=== PATIENT | male | born 1940 | race Caucasian/White ===

== ENCOUNTER → 2018-01-08 | Outpatient (CLI) | payer OTHER | END | disposition home or self-care (01) | LOC: C.LABSPEC 16:42 | PROVIDERS: ATTEND Optometrist | DX: H10.45 Other chronic allergic conjunctivitis (principal) ==

== ENCOUNTER 2019-06-12 12:23 | Inpatient (IN) ==
[2019-06-12] MEDS ORDERED: SODIUM CHLORIDE 0.9% 1000ML 1,000 ML IV SCH (13:30)
[2019-06-12 13:48] LABS: Basophils # (auto) 0.01 K/uL (0-0.2); Basophils % (auto) 0.1 %; Eosinophils # (auto) 0.05 K/uL (0-0.5); Eosinophils % (auto) 0.6 %; Hematocrit (blood only) 38.5 % (42-52); Immature Granulocytes # (auto) 0.05 K/uL (0.00-0.02); Immature Granulocytes % (auto) 0.6 %; Lymphocytes # (auto) 0.87 K/uL (1.2-3.4); Lymphocytes % (auto) 9.7 %; Mean Corpuscular Hemoglobin 37.7 pg (25-34); Mean Corpuscular Hgb Conc 33.8 g/dL (32-36); Mean Corpuscular Volume 111.6 fL (80-100); Mean Platelet Volume 9.3 fL (7.4-10.4); Monocytes % (auto) 5.6 %; Neutrophils # (auto) 7.46 K/uL (1.4-6.5); Neutrophils % (auto) 83.4 %; Platelet Count 223 K/uL (130-400); RDW Coefficient of Variation 13.3 % (11.5-14.5); RDW Standard Deviation 54.2 fL (36.4-46.3); Red Blood Count 3.45 M/uL (4.7-6.1); White Blood Count 8.94 K/uL (4.8-10.8)
[2019-06-12] MEDS ORDERED: LORazepam 2 MG/4 ML VIAL ONE (13:49)
[2019-06-12] MEDS ORDERED: levETIRAcetam 1,250 MG in DEXTROSE 5% 100 ML IV STA (13:56)
[2019-06-12] MEDS ORDERED: LORazepam 0.5 MG/1 ML VIAL IV STA (13:58)
[2019-06-12] MEDS ORDERED: LORazepam 0.5 MG/1 ML VIAL IV PRN ×2 (13:59→17:29)
--- NOTE | 2019-06-12 14:00 | XRay Report ---
XR chest 1V portable CLINICAL HISTORY: weakness COMPARISON STUDY: No previous studies for comparison. FINDINGS: The heart is the upper limits of normal in size. There is no focal pulmonary consolidation. There are no pleural effusions. There is mild age-indeterminate interstitial thickening.[ IMPRESSION: 1. Mild age-indeterminate interstitial thickening. No evidence of lobar consolidation. ACT 112: Negative or not required by law. Electronically signed by: Kashif Sequeira M.D. 06/12/2019 1:59 PM
[2019-06-12 14:05] LABS: Albumin Level 2.9 gm/dl (3.4-5.0); Calcium 8.7 mg/dl (8.5-10.1); Creatinine Clr Calc Pharmacy 75.2 ml/min; Est GFR (African American) 104.4; Est GFR (Non-African American) 90.1; Potassium 3.8 mmol/L (3.5-5.1)
[2019-06-12 14:11] LABS: Macrocytosis Present
[2019-06-12 14:17] LABS: Albumin Globulin Ratio 0.7 (0.9-2); Bilirubin,Total 0.5 mg/dl (0.2-1); Globulin 3.9 gm/dl (2.5-4.0); Thyroid Stimulating Hormone 1.14 uIu/ml (0.300-4.500); Total Protein 6.8 gm/dl (6.4-8.2); Troponin I 0.182 ng/ml (0-0.045)
--- NOTE | 2019-06-12 14:25 | CT Scan Report ---
CT OF THE HEAD WITHOUT CONTRAST CLINICAL HISTORY: seizure COMPARISON STUDY: No previous studies for comparison. CT DOSE: 537.48 mGy.cm TECHNIQUE: Helical axial images of the head were obtained without IV contrast. Automated exposure con trol was utilized for the study. A dose lowering technique was utilized adhering to the principles o f ALARA. FINDINGS: No acute intracranial hemorrhage, midline shift or mass effect is present. Ventricular syst em is unremarkable. The basilar cisterns are patent. There are no extra-axial collections. Note is ma de of a 1.2 cm hypodense focus with possible loss of vargas-white differentiation within the right fron matty lobe on image 91 of 112. There are no significant calvarial abnormalities. There is mild sinus mu cosal thickening. IMPRESSION: 1. No acute intracranial hemorrhage. 2. 1.2 cm hypodense focus with possible loss of vargas-white differentiation within the right frontal l obe. This favors a small age indeterminate infarct. ACT 112: Negative or not required by law. Electronically signed by: Terry Keita M.D. 06/12/2019 2:24 PM
--- NOTE | 2019-06-12 15:03 | History & Physical Report ---
Date of Service June 12, 2019 Assessment & Plan (1) Seizure: Seizure No history of prior seizures CT Head: No acute intracranial hemorrhage. 1.2 cm hypodense focus with possible loss of vargas-white differentiation within the right frontal lobe. This favors a small age indeterminate infarct. Start on IV Keppra 500 mg BID IV ativan PRN for seizures Seizure, fall, aspiration precautions Obtain MRI brain, EEG Consult neurology Age indeterminant CVA Incidental finding on CT head No known history of CVA in the past Start on aspirin 81 mg daily Continue simvastatin Check lipid panel Unwitnessed fall No known history of loss of consciousness or head trauma Reports chronic generalized weakness since many months PT/OT UA--currently pending Mild troponin elevation Likely secondary to seizure, fall Patient denies any chest pain, shortness of breath Trend cardiac enzymes, check resting ECHO Repeat EKG in AM Hypertensive urgency Likely situational secondary to seizure BP improved currently Monitor COPD Ongoing tobacco use disorder No signs of COPD exacerbation Continue home inhalers Counseled to quit smoking Nicotine patch Dyslipidemia ON Statin GERD Continue PPI Temporal arteritis On chronic Prednisone Follows with rheumatology as outpatient Need to reconfirm home prednisone dose once patient more alert DVT Px: SCDs for now Code Status Full Code Disposition PT/OT prior to discharge History of Present Illness Chief Complaint: Seizure Primary Care Provider: Hernando Martel DO Patient is an 79-year-old male with history of COPD, tobacco use disorder, dyslipidemia, GERD, temporal arteritis, vitamin B12 deficiency and other problems presents with history of seizure-like activity. Patient is currently postictal and is unable to provide much history. Most of the history is obtained from old records, ER physician and patient's family. As per the family, patient had an unwitnessed fall this morning but denies any history of head trauma, loss of consciousness. Patient's family noticed him to have seizure-like activity while sitting in the chair which lasted for about 5 minutes. Patient was able to ambulate to bathroom later with the help of his family. Family states that he has been having generalized weakness for many months. Patient was noted to have a tongue bite after the seizure episode. Currently he states having dizziness and is drowsy. No known history of recent infections, fever or chills. Patient had a another episode of seizure while in ED which lasted for about 1 minute as per the family. Patient is currently able to move all his extremities. No known history of seizures in the past as per the family. CT head showed 1.2 cm hypodense focus with possible loss of vargas- white differentiation within the right frontal lobe suggestive of possible small age indeterminate infarct. No known history of CVA in the past as per the family. Patient received IV Keppra and Ativan in ED for seizure control. Denies any history of chest pain, SOB, pedal edema, fever, chills, headache, vertigo, slurred speech, facial deformity, nausea, vomiting, abdominal pain, diarrhea, dysuria, recent change in medications. Allergies Allergy/AdvReac Type Severity Reaction Status Date / Time Penicillins Allergy Mild Rash Verified 06/12/19 13:51 Home Medications Home Medications Medication Instructions Recorded Confirmed Type Boost 1 can PO DAILY 09/06/18 06/12/19 History omeprazole 20 mg PO HS 09/06/18 06/12/19 History simvastatin 40 mg PO HS 09/06/18 06/12/19 History albuterol sulfate [Ventolin HFA] 2 puff INHALATION QID PRN 06/12/19 06/12/19 History cyanocobalamin (vitamin B-12) 500 mcg PO DAILY 06/12/19 06/12/19 History [Vitamin B-12] loteprednol etabonate [Lotemax] 1 drp OPB DAILY 06/12/19 06/12/19 History prednisone 1 mg PO DAILY 06/12/19 06/12/19 History prednisone 5 mg PO DAILY 06/12/19 06/12/19 History tiotropium bromide [Spiriva with 1 cap INHALATION DAILY 06/12/19 06/12/19 History HandiHaler] Past Med/Surg History Medical History Anemia HX GERD (gastroesophageal reflux disease) Hearing deficit Hyperlipidemia Temporal arteritis REASON FOR PREDNISONE Surgical History History of colonoscopy History of esophagogastroduodenoscopy (EGD) History of tonsillectomy History of tooth extraction Family History Brother Cancer Social History Preferred Language: Slovenian Communication Ability: Effective Food Tray Assembler Required: No Beliefs That Will Affect Care: None Current Living Situation: Spouse Feels Safe at Home: Yes Smoking Status: Current every day smoker Tobacco Type: pipe ; Cigarettes Per Day: DAILY ; Second Hand Exposure: No ; Hx Alcohol Use: Yes Alcohol type: wine Hx Substance Use: No Review of Systems Review of Systems: All systems reviewed & are unremarkable except as noted in HPI & below Physical Exam Physical Exam: Physical Exam: Vitals signs as noted above General Appearance:Moderately built and nourished, no apparent distress Head: normocephalic, Atraumatic, +Tongue bite Eyes: normal inspection, EOMI Neck: supple, Trachea midline Respiratory/Chest: Decreased breath sounds, CTA, No accessory muscle use Cardiovascular: S1, S2, No murmur Abdomen/GI:Soft, Non tender, Bowel sounds present Extremities/Musculoskelatal:normal inspection, no edema Neurologic/Psych:Drowsy but easily awakes, grossly no focal neurological deficits Skin: normal color, warm Results & Data Vital Signs (Past 12 Hours) Vital Signs Temp Pulse Resp BP Pulse Ox 06/12/19 13:23 97 06/12/19 12:32 37.3 C 99 H 22 155/86 H 94 Laboratory Results Short CBC 06/12/19 Range/Units 13:35 WBC 8.94 (4.8-10.8) K/uL Hgb 13.0 L (14.0-18.0) g/dL Hct 38.5 L (42-52) % Plt Count 223 (130-400) K/uL BMP 06/12/19 13:35 Sodium 137 Potassium 3.8 Chloride 105 Carbon Dioxide 28 BUN 12 Creatinine 0.67 Glucose 111 H Calcium 8.7 Cardiac Enzymes 06/12/19 Range/Units 13:35 Troponin I 0.182 H* (0-0.045) ng/ml Liver Function 06/12/19 Range/Units 13:35 Total Bilirubin 0.5 (0.2-1) mg/dl AST 16 (15-37) U/L ALT 27 (12-78) U/L Alkaline Phosphatase 48 (45-117) U/L Albumin 2.9 L (3.4-5.0) gm/dl Medications Administered Home Medications Medication Instructions Recorded Confirmed Boost 1 can PO DAILY 09/06/18 06/12/19 omeprazole 20 mg PO HS 09/06/18 06/12/19 simvastatin 40 mg PO HS 09/06/18 06/12/19 albuterol sulfate [Ventolin HFA] 2 puff INHALATION QID PRN 06/12/19 06/12/19 cyanocobalamin (vitamin B-12) 500 mcg PO DAILY 06/12/19 06/12/19 [Vitamin B-12] loteprednol etabonate [Lotemax] 1 drp OPB DAILY 06/12/19 06/12/19 prednisone 1 mg PO DAILY 06/12/19 06/12/19 prednisone 5 mg PO DAILY 06/12/19 06/12/19 tiotropium bromide [Spiriva with 1 cap INHALATION DAILY 06/12/19 06/12/19 HandiHaler] ECG Additional Comments: EKG; sinus rhythm, PVCs, QTC 472, nonspecific ST-T wave changes
[2019-06-12 17:10] LABS: Appearance Urine Turbid (Clear); Bacteria Urine Automated Negative (Negative); Bilirubin Urine Negative (Negative); Blood Urine Negative (Negative); Cast Urine Automated 0 /lpf (0-5); Color Urine Yellow; Glucose Urine UA Negative (Negative); Ketones Urine Negative (Negative); Leukocyte Esterase Urine Negative (Negative); Nitrite Urine Negative (Negative); Protein Urine Negative (Negative); RBC Urine Automated 0-4 /hpf (0-4); Specific Gravity Urine 1.013 (1.000-1.030); Urobilinogen Urine Negative (Negative); pH Urine 8.5 (4.5-7.5)
[2019-06-12] MEDS ORDERED: ACETAMINOPHEN 325 MG TAB PO PRN (17:29)
[2019-06-12] MEDS ORDERED: ONDANSETRON INJ 2 MG/ML 2 ML VIAL IV PRN (17:29)
[2019-06-12] MEDS ORDERED: ASPIRIN 81 MG ECTAB PO STA (17:29)
[2019-06-12] MEDS ORDERED: POLYETHYLENE (MIRALAX) 17 GM PACK PO PRN (17:29)
[2019-06-12] MEDS ORDERED: ALBUT/IPRATROP 3MG/0.5MG NEB 3 ML VIAL NEB PRN (17:29)
[2019-06-12] MEDS: NICOTINE 14 MG/24 HR PATCH TD SCH (18:02)
--- NOTE | 2019-06-12 20:38 | Emergency Department Note ---
Entered by Tania Esparza acting as a scribe for Roge Luciano MD ED Provider Note CHIEF COMPLAINT: seizure HISTORY OF PRESENT ILLNESS: The patient is a 79 year old M who presents to the Emergency Room with complaints of an episode of a seizure that occurred prior to arrival. The HPI was provided by the patient and his . The patient states that he fell this morning. He denies that he tripped or experienced light-headedness prior to his fall. He notes that he did not hit his head or lose consciousness. He adds that he has had an issue with his balance for the past several months The patients states that she did not see the patient fall today. She notes that the patient was sitting in a chair but adds that she was in another room. She states that she heard a loud bang sound. She notes that she found the pat ient on the ground. She adds that the patient was stiff, shaking, and was not talking. She notes that the patient was shaking for 5 minutes. She adds that the patient came to his senses, right away, after he stopped shaking. The patient denies biting his tongue or experiencing urinary incontinence during his seizure. He adds that he has not had problems with his bowels or urine in the past couple of days. He states that he is currently experiencing right rib pain when he coughs. He denies being on any blood thinners. He notes that he has a history of COPD, anemia, and arteritis. He denies a past history of seizures. Pt denies LOC, headache, fevers, chills, diaphoresis, visual changes, neck pain, chest pain, breathing difficulties, nausea, vomiting, abdominal pain, back pain, leg pain, arm pain, melena, hematochezia, urinary symptoms, numbness, weakness, lymphadenopathy, rash, or other complaints. REVIEW OF SYSTEMS: See HPI for pertinent positives and negatives. A total of ten systems were reviewed and were otherwise negative. PMHx/PSHx: GERD, hearing deficit, hyperlipidemia, COPD, anemia, arteritis SOCIAL HISTORY: Patient lives at home. Patient drinks alcohol and smokes cigarettes. PHYSICAL EXAM: GENERAL: Awake, alert, uncomfortable-appearing, in no distress HENT: Normocephalic, atraumatic. Oropharynx unremarkable. EYES: PERRL. Normal conjunctiva. Sclera non-icteric. NECK: Inspection normal. Non-tender. Supple. No nuchal rigidity. FROM. No masses. RESPIRATORY: Clear to auscultation. No wheezes. No rales. Pursed lip breathing. CARDIAC: Normal rate. Normal rhythm. No murmurs. No rubs. Extremities warm and well perfused. Pulses equal. No JVD. GI: Soft, non-distended. No tenderness to palpation. No rebound or guarding. No masses. RECTAL: Deferred. MUSCULOSKELETAL: Atraumatic. Chest examination reveals no tenderness. The back is symmetrical on inspection without obvious abnormality. There is no CVA tenderness to palpation. No joint edema. LOWER EXTREMITIES: Calves are equal size bilaterally and non-tender. No edema. No discoloration. NEURO: Normal sensorium. No sensory or motor deficits noted. SKIN: No rash or jaundice noted. EMERGENCY DEPARTMENT COURSE: 1317: The patient was evaluated in room B4B, and a complete history and physical examination were performed. 1347: The patient is currently experiencing another seizure. 1353: The patient experienced a tonic clonic seizure. The patient was placed on a non-rebreather. The patient was postictal afterwards. The patient not experience a loss of bowel or bladder control. The patient was placed on a vehicle monitor technician which showed arrhythmia prior to, during, and after the event. The patient is now receiving Kepra and Ativan. The patients family was updated. 1434: I reviewed the patient's case with TALAT Conrda, for Dr. Pulliam, [facility]. She will evaluate the patient for further management. 1453: The patient is stable and resting comfortably. The plan was discussed with the patient and his family. MEDICAL DECISION MAKING: Patient placed in seizure precautions immediately upon arrival. Nursing notes reviewed and agree them. Additional history obtained from family The patient's history was concerning for a possible seizure. Differential diagnosis: Etiologies such as infection, hypoglycemia, electrolyte abnormalities, cardiac sources, intracerebral event, trauma, toxicologic, neurologic, as well as others were entertained. Physical examination: As above. No signs of trauma. ER treatment provided: Seizure precautions Monitoring IV Ativan IV Keppra On reassessment the patient was stable. No additional seizures. Diagnostics interpretation by me: ECG: No dysrhythmia or ischemia The labs revealed an unremarkable CBC and chemistry panel. Slight elevation of the patient's troponin. Imaging studies: CT scan of the brain was concerning for a possible subacute CVA. Consultation: [facility] The case was discussed and diagnostics were reviewed. The patient was evaluated in the ER and admitted.. IMPRESSION: Seizure, elevated troponin, subacute CVA PLAN: Admitted as inpatient CRITICAL CARE: I have personally spent greater than 30 minutes of critical care time in the direct management of this patient. This includes bedside care, interpretation of diagnostic studies, and testing, discussion with consultants, patient, and family members, and other required patient management activities. This 30 minutes is in excess of all separately billable procedures. The scribe's documentation has been prepared under my direction and personally reviewed by me in its entirety. I confirm that the note above accurately reflects all work, treatment, procedures, and medical decision making performed by me. Impression & Plan Seizure, Elevated troponin, CVA (cerebral vascular accident) Past Med/Surg History Medical History Anemia HX GERD (gastroesophageal reflux disease) Hearing deficit Hyperlipidemia Temporal arteritis REASON FOR PREDNISONE Surgical History History of colonoscopy History of esophagogastroduodenoscopy (EGD) History of tonsillectomy History of tooth extraction Family History Brother Cancer Social History Preferred Language: Japanese Communication Ability: Effective Piercing Artist Required: No Beliefs That Will Affect Care: None Current Living Situation: Spouse Other Information That Helps Us Care for You: No Feels Safe at Home: Yes Safety Concerns: Feels Safe At This Time Smoking Status: Current every day smoker Tobacco Type: pipe ; Cigarettes Per Day: DAILY ; Second Hand Exposure: Yes ; Tobacco Cessation Education Requested by Patient: No Hx Alcohol Use: Yes Alcohol type: wine Hx Substance Use: No Results & Data Vital Signs Vital Signs - 24 hr 06/12/19 12:32 06/12/19 12:36 06/12/19 13:00 Temperature 37.3 C Temperature Source Oral Pulse Rate 99 H 96 H 94 H Pulse Rate from SpO2 Sensor 90 93 H Pulse Rhythm Regular Pulse Strength Normal Respiratory Rate 22 21 19 Respiratory Effort / Characteristics Non-Labored Spontaneous Respiratory Depth Normal Respiratory Pattern Regular Blood Pressure 155/86 H 155/86 H 150/90 H Blood Pressure Mean 109 98 104 Blood Pressure Position Lying Pulse Oximetry 94 94 94 Oxygen Delivery Method Room Air Sepsis Recent Fever Within 48 Hours No Sepsis New/Unexplained Change in Mental Status No Sepsis Action Taken by Nursing No Action Required 06/12/19 13:23 06/12/19 13:30 06/12/19 13:48 Temperature Temperature Source Pulse Rate 98 H 120 H Pulse Rate from SpO2 Sensor 98 H 119 H Pulse Rhythm Pulse Strength Respiratory Rate 16 25 H Respiratory Effort / Characteristics Respiratory Depth Respiratory Pattern Blood Pressure 161/90 H 202/130 H Blood Pressure Mean 109 156 Blood Pressure Position Pulse Oximetry 97 97 100 Oxygen Delivery Method Room Air Sepsis Recent Fever Within 48 Hours Sepsis New/Unexplained Change in Mental Status Sepsis Action Taken by Nursing 06/12/19 14:11 06/12/19 14:30 06/12/19 15:00 Temperature Temperature Source Pulse Rate 102 H 94 H 94 H Pulse Rate from SpO2 Sensor 102 H 95 H 93 H Pulse Rhythm Pulse Strength Respiratory Rate 16 16 19 Respiratory Effort / Characteristics Respiratory Depth Respiratory Pattern Blood Pressure 160/98 H 142/85 H 136/81 Blood Pressure Mean 114 100 96 Blood Pressure Position Pulse Oximetry 94 93 95 Oxygen Delivery Method Sepsis Recent Fever Within 48 Hours Sepsis New/Unexplained Change in Mental Status Sepsis Action Taken by Nursing 06/12/19 15:02 06/12/19 15:30 Temperature Temperature Source Pulse Rate 91 H 90 Pulse Rate from SpO2 Sensor 91 H Pulse Rhythm Pulse Strength Respiratory Rate 19 20 Respiratory Effort / Characteristics Respiratory Depth Respiratory Pattern Blood Pressure 136/81 135/79 Blood Pressure Mean 96 92 Blood Pressure Position Pulse Oximetry 95 Oxygen Delivery Method Sepsis Recent Fever Within 48 Hours Sepsis New/Unexplained Change in Mental Status Sepsis Action Taken by Prison Medications Current Medication List: was personally reviewed by me Laboratory Data Attestation: I reviewed the patient's lab results. Result diagrams: 06/12/19 13:35 06/12/19 13:35 Lab Results 06/12/19 06/12/19 Range/Units 13:35 13:35 WBC 8.94 (4.8-10.8) K/uL RBC 3.45 L (4.7-6.1) M/uL Hgb 13.0 L (14.0-18.0) g/dL Hct 38.5 L (42-52) % MCV 111.6 H (80-100) fL MCH 37.7 H (25-34) pg MCHC 33.8 (32-36) g/dL RDW Std Deviation 54.2 H (36.4-46.3) fL RDW Coeff of Gene 13.3 (11.5-14.5) % Plt Count 223 (130-400) K/uL MPV 9.3 (7.4-10.4) fL Immature Gran % (Auto) 0.6 % Neut % (Auto) 83.4 % Lymph % (Auto) 9.7 % [place] % (Auto) 5.6 % Eos % (Auto) 0.6 % Baso % (Auto) 0.1 % Immature Gran # (Auto) 0.05 H (0.00-0.02) K/uL Neut # (Auto) 7.46 H (1.4-6.5) K/uL Lymph # (Auto) 0.87 L (1.2-3.4) K/uL [place] # (Auto) 0.50 (0.11-0.59) K/uL Eos # (Auto) 0.05 (0-0.5) K/uL Baso # (Auto) 0.01 (0-0.2) K/uL Macrocytosis Present Sodium 137 (136-145) mmol/L Potassium 3.8 (3.5-5.1) mmol/L Chloride 105 (98-107) mmol/L Carbon Dioxide 28 (21-32) mmol/L Anion Gap 4.0 (3-11) BUN 12 (7-18) mg/dl Creatinine 0.67 (0.6-1.4) mg/dl Est Cr Clr Drug Dosing 75.2 ml/min Est GFR ( Amer) 104.4 Est GFR (Non-Af Amer) 90.1 BUN/Creatinine Ratio 18.0 (10-20) Glucose 111 H (70-99) mg/dl Calcium 8.7 (8.5-10.1) mg/dl Magnesium 2.0 (1.8-2.4) mg/dl Total Bilirubin 0.5 (0.2-1) mg/dl AST 16 (15-37) U/L ALT 27 (12-78) U/L Alkaline Phosphatase 48 (45-117) U/L Troponin I 0.182 H* (0-0.045) ng/ml Total Protein 6.8 (6.4-8.2) gm/dl Albumin 2.9 L (3.4-5.0) gm/dl Globulin 3.9 (2.5-4.0) gm/dl Albumin/Globulin Ratio 0.7 L (0.9-2) TSH 1.140 (0.300-4.500) uIu/ml Administered Medications Sodium Chloride (Nss 1000ml) 1,000 mls @ 125 mls/hr IV .Q8H EMERY Stop: 06/12/19 21:29 Last Admin: 06/12/19 15:38 Dose: 125 mls/hr Documented by: [id number] Nicotine (Nicoderm Cq) 14 mg TD QAM EMERY Stop: 07/12/19 17:44 Last Admin: 06/12/19 18:02 Dose: Not Given Documented by: [id number] Discontinued Medications Aspirin (Ecotrin Ectab) 81 mg PO NOW STA Stop: 06/12/19 17:30 Last Admin: 06/12/19 18:02 Dose: 81 mg Documented by: [id number] Levetiracetam 1,250 mg/ (Dextrose) 112.5 mls @ 440 mls/hr IV NOW STA Stop: 06/12/19 14:11 Last Infusion: 06/12/19 15:38 Dose: 0 mls/hr Documented by: [id number] Admin: 06/12/19 14:46 Dose: 440 mls/hr Documented by: [id number] Lorazepam (Ativan) 0.5 mg in 1 mls @ 0.5 mls/min IV NOW STA Stop: 06/12/19 13:59 Last Admin: 06/12/19 13:47 Dose: 0.5 mls/min Documented by: [id number] Lorazepam (Ativan) 0.5 mg in 1 mls @ 0.5 mls/min IV ONE PRN PRN Reason: SEIZURE Stop: 06/12/19 15:45 Last Admin: 06/12/19 14:00 Dose: 0.5 mls/min Documented by: [id number] Lorazepam (Ativan) Confirm Administered Dose 2 mg .ROUTE .STK-MED ONE Stop: 06/12/19 13:50 Last Admin: 06/12/19 14:47 Dose: Not Given Documented by: [id number] Imaging Data Radiologist's Impression: Radiology results as stated below per my review and the radiologist's interpretation: XR chest 1V portable CLINICAL HISTORY: weakness COMPARISON STUDY: No previous studies for comparison. FINDINGS: The heart is the upper limits of normal in size. There is no focal pulmonary consolidation. There are no pleural effusions. There is mild age- indeterminate interstitial thickening.[ IMPRESSION: 1. Mild age-indeterminate interstitial thickening. No evidence of lobar consolidation. ACT 112: Negative or not required by law. Electronically signed by: Kashif Sequeira M.D. 06/12/2019 1:[address] OF THE HEAD WITHOUT CONTRAST CLINICAL HISTORY: seizure COMPARISON STUDY: No previous studies for comparison. CT DOSE: 537.48 mGy.cm TECHNIQUE: Helical axial images of the head were obtained without IV contrast. Automated exposure control was utilized for the study. A dose lowering technique was utilized adhering to the principles of ALARA. FINDINGS: No acute intracranial hemorrhage, midline shift or mass effect is present. Ventricular system is unremarkable. The basilar cisterns are patent. There are no extra-axial collections. Note is made of a 1.2 cm hypodense focus with possible loss of vargas-white differentiation within the right frontal lobe on image 91 of 112. There are no significant calvarial abnormalities. There is mild sinus mucosal thickening. IMPRESSION: 1. No acute intracranial hemorrhage. 2. 1.2 cm hypodense focus with possible loss of vargas-white differentiation within the right frontal lobe. This favors a small age indeterminate infarct. ACT 112: Negative or not required by law. Electronically signed by: Terry Keita M.D. 06/12/2019 2:24 PM ECG Data Attestation: I personally reviewed and interpreted this ECG as follows: Indication: + other (seizure) Rate (beats per minute): 98 Rhythm: sinus rhythm ECG Intervals/blocks: + Normal QRS ECG [place]: + Normal ECG ST segments: no ST depression and no ST elevation ECG Findings: + PVCs; no PACs Blood Pressure Blood Pressure Findings: Elevated blood pressure Blood Pressure Disposition: further management by hospitalist Discharge Plan Visit Data *Final* Discharge Date/Time: 06/12/19 17:10 Chief Complaint: Seizure Stated Complaint: seizure ED Provider: Roge Luciano Discharge Problem: Seizure, Elevated troponin, CVA (cerebral vascular accident) Patient Disposition: Admitted As Inpatient Discharge Instructions Interventions: ED Discharge Assessment Last Done: 06/12/19 17:10 Discharge Problem: CVA (cerebral vascular accident) Qualifiers: CVA mechanism: unspecified Qualified Code(s): I63.9 - Cerebral infarction, unspecified The scribe's documentation has been prepared under my direction and personally reviewed by me in its entirety. I confirm that the note above accurately reflects all work, treatment, procedures, and medical decision making performed by me.
[2019-06-12] MEDS: predniSONE 1 MG TAB PO SCH (20:52)
[2019-06-12] MEDS: PANTOprazole 40 MG TAB PO SCH (20:52)
[2019-06-12] MEDS ORDERED: SIMVASTATIN 40 MG TAB PO SCH (21:00)
[2019-06-12] MEDS ORDERED: GADOBUTROL 65ML VIAL IV PRN (22:28)
--- NOTE | 2019-06-12 23:12 | Magnetic Resonance Report ---
MRI OF THE BRAIN COMBO CLINICAL HISTORY: Seizure. COMPARISON STUDY: CT of the brain dated 06/12/2019. TECHNIQUE: MRI of the brain was performed utilizing various T1 and T2-weighted sequences in the axial , sagittal, and coronal planes. Contrast-enhanced sequences were acquired following the administratio n of 6 cc of Gadavist. The examination is performed using the seizure protocol. FINDINGS: Brain parenchyma: There is age-related involutional change noting mild subcortical and periventricula r microangiopathic disease. There is no hemorrhage or mass effect. There is a small focus of restrict ed diffusion identified in the high right frontal cortex consistent with acute to subacute ischemia. No additional foci of restricted diffusion are identified. No enhancing mass lesion is identified on the postcontrast images. Lazo-white matter differentiation is preserved. No extra-axial fluid collect ion is seen. The cerebellar tonsils are normal in configuration. Ventricles, sulci, and cisterns: Prominent secondary to involutional change. Pituitary and sella: Unremarkable. Intracranial vasculature: Normal flow voids are maintained at the skull base. Orbits: The bony orbits are grossly intact. Orbital contents are normal in appearance noting bilatera l ocular lens implants. Sinuses and mastoids: There is a large right mastoid effusion. The left mastoid air cells are clear. Mucosal thickening and trace fluid is noted in the sphenoid sinuses. The remaining paranasal sinuses are clear. Calvarium: Unremarkable. Soft tissues: A 3.0 cm cystic structure is identified in the posterior soft tissues of the upper neck . Cervical cord: The partially visualized cervical spinal cord is normal in appearance. IMPRESSION: 1. A small focus of restricted diffusion in the right frontal cortex is consistent with acute to suba cute ischemia. 2. No additional foci of acute ischemia are identified. 3. There is no hemorrhage or mass effect. ACT 112: Negative or not required by law. Electronically signed by: Drew Rees M.D. 06/12/2019 11:10 PM
[2019-06-13 06:01] LABS: Basophils # (auto) 0.01 K/uL (0-0.2); Basophils % (auto) 0.2 %; Eosinophils # (auto) 0.06 K/uL (0-0.5); Hematocrit (blood only) 37.8 % (42-52); Hemoglobin 12.7 g/dL (14.0-18.0); Immature Granulocytes # (auto) 0.05 K/uL (0.00-0.02); Immature Granulocytes % (auto) 0.8 %; Lymphocytes # (auto) 1.14 K/uL (1.2-3.4); Lymphocytes % (auto) 19.3 %; Mean Corpuscular Hemoglobin 36.8 pg (25-34); Mean Corpuscular Hgb Conc 33.6 g/dL (32-36); Mean Corpuscular Volume 109.6 fL (80-100); Mean Platelet Volume 9.7 fL (7.4-10.4); Monocytes # (auto) 0.49 K/uL (0.11-0.59); Monocytes % (auto) 8.3 %; Neutrophils # (auto) 4.15 K/uL (1.4-6.5); Neutrophils % (auto) 70.4 %; Platelet Count 227 K/uL (130-400); RDW Coefficient of Variation 13.3 % (11.5-14.5); RDW Standard Deviation 53.3 fL (36.4-46.3); Red Blood Count 3.45 M/uL (4.7-6.1)
[2019-06-13 06:36] LABS: BUN Creatinine Ratio 14.7 (10-20); Calcium 8.4 mg/dl (8.5-10.1); Creatinine Clr Calc Pharmacy 85.4 ml/min; Est GFR (Non-African American) 94.9; Potassium 3.6 mmol/L (3.5-5.1)
[2019-06-13] MEDS: NICOTINE 14 MG/24 HR PATCH TD SCH (08:03)
[2019-06-13] MEDS: TIOTROPIUM BROMIDE 5 PUFF/90 MCG INH INH SCH (08:04)
[2019-06-13] MEDS: ASPIRIN 81 MG ECTAB PO SCH (08:04)
[2019-06-13] MEDS: predniSONE 5 MG TAB PO SCH (08:04)
--- NOTE | 2019-06-13 08:56 | Ultrasound Report ---
ULTRASOUND OF THE CAROTID ARTERIES CLINICAL HISTORY: Stroke COMPARISON STUDY: None. TECHNIQUE: Real-time, grayscale, and color Doppler sonography of the carotid arteries was performed. Imaging reviewed in the transverse and longitudinal planes. NASCET criteria was utilized for stenosis calcification. FINDINGS: The right common carotid artery was evaluated. There was mild atheromatous plaque. The peak systolic velocity was 80 cm/s. At this point in the examination, the patient refused additional imaging stating that the examination was too painful. The examination is therefore nondiagnostic. IMPRESSION: 1. Nondiagnostic examination, as the patient refused completion of the study. ACT 112: Negative or not required by law. Electronically signed by: Kashif Sequeira M.D. 06/13/2019 8:55 AM
[2019-06-13] MEDS ORDERED: FOOD SUPPLEMT LACTOSE REDUCED PO SCH (09:00)
--- NOTE | 2019-06-13 09:30 | Electroencephalogram ---
EEG Procedure Note Date of Service June 13, 2019 Start / End Times Start Time: 0634 End Time: [address] Pulliam History Sequential seizures x2 Home Medication List Home Medications Medication Instructions Recorded Confirmed Type Boost 1 can PO DAILY 09/06/18 06/12/19 History omeprazole 20 mg PO HS 09/06/18 06/12/19 History simvastatin 40 mg PO HS 09/06/18 06/12/19 History albuterol sulfate [Ventolin HFA] 2 puff INHALATION QID PRN 06/12/19 06/12/19 History cyanocobalamin (vitamin B-12) 500 mcg PO DAILY 06/12/19 06/12/19 History [Vitamin B-12] loteprednol etabonate [Lotemax] 1 drp OPB DAILY 06/12/19 06/12/19 History prednisone 1 mg PO DAILY 06/12/19 06/12/19 History prednisone 5 mg PO DAILY 06/12/19 06/12/19 History tiotropium bromide [Spiriva with 1 cap INHALATION DAILY 06/12/19 06/12/19 History HandiHaler] Inpatient Medication List Aspirin (Ecotrin Ectab) 81 mg PO DAILY [facility] Stop: 07/13/19 08:59 Last Admin: 06/13/19 08:04 Dose: 81 mg Documented by: [id number] Gadobutrol (Gadavist 65ml) 6 ml IV ONCE PRN PRN Reason: Interaction Checking Stop: 06/16/19 22:27 Last Admin: 06/12/19 22:29 Dose: 6 ml Documented by: [id number] Levetiracetam 500 mg/ Dextrose 105 mls @ 440 mls/hr IV BID [facility] Stop: 07/12/19 20:59 Last Infusion: 06/13/19 08:33 Dose: 0 mls/hr Documented by: [id number] Admin: 06/13/19 08:03 Dose: 440 mls/hr Documented by: [id number] Infusion: 06/12/19 21:14 Dose: 0 mls/hr Documented by: [id number] Admin: 06/12/19 20:52 Dose: 440 mls/hr Documented by: [id number] Miscellaneous (Remove Nicoderm Patch) 1 ea N/A DAILY@[id number] [facility] Stop: 07/13/19 08:58 Last Admin: 06/13/19 08:04 Dose: 1 ea Documented by: [id number] Nicotine (Nicoderm Cq) 14 mg TD QAM [facility] Stop: 07/12/19 17:44 Last Admin: 06/13/19 08:03 Dose: 14 mg Documented by: [id number] Admin: 06/12/19 18:02 Dose: Not Given Documented by: [id number] Pantoprazole Sodium (Protonix) 40 mg PO HS [facility] Stop: 07/12/19 20:59 Last Admin: 06/12/19 20:52 Dose: 40 mg Documented by: [id number] Prednisone (Prednisone) 5 mg PO DAILY [facility] Stop: 07/13/19 08:59 Last Admin: 06/13/19 08:04 Dose: 5 mg Documented by: [id number] Prednisone (Prednisone) 1 mg PO HS [facility] Stop: 07/12/19 20:59 Last Admin: 06/12/19 20:52 Dose: 1 mg Documented by: [id number] Tiotropium Naoma (Spiriva) 1 puffs INH DAILY [facility] Stop: 07/13/19 08:59 Last Admin: 06/13/19 08:04 Dose: 1 puffs Documented by: [id number] Discontinued Medications Aspirin (Ecotrin Ectab) 81 mg PO NOW STA Stop: 06/12/19 17:30 Last Admin: 06/12/19 18:02 Dose: 81 mg Documented by: [id number] Sodium Chloride (Nss 1000ml) 1,000 mls @ 125 mls/hr IV .Q8H [facility] Stop: 06/12/19 21:29 Last Infusion: 06/12/19 23:53 Dose: 0 mls/hr Documented by: [id number] Admin: 06/12/19 15:38 Dose: 125 mls/hr Documented by: [id number] Levetiracetam 1,250 mg/ (Dextrose) 112.5 mls @ 440 mls/hr IV NOW STA Stop: 06/12/19 14:11 Last Infusion: 06/12/19 15:38 Dose: 0 mls/hr Documented by: [id number] Admin: 06/12/19 14:46 Dose: 440 mls/hr Documented by: [id number] Lorazepam (Ativan) 0.5 mg in 1 mls @ 0.5 mls/min IV NOW STA Stop: 06/12/19 13:59 Last Admin: 06/12/19 13:47 Dose: 0.5 mls/min Documented by: [id number] Lorazepam (Ativan) 0.5 mg in 1 mls @ 0.5 mls/min IV ONE PRN PRN Reason: SEIZURE Stop: 06/12/19 15:45 Last Admin: 06/12/19 14:00 Dose: 0.5 mls/min Documented by: [id number] Lorazepam (Ativan) Confirm Administered Dose 2 mg .ROUTE .STK-MED ONE Stop: 06/12/19 13:50 Last Admin: 06/12/19 14:47 Dose: Not Given Documented by: [id number] Simvastatin (Zocor) 40 mg PO HS [facility] Stop: 07/12/19 20:59 Last Admin: 06/12/19 20:52 Dose: 40 mg Documented by: [id number] Description This is a 21 electrode EEG with a single channel dedicated to limited EKG. The electrodes were placed in accordance with the International 10-20 system. This EEG obtained as a bedside recording without video analysis of patient movement and behavior was done during wakefulness and is characterized by the presence of well-developed bilaterally symmetrical posterior head region maximal background rhythm in the alpha range of up to 10 Hz and maximum frequency and 30 V of maximal amplitude. Polymorphic mid frequency modest voltage theta activity is seen in a symmetrical fashion over the central regions. Beta activity is seen bifrontally. No time during the waking tracing is or clear evidence for potentially epileptogenic activity for polyspike or spike-wave burst, focal sharp waves or focal spikes and there specifically is no evidence for focal spike activity originating from the anterior portion of the right hemisphere where recent CVA has been documented by MRI scan Interpretation This is a normal EEG during wakefulness without evidence for focal or generalized encephalopathy and without evidence for potentially epileptogenic activity Clinical Correlation This is a normal EEG.a normal EEG result exclude the diagnosis of a seizure disorder and clinical correlation is required Roge Dawn MD
[2019-06-13] MEDS: ACETAMINOPHEN 325 MG TAB PO PRN (11:02)
--- NOTE | 2019-06-13 13:41 | Neurology Consultation ---
Date of Consultation June 13, 2019 Assessment & Plan (1) CVA (cerebral vascular accident): 1. MRI brain- 1.2 cm hypodense right frontal lobe 2. TTE if not already done 3. start aspirin 81 mg and plavix 75 mg daily x 3 weeks then stop plavix aspirin for a lifetime 4. optimize HTN ,HLD, DM LDL <70 5. troponin elevated - cardiology for input- it is unclear what this event was 6. PT/OT speech- no apparent needs 7. CTA head/neck for further evaluation of vascular system 8. no driving state law after altered conscience, avoid heights, no swimming bathing alone follow up with neurology 4-6 weeks after discharge [facility] PAC schedule (2) Seizure: 1. Keppra 500 mg BID will continue for now 2. unclear what the seizure episodes were like- continue for now Supervising Physician Co-Signing Physician Notes I have seen and discussed above patient with Dr Roge Dawn, neurology I have reviewed this case and have attempted to obtain a history from several family members as the patient himself really denies that anything happened at all and will only admit to having had a fall and that his is "making things up" According to what I can glean from the chart and the family he had some form of change in mental status about a week ago and was apparently making little or no sense during his conversations and may have had some word finding issues Yesterday he apparently had an unwitnessed fall was found by his , was then placed back in a chair having for unclear reasons being unable to stand up and sit in a chair himself and then had some chronic posturing of his extremities requiring her to try to restrain him and then became unresponsive. After having been brought to our emergency room he had another event that was described as a tonic-clonic seizure but detailed description really is lacking and he refuses to acknowledge that anything happened although admits that he does not recall these events He has not had any further seizure-like activity after having been loaded with Keppra, imaging studies have shown what appears to be a relatively recent right frontal infarction involving the cortex and subcortex an EEG is normal but this does not eliminate potential seizure activity. An echocardiogram is been done but I cannot locate the report is yet and he could not tolerate the neck extension required to do a duplex of the carotids If indeed this was a seizure then I suspect the acute or at least recent stroke was probably the precipitating cause and we are going to continue the Keppra empirically for at least 6 months and perhaps longer A more importance however is the potential cause of the stroke and in light of the temporal arteritis diagnosis which may or may not be valid (biopsy was negative) we are going to go ahead with a CT angiogram of the head and neck to be sure there is no vasculitis operating here and continue to monitor him for atrial fibrillation and hopefully review the results of the echo I would continue the aspirin, add Plavix for 21 days and now continue to make rounds on him through the weekend and try to come up with a discharge policy neurologic point of view within the next day or 2 depending on results of the outstanding imaging studies Roge Dawn MD History of Present Illness Reason for Consultation: seizure Requesting Physician: Dipak Huang MD Attending Physician: Dipak Huang MD History of Present Illness Ace is a 79 year old male with PMH- COPD, tobacco- pipe, HLD, GERD, temporal arteritis- 09/09/2018 biopsy negative, vitamin B12 deficiency presents with history of seizure-like activity. He had an unwitnessed fall this morning but denies any history of head trauma, loss of consciousness. He was reported while sitting in the chair he had an unwitnessed fall from the chair when his found him he responded right away afterward. He was able to ambulate to bathroom later with the help of his family but report he was having generalized weakness for many months. He denies biting his tongue and was dizzy and drowsy afterward. No known history of recent infections, fever or chills. There was another episode of seizure while in ED which lasted for about 1 minute. No known history of seizures in the past as per the family. CT head showed 1.2 cm hypodense focus with possible loss of vargas-white differentiation within the right frontal lobe suggestive of possible small age indeterminate infarct. He received IV Keppra and Ativan in ED for seizure control. He was not on aspirin daily prior to this event. He states he thinks his over reacted to the fall. He does admit to falling but states he did not have a loss of conscience. denies CP, SOB, abdominal pain, one sided weakness, numbness tingling, N, V, loss of bowel or bladder. + right sided rib pain. Allergies Allergy/AdvReac Type Severity Reaction Status Date / Time Penicillins Allergy Mild Rash Verified 06/12/19 13:51 Home Medications Home Medications Medication Instructions Recorded Confirmed Type Boost 1 can PO DAILY 09/06/18 06/12/19 History omeprazole 20 mg PO HS 09/06/18 06/12/19 History simvastatin 40 mg PO HS 09/06/18 06/12/19 History albuterol sulfate [Ventolin HFA] 2 puff INHALATION QID PRN 06/12/19 06/12/19 History cyanocobalamin (vitamin B-12) 500 mcg PO DAILY 06/12/19 06/12/19 History [Vitamin B-12] loteprednol etabonate [Lotemax] 1 drp OPB DAILY 06/12/19 06/12/19 History prednisone 1 mg PO DAILY 06/12/19 06/12/19 History prednisone 5 mg PO DAILY 06/12/19 06/12/19 History tiotropium bromide [Spiriva with 1 cap INHALATION DAILY 06/12/19 06/12/19 History HandiHaler] Patient History Medical History Anemia HX GERD (gastroesophageal reflux disease) Hearing deficit Hyperlipidemia Temporal arteritis REASON FOR PREDNISONE Surgical History History of colonoscopy History of esophagogastroduodenoscopy (EGD) History of tonsillectomy History of tooth extraction Family History Brother Cancer Social History Preferred Language: Danish Communication Ability: Effective Patient Resource Specialist Required: No Beliefs That Will Affect Care: None Current Living Situation: Spouse Other Information That Helps Us Care for You: No Feels Safe at Home: Yes Safety Concerns: Feels Safe At This Time Smoking Status: Current every day smoker Tobacco Type: pipe ; Cigarettes Per Day: DAILY ; Second Hand Exposure: Yes ; Tobacco Cessation Education Requested by Patient: No Hx Alcohol Use: Yes Alcohol type: wine Hx Substance Use: No Physical Exam Physical Exam: Physical Exam: Constitutional: appearance nourished, healthy and normal Ears, Nose, Mouth and Throat: mucous membranes moist, no injection and skin normal, eyes normal Cardiovascular: normal S-1 and S-2 and regular rate and rhythm Respiratory: course breath sounds Musculoskeletal: no peripheral edema and good distal pulses Skin: no stigmata of neurocutaneous disease noted and normal and intact Eyes: extraocular muscles intact (EOMI) and pupils equal, round and reactive to light (PERRL) NEUROLOGIC EXAMINATION: Mental status: Alert and interactive Oriented to hospital, 2019, Norma, "just don't ask me who is president" Oriented to person Speech fluent with no evidence of aphasia Cranial Nerves smile eye brow raise symmetric Reflexes: Deep tendon reflexes were symmetrical and graded 2/5. Sensory: no sensory deficits, to light touch, vibration GT proprioception intact bilaterally Coordination: finger to nose no bipass Gait/Stance: Posture sitting up in bed Motor: Negative for pronator drift of out stretched arms with eyes closed. Strength: hand cad specialist biceps triceps 5/5 bilaterally, hip flex patellar, plantar flex ext bilaterally 5/5 Results & Data Vital Signs (Past 12 Hours) Vital Signs Temp Pulse Pulse Pulse Resp BP Pulse Ox 06/13/19 13:00 36.5 C 100 H 22 121/79 96 06/13/19 08:00 84 06/13/19 03:35 36.7 C 92 H 17 129/81 95 Laboratory Results Abnormal lab results 06/12/19 06/12/19 06/12/19 Range/Units 13:35 13:35 16:15 RBC 3.45 L (4.7-6.1) M/uL Hgb 13.0 L (14.0-18.0) g/dL Hct 38.5 L (42-52) % MCV 111.6 H (80-100) fL MCH 37.7 H (25-34) pg RDW Std Deviation 54.2 H (36.4-46.3) fL Immature Gran # (Auto) 0.05 H (0.00-0.02) K/uL Neut # (Auto) 7.46 H (1.4-6.5) K/uL Lymph # (Auto) 0.87 L (1.2-3.4) K/uL Creatinine (0.6-1.4) mg/dl Glucose 111 H (70-99) mg/dl Calcium (8.5-10.1) mg/dl Troponin I 0.182 H* (0-0.045) ng/ml Albumin 2.9 L (3.4-5.0) gm/dl Albumin/Globulin Ratio 0.7 L (0.9-2) Urine Appearance Turbid A (Clear) Urine pH 8.5 H (4.5-7.5) U Epithel Cells (Auto) 10-20 H (0-5) /lpf 06/12/19 06/13/19 06/13/19 Range/Units 21:24 05:25 05:25 RBC 3.45 L (4.7-6.1) M/uL Hgb 12.7 L (14.0-18.0) g/dL Hct 37.8 L (42-52) % MCV 109.6 H (80-100) fL MCH 36.8 H (25-34) pg RDW Std Deviation 53.3 H (36.4-46.3) fL Immature Gran # (Auto) 0.05 H (0.00-0.02) K/uL Neut # (Auto) (1.4-6.5) K/uL Lymph # (Auto) 1.14 L (1.2-3.4) K/uL Creatinine 0.59 L (0.6-1.4) mg/dl Glucose (70-99) mg/dl Calcium 8.4 L (8.5-10.1) mg/dl Troponin I 0.431 H* (0-0.045) ng/ml Albumin (3.4-5.0) gm/dl Albumin/Globulin Ratio (0.9-2) Urine Appearance (Clear) Urine pH (4.5-7.5) U Epithel Cells (Auto) (0-5) /lpf 06/13/19 Range/Units 05:25 RBC (4.7-6.1) M/uL Hgb (14.0-18.0) g/dL Hct (42-52) % MCV (80-100) fL MCH (25-34) pg RDW Std Deviation (36.4-46.3) fL Immature Gran # (Auto) (0.00-0.02) K/uL Neut # (Auto) (1.4-6.5) K/uL Lymph # (Auto) (1.2-3.4) K/uL Creatinine (0.6-1.4) mg/dl Glucose (70-99) mg/dl Calcium (8.5-10.1) mg/dl Troponin I 0.342 H* (0-0.045) ng/ml Albumin (3.4-5.0) gm/dl Albumin/Globulin Ratio (0.9-2) Urine Appearance (Clear) Urine pH (4.5-7.5) U Epithel Cells (Auto) (0-5) /lpf Diagnostic Findings CXR-Mild age-indeterminate interstitial thickening. No evidence of lobar consolidation. CT head- No acute intracranial hemorrhage. 1.2 cm hypodense focus with possible loss of vargas-white differentiation within the right frontal lobe. This favors a small age indeterminate infarct. MRI brain-A small focus of restricted diffusion in the right frontal cortex is consistent with acute to subacute ischemia. No additional foci of acute ischemia are identified. There is no hemorrhage or mass effect. Normal EEG.a normal EEG result does not exclude the diagnosis of a seizure disorder and clinical correlation is required (1) CVA (cerebral vascular accident) CVA mechanism: unspecified Qualified Code(s): I63.9 - Cerebral infarction, unspecified
[2019-06-13] MEDS ORDERED: OPTIRAY 320 125ml IV PRN (15:48)
--- NOTE | 2019-06-13 16:16 | CT Scan Report ---
CT angio neck with con, CT angio head w con CLINICAL HISTORY: 79 years-old Male with acute subacute stroke. Acute strokelike symptoms COMPARISON STUDY: Brain MRI 06/12/2019 TECHNIQUE: Following the IV administration of 117 mL of Optiray 320, CT angiogram of the head and nec k was performed from the aortic arch to the skull base. Images are reviewed in the axial, sagittal, a nd coronal planes. 3-D MIPS images are created and assessed. IV contrast was administered without com plication. All measurements were calculated based on NASCET criteria. A dose lowering technique was utilized adhering to the principles of ALARA. CT DOSE: 636.98 mGy.cm FINDINGS: The imaged opacified pulmonary arterial tree is unremarkable. Three-vessel morphology of aortic arch which demonstrates moderate mixed plaque. Patent proximal bilateral subclavian arteries. The bilatera l common carotid arteries are patent. Moderate mixed plaque of the bilateral carotid bulbs and proxim al internal carotid arteries results in less than 50% stenosis bilaterally. Bilateral internal caroti d arteries are patent. The bilateral middle and anterior cerebral arteries are patent. Diminutive mor phology of the left A1 segment, likely developmental. Codominant vertebral arteries. The bilateral vertebral arteries are patent and within normal limits. The basilar and posterior cerebral arteries appear patent. origin of the right posterior cerebr al artery. Patent cerebral venous sinuses. No aneurysm, dissection, high-grade stenosis or proximal b ranch occlusion. No abnormal intracranial enhancement. Age-related involutional changes with ex vacuo ventriculomegaly. Multinodular thyroid including a 1.2 x 2.0 cm hypodense nodule. No pneumothorax. B iapical pleural-parenchymal scarring. Moderate emphysema with bilateral bronchial wall thickening. No adenopathy. Stick lesion measuring up to 3.8 cm transversely within the subcutaneous soft tissues of the lower neck on the left suggests a probable sebaceous cyst. Moderate right mastoid effusion. Mult ilevel degenerative changes of the spine. IMPRESSION: 1. No aneurysm, dissection, high-grade stenosis or proximal branch occlusion. 2. Additional incidental findings as above. ACT 112: Negative or not required by law. The above report was generated using voice recognition software. It may contain grammatical, syntax o r spelling errors. Electronically signed by: Dave Kemp M.D. 06/13/2019 4:15 PM
--- NOTE | 2019-06-13 16:55 | Hospitalist Progress Note ---
Date of Service June 13, 2019 Assessment & Plan (1) Seizure: Stroke -Patient was admitted to hospital after unwitnessed fall and was found by his and that patient's concerned that patient may have had a seizure -admission CT head scan: No acute intracranial hemorrhage. 1.2 cm hypodense focus with possible loss of vargas-white differentiation within the right frontal lobe. This favors a small age indeterminate infarct. -patient was empirically started on IV Keppra 500 mg BID for seizures -MRI brain then resulted as: A small focus of restricted diffusion in the right frontal cortex is consistent with acute to subacute ischemia. -as per neurology Dr. Dawn evaluation 06/13/19: "If indeed this was a seizure then I suspect the acute or at least recent stroke was probably the precipitating cause and we are going to continue the Keppra empirically for at least 6 months and perhaps longer" -aspirin 81 mg have been given to patient, continue as daily and started clopidogrel daily on 06/13/19; patient also to be started on 06/13/19 of atorvastatin 40 mg qhs -Neurology subsequently ordered Head CTA/Neck CTA. These were performed on 06/13/19 and No aneurysm, no dissection, no high-grade stenosis and no proximal branch occlusion. -continue to monitor patient in the hospital and await further recommendations -continue PT/OT evaluations Temporal arteritis diagnosed in the past chronic use of systemic steroids -On chronic Prednisone ; Follows with rheumatology as outpatient -Head CTA/Neck CTA on 06/13/19 does not suggest any defects of vasculitis Elevated troponins -troponins on this admission as 0.182, peaked at 0.431 and then downtrend as 0.342 -Patient denies any chest pain, shortness of breath -echocardiogram 06/13/19 with severe concentric left ventricular hypertrophy but otherwise normal systolic function with EF 60 to 65%, no wall motion abnormalities, no valvular pathologies -admitting hospitalist had surmised that patient's elevated troponins may have been due to initial seizure event -no current arrhythmia noted on telemetry -no cardiology consult needed at this time Hypertensive urgency on admission -admitting hospitalist had surmised that patient's elevated blood pressure may have been due to initial acute event (such as seizure event) -blood pressures have improved -currently blood pressure is normotensive without blood pressure medications COPD (chronic obstructive pulmonary disease) Tobacco use -No signs of COPD exacerbation -Continue home inhalers -Counseled to quit smoking -Nicotine patch GERD -Continue PPI DVT Prophylaxis: SCDs Code Status Full Code Family [phone] Disposition PT/OT prior to discharge Subjective No acute telemetry events. patient denies chest pain. no palpitations. no fevers. no nausea. no vomiting. no headache. no dizziness. no lightheadedness Review of Systems Review of Systems: All systems reviewed & are unremarkable except as noted in HPI & below Physical Exam Constitutional: comfortable Eyes: PERRL, conjunctivae normal, anicteric sclerae EOM intact bilaterally ENMT: external ear and nose normal, oropharynx normal Neck: normal visual inspection Respiratory: normal respiratory effort, lungs clear to auscultation Cardiovascular: Rate/Rhythm: regular rhythm Gastrointestinal (Abdomen): normal bowel sounds, soft, nontender, no hepatosplenomegaly Musculoskeletal: Head/Neck/Chest: normocephalic and head atraumatic Neurologic: PERRL, EOMI, accommodation nl, no face palsy, no dysarthria CN's II-XI intact bilaterally Psychiatric: Orientation: alert and cooperative Results & Data Vital Signs (Past 12 Hours) Vital Signs Temp Pulse Pulse Resp BP Pulse Ox 06/13/19 13:00 36.5 C 100 H 22 121/79 96 06/13/19 08:00 84
[2019-06-13] MEDS ORDERED: CLOPIDOGREL BISULFATE 75 MG TAB PO ONE (17:02)
[2019-06-13] MEDS: PANTOprazole 40 MG TAB PO SCH (20:54)
[2019-06-13] MEDS: predniSONE 1 MG TAB PO SCH (20:54)
[2019-06-13] MEDS: ATORVASTATIN 40 MG TAB PO SCH (20:54)
[2019-06-14 01:17] LABS: Potassium 3.8 mmol/L (3.5-5.1)
[2019-06-14 01:19] LABS: Magnesium 1.9 mg/dl (1.8-2.4)
[2019-06-14 06:39] LABS: BUN Creatinine Ratio 17.4 (10-20); Calcium 8.6 mg/dl (8.5-10.1); Est GFR (African American) 86.7; Est GFR (Non-African American) 74.8; Potassium 3.5 mmol/L (3.5-5.1)
[2019-06-14] MEDS ORDERED: POTASSIUM CHLORIDE 20 MEQ TABCR PO STA ×2 (07:25→12:24)
[2019-06-14] MEDS: ASPIRIN 81 MG ECTAB PO SCH (07:55)
[2019-06-14] MEDS: CLOPIDOGREL BISULFATE 75 MG TAB PO SCH (07:55)
[2019-06-14] MEDS: TIOTROPIUM BROMIDE 5 PUFF/90 MCG INH INH SCH (07:55)
[2019-06-14] MEDS: NICOTINE 14 MG/24 HR PATCH TD SCH (07:55)
[2019-06-14] MEDS: predniSONE 5 MG TAB PO SCH (07:55)
--- NOTE | 2019-06-14 09:00 | Hospitalist Progress Note ---
Date of Service June 14, 2019 Assessment & Plan (1) Seizure: Stroke -Patient was admitted to hospital after unwitnessed fall and was found by his and that patient's concerned that patient may have had a seizure -admission CT head scan: No acute intracranial hemorrhage. 1.2 cm hypodense focus with possible loss of vargas-white differentiation within the right frontal lobe. This favors a small age indeterminate infarct. -patient was empirically started on IV Keppra 500 mg BID for seizures -MRI brain then resulted as: A small focus of restricted diffusion in the right frontal cortex is consistent with acute to subacute ischemia. -as per neurology Dr. Dawn evaluation 06/13/19: "If indeed this was a seizure then I suspect the acute or at least recent stroke was probably the precipitating cause and we are going to continue the Keppra empirically for at least 6 months and perhaps longer" -aspirin 81 mg have been given to patient, continue as daily and started clopidogrel daily on 06/13/19; patient also to be started on 06/13/19 of atorvastatin 40 mg qhs -Neurology subsequently ordered Head CTA/Neck CTA. These were performed on 06/13/19 and No aneurysm, no dissection, no high-grade stenosis and no proximal branch occlusion. -continue to monitor patient in the hospital and await further recommendations -continue PT/OT evaluations Temporal arteritis diagnosed in the past chronic use of systemic steroids -On chronic Prednisone ; Follows with rheumatology as outpatient -Head CTA/Neck CTA on 06/13/19 does not suggest any defects of vasculitis Elevated troponins Ventricular Tachycardia -troponins on this admission as 0.182, peaked at 0.431 and then downtrend as 0.342 -Patient denies any chest pain, shortness of breath -echocardiogram 06/13/19 with severe concentric left ventricular hypertrophy but otherwise normal systolic function with EF 60 to 65%, no wall motion abnormalities, no valvular pathologies -admitting hospitalist had surmised that patient's elevated troponins may have been due to initial seizure event -no current arrhythmia noted on telemetry -no cardiology consult needed at this time -Patient had episode of 6 beat run of Vtach versus wide complex tachycardia recorded on telemetry at 12:33 AM of 06/14/19. Patient reported poor sleep but no symptoms. no chest pain. no palpitations. no abdominal pain. no dizziness. no lightheadedness. patient's heart rates in the AM noted to be low 100s and with some ambulation the telemetry records heart rate of 120 bpm and patient is asymptomatic; will request cardiology service evaluation Hypertensive urgency on admission -admitting hospitalist had surmised that patient's elevated blood pressure may have been due to initial acute event (such as seizure event) -blood pressures have improved -currently blood pressure is normotensive without blood pressure medications COPD (chronic obstructive pulmonary disease) Tobacco use -No signs of COPD exacerbation -Continue home inhalers -Counseled to quit smoking -Nicotine patch -new onset coughing noted on 06/14/19: will get Chest X ray GERD -Continue PPI DVT Prophylaxis: SCDs Code Status Full Code Family [phone] Subjective Patient had episode of 6 beat run of Vtach versus wide complex tachycardia recorded on telemetry at 12:33 AM of 06/14/19. Patient reported poor sleep but no symptoms. no chest pain. no palpitations. no abdominal pain. no dizziness. no lightheadedness. patient's heart rates in the AM noted to be low 100s and with some ambulation the telemetry records heart rate of 120 bpm and patient is asymptomatic will get cardiology service evaluation also new onset coughing noted on 06/14/19: will get Chest X ray Review of Systems Review of Systems: All systems reviewed & are unremarkable except as noted in HPI & below Physical Exam Constitutional: comfortable Eyes: PERRL, conjunctivae normal, anicteric sclerae EOM intact bilaterally ENMT: external ear and nose normal, oropharynx normal Neck: normal visual inspection Respiratory: normal respiratory effort, lungs clear to auscultation Cardiovascular: Rate/Rhythm: regular rhythm Gastrointestinal (Abdomen): normal bowel sounds, soft, nontender, no hepatosplenomegaly Musculoskeletal: Head/Neck/Chest: normocephalic and head atraumatic Neurologic: PERRL, EOMI, accommodation nl, no face palsy, no dysarthria CN's II-XI intact bilaterally Psychiatric: Orientation: alert and cooperative Results & Data Vital Signs (Past 12 Hours) Vital Signs Temp Pulse Resp BP BP Pulse Ox 06/14/19 04:46 36.3 C L 99 H 20 136/85 93 06/14/19 00:00 36.8 C 94 H 18 139/74 93
--- NOTE | 2019-06-14 11:50 | Communication Note ---
Date of Service: June 14, 2019 I saw Mr. Fraga today in accompaniment of his 2 daughters and his and discussed his case with Dr. Huang. He is fairly energizes he has been since hospitalization but does not demonstrate any clear-cut focal signs and the infarction in his right frontal parietal area is fairly small. The family feels that his personality has changed for the past week and he has had more confusion and I suspect this was the only manifestation of the small stroke who is causation remains unclear with negative CT angiograms of the head and neck and a negative 2D echo. He does have some periods of ventricular tachycardia and may also have paroxysmal atrial fibrillation on an outpatient basis so cardiology is going to get involved and recommend whenever further testing they deem necessary here I informed him that he cannot operate a motor vehicle in the [facility] for 6 months based on the seizure or series of seizures that were described and fortunately has had no further events of this type Family is appropriately concerned about he and his as she has significant hearing loss, macular degeneration, and he was doing all the driving which he cannot do now Both parties are willing to consider assisted living and I think the family is currently checking into some facilities Case management is going to have to get involved, social service will have to get involved and cardiology is going to have to clear things before we can send him home or to a facility where his care will be provided From a neurologic point of view I am simply recommending adding Plavix to the current aspirin which she has been taking and to continue Keppra 500 mg twice a day. We will see him back in the clinic in about 4 to 6 weeks I will be interested as to whether Dr. Ashton suggest an outpatient ZIO Patch and I certainly would support this is 1 of the causes of his CVA could have been paroxysmal atrial fibrillation but we have certainly not seen any of this type of arrhythmia during the course of his hospital stay so far I will check back with him tomorrow Roge Dawn MD
--- NOTE | 2019-06-14 12:29 | Cardiology Consultation ---
Date of Consultation June 14, 2019 Assessment & Plan (1) Seizure: (2) CVA (cerebral vascular accident): (3) Elevated troponin: (4) Ventricular arrhythmia: This patient has no significant cardiac history. I believe his cardiac troponins were elevated due to his seizure and did not represent acute coronary syndrome. Last evening he had a brief few second episode of wide-complex arrhythmias inter-dispersed with sinus beats. His echocardiogram shows normal LV function and no findings that would suggest ischemic cardiomyopathy. At this point I would recommend that we correct his low potassium and start him on metoprolol. I would continue to monitor him on telemetry. The metoprolol is a low dose and he should be able to handle it from a blood pressure standpoint. History of Present Illness Attending Physician: Dipak Huang MD History of Present Illness This is an 79-year-old male patient with no prior history of heart disease. He was admitted following a seizure and imaging suggest a small frontal lobe acute infarct. Sometime early this morning he had ventricular ectopy or wide-complex arrhythmia intermittently lasting for several seconds in between sinus beats. He was completely asymptomatic as he was sleeping. He has no cardiac complaints this morning. After admission he did have a slight increase in his cardiac troponins most likely due to stress from his seizure. Do not believe he had acute coronary syndrome as his EKG showed no acute changes and his resting echocardiogram shows no evidence of ischemic heart disease with normal LV function. We have been asked to see him in regard to the wide-complex arrhythmia. Allergies Allergy/AdvReac Type Severity Reaction Status Date / Time Penicillins Allergy Mild Rash Verified 06/12/19 13:51 Home Medications Home Medications Medication Instructions Recorded Confirmed Type Boost 1 can PO DAILY 09/06/18 06/12/19 History omeprazole 20 mg PO HS 09/06/18 06/12/19 History simvastatin 40 mg PO HS 09/06/18 06/12/19 History albuterol sulfate [Ventolin HFA] 2 puff INHALATION QID PRN 06/12/19 06/12/19 History cyanocobalamin (vitamin B-12) 500 mcg PO DAILY 06/12/19 06/12/19 History [Vitamin B-12] loteprednol etabonate [Lotemax] 1 drp OPB DAILY 06/12/19 06/12/19 History prednisone 1 mg PO DAILY 06/12/19 06/12/19 History prednisone 5 mg PO DAILY 06/12/19 06/12/19 History tiotropium bromide [Spiriva with 1 cap INHALATION DAILY 06/12/19 06/12/19 History HandiHaler] Patient History Medical History Anemia HX GERD (gastroesophageal reflux disease) Hearing deficit Hyperlipidemia Temporal arteritis REASON FOR PREDNISONE Surgical History History of colonoscopy History of esophagogastroduodenoscopy (EGD) History of tonsillectomy History of tooth extraction Family History Brother Cancer Social History Preferred Language: Ivorian Communication Ability: Effective Surgical Garment Assembly Supervisor Required: No Beliefs That Will Affect Care: None Current Living Situation: Spouse Other Information That Helps Us Care for You: No Feels Safe at Home: Yes Safety Concerns: Feels Safe At This Time Smoking Status: Current every day smoker Tobacco Type: pipe ; Cigarettes Per Day: DAILY ; Second Hand Exposure: Yes ; Tobacco Cessation Education Requested by Patient: No Hx Alcohol Use: Yes Alcohol type: wine Hx Substance Use: No Review of Systems Review of Systems: All systems reviewed & are unremarkable except as noted in HPI & below Nothing additional to add. Physical Exam Physical Exam: General: no acute distress and stated age Head: normocephalic, no masses, lesions, tenderness or abnormalities Eyes: conjunctiva are pink and non-injected, sclera clear Neck: supple, no adenopathy, no bruits, normal jugular venous pulse, no hepatojugular reflux Chest: normal shape and normal respiratory effort Lungs: clear to auscultation and percussion Cardiac Exam: - regular rate & rhythm, no murmurs gallops or rubs - normal S1, normal S2 Pulses: 2(+) throughout Abdomen: abdomen soft, non-tender, no abnormal masses and no hepatosplenomegaly Musculoskeletal: no gait disturbance, no joint inflammation, no deforming arthritis Extremities: no edema and no cyanosis Neuro: grossly normal exam Results & Data Vital Signs (Past 12 Hours) Vital Signs Temp Pulse Pulse Resp BP BP Pulse Ox 06/14/19 11:09 36.6 C 103 H 20 152/90 H 94 06/14/19 08:00 36.8 C 98 H 18 146/88 H 92 06/14/19 07:00 99 H 06/14/19 04:46 36.3 C L 99 H 20 136/85 93 Laboratory Results Laboratory Results - last 24 hr 06/14/19 06/14/19 00:49 05:42 Sodium 138 Potassium 3.8 3.5 Chloride 103 Carbon Dioxide 30 Anion Gap 5.0 BUN 16 D Creatinine 0.95 D Est Cr Clr Drug Dosing 53.0 Est GFR ( Amer) 86.7 Est GFR (Non-Af Amer) 74.8 BUN/Creatinine Ratio 17.4 Glucose 137 H Calcium 8.6 Magnesium 1.9 Medications Administered Current Inpatient Medications Acetaminophen (Tylenol) 325 mg PO Q6H PRN PRN Reason: Pain or Fever Stop: 07/12/19 17:28 Last Admin: 06/13/19 11:02 Dose: 325 mg Documented by: Albuterol (Duoneb) 3 ml NEB QIDR PRN PRN Reason: Shortness Of Breath Or Wheezing Stop: 07/12/19 17:28 Aspirin (Ecotrin Ectab) 81 mg PO DAILY [facility] Stop: 07/13/19 08:59 Last Admin: 06/14/19 07:55 Dose: 81 mg Documented by: Atorvastatin Calcium (Lipitor) 40 mg PO HS [facility] Stop: 07/13/19 20:59 Last Admin: 06/13/19 20:54 Dose: 40 mg Documented by: Clopidogrel Bisulfate (Plavix) 75 mg PO QAM [facility] Stop: 07/14/19 08:59 Last Admin: 06/14/19 07:55 Dose: 75 mg Documented by: Diphenhydramine HCl (Benadryl Capsule) 25 mg PO HS PRN PRN Reason: Sleep Stop: 07/14/19 12:24 Gadobutrol (Gadavist 65ml) 6 ml IV ONCE PRN PRN Reason: Interaction Checking Stop: 06/16/19 22:27 Last Admin: 06/12/19 22:29 Dose: 6 ml Documented by: Levetiracetam 500 mg/ Dextrose 105 mls @ 440 mls/hr IV BID [facility] Stop: 07/12/19 20:59 Last Infusion: 06/14/19 08:18 Dose: Infused Documented by: Lorazepam (Ativan) 0.5 mg in 1 mls @ 1 mls/min IV Q2H PRN PRN Reason: seizure Stop: 07/12/19 17:28 Ioversol (Optiray 320 125ml) 117 ml IV ONCE PRN PRN Reason: Interaction Checking Stop: 06/17/19 15:47 Last Admin: 06/13/19 15:48 Dose: 117 ml Documented by: Metoprolol Tartrate (Lopressor) 12.5 mg PO BID [facility] Stop: 07/14/19 12:29 Miscellaneous (Order Awaiting Action) 1 ea N/A QS [facility] Stop: 07/13/19 07:59 Last Admin: 06/14/19 07:56 Dose: Not Given Documented by: Miscellaneous (Remove Nicoderm Patch) 1 ea N/A DAILY@0859 [facility] Stop: 07/13/19 08:58 Last Admin: 06/14/19 07:55 Dose: 1 ea Documented by: Nicotine (Nicoderm Cq) 14 mg TD QAM [facility] Stop: 07/12/19 17:44 Last Admin: 06/14/19 07:55 Dose: 14 mg Documented by: Ondansetron HCl (Zofran) 4 mg IV Q6H PRN PRN Reason: Nausea Stop: 07/12/19 17:28 Pantoprazole Sodium (Protonix) 40 mg PO HS [facility] Stop: 07/12/19 20:59 Last Admin: 06/13/19 20:54 Dose: 40 mg Documented by: Polyethylene Glycol (Miralax Powder Packet) 17 gm PO DAILY PRN PRN Reason: Constipation Stop: 07/12/19 17:28 Prednisone (Prednisone) 5 mg PO DAILY [facility] Stop: 07/13/19 08:59 Last Admin: 06/14/19 07:55 Dose: 5 mg Documented by: Prednisone (Prednisone) 1 mg PO HS [facility] Stop: 07/12/19 20:59 Last Admin: 06/13/19 20:54 Dose: 1 mg Documented by: Tiotropium [place] (Spiriva) 1 puffs INH DAILY [facility] Stop: 07/13/19 08:59 Last Admin: 06/14/19 07:55 Dose: 1 puffs Documented by: (1) CVA (cerebral vascular accident) CVA mechanism: unspecified Qualified Code(s): I63.9 - Cerebral infarction, unspecified
--- NOTE | 2019-06-14 12:29 | XRay Report ---
XR chest 2V PA/lateral CLINICAL HISTORY: rule out lung infiltrates COMPARISON STUDY: Chest radiograph June 12, 2019. FINDINGS: There is no pneumothorax. Trace left pleural effusion is noted. Left basilar opacity is dev eloped. There is mild cardiomegaly without evidence for pulmonary edema. There is suspected biapical scarring. IMPRESSION: Trace left pleural effusion with left basilar opacity which may reflect pneumonia or ate lectasis. Radiographic follow-up is recommended. ACT 112: Negative or not required by law. Electronically signed by: Terry Keita M.D. 06/14/2019 12:28 PM
[2019-06-14] MEDS: METOPROLOL TARTRATE 25 MG TAB PO SCH ×2 (13:04→20:01)
[2019-06-14] MEDS: ATORVASTATIN 40 MG TAB PO SCH (20:02)
[2019-06-14] MEDS: PANTOprazole 40 MG TAB PO SCH (20:02)
[2019-06-14] MEDS: predniSONE 1 MG TAB PO SCH (20:02)
[2019-06-15] MEDS: predniSONE 5 MG TAB PO SCH (07:43)
[2019-06-15] MEDS: METOPROLOL TARTRATE 25 MG TAB PO SCH ×2 (07:43→21:01)
[2019-06-15] MEDS: ASPIRIN 81 MG ECTAB PO SCH (07:43)
[2019-06-15] MEDS: NICOTINE 14 MG/24 HR PATCH TD SCH (07:44)
[2019-06-15] MEDS: TIOTROPIUM BROMIDE 5 PUFF/90 MCG INH INH SCH (07:44)
[2019-06-15] MEDS: CLOPIDOGREL BISULFATE 75 MG TAB PO SCH (07:44)
[2019-06-15] MEDS: ACETAMINOPHEN 325 MG TAB PO PRN (08:04)
--- NOTE | 2019-06-15 08:57 | Cardiology Progress Note ---
Date of Service June 15, 2019 Assessment & Plan (1) Seizure: (2) CVA (cerebral vascular accident): (3) Elevated troponin: (4) Ventricular arrhythmia: Reviewed the patient's telemetry for the past 24 hours. He has had no additional ventricular arrhythmias. He is receiving physical as well as occupational therapy for his stroke. Believe the patient may be discharged to outpatient follow-up per the hospitalist service. Subjective The patient had an uneventful night. He slept well. No new cardiac complaints. Review of Systems Review of Systems: All systems reviewed & are unremarkable except as noted in HPI & below Nothing additional to add. Physical Exam Physical Exam: General: no acute distress and stated age Head: normocephalic, no masses, lesions, tenderness or abnormalities Eyes: conjunctiva are pink and non-injected, sclera clear Neck: supple, no adenopathy, no bruits, normal jugular venous pulse, no hepatojugular reflux Chest: normal shape and normal respiratory effort Lungs: clear to auscultation and percussion Cardiac Exam: - regular rate & rhythm, no murmurs gallops or rubs - normal S1, normal S2 Pulses: 2(+) throughout Abdomen: abdomen soft, non-tender, no abnormal masses and no hepatosplenomegaly Musculoskeletal: no gait disturbance, no joint inflammation, no deforming arthritis Extremities: no edema and no cyanosis Neuro: grossly normal exam Results & Data Vital Signs (Past 12 Hours) Vital Signs Temp Pulse Resp BP Pulse Ox 06/15/19 04:48 37.0 C 98 H 18 138/82 91 06/14/19 23:07 36.6 C 91 H 16 148/82 H 94 06/14/19 22:54 37.5 C 101 H 18 129/82 94 Medications Administered Current Inpatient Medications Acetaminophen (Tylenol) 325 mg PO Q6H PRN PRN Reason: Pain or Fever Stop: 07/12/19 17:28 Last Admin: 06/15/19 08:04 Dose: 325 mg Documented by: Albuterol (Duoneb) 3 ml NEB QIDR PRN PRN Reason: Shortness Of Breath Or Wheezing Stop: 07/12/19 17:28 Aspirin (Ecotrin Ectab) 81 mg PO DAILY [facility] Stop: 07/13/19 08:59 Last Admin: 06/15/19 07:43 Dose: 81 mg Documented by: Atorvastatin Calcium (Lipitor) 40 mg PO HS [facility] Stop: 07/13/19 20:59 Last Admin: 06/14/19 20:02 Dose: 40 mg Documented by: Clopidogrel Bisulfate (Plavix) 75 mg PO QAM [facility] Stop: 07/14/19 08:59 Last Admin: 06/15/19 07:44 Dose: 75 mg Documented by: Diphenhydramine HCl (Benadryl Capsule) 25 mg PO HS PRN PRN Reason: Sleep Stop: 07/14/19 12:24 Last Admin: 06/14/19 20:01 Dose: 25 mg Documented by: Gadobutrol (Gadavist 65ml) 6 ml IV ONCE PRN PRN Reason: Interaction Checking Stop: 06/16/19 22:27 Last Admin: 06/12/19 22:29 Dose: 6 ml Documented by: Levetiracetam 500 mg/ Dextrose 105 mls @ 440 mls/hr IV BID [facility] Stop: 07/12/19 20:59 Last Infusion: 06/15/19 08:05 Dose: Infused Documented by: Lorazepam (Ativan) 0.5 mg in 1 mls @ 1 mls/min IV Q2H PRN PRN Reason: seizure Stop: 07/12/19 17:28 Ioversol (Optiray 320 125ml) 117 ml IV ONCE PRN PRN Reason: Interaction Checking Stop: 06/17/19 15:47 Last Admin: 06/13/19 15:48 Dose: 117 ml Documented by: Metoprolol Tartrate (Lopressor) 12.5 mg PO BID [facility] Stop: 07/14/19 12:29 Last Admin: 06/15/19 07:43 Dose: 12.5 mg Documented by: Miscellaneous (Order Awaiting Action) 1 ea N/A QS [facility] Stop: 07/13/19 07:59 Last Admin: 06/15/19 07:43 Dose: Not Given Documented by: Miscellaneous (Remove Nicoderm Patch) 1 ea N/A DAILY@0859 [facility] Stop: 07/13/19 08:58 Last Admin: 06/15/19 07:43 Dose: 1 ea Documented by: Nicotine (Nicoderm Cq) 14 mg TD QAM [facility] Stop: 07/12/19 17:44 Last Admin: 06/15/19 07:44 Dose: 14 mg Documented by: Ondansetron HCl (Zofran) 4 mg IV Q6H PRN PRN Reason: Nausea Stop: 07/12/19 17:28 Pantoprazole Sodium (Protonix) 40 mg PO HS [facility] Stop: 07/12/19 20:59 Last Admin: 06/14/19 20:02 Dose: 40 mg Documented by: Polyethylene Glycol (Miralax Powder Packet) 17 gm PO DAILY PRN PRN Reason: Constipation Stop: 07/12/19 17:28 Prednisone (Prednisone) 5 mg PO DAILY [facility] Stop: 07/13/19 08:59 Last Admin: 06/15/19 07:43 Dose: 5 mg Documented by: Prednisone (Prednisone) 1 mg PO HS [facility] Stop: 07/12/19 20:59 Last Admin: 06/14/19 20:02 Dose: 1 mg Documented by: Tiotropium [place] (Spiriva) 1 puffs INH DAILY [facility] Stop: 07/13/19 08:59 Last Admin: 06/15/19 07:44 Dose: 1 puffs Documented by: (1) CVA (cerebral vascular accident) CVA mechanism: unspecified Qualified Code(s): I63.9 - Cerebral infarction, unspecified
--- NOTE | 2019-06-15 11:30 | Communication Note ---
Date of Service: June 15, 2019 I saw Paolo today in the accompaniment of his and 2 daughters whom I had not met previously. He seems less energized and is able to focus although once I started to engage him he became more tangential in his conversation and kept insisting that there was nothing wrong with him and he wanted to go home Indeed on exam is very little in terms of focal motor deficits of any at all and the only change according to family is the fact that he became more inappropriate and energetic about a week ago possibly as a manifestation of a right frontal infarction relatively small size followed up then several days later by a series of seizures that have not recurred He was seen by cardiology because of some wide-complex tachycardia and has been placed on beta-blockers but no atrial fibrillation is been seen, the echocardiogram shows no obvious source of clot, and the angiographic study showed nothing of significance in the extracranial or intracranial circulation although 1 could argue very small vessel disease in the distal branches of the right middle cerebral artery would easily be missed and this could be the cause of his infarction At this point plans are to try to find a safer place for the patient his to reside while the family looks at personal care facilities. Apparently they reside in an upstairs apartment requiring 16 external stairs to enter and they have maintained this despite multiple requests by family members to try for first-floor living. He is now not going to be able to operate a motor vehicle for 6 months he is going to have to really lie on transportation provided by family members and friends and his is not in the best of health so a personal care facility for both he and his seems to be the ideal goal Keeping him here however until such a facility would be available is probably not likely to occur unless we can justify a brief stay at [facility] while the family tries to find a facility From a neurologic point of view my only suggestions are to continue him on dual antiplatelet therapy for at least 21 days, continue the Keppra at 500 mg twice a day, and have him seen in our office in follow-up in about [address] Ashton has not suggested a ZIO Patch going to my review of the consultation note but this might not be a bad idea the sibling capture some paroxysmal atrial fibrillation which remains in the differential diagnosis of his cerebrovascular accident I do not think this was a manifestation of his temporal arteritis which seems to be under good symptomatic control on his current relatively low doses of steroids We will check back tomorrow but after that I am not sure if he requires any more neurologic inpatient assessment and we will try to arrange for the outpatient follow-up after tomorrow's visit Roge Dawn MD
--- NOTE | 2019-06-15 15:57 | Hospitalist Progress Note ---
Date of Service June 15, 2019 Assessment & Plan (1) Seizure: Stroke -Patient was admitted to hospital after unwitnessed fall and was found by his and that patient's concerned that patient may have had a seizure -admission CT head scan: No acute intracranial hemorrhage. 1.2 cm hypodense focus with possible loss of vargas-white differentiation within the right frontal lobe. This favors a small age indeterminate infarct. -patient was empirically started on IV Keppra 500 mg BID for seizures -MRI brain then resulted as: A small focus of restricted diffusion in the right frontal cortex is consistent with acute to subacute ischemia. -as per neurology Dr. Dawn evaluation 06/13/19: "If indeed this was a seizure then I suspect the acute or at least recent stroke was probably the precipitating cause and we are going to continue the Keppra empirically for at least 6 months and perhaps longer" will need neurology clinic follow up in 4 to 6 weeks -aspirin 81 mg have been given to patient, continue as daily and started clopidogrel daily on 06/13/19 (dual antiplatelet therapy for at least 21 days); patient also to be started on 06/13/19 of atorvastatin 40 mg qhs -Neurology subsequently ordered Head CTA/Neck CTA. These were performed on 06/13/19 and No aneurysm, no dissection, no high-grade stenosis and no proximal branch occlusion. -patient' s family members requesting evaluation for asissted living facility, physical rehabilitation center or prison facility; continue PT/OT evaluations; will need geriatric case manager further involvement by 06/16/19 Temporal arteritis diagnosed in the past chronic use of systemic steroids -On chronic Prednisone ; Follows with rheumatology as outpatient -Head CTA/Neck CTA on 06/13/19 does not suggest any defects of vasculitis Elevated troponins Ventricular arrhythmia -troponins on this admission as 0.182, peaked at 0.431 and then downtrend as 0.342 -Patient denies any chest pain, shortness of breath -echocardiogram 06/13/19 with severe concentric left ventricular hypertrophy but otherwise normal systolic function with EF 60 to 65%, no wall motion abnormalities, no valvular pathologies -admitting hospitalist had surmised that patient's elevated troponins may have been due to initial seizure event -no current arrhythmia noted on telemetry -no cardiology consult needed at this time -Patient had episode of 6 beat run of Vtach versus wide complex tachycardia recorded on telemetry at 12:33 AM of 06/14/19. Patient reported poor sleep but no symptoms. no chest pain. no palpitations. no abdominal pain. no dizziness. no lightheadedness. patient's heart rates in the AM noted to be low 100s and with some ambulation the telemetry records heart rate of 120 bpm; cardiology evaluated the patient and patient's heart rates improved with metoprolol 12.5 mg BID Hypertensive urgency on admission -admitting hospitalist had surmised that patient's elevated blood pressure may have been due to initial acute event (such as seizure event) -blood pressures have improved -currently blood pressure is normotensive without blood pressure medications COPD (chronic obstructive pulmonary disease) Tobacco use -No signs of COPD exacerbation -Continue home inhalers -Counseled to quit smoking -Nicotine patch -new onset coughing noted on 06/14/19: trace left pleural effusion with left basilar opacity; may need repeat CXR in the future GERD -Continue PPI DVT Prophylaxis: SCDs Code Status Full Code Family [phone] Subjective Patient reports he is feeling bored in the hospital.he has multiple family members visiting him. no chest pain. no shortness of breath. no vomiting. no nausea. no dizziness. no lightheadedness. no headache. Review of Systems Review of Systems: All systems reviewed & are unremarkable except as noted in HPI & below Physical Exam Constitutional: comfortable Eyes: PERRL, conjunctivae normal, anicteric sclerae EOM intact bilaterally ENMT: external ear and nose normal, oropharynx normal Neck: normal visual inspection Respiratory: normal respiratory effort, lungs clear to auscultation Cardiovascular: Rate/Rhythm: regular rhythm Gastrointestinal (Abdomen): normal bowel sounds, soft, nontender, no hepatosplenomegaly Musculoskeletal: Head/Neck/Chest: normocephalic and head atraumatic Neurologic: PERRL, EOMI, accommodation nl, no face palsy, no dysarthria CN's II-XI intact bilaterally Psychiatric: Orientation: alert and cooperative Results & Data Vital Signs (Past 12 Hours) Vital Signs Temp Pulse Pulse Resp BP BP Pulse Ox 06/15/19 15:39 36.8 C 99 H 19 136/80 93 06/15/19 11:51 36.7 C 87 18 128/85 93 06/15/19 08:00 37.1 C 98 H 100 H 20 133/75 92 06/15/19 04:48 37.0 C 98 H 18 138/82 91
[2019-06-15] MEDS: ATORVASTATIN 40 MG TAB PO SCH (21:01)
[2019-06-15] MEDS: PANTOprazole 40 MG TAB PO SCH (21:02)
[2019-06-15] MEDS: predniSONE 1 MG TAB PO SCH (21:02)
[2019-06-16] MEDS: ASPIRIN 81 MG ECTAB PO SCH (08:10)
[2019-06-16] MEDS: CLOPIDOGREL BISULFATE 75 MG TAB PO SCH (08:10)
[2019-06-16] MEDS: METOPROLOL TARTRATE 25 MG TAB PO SCH (08:10)
[2019-06-16] MEDS: predniSONE 5 MG TAB PO SCH (08:10)
[2019-06-16] MEDS: TIOTROPIUM BROMIDE 5 PUFF/90 MCG INH INH SCH (08:11)
[2019-06-16] MEDS: NICOTINE 14 MG/24 HR PATCH TD SCH (08:14)
--- NOTE | 2019-06-16 10:05 | Cardiology Progress Note ---
Date of Service June 16, 2019 Assessment & Plan (1) Seizure: (2) CVA (cerebral vascular accident): (3) Elevated troponin: (4) Ventricular arrhythmia: The patient is doing well. He can be discharged from a cardiac standpoint and I will arrange follow-up through our clinic. Subjective The patient has had no additional arrhythmias overnight. He has no new cardiac complaints. Review of Systems Review of Systems: All systems reviewed & are unremarkable except as noted in HPI & below Nothing additional to add. Physical Exam Physical Exam: General: no acute distress and stated age Head: normocephalic, no masses, lesions, tenderness or abnormalities Eyes: conjunctiva are pink and non-injected, sclera clear Neck: supple, no adenopathy, no bruits, normal jugular venous pulse, no hepatojugular reflux Chest: normal shape and normal respiratory effort Lungs: clear to auscultation and percussion Cardiac Exam: - regular rate & rhythm, no murmurs gallops or rubs - normal S1, normal S2 Pulses: 2(+) throughout Abdomen: abdomen soft, non-tender, no abnormal masses and no hepatosplenomegaly Musculoskeletal: no gait disturbance, no joint inflammation, no deforming arthritis Extremities: no edema and no cyanosis Neuro: grossly normal exam Results & Data Vital Signs (Past 12 Hours) Vital Signs Temp Pulse Pulse Resp BP Pulse Ox 06/16/19 07:18 36.8 C 100 H 22 136/80 92 06/16/19 03:51 37.2 C 90 18 137/81 94 06/16/19 00:01 37.7 C H 98 H 18 135/74 98 Medications Administered Current Inpatient Medications Acetaminophen (Tylenol) 325 mg PO Q6H PRN PRN Reason: Pain or Fever Stop: 07/12/19 17:28 Last Admin: 06/15/19 08:04 Dose: 325 mg Documented by: Albuterol (Duoneb) 3 ml NEB QIDR PRN PRN Reason: Shortness Of Breath Or Wheezing Stop: 07/12/19 17:28 Aspirin (Ecotrin Ectab) 81 mg PO DAILY [facility] Stop: 07/13/19 08:59 Last Admin: 06/16/19 08:10 Dose: 81 mg Documented by: Atorvastatin Calcium (Lipitor) 40 mg PO HS [facility] Stop: 07/13/19 20:59 Last Admin: 06/15/19 21:01 Dose: 40 mg Documented by: Clopidogrel Bisulfate (Plavix) 75 mg PO QAM [facility] Stop: 07/14/19 08:59 Last Admin: 06/16/19 08:10 Dose: 75 mg Documented by: Diphenhydramine HCl (Benadryl Capsule) 25 mg PO HS PRN PRN Reason: Sleep Stop: 07/14/19 12:24 Last Admin: 06/15/19 21:00 Dose: 25 mg Documented by: Gadobutrol (Gadavist 65ml) 6 ml IV ONCE PRN PRN Reason: Interaction Checking Stop: 06/16/19 22:27 Last Admin: 06/12/19 22:29 Dose: 6 ml Documented by: Levetiracetam 500 mg/ Dextrose 105 mls @ 440 mls/hr IV BID [facility] Stop: 07/12/19 20:59 Last Infusion: 06/16/19 08:46 Dose: Infused Documented by: Lorazepam (Ativan) 0.5 mg in 1 mls @ 1 mls/min IV Q2H PRN PRN Reason: seizure Stop: 07/12/19 17:28 Ioversol (Optiray 320 125ml) 117 ml IV ONCE PRN PRN Reason: Interaction Checking Stop: 06/17/19 15:47 Last Admin: 06/13/19 15:48 Dose: 117 ml Documented by: Metoprolol Tartrate (Lopressor) 12.5 mg PO BID [facility] Stop: 07/14/19 12:29 Last Admin: 06/16/19 08:10 Dose: 12.5 mg Documented by: Miscellaneous (Order Awaiting Action) 1 ea N/A QS [facility] Stop: 07/13/19 07:59 Last Admin: 06/16/19 08:09 Dose: 1 ea Documented by: Miscellaneous (Remove Nicoderm Patch) 1 ea N/A DAILY@0859 [facility] Stop: 07/13/19 08:58 Last Admin: 06/16/19 08:09 Dose: 1 ea Documented by: Nicotine (Nicoderm Cq) 14 mg TD QAM [facility] Stop: 07/12/19 17:44 Last Admin: 06/16/19 08:14 Dose: 14 mg Documented by: Ondansetron HCl (Zofran) 4 mg IV Q6H PRN PRN Reason: Nausea Stop: 07/12/19 17:28 Pantoprazole Sodium (Protonix) 40 mg PO HS [facility] Stop: 07/12/19 20:59 Last Admin: 06/15/19 21:02 Dose: 40 mg Documented by: Polyethylene Glycol (Miralax Powder Packet) 17 gm PO DAILY PRN PRN Reason: Constipation Stop: 07/12/19 17:28 Prednisone (Prednisone) 5 mg PO DAILY [facility] Stop: 07/13/19 08:59 Last Admin: 06/16/19 08:10 Dose: 5 mg Documented by: Prednisone (Prednisone) 1 mg PO HS [facility] Stop: 07/12/19 20:59 Last Admin: 06/15/19 21:02 Dose: 1 mg Documented by: Tiotropium Ray (Spiriva) 1 puffs INH DAILY [facility] Stop: 07/13/19 08:59 Last Admin: 06/16/19 08:11 Dose: 1 puffs Documented by: (1) CVA (cerebral vascular accident) CVA mechanism: unspecified Qualified Code(s): I63.9 - Cerebral infarction, unspecified
--- NOTE | 2019-06-16 13:59 | Discharge Summary ---
Date of Service June 16, 2019 Admission HPI Per Admitting Provider Patient is an 79-year-old male with history of COPD, tobacco use disorder, dyslipidemia, GERD, temporal arteritis, vitamin B12 deficiency and other problems presents with history of seizure-like activity. Patient is currently postictal and is unable to provide much history. Most of the history is obtained from old records, ER physician and patient's family. As per the family, patient had an unwitnessed fall this morning but denies any history of head trauma, loss of consciousness. Patient's family noticed him to have seizure-like activity while sitting in the chair which lasted for about 5 minutes. Patient was able to ambulate to bathroom later with the help of his family. Family states that he has been having generalized weakness for many months. Patient was noted to have a tongue bite after the seizure episode. Currently he states having dizziness and is drowsy. No known history of recent infections, fever or chills. Patient had a another episode of seizure while in ED which lasted for about 1 minute as per the family. Patient is currently able to move all his extremities. No known history of seizures in the past as per the family. CT head showed 1.2 cm hypodense focus with possible loss of vargas- white differentiation within the right frontal lobe suggestive of possible small age indeterminate infarct. No known history of CVA in the past as per the family. Patient received IV Keppra and Ativan in ED for seizure control. Denies any history of chest pain, SOB, pedal edema, fever, chills, headache, vertigo, slurred speech, facial deformity, nausea, vomiting, abdominal pain, diarrhea, dysuria, recent change in medications. Admission Exam Per Admitting Provider Physical Exam: Vitals signs as noted above General Appearance:Moderately built and nourished, no apparent distress Head: normocephalic, Atraumatic, +Tongue bite Eyes: normal inspection, EOMI Neck: supple, Trachea midline Respiratory/Chest: Decreased breath sounds, CTA, No accessory muscle use Cardiovascular: S1, S2, No murmur Abdomen/GI:Soft, Non tender, Bowel sounds present Extremities/Musculoskelatal:normal inspection, no edema Neurologic/Psych:Drowsy but easily awakes, grossly no focal neurological deficits Skin: normal color, warm Principal Diagnosis R frontal stroke seizure smoking ventricular arrhythmia Discharge Data Allergies Allergy/AdvReac Type Severity Reaction Status Date / Time Penicillins Allergy Mild Rash Verified 06/12/19 13:51 Consultations 06/12/19 14:34 ED Decision to Admit Stat 06/12/19 15:42 Consult Neurology Routine 06/12/19 17:29 Consult Case Management - Discharge Planning Routine 06/14/19 07:57 Consult Cardiology Routine 06/14/19 12:01 Consult Case Management - Discharge Planning Routine Ordered Studies 06/12/19 13:23 CT head/brain wo con Stat 06/12/19 17:29 MR brain seizure wo/w con Routine 06/13/19 06:41 US carotid doppler BI Routine 06/13/19 14:46 CT angio head w con Routine CT angio neck with con Routine Hospital Course (1) Ventricular arrhythmia: (2) Seizure: (3) CVA (cerebral vascular accident): 79-year-old man with no history of seizure or stroke presented to the ER after an unwitnessed fall with seizure-like activity witnessed by spouse. Work- up revealed a CT of the head with no acute intracranial hemorrhage, a 1.2 cm hypodense focus with possible loss of vargas-white differentiation in the frontal lobe favoring a small age-indeterminate infarct. He was started on IV Keppra at 500 mg twice daily. He was started on aspirin and continued on simvastatin. An EEG was performed on 06/13 which was normal without evidence for focal or generalized encephalopathy and without evidence for potentially epileptogenic activity. An echocardiogram was ordered revealing normal LV systolic function with an EF of 60 to 65% and evidence of severe concentric LVH. No significant valvular pathology was seen. No ASD was detected and PFO was not assessed. An MRI of the brain revealed an area of acute to subacute ischemia in the right frontal cortex consistent with a stroke. A carotid Doppler was nondiagnostic as the patient refused to complete the study. A head and neck CTA was performed revealing no aneurysm, dissection, high-grade stenosis or proximal branch occlusion. Neurology was consulted and recommended dual antiplatelet therapy with aspirin and Plavix for 3 weeks then to stop Plavix and continue aspirin indefinitely. As the patient had a mild troponin elevation cardiology was consulted. Cardiology believes the troponin elevation was secondary to seizure and did not represent acute coronary syndrome. There were a few brief episodes of wide-complex arrhythmias that were interspersed dispersed with sinus beat seen on telemetry review. However his echocardiogram revealed normal LV function with no findings that would suggest ischemic cardiomyopathy. He was started on metoprolol and followed with no further episodes of arrhythmias on telemetry. No further cardiac work-up was recommended at this time. To complete the stroke work-up an outpatient ZIO patch was recommended which can be ordered by the primary care physician. Although a personal care facility was considered because the patient and his reside in upstairs apartment requires 16 or external stairs to enter, he did not qualify for facility placement and family arranged for a ground floor living situation temporarily. At time of discharge he was hemodynamically stable and afebrile and tolerating p.o. He was mentating and ambulating at baseline and was sent home in stable condition with close primary care and neurology follow-up in 4 to 6 weeks. He was instructed to continue the Keppra twice daily and to not drive a car. Total Time Total Time Spent Total Time Spent (In Minutes): 60 Total Time Includes: Examination of the Patient, Discharge Planning, Medication Reconciliation and Communication With Other Providers Discharge Plan Discharge Items Patient Disposition: Home - Home Health Services Reason For Visit: SEIZURE Discharge Diagnosis: R frontal stroke seizure smoking ventricular arrhythmia Condition on Discharge: Good Activity: Resume your previous activity Driving/Machine Use: NO DRIVING X 6 MONTHS Non-emergency contact: Primary Care Provider Call non-emergency contact if: you have any medication questions, your symptoms worsen, your pain is not controlled, your pain is worsening, your pain is unusual for you, your pain is concerning for you and you have a fever Follow-up/Referrals: Joe Ashton DO [Extras Casting Director] - Bonita Degroot MD [Physician] - Hernando Martel DO [Primary Care Provider] - Diet: Heart Healthy Addtl Attending Provider Instructions: Please take all medications as instructed on discharge list below. Please note multiple medication changes. Please followup with [facility] Neurology in 4-6 weeks. You are recommended to take BOTH ASPIRIN and PLAVIX for 3 weeks time, then STOP PLAVIX and continue on ASPIRIN as monotherapy indefinitely. Your omeprazole interacts with Plavix, so this was switched to pantoprozole. Please note, you are not allowed to drive a car per [facility] regulations until you are 6 months seizure-free. You will have Home Health for Physical and Occupational therapy for the first couple of weeks you are home to help you with the transition to home. Please follow-up with your primary care physician (PCP) within one week of discharge from the hospital. You will need a ZIO patch, which is an event monitor, for approximately 10 days. This can be ordered through your PCP at that time. This appointment will also be important to ensure you are doing well on all your new medications. It is strongly recommended that you quit smoking as it increases your risk of heart attack and stroke and is bad for your health. It was a pleasure taking care of you! Please call if you have any questions or problems. You can reach a [facility] hospitalist on duty at [facility] [address] 24 hours a day by calling [phone]. Take care of yourself. Lisbet Booth, [facility] Med Centerist Addtl Budget Examiner Provider Instructions: Risk Factors for Stroke: You can reduce your chances of stroke by working with your medical provider to adopt a healthy lifestyle. Some specific ways to lower your chance of stroke are: * If you are a smoker, now is the time to stop smoking cigarettes * If you are diabetic, improve the control of your blood sugars * Avoid excessive amounts of alcohol * Control high blood pressure * Lose weight if you are overweight * Be sure to lead an active lifestyle * Eat a healthy diet low in salt, cholesterol and fat You should know about other risk factors for stroke that you are unable to control. These include: * Age 55 years or older * Male gender * Certain racial groups: , or / * Family History of Stroke, Mini stroke or Heart Attack * Sickle Cell Disease Follow Up: It is important for you to keep your follow up appointments with your medical provider. Who to Call and When: Medical Emergencies: Call 911 immediately if you experience any of the following warning signs and symptoms of Stroke: * Sudden numbness or weakness of the face, arm or leg, especially on one side of the body * Sudden confusion, trouble speaking or understanding * Sudden trouble seeing in one or both eyes * Sudden trouble walking, dizziness, loss of balance or coordination * Sudden severe headache with no cause Do not delay calling 911 if you experience any warning signs or symptoms of a stroke. Delay in seeking medical attention may affect what treatments can be given to you. . Pending Studies at Discharge: No Stand-Alone Forms: [facility], Smoking Cessation Medications and DC Order Prescriptions: New levetiracetam [Keppra] 500 mg tablet 500 mg PO BID Qty: 60 RF: 1 clopidogrel 75 mg Tablet 75 mg PO QAM Qty: 30 RF: 0 pantoprazole [Protonix] 40 mg tablet,delayed release (DR/EC) 40 mg PO DAILY Qty: 30 RF: 1 atorvastatin 40 mg Tablet 40 mg PO HS Qty: 30 RF: 1 metoprolol tartrate 25 mg Tablet 12.5 mg PO BID Qty: 60 RF: 1 aspirin [Ecotrin Low Strength] 81 mg Tablet,Delayed Release (Dr/Ec) 81 mg PO DAILY Qty: 90 RF: 1 Continued prednisone 5 mg tablet 5 mg PO DAILY RF: 0 cyanocobalamin (vitamin B-12) [Vitamin B-12] 500 mcg tablet 500 mcg PO DAILY RF: 0 prednisone 1 mg Tablet 1 mg PO DAILY RF: 0 loteprednol etabonate [Lotemax] 0.5 % drops,suspension 1 drp OPB DAILY RF: 0 Spiriva with HandiHaler 18 mcg capsule, w/inhalation device 1 cap INHALATION DAILY RF: 0 albuterol sulfate [Ventolin HFA] 90 mcg/actuation Hfa Aerosol Inhaler 2 puff INHALATION QID PRN (Reason: Wheezing) RF: 0 Boost 0.04 gram- 1 kcal/mL Liquid 1 can PO DAILY RF: 0 Discontinued simvastatin 40 mg Tablet 40 mg PO HS RF: 0 omeprazole 20 mg Tablet,Delayed Release (Dr/Ec) 20 mg PO HS RF: 0 Discharge Orders: Discharge Order (Routine); Ordered 06/16/19 Ordered By: Lisbet Vizcarra/Other Patient Handouts: Seizures Partial Know What Do, Atorvastatin Calcium Oral tablet, Pantoprazole Sodium Gastro-resistant tablet, Clopidogrel Bisulfate Oral tablet, Levetiracetam Oral tablet, Metoprolol Tartrate Oral tabl et, Aspirin Oral tablet Admission Data Admit Date/Time: 06/12/19 15:42 Attending Provider: Lisbet Booth Admit Provider: Ivan Pulliam Primary Care Provider: Hernando Martel Other Providers: Bonita Degroot ; Ivan Pulliam ; Joe Ashton ; [facility],Home Healthcare Other Interventions: Discharge Summary Assessment (RN) Last Done: 06/16/19 14:59 DC Date/Time DO NOT enter until pt leaves facility: 06/16/19 16:40
== END 2019-06-16 16:40 | disposition home health service (06) | DRG 65 ==
LOC: ED 12:23 → SUATTDRO 15:42 → 2S 15:42

== ENCOUNTER 2019-07-15 17:28 | Inpatient (IN) ==
[2019-07-15] MEDS ORDERED: ONDANSETRON INJ 2 MG/ML 2 ML VIAL IV STA (17:41)
[2019-07-15] MEDS ORDERED: CEFEPIME 2,000 MG/20 ML VIAL IV STA (17:41)
[2019-07-15] MEDS ORDERED: SODIUM CHLORIDE 0.9% 500 ML IV SCH (17:45)
[2019-07-15 18:16] LABS: Hematocrit (blood only) 34.2 % (42-52); Hemoglobin 11.8 g/dL (14.0-18.0); Mean Corpuscular Hemoglobin 37.5 pg (25-34); Mean Corpuscular Hgb Conc 34.5 g/dL (32-36); Mean Corpuscular Volume 108.6 fL (80-100); Mean Platelet Volume 9.5 fL (7.4-10.4); Platelet Count 403 K/uL (130-400); RDW Coefficient of Variation 13.8 % (11.5-14.5); RDW Standard Deviation 54.5 fL (36.4-46.3); Red Blood Count 3.15 M/uL (4.7-6.1); White Blood Count 15.18 K/uL (4.8-10.8)
[2019-07-15 18:19] LABS: Alanine Aminotransferase 109 U/L (12-78); Albumin Level 1.7 gm/dl (3.4-5.0); Aspartate Aminotransferase 78 U/L (15-37); BUN Creatinine Ratio 29.4 (10-20); Blood Urea Nitrogen 25 mg/dl (7-18); Calcium 8.7 mg/dl (8.5-10.1); Carbon Dioxide 27 mmol/L (21-32); Chloride 99 mmol/L (98-107); Creatinine Clr Calc Pharmacy 60.3 ml/min; Est GFR (African American) 95.2; Est GFR (Non-African American) 82.1; Glucose 127 mg/dl (70-99); Potassium 4.3 mmol/L (3.5-5.1); Sodium 132 mmol/L (136-145)
[2019-07-15 18:23] LABS: INR 1.2 (0.9-1.1); Partial Thromboplastin Time 27.4 Seconds (21.0-31.0)
--- NOTE | 2019-07-15 18:27 | XRay Report ---
XR chest 1V portable CLINICAL HISTORY: weakness COMPARISON STUDY: 06/14/2019 FINDINGS: The cardiac and mediastinal contours remain stable. There is a moderate left pleural effusi on with associated left lung airspace opacities. Correlate clinically for evidence of pneumonia. The right lung is clear. There is mild nonspecific left hilar fullness.[ IMPRESSION: 1. Moderate left pleural effusion with associated left lung airspace opacities possibly representing pneumonia. Clinical and radiographic follow-up is recommended. ACT 112: Negative or not required by law. Electronically signed by: Kashif Sequeira M.D. 07/15/2019 6:25 PM
[2019-07-15 18:30] LABS: Albumin Globulin Ratio 0.3 (0.9-2); Alkaline Phosphatase 91 U/L (45-117); Bilirubin,Total 0.6 mg/dl (0.2-1); Globulin 5.3 gm/dl (2.5-4.0); Troponin I < 0.015 ng/ml (0-0.045)
[2019-07-15 18:34] LABS: Basophils # (auto) 0.02 K/uL (0-0.2); Basophils % (auto) 0.1 %; Eosinophils # (auto) 0.02 K/uL (0-0.5); Eosinophils % (auto) 0.1 %; Immature Granulocytes # (auto) 0.24 K/uL (0.00-0.02); Immature Granulocytes % (auto) 1.6 %; Lymphocytes # (auto) 1.69 K/uL (1.2-3.4); Lymphocytes % (auto) 11.1 %; Monocytes # (auto) 1.51 K/uL (0.11-0.59); Monocytes % (auto) 9.9 %; Neutrophils % (auto) 77.2 %
[2019-07-15] MEDS ORDERED: SODIUM CHLORIDE 0.9% 1000ML 1,000 ML IV ONE (18:45)
[2019-07-15] MEDS ORDERED: LEVALBUTEROL HCL 0.63 MG/3 ML NEB NEB PRN (21:16)
[2019-07-15] MEDS ORDERED: XOPENEX/ATROVENT 0.63mg/0.5MG NEB COMBO NEB PRN (21:16)
[2019-07-15] MEDS ORDERED: NITROGLYCERIN SL 0.4 MG/TAB TAB SL PRN (21:16)
[2019-07-15] MEDS ORDERED: ONDANSETRON INJ 2 MG/ML 2 ML VIAL IV PRN (21:16)
[2019-07-15] MEDS ORDERED: IPRATROPIUM BROMIDE NEB SOLN 0.02% 2.5 ML VIAL INH PRN (21:16)
[2019-07-15] MEDS ORDERED: HYDROCORTISONE SOD SUCCINATE 100 MG/2 ML VIAL IV SCH (21:16)
[2019-07-15] MEDS ORDERED: ACETAMINOPHEN 325 MG TAB PO PRN (21:16)
[2019-07-15] MEDS: SODIUM CHLORIDE 0.9% 1000ML 1,000 ML IV SCH (21:56)
[2019-07-15] MEDS ORDERED: CEFEPIME CONSULT ACTIVE PRN (21:56)
[2019-07-15 22:04] LABS: Appearance Urine Cloudy (Clear); Bilirubin Urine Negative (Negative); Blood Urine Negative (Negative); Color Urine Dark Yellow; Epithelial Cell Urine Auto >30 /lpf (0-5); Glucose Urine UA Negative (Negative); Ketones Urine Trace (Negative); Leukocyte Esterase Urine Negative (Negative); Nitrite Urine Negative (Negative); Protein Urine Negative (Negative); Specific Gravity Urine 1.029 (1.000-1.030); Urobilinogen Urine Negative (Negative); pH Urine 5.5 (4.5-7.5)
[2019-07-15 22:21] LABS: Bacteria Urine Automated 1+ (Negative)
[2019-07-15 22:22] LABS: RBC Urine Automated 0-4 /hpf (0-4)
[2019-07-15] MEDS: DOXYCYCLINE HYCLATE 100 MG in DEXTROSE 5% 100 ML IV SCH (22:47)
[2019-07-15] MEDS: METOPROLOL TARTRATE 25 MG TAB PO SCH (22:48)
[2019-07-15] MEDS: levETIRAcetam 500 MG TAB PO SCH (22:48)
[2019-07-15] MEDS: HYDROCORTISONE SOD 50 MG in SYRINGE 0 ML IV SCH (22:48)
[2019-07-15] MEDS: ATORVASTATIN 40 MG TAB PO SCH (22:48)
--- NOTE | 2019-07-15 22:50 | Ultrasound Report ---
US effusion-chest/mediastinum CLINICAL HISTORY: left pleural effusion COMPARISON STUDY: Chest x-ray dated 07/15/2019 FINDINGS: No right pleural effusion was visualized. There is a complex septated left pleural effusion with a estimated volume of 350 cc. IMPRESSION: Complex otitis septated left pleural effusion with an estimated volume of 350 cc ACT 112: Negative or not required by law. Electronically signed by: Kashif Sequeira M.D. 07/15/2019 10:48 PM
--- NOTE | 2019-07-15 23:29 | Emergency Department Note ---
Entered by Yamila Vee acting as a scribe for History of Present Illness General Chief complaint: Illness Stated complaint: WEAKNESS, FEVER Time Seen by Provider: 07/15/19 17:34 Source: patient and family () History of Present Illness Onset (ago): week(s) (several) Location: head (general) Pain Consistency: + other (worsening) Quality: + other (weakness) Associated symptoms: + cough, + fever/chills, + loss of appetite and + other (back soreness, increased heart rate) The patient is a 79 year old male who presents to the Emergency Room with complaints of worsening weakness beginning several weeks ago. The patient reports he has not been eating or drinking as much as normal. He reports weight loss, back soreness, and a cough with mucous. The patient reports chest pain while coughing and shortness of breath. He denies urinary difficulty and changes to his bowel movements. The patient's reports a fever of 101.6 two days ago. She reports the patient's occupational therapist reported the patient had a increased heart rate for the past two days. She notes the patient was scheduled to go see his PCP, but they were unable to get him down the stairs so they called EMS. The patient's reports a history of a stroke and a fall one month ago. She notes near falls since then, but no actual falls. She reports the patient has a history of a seizure disorder. The patient denies wearing oxygen at home. Home Medications Home Medications Medication Instructions Recorded Confirmed Type Spiriva with HandiHaler 1 cap INHALATION QAM 06/12/19 07/15/19 History cyanocobalamin (vitamin B-12) 500 mcg PO QAM 06/12/19 07/15/19 History [Vitamin B-12] loteprednol etabonate [Lotemax] 1 drp OPB BID 06/12/19 07/15/19 History prednisone 1 mg PO QAM 06/12/19 07/15/19 History prednisone 5 mg PO QAM 06/12/19 07/15/19 History atorvastatin 40 mg PO HS #30 tab 06/16/19 07/15/19 Rx clopidogrel 75 mg PO QAM #30 tab 06/16/19 07/15/19 Rx levetiracetam [Keppra] 500 mg PO BID #60 tab 06/16/19 07/15/19 Rx metoprolol tartrate 12.5 mg PO BID #60 tab 06/16/19 07/15/19 Rx aspirin [Ecotrin Low Strength] 81 mg PO QAM 07/15/19 07/15/19 History pantoprazole [Protonix] 40 mg PO QAM 07/15/19 07/15/19 History Allergies Allergy/AdvReac Type Severity Reaction Status Date / Time Penicillins Allergy Mild Rash Verified 07/15/19 19:12 Past Med/Surg History Medical History Anemia HX GERD (gastroesophageal reflux disease) Hearing deficit Hyperlipidemia Temporal arteritis REASON FOR PREDNISONE Surgical History History of colonoscopy History of esophagogastroduodenoscopy (EGD) History of tonsillectomy History of tooth extraction Family History Brother Cancer Social History Preferred Language: Gabonese Communication Ability: Effective Dam Operator Required: No Beliefs That Will Affect Care: None Current Living Situation: Spouse Feels Safe at Home: Yes Safety Concerns: Feels Safe At This Time Smoking Status: Former smoker Tobacco Type: pipe ; Cigarettes Per Day: DAILY ; Second Hand Exposure: Yes ; Hx Alcohol Use: Yes Alcohol type: wine Hx Substance Use: No Review of Systems See HPI for pertinent positives & negatives. and A total of 10 systems reviewed and were otherwise negative Physical Exam Vital Signs Vital Signs - 24 hr 07/15/19 17:41 07/15/19 18:10 07/15/19 19:20 Temperature 37.8 C H Temperature Source Oral Pulse Rate 131 H Pulse Rate [Bilateral Apical] 116 H Respiratory Rate 18 24 Blood Pressure 157/86 H Blood Pressure [Left Arm] 146/93 H Blood Pressure Mean 109 Blood Pressure Mean [Left Arm] 110 Pulse Oximetry 91 93 92 Oxygen Delivery Method Room Air Room Air Nasal Cannula Oxygen Flow Rate 2 Sepsis Recent Fever Within 48 Hours No Sepsis Action Taken by Nursing No Action Required GENERAL: Patient is in mild distress. HEENT: No acute trauma, normocephalic atraumatic, mucous membranes moist, no nasal congestion, no scleral icterus. NECK: No stridor, no adenopathy, no meningismus, trachea is midline. LUNGS: Diminished breath sounds especially on the left. No wheezing or rhonchi, no significant respiratory distress. HEART: Tachycardic rate, regular rhythm. No murmurs. ABDOMEN: Soft, nontender, bowel sounds positive, no hernias, no peritonitis. EXTREMITIES: No cyanosis or edema, full range of motion of all the joints without pain or difficulty, no signs for acute trauma. NEUROLOGIC: Oriented x 3, no acute motor or sensory deficits, no focal weakness. SKIN: No rash, no jaundice, no diaphoresis. Course Course 1730: Past medical records reviewed. The patient was evaluated in room B07. A complete history and physical exam was performed. 1850: Upon reevaluation, I discussed findings and results with the patient and his . They verbalized agreement of the treatment plan. [facility] The patient will be evaluated for further management and care. Administered Medications Atorvastatin Calcium (Lipitor) 40 mg PO HS [facility] Stop: 08/14/19 21:15 Last Admin: 07/15/19 22:48 Dose: 40 mg Documented by: [id number] Sodium Chloride (Nss 1000ml) 1,000 mls @ 125 mls/hr IV .Q8H [facility] Stop: 08/14/19 21:15 Last Admin: 07/15/19 21:56 Dose: 125 mls/hr Documented by: [id number] Doxycycline Hyclate 100 mg/ (Dextrose) 110 mls @ 50 mls/hr IV Q12H [facility]; Protocol Stop: 07/22/19 21:59 Last Admin: 07/15/19 22:47 Dose: 50 mls/hr Documented by: [id number] Hydrocortisone Sodium (Succinate 50 mg/ Syringe) 1 mls @ 4 mls/min IV Q8H [facility] Stop: 07/16/19 21:59 Last Admin: 07/15/19 22:48 Dose: 4 mls/min Documented by: [id number] Levetiracetam (Keppra) 500 mg PO BID [facility] Stop: 08/14/19 21:15 Last Admin: 07/15/19 22:48 Dose: 500 mg Documented by: [id number] Metoprolol Tartrate (Lopressor) 12.5 mg PO BID [facility] Stop: 08/14/19 21:15 Last Admin: 07/15/19 22:48 Dose: 12.5 mg Documented by: [id number] Discontinued Medications Sodium Chloride (Nss) 500 mls @ 999 mls/hr IV .Q31M [facility] Stop: 07/15/19 18:15 Last Infusion: 07/15/19 18:53 Dose: 0 mls/hr Documented by: [id number] Admin: 07/15/19 18:21 Dose: 999 mls/hr Documented by: [id number] Cefepime HCl (Maxipime) 2,000 mg in 20 mls @ 5 mls/min IV NOW STA; Protocol Stop: 07/15/19 17:44 Last Admin: 07/15/19 18:23 Dose: 5 mls/min Documented by: [id number] Sodium Chloride (Nss 1000ml) 1,000 mls @ 999 mls/hr IV .Q1H1M ONE Stop: 07/15/19 19:45 Last Infusion: 07/15/19 20:07 Dose: 0 mls/hr Documented by: [id number] Admin: 07/15/19 18:56 Dose: 999 mls/hr Documented by: [id number] Ondansetron HCl (Zofran) 4 mg IV NOW STA Stop: 07/15/19 17:42 Last Admin: 07/15/19 18:23 Dose: 4 mg Documented by: [id number] Medical Decision Making Differential Diagnosis Differential Diagnosis: sepsis, bacteremia, dehydration, electrolyte imbalance, anemia, a-fib, a-flutter, SVT, NH Medical Records Attestation: I reviewed the patient's medical records. Home Medications Current Medication List: was personally reviewed by ct Laboratory Data Attestation: I reviewed the patient's lab results. Result diagrams: 07/15/19 17:30 07/15/19 17:30 Lab Results 07/15/19 07/15/19 07/15/19 Range/Units 17:30 17:30 17:30 WBC 15.18 H (4.8-10.8) K/uL RBC 3.15 L (4.7-6.1) M/uL Hgb 11.8 L (14.0-18.0) g/dL Hct 34.2 L (42-52) % MCV 108.6 H (80-100) fL MCH 37.5 H (25-34) pg MCHC 34.5 (32-36) g/dL RDW Std Deviation 54.5 H (36.4-46.3) fL RDW Coeff of Gene 13.8 (11.5-14.5) % Plt Count 403 H (130-400) K/uL MPV 9.5 (7.4-10.4) fL Immature Gran % (Auto) 1.6 % Neut % (Auto) 77.2 % Lymph % (Auto) 11.1 % [place] % (Auto) 9.9 % Eos % (Auto) 0.1 % Baso % (Auto) 0.1 % Immature Gran # (Auto) 0.24 H (0.00-0.02) K/uL Neut # (Auto) 11.70 H (1.4-6.5) K/uL Lymph # (Auto) 1.69 (1.2-3.4) K/uL [place] # (Auto) 1.51 H (0.11-0.59) K/uL Eos # (Auto) 0.02 (0-0.5) K/uL Baso # (Auto) 0.02 (0-0.2) K/uL PT 12.0 (9.0-12.0) Seconds INR 1.2 H (0.9-1.1) APTT 27.4 (21.0-31.0) Seconds PTT Ratio 1.0 Sodium 132 L (136-145) mmol/L Potassium 4.3 (3.5-5.1) mmol/L Chloride 99 (98-107) mmol/L Carbon Dioxide 27 (21-32) mmol/L Anion Gap 6.0 (3-11) BUN 25 H (7-18) mg/dl Creatinine 0.84 (0.6-1.4) mg/dl Est Cr Clr Drug Dosing 60.3 ml/min Est GFR ( Amer) 95.2 Est GFR (Non-Af Amer) 82.1 BUN/Creatinine Ratio 29.4 H (10-20) Glucose 127 H (70-99) mg/dl Lactate (0.4-2.0) mmol/L Calcium 8.7 (8.5-10.1) mg/dl Magnesium 2.0 (1.8-2.4) mg/dl Total Bilirubin 0.6 (0.2-1) mg/dl AST 78 H (15-37) U/L ALT 109 H (12-78) U/L Alkaline Phosphatase 91 (45-117) U/L Troponin I < 0.015 (0-0.045) ng/ml Total Protein 7.0 (6.4-8.2) gm/dl Albumin 1.7 L (3.4-5.0) gm/dl Globulin 5.3 H (2.5-4.0) gm/dl Albumin/Globulin Ratio 0.3 L (0.9-2) TSH 1.140 (0.300-4.500) uIu/ml 07/15/19 Range/Units 18:09 WBC (4.8-10.8) K/uL RBC (4.7-6.1) M/uL Hgb (14.0-18.0) g/dL Hct (42-52) % MCV (80-100) fL MCH (25-34) pg MCHC (32-36) g/dL RDW Std Deviation (36.4-46.3) fL RDW Coeff of Gene (11.5-14.5) % Plt Count (130-400) K/uL MPV (7.4-10.4) fL Immature Gran % (Auto) % Neut % (Auto) % Lymph % (Auto) % [place] % (Auto) % Eos % (Auto) % Baso % (Auto) % Immature Gran # (Auto) (0.00-0.02) K/uL Neut # (Auto) (1.4-6.5) K/uL Lymph # (Auto) (1.2-3.4) K/uL [place] # (Auto) (0.11-0.59) K/uL Eos # (Auto) (0-0.5) K/uL Baso # (Auto) (0-0.2) K/uL PT (9.0-12.0) Seconds INR (0.9-1.1) APTT (21.0-31.0) Seconds PTT Ratio Sodium (136-145) mmol/L Potassium (3.5-5.1) mmol/L Chloride (98-107) mmol/L Carbon Dioxide (21-32) mmol/L Anion Gap (3-11) BUN (7-18) mg/dl Creatinine (0.6-1.4) mg/dl Est Cr Clr Drug Dosing ml/min Est GFR ( Amer) Est GFR (Non-Af Amer) BUN/Creatinine Ratio (10-20) Glucose (70-99) mg/dl Lactate 1.6 (0.4-2.0) mmol/L Calcium (8.5-10.1) mg/dl Magnesium (1.8-2.4) mg/dl Total Bilirubin (0.2-1) mg/dl AST (15-37) U/L ALT (12-78) U/L Alkaline Phosphatase (45-117) U/L Troponin I (0-0.045) ng/ml Total Protein (6.4-8.2) gm/dl Albumin (3.4-5.0) gm/dl Globulin (2.5-4.0) gm/dl Albumin/Globulin Ratio (0.9-2) TSH (0.300-4.500) uIu/ml Imaging Data Radiologist's Impression: Radiology results as stated below per my review and the radiologist's interpretation: XR chest 1V portable CLINICAL HISTORY: weakness COMPARISON STUDY: 06/14/2019 FINDINGS: The cardiac and mediastinal contours remain stable. There is a moderate left pleural effusion with associated left lung airspace opacities. Correlate clinically for evidence of pneumonia. The right lung is clear. There is mild nonspecific left hilar fullness.[ IMPRESSION: 1. Moderate left pleural effusion with associated left lung airspace opacities possibly representing pneumonia. Clinical and radiographic follow-up is recommended. ACT 112: Negative or not required by law. Electronically signed by: Kashif Seuqeira M.D. 07/15/2019 6:25 PM ECG Data Attestation: I personally reviewed and interpreted this ECG as follows: Indication: + tachycardia Rate (beats per minute): 130 Rhythm: + sinus tachycardia ECG Intervals/blocks: + Normal QT-c (412) ECG ST segments: + Nonspecific ST abnormalities; no ST elevation Blood Pressure Blood Pressure Findings: Elevated blood pressure Blood Pressure Disposition: further management by hospitalist JASVIR Narrative There is a moderate leukocytosis, this could be consistent with infection. No concerning anemia. No coagulopathy. No significant electrolyte abnormality or kidney failure. Lactic acid level is not elevated making severe sepsis less l ikely. There were a few subtle liver enzyme elevations. EKG showed a sinus tachycardia, no acute ischemia. Cardiac enzyme testing x1 was not consistent with acute cardiac injury. Urinalysis did not show any obvious infection, contamination was seen. Chest film does show evidence of for pneumonia with a left pleural effusion noted as well. The patient received IV saline for hydration. He was given IV cefepime as antibiotic coverage. He received IV Zofran for nausea. The patient does meet criteria for sepsis. He is tachycardic, he has a very subtle fever. He does have pneumonia on x-ray. He has been weak and a little bit short of breath, he has been coughing. I do think a hospital stay is warranted. I did speak to the patient and case management. Patient is currently resting comfortably. He is aware of all his findings. Continuous Cardiac Monitoring: An order was placed for continuous cardiac monitoring. The monitor shows a rate of 126 with sinus tachycardia. Impression & Plan Sepsis, Pneumonia, Tachycardia, Weakness, SOB (shortness of breath) Discharge Plan Visit Data *Final* Discharge Date/Time: 07/15/19 21:00 Chief Complaint: Illness Stated Complaint: WEAKNESS, FEVER ED Provider: Drew Wood Discharge Problem: Sepsis, Pneumonia, Tachycardia, Weakness, SOB (shortness of breath) Patient Disposition: Being Evaluated by Hospitalist Discharge Instructions Interventions: ED Discharge Assessment Last Done: 07/15/19 21:00 Discharge Problem: Sepsis Qualifiers: Sepsis type: sepsis due to unspecified organism Sepsis acute organ dysfunction status: unspecified Qualified Code(s): A41.9 - Sepsis, unspecified organism Pneumonia Qualifiers: Pneumonia type: due to unspecified organism Laterality: unspecified laterality Lung location: unspecified part of lung Qualified Code(s): J18.9 - Pneumonia, unspecified organism The sang's documentation has been prepared under my direction and personally reviewed by me in its entirety. I confirm that the note above accurately reflects all work, treatment, procedures, and medical decision making performed by me.
--- NOTE | 2019-07-15 23:38 | History and Physical Report ---
DATE OF ADMISSION: 07/15/2019 CHIEF COMPLAINT: Cough and not feeling well. HISTORY OF PRESENT ILLNESS: This is an 79-year-old male with past medical history significant for hyperlipidemia, COPD, temporal arteritis, B12 deficiency, GERD, history of recent right frontal infarct in the last week of May and at that time, he presented with seizures. No residual weakness. No dysarthria or dysphagia. He was put on seizure medications and aspirin, Plavix, Lipitor, was discharged home. He lives in second floor. He has planned to come to the ground floor. Apparently the patient is having cough for some time, but last 2 days, the cough got worse. He has some phlegm, but this he swallows phlegm and don't know the color.Today he had some temperature, also tachycardic and was brought to the hospital. The patient is alert and oriented is able to give most of the history. His blood pressure is okay. He says he is feeling generalized weakness, not able to ambulate much. Walks with the walker. Appetite is poor and also when he coughs, he is having chest pain most on the left side and when he takes some deep breaths, the chest pain improves. Chest pain comes on and off. He is swallowing ok.. No dysphagia, no odynophagia. No nausea, no vomiting, no abdominal pain. No diarrhea or constipation. No blood in the stools or black stools. No burning micturition, no hematuria. No swelling in the legs, no rash. Denies any headache. No blurred vision, no earache, no sore throat, no runny nose. He is having fluids and antibiotics in the ER and says now he is feeling better. ALLERGIES: TO PENICILLINS. PAST MEDICAL HISTORY: As mentioned above. PAST SURGICAL HISTORY: Colonoscopy, EGDs, cataract, tonsillectomy and adenoidectomy. MEDICATIONS: The patient currently is on aspirin 81 mg p.o. daily, Lipitor 40 mg p.o. at bedtime, Plavix 75 mg p.o. a.m., vitamin B12 500 mcg p.o. a.m., Keppra 500 mg p.o. b.i.d., Lotemax 1 drop ophthalmic b.i.d., Lopressor 12.5 mg p.o. b.i.d., Protonix 40 mg p.o. a.m., prednisone 60 mg p.o. a.m., Spiriva with HandiHaler 1 capsule inhalation daily. FAMILY HISTORY: Significant for mother has Alzheimer's disease. Father at age 50 of adverse drug reaction to cortisone shot. Maternal grandfather had stroke. SOCIAL HISTORY: . Smoked for 60 years pipe. Alcohol, drinks wine. No drug use. Lives with his . REVIEW OF SYMPTOMS: As per HPI. Rest of review of symptoms negative. PHYSICAL EXAMINATION: GENERAL: The patient is old and frail, currently not in acute distress. VITAL SIGNS: Temperature 37.8, pulse 116, respiratory rate 24, blood pressure 146/93, oxygen 92% on 2 liters. HEENT: No pallor, no icterus. Pupils equal, round, reactive to light. NECK: No JVD, no neck masses, no carotid bruits. CARDIOVASCULAR: S1, S2 heard. Tachycardia. No murmurs. RESPIRATORY SYSTEM: Normal AP diameter. No accessory muscle use. No wheezing. Decreased breath sounds in the left lower lobe. ABDOMEN: Soft, bowel sounds present, nontender. No distention. CENTRAL NERVOUS SYSTEM: Alert and oriented. Obeys commands. Insight good. Speech is clear. Moves extremities. EXTREMITIES: No edema, no erythema. LABORATORY DATA: WBC 15, hemoglobin 11.8, hematocrit 34.2, platelets 403. PT 12, INR 1.2, APTT 27.4. Sodium 132, potassium 4.3, chloride 99, CO2 27, BUN 25, creatinine 0.8, serum glucose 127. Lactate 1.6, calcium 8.7, magnesium 2. Total bilirubin 0.6, AST 78, ALT 109, alkaline phosphatase 91. Troponin I less than 0.015. TSH 1.14. Chest x-ray: Moderate left pleural effusion and opacities, possibly representing pneumonia. EKG: Sinus tachycardia at a rate of 130, nonspecific T-wave abnormalities. ASSESSMENT AND PLAN: This is an 79-year-old male who presents with ongoing illness with cough and fever, weakness and found to have pneumonia. 1. Possible sepsis secondary to pneumonia . Presents with tachycardia, fever spike, leukocytosis. Lactate is 1.6. Mild elevation of AST and ALT. Chest x-ray shows left lower lobe pneumonia with some pleural effusion. In the ER, he was given cefepime. We will continue IV cefepime and IV doxycycline. We will get a MRSA swab follow the cultures and monitor in tele floor.Will get chest US for pleural effusion. 2. History of chronic obstructive pulmonary disease. Continue home inhalers. We will place him on also stress dose steroids for short duration. We will place him on nebs p.r.n. and monitor. 3. History of temporal arteritis, on prednisone 6 mg daily. Getting stress dose steroids for short duration. Continue his home prednisone. 4. Recent seizure disorder secondary to CVA. Continue Keppra, seems stable. 5. History of CVA with right frontal stroke, doing fine. Continue aspirin, Plavix and statin. 6 Ventricular arrhythmia on last admission . Zio monitor done as outpatient reading is still pending. Follow with PCP. 7. Deep venous thrombosis prophylaxis, SCDs for now. DISPOSITION: Closely monitor in tele floor. Level 1 full code. PT and OT prior to discharge. Social Service to help with discharge planning. SIRISHA
[2019-07-16] MEDS: CEFEPIME 2,000 MG in SYRINGE 7.5 ML IV SCH ×3 (01:49→18:09)
[2019-07-16] MEDS: SODIUM CHLORIDE 0.9% 1000ML 1,000 ML IV SCH ×2 (05:19→07:40)
[2019-07-16] MEDS: HYDROCORTISONE SOD 50 MG in SYRINGE 0 ML IV SCH ×2 (05:21→13:58)
[2019-07-16 05:35] LABS: Hematocrit (blood only) 31.3 % (42-52); Hemoglobin 10.4 g/dL (14.0-18.0); Mean Corpuscular Hemoglobin 36.4 pg (25-34); Mean Corpuscular Hgb Conc 33.2 g/dL (32-36); Mean Corpuscular Volume 109.4 fL (80-100); Platelet Count 302 K/uL (130-400); RDW Coefficient of Variation 13.9 % (11.5-14.5); RDW Standard Deviation 55.7 fL (36.4-46.3); Red Blood Count 2.86 M/uL (4.7-6.1); White Blood Count 12.25 K/uL (4.8-10.8)
[2019-07-16 05:51] LABS: BUN Creatinine Ratio 24.5 (10-20); Calcium 7.9 mg/dl (8.5-10.1); Magnesium 1.9 mg/dl (1.8-2.4); Potassium 4.8 mmol/L (3.5-5.1)
[2019-07-16 06:04] LABS: Basophils # (auto) 0.02 K/uL (0-0.2); Basophils % (auto) 0.2 %; Dohle Bodies Occasional; Immature Granulocytes # (auto) 0.21 K/uL (0.00-0.02); Immature Granulocytes % (auto) 1.7 %; Lymphocytes # (auto) 0.74 K/uL (1.2-3.4); Monocytes # (auto) 1.01 K/uL (0.11-0.59); Monocytes % (auto) 8.2 %; Neutrophils # (auto) 10.27 K/uL (1.4-6.5); Neutrophils % (auto) 83.9 %; Rouleaux 1+; Toxic Vacuolation Occasional
[2019-07-16 06:24] LABS: Albumin Level 1.3 gm/dl (3.4-5.0); Bilirubin Direct 0.3 mg/dl (0-0.2); Bilirubin,Total 0.6 mg/dl (0.2-1); Total Protein 5.7 gm/dl (6.4-8.2)
[2019-07-16] MEDS: UMECLIDINIUM BROMIDE 62.5MCG/BLISTER 7 PUFFS/INHALER INH SCH (08:27)
[2019-07-16] MEDS: ASPIRIN 81 MG ECTAB PO SCH (08:28)
[2019-07-16] MEDS: predniSONE 1 MG TAB PO SCH (08:28)
[2019-07-16] MEDS: CYANOCOBALAMIN 500 MCG TABLET (VITAMIN B-12) PO SCH (08:28)
[2019-07-16] MEDS: predniSONE 5 MG TAB PO SCH (08:28)
[2019-07-16] MEDS: levETIRAcetam 500 MG TAB PO SCH ×2 (08:28→20:58)
[2019-07-16] MEDS: METOPROLOL TARTRATE 25 MG TAB PO SCH ×2 (08:28→20:56)
[2019-07-16] MEDS: CLOPIDOGREL BISULFATE 75 MG TAB PO SCH (08:28)
[2019-07-16] MEDS: PANTOprazole 40 MG TAB PO SCH (08:29)
[2019-07-16] MEDS: DOXYCYCLINE HYCLATE 100 MG in DEXTROSE 5% 100 ML IV SCH ×2 (09:20→20:56)
--- NOTE | 2019-07-16 17:47 | Electrocardiogram Report ---
Test Reason : Blood Pressure : / mmHG Vent. Rate : 130 BPM Atrial Rate : 130 BPM P-R Int : 148 ms QRS Dur : 092 ms QT Int : 280 ms P-R-T Axes : 063 -14 075 degrees QTc Int : 412 ms Sinus tachycardia Possible Left atrial enlargement Low voltage QRS Nonspecific T wave abnormality Abnormal ECG When compared with ECG of 14-JUN-2019 06:29, Premature ventricular complexes are no longer Present Criteria for Inferior infarct are no longer Present Non-specific change in ST segment in Inferior leads T wave inversion no longer evident in Lateral leads Confirmed by Walker Dawn ([id number]) on 07/16/2019 5:46:50 PM Referred By: REFERRED SELF Confirmed By:Miguel A Dawn
--- NOTE | 2019-07-16 18:03 | Hospitalist Progress Note ---
Date of Service July 16, 2019 Assessment & Plan (1) Loculated pleural effusion: Complex pleural effusion seen on imaging. Pulm consulted and performed thoracentesis at bedside, however, consulting thoracic surgery to consider more invasive treatment. Clinically patient is doing better today and his chest pain is reportedly resolved in this area (pre-thoracentesis). (2) Pneumonia: Left lower pneumonia, blood cultures pending. Clinically improved on Cefepime and doxycycline. Will look to de-escalate after decisions on operative procedure for parapneumonic effusion above. (3) Temporal arteritis: Cont chronic prednisone 6mg PO daily. Will need to de-escalate stress dose steroids which are currently hydrocortisone 50mg IV q8hrs. Will do this once understand the OR plans for tomorrow. (4) CVA (cerebral vascular accident): Cont medical management of CVD, on ASA, Plavix and Lipitor. (5) Seizure: Stable since recent admission with seizure activity. Cont Keppra (6) COPD (chronic obstructive pulmonary disease): Chronic, stable. No wheezing on exam. Cont home inhalers. (7) Ventricular arrhythmia: Has a h/o this on last admission. No events on telemetry overnight. (8) DVT prophylaxis: SCDs pending upcoming procedure, then will need to add as soon as OK with surgery Full Code Dispo-plan for home when medically stable. Will engage with PT/OT Lisbet oBoth DO [facility] Hospitalist Subjective P/w cough and chest pain on the left that is now resolved. Fever last night with weakness and feels much better today per his report. He is eating well. Denies SOB. Review of Systems Review of Systems: All systems reviewed & are unremarkable except as noted in HPI & below Physical Exam Physical Exam: CONSTITUTIONAL: WNWD, vitals as above, generally well- appearing EYES: normal conjunctivae, no scleral icterus ENT: MMM, oropharynx clear RESPIRATORY: clear to auscultation bilaterally, no crackles, rales or wheezes, normal respiratory effort CARDIOVASCULAR: regular rate and rhythm, S1 and 2 heard without murmurs, gallops or rubs, no JVD, no peripheral edema GASTROINTESTINAL: soft, nontender, nondistended MUSCULOSKELETAL: strength 5/5 throughout, head is normocephalic and atraumatic, SKIN: warm and dry NEUROLOGIC: Touch, pain and proprioception normal. CN 2-12 grossly intact, no sensory deficit, normal cognition, normal speech, no tremor PSYCHIATRIC: alert cooperative and oriented to person, place and time. Results & Data Vital Signs (Past 12 Hours) Vital Signs Temp Pulse Pulse Resp BP BP Pulse Ox 07/16/19 15:38 36.3 C L 89 21 142/82 H 95 07/16/19 15:11 86 07/16/19 12:00 36.5 C 83 21 128/83 93 07/16/19 10:41 90 07/16/19 07:44 36.6 C 90 19 137/85 94 (1) Pneumonia Laterality: unspecified laterality Lung location: unspecified part of lung Pneumonia type: due to unspecified organism Qualified Code(s): J18.9 - Pneumonia, unspecified organism (2) CVA (cerebral vascular accident) CVA mechanism: unspecified Qualified Code(s): I63.9 - Cerebral infarction, unspecified
--- NOTE | 2019-07-16 18:35 | Pulmonary Consultation ---
Date of Consultation July 16, 2019 Assessment & Plan (1) Loculated pleural effusion: --Loculated left-sided pleural effusion With multiple loculation appreciated bedside Status post thoracentesis done 07/16/2019 Exudative as per lights criteria. LDH 400, total protein 3.5, WBC 5381, pH of 7.37. This likely represents parapneumonic effusion Given that the patient has multiple loculations especially on the posterior side which was still persistent after thoracentesis Patient will benefit from VATS. CT surgery has been consulted. --Left lower lobe pneumonia Continue with antibiotics Follow-up pleural fluid culture and cytology --COPD Not in exacerbation On Lama inhaler at home --Pipe smoker Has cut down but still smokes. Needs pulmonary function test done as an outpatient --History of temporal arteritis Takes chronic prednisone for it. (2) SOB (shortness of breath): (3) Pneumonia: Laterality: unspecified laterality Lung location: unspecified part of lung Pneumonia type: due to unspecified organism Qualified Code(s): J18.9 - Pneumonia, unspecified organism History of Present Illness Attending Physician: Lisbet Booth, History of Present Illness 79-year-old male with past medical history of dyslipidemia, COPD, temporal arteritis on chronic prednisone 6 mg a day, GERD has not been feeling well since late May. But since the last 3 to 4 days complained of generalized weakness to an extent that he was not able to go to the doctor's office. Patient complained of left-sided chest pain which is pleuritic in nature. No nausea or vomiting denies any significant cough. Minimal phlegm but he says that he is not able to bring up most of his phlegm. No fever or chills. No upper respiratory infections. No runny nose, no tearing from the eyes. Patient got his flu shot this season. Denies any hemoptysis. No dysuria, no hematuria, no diarrhea, no hematochezia. At the time of examination patient denied any chest pain. Said that his shortness of breath is getting better. Social history: Pipe smoker he has cut down but he still smokes, social alcohol, denies any illicit drug use. 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 No personal family history of any cancer. No history of asthma. Allergies Allergy/AdvReac Type Severity Reaction Status Date / Time Penicillins Allergy Mild Rash Verified 07/15/19 19:12 Home Medications Home Medications Medication Instructions Recorded Confirmed Type Spiriva with HandiHaler 1 cap INHALATION QAM 06/12/19 07/15/19 History cyanocobalamin (vitamin B-12) 500 mcg PO QAM 06/12/19 07/15/19 History [Vitamin B-12] loteprednol etabonate [Lotemax] 1 drp OPB BID 06/12/19 07/15/19 History prednisone 1 mg PO QAM 06/12/19 07/15/19 History prednisone 5 mg PO QAM 06/12/19 07/15/19 History atorvastatin 40 mg PO HS #30 tab 06/16/19 07/15/19 Rx clopidogrel 75 mg PO QAM #30 tab 06/16/19 07/15/19 Rx levetiracetam [Keppra] 500 mg PO BID #60 tab 06/16/19 07/15/19 Rx metoprolol tartrate 12.5 mg PO BID #60 tab 06/16/19 07/15/19 Rx aspirin [Ecotrin Low Strength] 81 mg PO QAM 07/15/19 07/15/19 History pantoprazole [Protonix] 40 mg PO QAM 07/15/19 07/15/19 History Patient History Medical History Anemia HX GERD (gastroesophageal reflux disease) Hearing deficit Hyperlipidemia Temporal arteritis REASON FOR PREDNISONE Surgical History History of colonoscopy History of esophagogastroduodenoscopy (EGD) History of tonsillectomy History of tooth extraction Family History Brother Cancer Social History Preferred Language: Thai Communication Ability: Effective Snack Stewardess Required: No Beliefs That Will Affect Care: None Current Living Situation: Spouse Feels Safe at Home: Yes Safety Concerns: Feels Safe At This Time Smoking Status: Former smoker Tobacco Type: pipe ; Cigarettes Per Day: DAILY ; Second Hand Exposure: Yes ; Hx Alcohol Use: Yes Alcohol type: wine Hx Substance Use: No Review of Systems Review of Systems: All systems reviewed & are unremarkable except as noted in HPI & below Physical Exam Physical Exam: Constitutional: No acute distress HEENT: EOMI, PERRLA Respiratory system: Decreased air entry on the left side, positive left lower lobe crackles, no wheeze, no rhonchi CVS: S1-S2 positive, no murmurs or gallops Abdomen: Soft, nontender, nondistended, positive bowel sounds x4 Extremities: +2 pulses bilaterally radialis/ dorsalis pedis, no cyanosis, no edema Neuro: Awake alert oriented x3 Psych: Normal mood and affect G/U: No Led[place] Skin: no rashes, warm and dry Lymphatic: no cervical or axillary lymphadenopathy Results & Data ([facility]) Vital Signs (Past 12 Hours) Vital Signs Temp Pulse Pulse Resp BP BP Pulse Ox 07/16/19 15:38 36.3 C L 89 21 142/82 H 95 07/16/19 15:11 86 07/16/19 12:00 36.5 C 83 21 128/83 93 07/16/19 10:41 90 07/16/19 07:44 36.6 C 90 19 137/85 94 07/16/19 05:19 07/16/19 05:19 PG Care Time/CCT Total # of Minutes Spent Total Time Spent with Patient: Total time spent is greater than 50% in coordi nation of care (as documented) at patient's floor/unit and/or counseling patient: [place] [address] Initial Inpt Care Lvl 3 Patient Type New Diagnoses Loculated pleural effusion J90 SOB (shortness of breath) R06.02 Pneumonia J18.9 Laterality: unspecified laterality Lung location: unspecified part of lung Pneumonia type: due to unspecified organism
[2019-07-16 19:41] LABS: Glucose Pleural Fluid 163 mg/dl
--- NOTE | 2019-07-16 19:41 | Procedure Note ---
Procedure Note Date of Service July 16, 2019 Procedure: Diagnostic therapeutic ultrasound-guided catheter thoracentesis Flight Paramedic: Dr. Brittanie Esparza Indication: Pleural effusion Consent: Signed by patient and verified with timeout prior to procedure Anesthesia: 1% lidocaine without epinephrine local. Procedure: Consent was verified and timeout performed. Appropriate imaging studies were reviewed prior to the procedure. Patient was placed in a seated position and limited thoracic ultrasound was performed of the left chest. See separate imaging. Appropriate site above the diaphragm for thoracentesis was selected. The skin was prepped and draped in normal sterile fashion. Lidocaine was used for local analgesia. Fluid was aspirated via the finder needle. A small skin cintia was made with the scalpel and the catheter over the needle apparatus was advanced over the rib into the pleural space. Using the syringe one-way valve system, a total of 650 mL's of serosanguineous with red-tinged fluid was removed. Procedure was terminated due to normal fluid. The catheter was removed and observed to be intact. A sterile dressing was applied. Post procedure chest x-ray was ordered. Fluid was sent for labs, culture and cytology. The patient tolerated the procedure without obvious complication Coding CPT Codes Pulmonary/Thoracic - Pulmonary and Thoracic: 88978 Thoracentesis w imaging ([id number]) [facility] [place] [facility] [place] ([place]) Pulmonary/Thoracic Procedure 1: Pulmonary and Thoracic: 27852 Thoracentesis w imaging
[2019-07-16 19:52] LABS: Appearance Pleural Fluid CLOUDY; Color Pleural Fluid ORANGE; RBC Pleural Fluid (A) 22000 /uL; Source Pleural Fluid LEFT LUNG; WBC Pleural Fluid (A) 5381 /uL
[2019-07-16 19:57] LABS: Eosinophils, Fluid 1 %; Lymphocytes, Fluid 9 %; Mono,Macrophage,Mesothelial 8 %; Neutrophils, Fluid 82 %
--- NOTE | 2019-07-16 19:57 | XRay Report ---
XR chest 1V portable HISTORY: s/p thoracentesis COMPARISON: Chest 07/15/2019. FINDINGS: The heart remains mildly enlarged. Small left pleural effusion has decreased in size status post thoracentesis. Left lung interstitial thickening persists. No pneumothorax. Emphysema. The righ t lung is essentially clear. IMPRESSION: 1. Decrease in size in the small left pleural effusion status post thoracentesis. 2. No pneumothorax. ACT 112: Negative or not required by law. Electronically signed by: Hugh Saenz M.D. 07/16/2019 7:56 PM
[2019-07-16 19:58] LABS: Amylase Pleural Fluid 24 U/L; LDH Pleural Fluid 400 U/L; Total Protein Pleural Fluid 3.5 g/dl
[2019-07-16 19:59] LABS: Albumin Level 1.5 gm/dl (3.4-5.0); Total Protein 6.4 gm/dl (6.4-8.2)
[2019-07-16] MEDS: LOTEPREDNOL ETABONATE 0.5% OP SCH (20:57)
[2019-07-16] MEDS: ATORVASTATIN 40 MG TAB PO SCH (20:58)
[2019-07-16] MEDS: D5W AND 1/2NSS 1,000 ML IV SCH (23:22)
[2019-07-17] MEDS: CEFEPIME 2,000 MG in SYRINGE 7.5 ML IV SCH ×3 (01:38→19:41)
--- NOTE | 2019-07-17 07:44 | Surgery Consultation ---
Date of Consultation July 17, 2019 Assessment & Plan (1) Loculated pleural effusion: -following thoracentesis there appears to be little in the way of fluid, however pulmonary was concerned about loculated fluid collections -will obtain CT scan of chest for further evaluation, with additional recommendations to follow this imaging modality Addendum: I reviewed the CT Scan - there are indeed loculations and a significant amount of fluid present. I had a very long discussion with the patient's daughter and the patient. We could place a chest tube at bedside or proceed with a thoracoscopy. As the thoracoscopy will be more definitive and I believe more comfortable, we will proceed with a Left VATS today. We discussed risks and benefits. All are agreeable. History of Present Illness Attending Physician: Lisbet Booth DO History of Present Illness 79 year old male admitted with weakness, fatigue and pleuritic CP. No cough,fevers, shakes, chills. He was seen by pulmonary medicine and underwent a left thoracentesis on 07/16/18 for 650 cc fluid. Ph was not indicative of infection and gram stain did not show any organisms (cultures are pending). Pu lmonary was concerned about possible loculations, prompting consult with thoracic surgery. Allergies Allergy/AdvReac Type Severity Reaction Status Date / Time Penicillins Allergy Mild Rash Verified 07/15/19 19:12 Home Medications Home Medications Medication Instructions Recorded Confirmed Type Spiriva with HandiHaler 1 cap INHALATION QAM 06/12/19 07/15/19 History cyanocobalamin (vitamin B-12) 500 mcg PO QAM 06/12/19 07/15/19 History [Vitamin B-12] loteprednol etabonate [Lotemax] 1 drp OPB BID 06/12/19 07/15/19 History prednisone 1 mg PO QAM 06/12/19 07/15/19 History prednisone 5 mg PO QAM 06/12/19 07/15/19 History atorvastatin 40 mg PO HS #30 tab 06/16/19 07/15/19 Rx clopidogrel 75 mg PO QAM #30 tab 06/16/19 07/15/19 Rx levetiracetam [Keppra] 500 mg PO BID #60 tab 06/16/19 07/15/19 Rx metoprolol tartrate 12.5 mg PO BID #60 tab 06/16/19 07/15/19 Rx aspirin [Ecotrin Low Strength] 81 mg PO QAM 07/15/19 07/15/19 History pantoprazole [Protonix] 40 mg PO QAM 07/15/19 07/15/19 History Patient History Family History Brother Cancer Social History Preferred Language: Bulgarian Communication Ability: Effective Product Safety Compliance Leader Required: No Beliefs That Will Affect Care: None Current Living Situation: Spouse Feels Safe at Home: Yes Safety Concerns: Feels Safe At This Time Smoking Status: Former smoker Tobacco Type: pipe ; Cigarettes Per Day: DAILY ; Second Hand Exposure: Yes ; Hx Alcohol Use: Yes Alcohol type: wine Hx Substance Use: No Review of Systems Constitutional: + fatigue; no fever and no chills Eyes: no diplopia Ear, Nose, Mouth, Throat: no ear pain Respiratory: no cough and no dyspnea pleurisiy Cardiovascular: no chest pain Gastrointestinal: no nausea and no vomiting Genitourinary: no dysuria Integumentary: no rash Neurologic: no localized weakness Physical Exam Constitutional: well developed and well nourished; no acute distress Eyes: no conjunctival abnormality ENMT: Ears: no hearing impairment Neck: trachea midline Respiratory: normal respiratory effort; no respiratory distress and no labored breathing only slight decresae of BS noted at bases Cardiovascular: Rate/Rhythm: regular rate and regular rhythm Gastrointestinal (Abdomen): Percussion/Palpation: abdomen soft; abdomen nontender Musculoskeletal: no calf tenderness Skin: no rashes, warm and dry Neurologic: moves all extremities Psychiatric: A+Ox3, euthymic affect Results & Data Vital Signs (Past 12 Hours) Vital Signs Temp Pulse Pulse Pulse Resp BP BP 07/17/19 04:00 36.4 C L 87 18 128/80 07/17/19 03:53 84 07/17/19 00:00 36.4 C L 84 22 136/87 07/16/19 20:22 86 20 146/87 H 07/16/19 20:07 89 20 135/83 07/16/19 19:52 88 20 142/85 H Pulse Ox 07/17/19 04:00 99 07/17/19 03:53 07/17/19 00:00 97 07/16/19 20:22 97 07/16/19 20:07 97 07/16/19 19:52 95 PG Care Time/CCT Total # of Minutes Spent Total Time Spent with Patient: Total time spent is greater than 50% in coordination of care (as documented) at patient's floor/unit and/or counseling patient: Coding Level of Care Code 47930 Inpt Consult Level 4 Diagnoses Loculated pleural effusion J90
--- NOTE | 2019-07-17 08:14 | CT Scan Report ---
CT chest wo con CLINICAL HISTORY: pleural effusion COMPARISON STUDY: Chest x-ray dated 07/16/2019 CT DOSE: 247.60 mGycm TECHNIQUE: CT of the thorax was performed from the thoracic inlet to the lung bases. Images are revi ewed in the axial, sagittal, and coronal planes. IV contrast was not administered for this examinatio n. A dose lowering technique was utilized adhering to the principles of ALARA. FINDINGS: Thyroid: There is a 29 mm thyroid isthmus nodule. A nonemergent thyroid ultrasound is recommended in follow-up. Thoracic aorta: The thoracic aorta is normal in course and caliber, noting standard 3 vessel arch omar magaly. Heart: The heart is borderline enlarged. There is no pericardial effusion. There are minor coronary a rtery calcifications. Lungs and pleural spaces: There is a moderate left pleural effusion with associated left lower lobe a telectasis/consolidation. There is narrowing of the left lower lobe bronchus. Evaluation is somewhat limited given the lack of intravenous contrast. There is pulmonary emphysema. There is a trace right pleural effusion with right lower lobe atelectatic changes. Mediastinum: There are multiple borderline enlarged mediastinal lymph nodes measuring up to 9 mm in s hort axis Gladys: Evaluation of the hilar structures is limited given the lack of intravenous contrast. There are no discrete hilar masses Axilla: There is no evidence of pathologic axillary lymphadenopathy Upper abdomen: There is a renal hilar calcification, likely vascular Skeletal structures: There is a moderate T6 compression deformity. IMPRESSION: 1. Moderate left pleural effusion with associated left lower lobe atelectasis/consolidation. There is associated narrowing of left lower lobe bronchus 2. Multiple borderline enlarged mediastinal lymph nodes measuring up to 9 mm in short axis 3. Pulmonary emphysema 4. Small right pleural effusion with right basilar atelectasis 5. Moderate T6 compression deformity 6. 29 mm Isthmus thyroid nodule. Nonemergent thyroid ultrasonography is recommended in follow-up ACT 112: Negative or not required by law. Electronically signed by: Kashif Sequeira M.D. 07/17/2019 8:13 AM
[2019-07-17] MEDS ORDERED: fentaNYL citrate 100 MCG/2 ML VIAL ONE (09:30)
[2019-07-17] MEDS ORDERED: LIDOCAINE HCL 2% 2 ML VIAL/AMP(20MG/ML) INFIL ONE (09:30)
[2019-07-17] MEDS ORDERED: PROPOFOL IV EMULSION 10 MG/ML 20 ML VIAL IV ONE (09:30)
--- NOTE | 2019-07-17 09:38 | Anesthesiology Consultation ---
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 No seizures since then. Difficulties with concentration since the stroke. Assessment & Plan (1) Encounter for pre-operative examination: (2) COPD (chronic obstructive pulmonary disease): (3) COPD (chronic obstructive pulmonary disease): (4) Encounter for pre-operative examination: History Surgery Operation Date: 07/17/19 07:00 Proposed Procedures p Left Thoracoscopy with Decortication - Estevan Quiñones MD, FACS Height/Weight Height: 5 ft 6 in Weight: 59.1 kg Allergies Allergy/AdvReac Type Severity Reaction Status Date / Time Penicillins Allergy Mild Rash Verified 07/15/19 19:12 Medications Home Medications Medication Instructions Recorded Confirmed Last Taken Spiriva with HandiHaler 1 cap INHALATION QAM 06/12/19 07/15/19 07/15/19 cyanocobalamin (vitamin B-12) 500 mcg PO QAM 06/12/19 07/15/19 07/15/19 [Vitamin B-12] loteprednol etabonate [Lotemax] 1 drp OPB BID 06/12/19 07/15/19 07/15/19 AM DOSE prednisone 1 mg PO QAM 06/12/19 07/15/19 07/15/19 prednisone 5 mg PO QAM 06/12/19 07/15/19 07/15/19 atorvastatin 40 mg PO HS #30 tab 06/16/19 07/15/19 07/14/19 clopidogrel 75 mg PO QAM #30 tab 06/16/19 07/15/19 Unknown levetiracetam [Keppra] 500 mg PO BID #60 tab 06/16/19 07/15/19 07/15/19 AM DOSE metoprolol tartrate 12.5 mg PO BID #60 tab 06/16/19 07/15/19 07/15/19 AM DOSE aspirin [Ecotrin Low Strength] 81 mg PO QAM 07/15/19 07/15/19 07/15/19 pantoprazole [Protonix] 40 mg PO QAM 07/15/19 07/15/19 07/15/19 Active Medications Generic Name Dose Route Start Last Admin Trade Name Freq PRN Reason Stop Dose Admin Aspirin 81 mg 07/16/19 09:00 07/16/19 08:28 Ecotrin Ectab PO 08/15/19 08:59 81 mg QAM EMERY Administration Atorvastatin Calcium 40 mg 07/15/19 21:16 07/16/19 20:58 Lipitor PO 08/14/19 21:15 40 mg HS EMERY Administration Clopidogrel Bisulfate 75 mg 07/16/19 09:00 07/16/19 08:28 Plavix PO 08/15/19 08:59 75 mg QAM EMERY Administration Cyanocobalamin 500 mcg 07/16/19 09:00 07/16/19 08:28 Vitamin B-12 PO 08/15/19 08:59 500 mcg QAM EMERY Administration Cefepime HCl 2,000 mg/ Syringe 20 mls @ 5.5 mls/min 07/16/19 02:00 07/17/19 09:28 IV 07/23/19 01:59 5.5 mls/min Q8H EMERY Administration Protocol Doxycycline Hyclate 100 mg/ 110 mls @ 50 mls/hr 07/15/19 22:00 07/16/19 23:15 Dextrose IV 07/22/19 21:59 Infused Q12H EMERY Infusion Protocol Dextrose/Sodium Chloride 1,000 mls @ 80 mls/hr 07/17/19 00:00 07/16/19 23:22 D5w And 1/2nss IV 08/16/19 00:00 80 mls/hr .[id number] EMERY Administration Levetiracetam 500 mg 07/15/19 21:16 07/16/19 20:58 Keppra PO 08/14/19 21:15 500 mg BID EMERY Administration Metoprolol Tartrate 12.5 mg 07/15/19 21:16 07/16/19 20:56 Lopressor PO 08/14/19 21:15 12.5 mg BID EMERY Administration Loteprednol 1 ea 07/16/19 21:00 07/16/19 20:57 Etabonate 0.5%: Non- OP 08/15/19 20:59 1 drops Formulary Patient's BID EMERY Administration Own Med Pantoprazole Sodium 40 mg 07/16/19 09:00 07/16/19 08:29 Protonix PO 08/15/19 08:59 40 mg QAM EMERY Administration Prednisone 5 mg 07/16/19 09:00 07/16/19 08:28 Prednisone PO 08/15/19 08:59 5 mg QAM EMERY Administration Prednisone 1 mg 07/16/19 09:00 07/16/19 08:28 Prednisone PO 08/15/19 08:59 1 mg QAM EMERY Administration Umeclidinium [place] 1 puffs 07/16/19 09:00 07/16/19 08:27 Incruse Ellipta INH 08/15/19 08:59 1 puffs QAM EMERY Administration Protocol Past Medical History Medical History (Updated 07/17/19 @ 09:56 by Jessica Bell MD) Anemia HX GERD (gastroesophageal reflux disease) Hearing deficit Hyperlipidemia Temporal arteritis REASON FOR PREDNISONE Past Family History Family History Brother Cancer Past Surgical History Surgical History History of colonoscopy History of esophagogastroduodenoscopy (EGD) History of tonsillectomy History of tooth extraction Social History Smoking Status: Former smoker tobacco type: pipe Smoking cigarettes per day: DAILY Hx Alcohol Use: Yes Alcohol type: wine alcohol intake frequency: 0-2 drinks per day Hx Substance Use: No substance use type: does not use Physical Exam Vital Signs Last Vital Signs Temp 36.3 C L 07/17/19 08:07 Pulse 91 H 07/17/19 08:07 Resp 19 07/17/19 08:07 BP 152/84 H 07/17/19 08:07 Pulse Ox 95 07/17/19 08:07 Testing Laboratory Results 07/16/19 05:19 07/16/19 05:19 PT 12.0 Seconds (9.0-12.0) 07/15/19 17:30 INR 1.2 (0.9-1.1) H 07/15/19 17:30 APTT 27.4 Seconds (21.0-31.0) 07/15/19 17:30 Urine Color Dark Yellow 07/15/19 21:35 Urine Appearance Cloudy (Clear) A 07/15/19 21:35 Urine pH 5.5 (4.5-7.5) 07/15/19 21:35 Ur Specific [place] 1.029 (1.000-1.030) 07/15/19 21:35 Urine Protein Negative (Negative) 07/15/19 21:35 Urine Glucose (UA) Negative (Negative) 07/15/19 21:35 Urine Ketones Trace (Negative) H 07/15/19 21:35 Urine Nitrite Negative (Negative) 07/15/19 21:35 Ur Leukocyte Esterase Negative (Negative) 07/15/19 21:35 Urine WBC (Auto) 5-10 /hpf (0-5) H 07/15/19 21:35 Urine RBC (Auto) 0-4 /hpf (0-4) 07/15/19 21:35 U Hyaline Cast (Auto) 5-10 /lpf (0-5) H 07/15/19 21:35 U Epithel Cells (Auto) >30 /lpf (0-5) H 07/15/19 21:35 Urine Bacteria (Auto) 1+ (Negative) H 07/15/19 21:35 07/15/19 18:00 Aerobic Blood Culture - Preliminary Blood No growth in Aerobic bottle after 24 hours. Anaerobic Blood Culture - Final 07/16/19 19:07 Gram Stain - Final Pleural Fluid 07/15/19 18:13 Aerobic Blood Culture - Preliminary Blood No growth in Aerobic bottle after 24 hours. Anaerobic Blood Culture - Preliminary No growth in Anaerobic bottle after 24 hours. 07/15/19 21:35 Urine Culture - Preliminary Urine,Clean Catch No growth - Less than 1,000 colonies/mL, Final report to follow. Electrocardiogram Date: 07/14/19 Sinus tachycardia Possible Left atrial enlargement Low voltage QRS Nonspecific T wave abnormality Abnormal ECG When compared with ECG of 14-JUN-2019 06:29, Premature ventricular complexes are no longer Present Criteria for Inferior infarct are no longer Present Non-specific change in ST segment in Inferior leads T wave inversion no longer evident in Lateral leads Confirmed by Walker Dawn ([id number]) on 07/16/2019 5:46:50 PM Chest X-Ray Date: 07/15/19 IMPRESSION: 1. Moderate left pleural effusion with associated left lung airspace opacities possibly representing pneumonia. Clinical and radiographic follow-up is recomm ended. Echocardiogram Date: 06/13/19 EF: 60-65% LV Function: normal severe LVH
[2019-07-17] MEDS ORDERED: BUPIVACAINE 0.5 % 5 MG/1 ML MPF 30ML VIAL ONE (09:49)
[2019-07-17] MEDS ORDERED: SODIUM CHLORIDE 0.9% PF 50 ML VIAL ONE (09:50)
[2019-07-17] MEDS ORDERED: BUPIVACAINE LIPOSOME 1.3% 266 MG/20 ML VIAL ONE (09:50)
--- NOTE | 2019-07-17 09:55 | History & Physical Bridge Note ---
Date of Service July 17, 2019 History & Physical Bridge Note I have examined the patient, reviewed the History & Physical and in the interval since the performance of the History & Physical I have noted the following changes of clinical significance: no changes noted
[2019-07-17] MEDS ORDERED: SUGAMMADEX SODIUM 200 MG/2 ML VIAL IV ONE (11:37)
[2019-07-17] MEDS ORDERED: ALBUMIN HUMAN 5% 12.5 GM/250 ML VIAL IV ONE (11:37)
[2019-07-17] MEDS ORDERED: PHENYLEPHRINE 100MCG/ML 5ML SYR ONE (12:08)
[2019-07-17] MEDS ORDERED: CLINDAMYCIN PHOS 300 MG/2 ML VIAL ONE (12:08)
[2019-07-17] MEDS ORDERED: HYDROCORTISONE SOD SUCCINATE 100 MG/2 ML VIAL ONE (12:09)
[2019-07-17] MEDS ORDERED: ROCURONIUM BROMIDE 10 MG/ML 5 ML VIAL ONE (12:09)
[2019-07-17] MEDS ORDERED: ONDANSETRON INJ 2 MG/ML 2 ML VIAL ONE ×2 (12:09→12:38)
--- NOTE | 2019-07-17 12:56 | Operative Report ---
PG Post Operative Report Pre & Post Diagnosis Operation Date: 07/17/19 07:00 Pre-Op Diagnosis: Loculated pleural effusion Post-Op Diagnosis: Loculated pleural effusion Lung abscess superior segment left lower lobe I identified the patient and participated in the time-out.: Yes Procedure Operation Date: 07/17/19 07:00 Actual Procedures p Left Thoracoscopy with lung biopsy and Decortication(Left) - Estevan Quiñones MD, FACS Surgeon Estevan Quiñones MD, FACS [place] Valerie Lester Estimated Blood Loss 150 Findings Consistent with Post-Op Diagnosis Specimens Pleura, intrapleural contents, superior segment left lower lobe Drains 24 Egyptian chest tube Anesthesia Type General Complications none Disposition Accompanied Patient To Recovery: Yes Disposition: Recovery Room Description of Procedure This 79-year-old male was brought to the operating room on 07/17/2019. He had signs and symptoms consistent with a left empyema with a complicated pleural effusion. He underwent a left thoracoscopy had marked loculations with purulent fluid which we cultured multiple times. We decorticated his left lower lobe I was surprised to see that he had an abscess in the superior segment of the left lower lobe. We biopsied this and sent some for culture. He tolerated it well. Procedure: Patient was brought to the operating room and laid in the supine position. General anesthesia was induced and endotracheal intubation was performed with a single-lumen tube. Patient was turned in the right lateral decubitus position and his left lateral chest was prepped and draped in the usual sterile fashion. After appropriate timeout had been called and prophylactic antibiotics given a 5 mm port was placed anterior to the latissimus dorsi muscle just above the tip of the scapula. Could be seen that there were adhesions posteriorly. Also fluid posteriorly and inferiorly. Another 5 mm port was placed posterior to the scapula at about the same interspace and then a 12 mm port was placed near the midaxillary line above the diaphragm. These reports we were able to drain significant amount of fluid. We came upon davy pus which was drained and sent for culture. This showed many gram-positive cocci and gram-negative bacilli. We performed a significant decortication of the left lower lobe posteriorly and lifted off the diaphragm. We also removed thickened infected looking parietal pleura. An aqua Mantis was used to control bleeding from this area that we remove the pleura. Upon dissecting out everything I came upon the superior segment posteriorly the upper lobe and there was a dark area which we opened with the suction tip. Some pus drained which was sent off to the lab. This was necrotic appearing long which was sent off for histology. We had really no bleeding and there was no air leak. This was also malodorous. We then irrigated out the chest and we saw no air leak. We had control the bleeding nicely. 266 mg of Exparel had been mixed with 30 cc of 0.5% Marcaine and 250 cc of normal saline. This solution was used to inject each of the port sites and then we did an intercostal block from the second to the 12th rib by directly injecting the interspace under thoracoscopic guidance. 24 Egyptian chest tube was placed to the 12 mm port and sutured in place with heavy silk suture. 4 Monocryl was used in running septic or fashion approximate the wound edges. Microbial dressings were placed. He was extubated and transported to the postanesthesia care unit. He tolerated it well. I attest to the content of the Intraoperative Record and any orders documented therein. Any exceptions are noted below.
[2019-07-17] MEDS ORDERED: CLINDAMYCIN 600 MG/54 ML BAG IV SCH (13:00)
[2019-07-17] MEDS ORDERED: METOCLOPRAMIDE HCL INJ 5 MG/ML 2 ML VIAL IV ONE (13:05)
[2019-07-17] MEDS ORDERED: METOCLOPRAMIDE HCL INJ 5 MG/ML 2 ML VIAL ONE (13:25)
--- NOTE | 2019-07-17 13:26 | XRay Report ---
XR chest 1V portable CLINICAL HISTORY: effusion postoperative COMPARISON STUDY: 07/16/2019 FINDINGS: Placement of left-sided chest tube. Trace amount subcutaneous emphysema. Improved aeration left lung base. No significant pleural effusion. Right lung remains grossly clear. IMPRESSION: Left-sided chest tube placed with no evidence for pneumothorax. Improved aeration left b ase. ACT 112: Negative or not required by law. The above report was generated using voice recognition software. It may contain grammatical, syntax or spelling errors. Electronically signed by: Elvis Dempsey M.D. 07/17/2019 1:25 PM
[2019-07-17] MEDS ORDERED: fentaNYL citrate 100 MCG/2 ML VIAL IV PRN (13:38)
[2019-07-17] MEDS ORDERED: ATROPINE SULFATE 0.1 MG/ML 10ML SYR IV PRN (13:38)
[2019-07-17] MEDS ORDERED: ePHEDrine sulfate 50 MG/ML AMP IV PRN (13:38)
--- NOTE | 2019-07-17 13:39 | Anesthesiology Progress Note ---
Date of Service July 17, 2019 Anesthesia Post Procedure Vital Signs Vital Signs: Temp Pulse Pulse Pulse Pulse Resp BP 07/17/19 13:10 36 C L 106 H 14 07/17/19 09:41 36.5 C 89 20 07/17/19 08:07 36.3 C L 91 H 19 07/17/19 08:00 90 07/17/19 04:00 36.4 C L 87 18 07/17/19 03:53 84 07/17/19 00:00 36.4 C L 84 22 07/16/19 20:22 86 20 07/16/19 20:07 89 20 07/16/19 19:52 88 20 142/85 H 07/16/19 19:36 36.3 C L 92 H 16 154/88 H 07/16/19 15:38 36.3 C L 89 21 142/82 H 07/16/19 15:11 86 BP Pulse Ox 07/17/19 13:10 170/108 H 97 07/17/19 09:41 151/89 H 98 07/17/19 08:07 152/84 H 95 07/17/19 08:00 07/17/19 04:00 128/80 99 07/17/19 03:53 07/17/19 00:00 136/87 97 07/16/19 20:22 146/87 H 97 07/16/19 20:07 135/83 97 07/16/19 19:52 95 07/16/19 19:36 96 07/16/19 15:38 95 07/16/19 15:11 Transfer of Care Handoff Completed per policy Notes Mental Status: alert / awake / arousable and participated in evaluation Patient Amnestic to Procedure: Yes Nausea / Vomiting: adequately controlled Pain: adequately controlled Airway Patency, RR, SpO2: stable & adequate BP & HR: stable & adequate Hydration State: stable & adequate Anesthetic Complications: no major complications apparent and Pt Satisfied with anesthetic care
[2019-07-17] MEDS: ASPIRIN 81 MG ECTAB PO SCH (13:59)
[2019-07-17] MEDS: METOPROLOL TARTRATE 25 MG TAB PO SCH ×2 (14:00→20:50)
[2019-07-17] MEDS: LOTEPREDNOL ETABONATE 0.5% OP SCH ×2 (14:00→20:48)
[2019-07-17] MEDS: levETIRAcetam 500 MG TAB PO SCH ×2 (14:00→20:48)
[2019-07-17] MEDS: DOXYCYCLINE HYCLATE 100 MG in DEXTROSE 5% 100 ML IV SCH ×2 (14:01→21:59)
[2019-07-17 14:23] LABS: iSTAT Arterial Blood Gas HCO3 23 meg/L (19-24); iSTAT Arterial Blood Gas pCO2 44 mmHg (35-46); iSTAT Arterial Blood Gas pH 7.33 (7.35-7.45); iSTAT Arterial Blood Gas pO2 263 mmHg (80-95); iSTAT Carbon Dioxide 24 mmol/L (24-31); iSTAT Hematocrit 28 % (42-52); iSTAT Hemoglobin 9.5 g/dl (14.0-18.0); iSTAT Potassium 3.9 mmol/L (3.3-5.0); iSTAT Sodium 139 mmol/L (135-144)
[2019-07-17] MEDS: CYANOCOBALAMIN 500 MCG TABLET (VITAMIN B-12) PO SCH (14:27)
[2019-07-17] MEDS: predniSONE 1 MG TAB PO SCH (14:27)
[2019-07-17] MEDS: predniSONE 5 MG TAB PO SCH (14:27)
[2019-07-17] MEDS: UMECLIDINIUM BROMIDE 62.5MCG/BLISTER 7 PUFFS/INHALER INH SCH (14:27)
[2019-07-17] MEDS: PANTOprazole 40 MG TAB PO SCH (14:27)
[2019-07-17] MEDS: ACETAMINOPHEN 1,000 MG/100 ML VIAL IV SCH ×2 (14:47→22:02)
[2019-07-17] MEDS: D5W AND 1/2NSS 1,000 ML IV SCH (14:47)
--- NOTE | 2019-07-17 18:09 | Pulmonology Progress Note ---
Date of Service July 17, 2019 Assessment & Plan (1) Loculated pleural effusion: --Loculated left-sided pleural effusion With multiple loculation appreciated bedside Status post thoracentesis done 07/16/2019 Exudative as per lights criteria. LDH 400, total protein 3.5, WBC 5381, pH of 7.37. This likely represents parapneumonic effusion Given that the patient has multiple loculations especially on the posterior side which was still persistent after thoracentesis Status post VATS on 07/17/2019. Chest tube in place management as per CT surgery. Monitor daily x-rays. --Left lower lobe pneumonia Continue with antibiotics Follow-up pleural fluid culture and cytology --COPD Not in exacerbation On Lama inhaler at home --Pipe smoker Has cut down but still smokes. Needs pulmonary function test done as an outpatient --History of temporal arteritis Takes chronic prednisone for it. (2) SOB (shortness of breath): (3) Pneumonia: Laterality: unspecified laterality Lung location: unspecified part of lung Pneumonia type: due to unspecified organism Qualified Code(s): J18.9 - Pneumonia, unspecified organism Subjective Patient seen and examined at bedside. No acute distress, no adverse events overnight. Patient had VATS on the left side done today by Dr. Quiñones. There was abscess of LB 6 appreciated. Patient has a chest tube in place. Denies any chest pain, no shortness of breath, no headache, no nausea, no vomiting. No dizziness. Review of Systems Review of Systems: All systems reviewed & are unremarkable except as noted in HPI & below Physical Exam Physical Exam: Constitutional: No acute distress HEENT: EOMI, PERRLA Respiratory system: Decreased air entry on the left side, mild left lower lobe crackles, no wheeze, no rhonchi CVS: S1-S2 positive, no murmurs or gallops Abdomen: Soft, nontender, nondistended, positive bowel sounds x4 Extremities: +2 pulses bilaterally radialis/ dorsalis pedis, no cyanosis, no edema Neuro: Awake alert oriented x3 Psych: Normal mood and affect G/U: Positive Ledesma Left-sided chest tube in place Skin: no rashes, warm and dry Lymphatic: no cervical or axillary lymphadenopathy Results & Data ([facility]) Vital Signs (Past 12 Hours) Vital Signs Temp Pulse Pulse Pulse Resp BP Pulse Ox 07/17/19 17:13 36.4 C L 94 H 20 159/78 H 100 07/17/19 16:24 36.3 C L 93 H 16 145/83 H 100 07/17/19 15:20 36.6 C 99 H 18 143/85 H 99 07/17/19 14:45 36.5 C 97 H 18 157/94 H 94 07/17/19 14:15 36.5 C 102 H 20 159/90 H 94 07/17/19 13:50 36.2 C L 99 H 24 155/90 H 95 07/17/19 13:40 98 H 24 164/91 H 97 07/17/19 13:30 99 H 28 H 177/94 H 97 07/17/19 13:20 99 H 26 H 171/96 H 98 07/17/19 13:10 36 C L 106 H 14 170/108 H 97 07/17/19 09:41 36.5 C 89 20 151/89 H 98 07/17/19 08:07 36.3 C L 91 H 19 152/84 H 95 07/17/19 08:00 90 Pulse Ox 07/17/19 17:13 07/17/19 16:24 07/17/19 15:20 07/17/19 14:45 07/17/19 14:15 94 07/17/19 13:50 07/17/19 13:40 07/17/19 13:30 07/17/19 13:20 07/17/19 13:10 07/17/19 09:41 07/17/19 08:07 07/17/19 08:00 07/16/19 05:19 07/16/19 05:19 Microbiology 07/17/19 Unknown Lung,Left Gram Stain - Final 07/17/19 11:55 Lung,Left Fungal Smear - Final 07/17/19 11:38 Pleural Fluid Gram Stain - Final 07/17/19 11:55 Lung Gram Stain - Final 07/16/19 19:07 Pleural Fluid Gram Stain - Final 07/16/19 19:07 Pleural Fluid Aerobic and Anaerobic Culture - Preliminary No growth to date. 07/15/19 21:35 Urine,Clean Catch Urine Culture - Final More than three types of organisms present, all low counts mixed probable skin boo. No further identifications or sensitivities to follow. 01/28/20 18:00 Blood Aerobic Blood Culture - Preliminary No growth in Aerobic bottle after 24 hours. 07/15/19 18:00 Blood Anaerobic Blood Culture - Final 07/15/19 18:13 Blood Aerobic Blood Culture - Preliminary No growth in Aerobic bottle after 24 hours. 07/15/19 18:13 Blood Anaerobic Blood Culture - Preliminary No growth in Anaerobic bottle after 24 hours. PG Care Time/CCT Total # of Minutes Spent Total Time Spent with Patient: Total time spent is greater than 50% in coordination of care (as documented) at patient's floor/unit and/or counseling patient: Coding Level of Care Code 78221 Subseq Hosp Care Lvl 3 Diagnoses Loculated pleural effusion J90 SOB (shortness of breath) R06.02 Pneumonia J18.9 Laterality: unspecified laterality Lung location: unspecified part of lung Pneumonia type: due to unspecified organism
[2019-07-17] MEDS: CLOPIDOGREL BISULFATE 75 MG TAB PO SCH (18:28)
[2019-07-17] MEDS: METOCLOPRAMIDE HCL INJ 5 MG/ML 2 ML VIAL IV SCH (19:49)
[2019-07-17] MEDS ORDERED: CLINDAMYCIN 600 MG/54 ML BAG IV ONE (20:17)
[2019-07-17] MEDS: DOCUSATE SODIUM 100 MG CAP PO SCH (20:47)
[2019-07-17] MEDS: ATORVASTATIN 40 MG TAB PO SCH (20:48)
--- NOTE | 2019-07-18 00:10 | Hospitalist Progress Note ---
Date of Service July 17, 2019 Assessment & Plan (1) Loculated pleural effusion: Complex pleural effusion seen on imaging. Pulm consulted and performed thoracentesis at bedside on 07/16. Thoracic surgery performed thoracoscopy this am and decorticated the area which appeared infected. They also uncovered a lung abscess in the superior segment of the left lower lobe. Specimens were sent including path on the superior segment of the left lower lobe. A chest tube was placed and he was returned to the reich for postoperative care. He tolerated the procedure well and is currently doing well postop. Gram stain from the pleura reveals gram-positive cocci and gram-negative bacilli. Initial AFB is negative. Continue current antibiotics and will consult infectious disease to help us narrow spectrum based on culture results which are still pending. (2) Pneumonia: Continue cefepime and doxycycline. He did get clindamycin perioperatively. Consult infectious disease for help with narrowing spectrum based on results (3) Temporal arteritis: Cont chronic prednisone 6mg PO daily. Hydrocortisone was stopped. (4) CVA (cerebral vascular accident): Cont medical management of CVD, on ASA, Lipitor. Plavix was stopped pre- procedure. (5) Seizure: Stable since recent admission with seizure activity. Cont Keppra (6) COPD (chronic obstructive pulmonary disease): Chronic, stable. No wheezing on exam. Cont home inhalers. (7) Ventricular arrhythmia: Has a h/o this on last admission. No events on telemetry overnight. Transferred to med floor off monitor now. (8) DVT prophylaxis: SCDs Full Code Dispo-plan for home when medically stable. Lisbet Booth DO [facility] Hospitalist Subjective Patient doing very well clinically post thoracoscopy. Reports no pain or shortness of breath at this time. Chest tube in place. No fevers or chills. Review of Systems Review of Systems: All systems reviewed & are unremarkable except as noted in Subjective Physical Exam Physical Exam: CONSTITUTIONAL: WNWD, vitals as above, generally well- appearing EYES: normal conjunctivae, no scleral icterus ENT: MMM, oropharynx clear RESPIRATORY: clear to auscultation bilaterally, no crackles, rales or wheezes, normal respiratory effort CARDIOVASCULAR: regular rate and rhythm, S1 and 2 heard without murmurs, gallops or rubs, no JVD, no peripheral edema CHEST WALL: chest tube in place to suction, wound covered with gauze that is c/d/i GASTROINTESTINAL: soft, nontender, nondistended : Ledesma in place MUSCULOSKELETAL: strength 5/5 throughout, head is normocephalic and atraumatic SKIN: warm and dry NEUROLOGIC: CN 2-12 grossly intact, no sensory deficit, normal cognition PSYCHIATRIC: alert cooperative and oriented to person, place and time. Results & Data ([facility]) Vital Signs (Past 12 Hours) Vital Signs Temp Pulse Pulse Resp BP BP Pulse Ox 07/17/19 23:00 36.8 C 95 H 18 104/68 96 07/17/19 21:15 37.1 C 85 16 122/81 90 07/17/19 20:50 99 H 134/80 07/17/19 19:15 36.3 C L 109 H 22 150/84 H 97 07/17/19 18:24 36.2 C L 111 H 18 142/82 H 96 07/17/19 17:13 36.4 C L 94 H 20 159/78 H 100 07/17/19 16:24 36.3 C L 93 H 16 145/83 H 100 07/17/19 15:20 36.6 C 99 H 18 143/85 H 99 07/17/19 14:45 36.5 C 97 H 18 157/94 H 94 07/17/19 14:15 36.5 C 102 H 20 159/90 H 94 07/17/19 13:50 36.2 C L 99 H 24 155/90 H 95 07/17/19 13:40 98 H 24 164/91 H 97 07/17/19 13:30 99 H 28 H 177/94 H 97 07/17/19 13:20 99 H 26 H 171/96 H 98 07/17/19 13:10 36 C L 106 H 14 170/108 H 97 Pulse Ox 07/17/19 23:00 07/17/19 21:15 07/17/19 20:50 07/17/19 19:15 07/17/19 18:24 07/17/19 17:13 07/17/19 16:24 07/17/19 15:20 07/17/19 14:45 07/17/19 14:15 94 07/17/19 13:50 07/17/19 13:40 07/17/19 13:30 07/17/19 13:20 07/17/19 13:10 Medications Administered Current Inpatient Medications Aspirin (Ecotrin Ectab) 81 mg PO QAM [facility] Stop: 08/15/19 08:59 Last Admin: 07/17/19 13:59 Dose: Not Given Documented by: Atorvastatin Calcium (Lipitor) 40 mg PO HS [facility] Stop: 08/14/19 21:15 Last Admin: 07/17/19 20:48 Dose: 40 mg Documented by: Cyanocobalamin (Vitamin B-12) 500 mcg PO QAM [facility] Stop: 08/15/19 08:59 Last Admin: 07/17/19 14:27 Dose: Not Given Documented by: Docusate Sodium (Colace) 100 mg PO BID [facility] Stop: 08/16/19 20:59 Last Admin: 07/17/19 20:47 Dose: 100 mg Documented by: Cefepime HCl 2,000 mg/ Syringe 20 mls @ 5.5 mls/min IV Q8H [facility]; Protocol Stop: 07/23/19 01:59 Last Admin: 07/17/19 19:41 Dose: 5.5 mls/min Documented by: Doxycycline Hyclate 100 mg/ (Dextrose) 110 mls @ 50 mls/hr IV Q12H [facility]; Protocol Stop: 07/22/19 21:59 Last Admin: 07/17/19 21:59 Dose: 50 mls/hr Documented by: Dextrose/Sodium Chloride (D5w And 1/2nss) 1,000 mls @ 80 mls/hr IV .[id number] [facility] Stop: 08/16/19 00:00 Last Infusion: 07/17/19 19:46 Dose: 80 mls/hr Documented by: Clindamycin Phosphate (Cleocin) 600 mg in 54 mls @ 100 mls/hr IV ONCE [facility] Stop: 07/18/19 12:59 Last Infusion: 07/17/19 14:28 Dose: Infused Documented by: Acetaminophen (Ofirmev) 1,000 mg in 100 mls @ 400 mls/hr IV Q8H [facility] Stop: 07/20/19 14:59 Last Infusion: 07/17/19 22:24 Dose: Infused Documented by: Ipratropium [place] (Atrovent 0.02% 0.5mg/2.5ml) 0.5 mg INH Q4H PRN PRN Reason: Shortness Of Breath Or Wheezing Stop: 08/14/19 21:15 Levalbuterol HCl (Xopenex 0.63 Mg/3 Ml Neb) 0.63 mg NEB Q4H PRN PRN Reason: Shortness Of Breath Or Wheezing Stop: 08/14/19 21:15 Levetiracetam (Keppra) 500 mg PO BID [facility] Stop: 08/14/19 21:15 Last Admin: 07/17/19 20:48 Dose: 500 mg Documented by: Metoclopramide HCl (Reglan) 10 mg IV Q8H [facility] Stop: 07/18/19 12:01 Last Admin: 07/17/19 19:49 Dose: 10 mg Documented by: Metoprolol Tartrate (Lopressor) 12.5 mg PO BID [facility] Stop: 08/14/19 21:15 Last Admin: 07/17/19 20:50 Dose: 12.5 mg Documented by: Miscellaneous Information (Cefepime Consult Active) 1 ea N/A UD PRN PRN Reason: Consult Stop: 08/14/19 21:55 Morphine Sulfate (Morphine Sulfate) 1 - 2 mg IV Q1H PRN PRN Reason: Pain Stop: 07/31/19 14:23 Nitroglycerin (Nitrostat) 0.4 mg SL UD PRN PRN Reason: Chest Pain Stop: 08/14/19 21:15 Loteprednol Etabonate 0.5%: Non- Formulary Patient's Own Med 1 ea OP BID [facility] Stop: 08/15/19 20:59 Last Admin: 07/17/19 20:48 Dose: 1 drops Documented by: Ondansetron HCl (Zofran) 4 mg IV Q6H PRN PRN Reason: Nausea Stop: 08/14/19 21:15 Pantoprazole Sodium (Protonix) 40 mg PO QAM [facility] Stop: 08/15/19 08:59 Last Admin: 07/17/19 14:27 Dose: Not Given Documented by: Prednisone (Prednisone) 5 mg PO QAM [facility] Stop: 08/15/19 08:59 Last Admin: 07/17/19 14:27 Dose: Not Given Documented by: Prednisone (Prednisone) 1 mg PO QAM [facility] Stop: 08/15/19 08:59 Last Admin: 07/17/19 14:27 Dose: Not Given Documented by: Umeclidinium [place] (Incruse Ellipta) 1 puffs INH QAM [facility]; Protocol Stop: 08/15/19 08:59 Last Admin: 07/17/19 14:27 Dose: Not Given Documented by: (1) Pneumonia Laterality: unspecified laterality Lung location: unspecified part of lung Pneumonia type: due to unspecified organism Qualified Code(s): J18.9 - Pneumonia, unspecified organism (2) CVA (cerebral vascular accident) CVA mechanism: unspecified Qualified Code(s): I63.9 - Cerebral infarction, unspecified
[2019-07-18] MEDS: CEFEPIME 2,000 MG in SYRINGE 7.5 ML IV SCH ×2 (01:43→09:58)
[2019-07-18] MEDS: D5W AND 1/2NSS 1,000 ML IV SCH ×2 (01:46→14:14)
[2019-07-18] MEDS: METOCLOPRAMIDE HCL INJ 5 MG/ML 2 ML VIAL IV SCH ×2 (03:40→12:35)
[2019-07-18] MEDS: MoRPHine SULFATE 2 MG/ML CARP IV PRN ×2 (03:45→10:25)
[2019-07-18] MEDS: ACETAMINOPHEN 1,000 MG/100 ML VIAL IV SCH ×2 (06:08→15:44)
--- NOTE | 2019-07-18 07:30 | Anesthesiology Progress Note ---
Date of Service July 18, 2019 Anesthesia Post Procedure Vital Signs Vital Signs: Temp Pulse Pulse Pulse Resp BP BP 07/18/19 07:12 36.7 C 97 H 15 146/79 H 07/18/19 05:35 96 H 20 07/18/19 02:46 36.9 C 88 20 109/69 07/17/19 23:15 36.8 C 95 H 18 104/68 07/17/19 21:15 37.1 C 85 16 122/81 07/17/19 20:50 99 H 134/80 07/17/19 19:15 36.3 C L 109 H 22 150/84 H 07/17/19 18:24 36.2 C L 111 H 18 142/82 H 07/17/19 17:13 36.4 C L 94 H 20 159/78 H 07/17/19 16:24 36.3 C L 93 H 16 145/83 H 07/17/19 15:20 36.6 C 99 H 18 143/85 H 07/17/19 14:45 36.5 C 97 H 18 157/94 H 07/17/19 14:15 36.5 C 102 H 20 159/90 H 07/17/19 13:50 36.2 C L 99 H 24 155/90 H 07/17/19 13:40 98 H 24 164/91 H 07/17/19 13:30 99 H 28 H 177/94 H 07/17/19 13:20 99 H 26 H 171/96 H 07/17/19 13:10 36 C L 106 H 14 170/108 H 07/17/19 09:41 36.5 C 89 20 151/89 H 07/17/19 08:07 36.3 C L 91 H 19 152/84 H 07/17/19 08:00 90 Pulse Ox Pulse Ox 07/18/19 07:12 96 07/18/19 05:35 94 07/18/19 02:46 93 07/17/19 23:15 96 07/17/19 21:15 90 07/17/19 20:50 07/17/19 19:15 97 07/17/19 18:24 96 07/17/19 17:13 100 07/17/19 16:24 100 07/17/19 15:20 99 07/17/19 14:45 94 07/17/19 14:15 94 94 07/17/19 13:50 95 07/17/19 13:40 97 07/17/19 13:30 97 07/17/19 13:20 98 07/17/19 13:10 97 07/17/19 09:41 98 07/17/19 08:07 95 07/17/19 08:00 Pain Intensity Left Chest: Pain Intensity: 3 Notes Mental Status: alert / awake / arousable and participated in evaluation Patient Amnestic to Procedure: Yes Nausea / Vomiting: adequately controlled Pain: adequately controlled Airway Patency, RR, SpO2: stable & adequate BP & HR: stable & adequate Hydration State: stable & adequate Anesthetic Complications: Pt Satisfied with anesthetic care
--- NOTE | 2019-07-18 07:39 | XRay Report ---
XR chest 1V portable CLINICAL HISTORY: effusion COMPARISON STUDY: Chest CT and chest radiograph July 07, 2019. FINDINGS: Left apical chest tube is unchanged in position. There is trace gas within the left chest w all and neck which is expected. There is no pneumothorax. Small left pleural effusion is noted with l eft basilar opacity. These findings appear increased from prior exam although in part this could be d ue to a hypoventilatory study. Asymmetric left lung interstitial thickening is noted. IMPRESSION: Left chest tube in place. No pneumothorax. Small left pleural effusion and left basilar/ perihilar opacity which has increased since prior exam although apparent change could be due to a hyp oventilatory study. ACT 112: Negative or not required by law. Electronically signed by: Terry Keita M.D. 07/18/2019 7:38 AM
[2019-07-18] MEDS: METOPROLOL TARTRATE 25 MG TAB PO SCH ×2 (08:29→20:59)
[2019-07-18] MEDS: PANTOprazole 40 MG TAB PO SCH (08:30)
[2019-07-18] MEDS: CYANOCOBALAMIN 500 MCG TABLET (VITAMIN B-12) PO SCH (08:30)
[2019-07-18] MEDS: DOCUSATE SODIUM 100 MG CAP PO SCH ×2 (08:30→20:55)
[2019-07-18] MEDS: UMECLIDINIUM BROMIDE 62.5MCG/BLISTER 7 PUFFS/INHALER INH SCH (08:30)
[2019-07-18] MEDS: predniSONE 1 MG TAB PO SCH (08:30)
[2019-07-18] MEDS: ASPIRIN 81 MG ECTAB PO SCH (08:30)
[2019-07-18] MEDS: LOTEPREDNOL ETABONATE 0.5% OP SCH ×2 (08:31→20:56)
[2019-07-18] MEDS: predniSONE 5 MG TAB PO SCH (08:31)
[2019-07-18 09:57] LABS: Creatinine Clr Calc Pharmacy 68.2 ml/min
[2019-07-18] MEDS: levETIRAcetam 500 MG TAB PO SCH ×2 (09:58→20:56)
[2019-07-18] MEDS: DOXYCYCLINE HYCLATE 100 MG in DEXTROSE 5% 100 ML IV SCH (09:58)
--- NOTE | 2019-07-18 13:38 | Infectious Disease Consult ---
Date of Consultation July 18, 2019 Assessment & Plan (1) Loculated pleural effusion: cultures now prelim growing gpc, on several abx, will change to ceftaroline and follow final results. blood cultures negative to date. History of Present Illness Attending Physician: Lisbet Booth DO pt admitted with cough x [address] chest, found to have left sided effusion, had apiration by pulm and then VATS by surgery yesterday, now with chest tube, min pain at tube site. was found to have chest abscess. multiple cultures done in OR all pending. currently on Cefepime, doxy and clinda. tolerating well. no f/c. wbc 15, now 12. blood cultures negative, no abd pain, no n/v/d. Allergies Allergy/AdvReac Type Severity Reaction Status Date / Time Penicillins Allergy Mild Rash Verified 07/15/19 19:12 Home Medications Home Medications Medication Instructions Recorded Confirmed Type Spiriva with HandiHaler 1 cap INHALATION QAM 06/12/19 07/15/19 History cyanocobalamin (vitamin B-12) 500 mcg PO QAM 06/12/19 07/15/19 History [Vitamin B-12] loteprednol etabonate [Lotemax] 1 drp OPB BID 06/12/19 07/15/19 History prednisone 1 mg PO QAM 06/12/19 07/15/19 History prednisone 5 mg PO QAM 06/12/19 07/15/19 History atorvastatin 40 mg PO HS #30 tab 06/16/19 07/15/19 Rx clopidogrel 75 mg PO QAM #30 tab 06/16/19 07/15/19 Rx levetiracetam [Keppra] 500 mg PO BID #60 tab 06/16/19 07/15/19 Rx metoprolol tartrate 12.5 mg PO BID #60 tab 06/16/19 07/15/19 Rx aspirin [Ecotrin Low Strength] 81 mg PO QAM 07/15/19 07/15/19 History pantoprazole [Protonix] 40 mg PO QAM 07/15/19 07/15/19 History Patient History Medical History Anemia HX GERD (gastroesophageal reflux disease) Hearing deficit Hyperlipidemia Temporal arteritis REASON FOR PREDNISONE Surgical History History of colonoscopy History of esophagogastroduodenoscopy (EGD) History of lung biopsy (07/17/19) Left Thoracoscopy with lung biopsy and Decortication Dr. Quiñones 07/17/19 History of tonsillectomy History of tooth extraction Family History Brother Cancer Social History Preferred Language: Hungarian Communication Ability: Effective Private Secretary Required: No Beliefs That Will Affect Care: None Current Living Situation: Spouse Feels Safe at Home: Yes Safety Concerns: Feels Safe At This Time Smoking Status: Former smoker Tobacco Type: pipe ; Cigarettes Per Day: DAILY ; Second Hand Exposure: Yes ; Hx Alcohol Use: Yes Alcohol type: wine Hx Substance Use: No Review of Systems Review of Systems: All systems reviewed & are unremarkable except as noted in HPI & below Physical Exam Constitutional: WD/WN, vitals as above Eyes: PERRL, conjunctivae normal, anicteric sclerae ENMT: external ear and nose normal, oropharynx normal Neck: normal visual inspection Respiratory: normal respiratory effort, lungs clear to auscultation Auscultation: + diminished lung sounds Cardiovascular: RRR, no murmur, no edema Gastrointestinal (Abdomen): normal bowel sounds, soft, nontender, no hepatosplenomegaly Musculoskeletal: no cyanosis or clubbing, extremities motor strength 5/5 Skin: no rashes, warm and dry Psychiatric: A+Ox3, euthymic affect Results & Data Vital Signs (Past 12 Hours) Vital Signs Temp Pulse Resp BP Pulse Ox 07/18/19 12:04 36.4 C L 86 16 136/81 97 07/18/19 08:15 95 07/18/19 07:12 36.7 C 97 H 15 146/79 H 96 07/18/19 05:35 96 H 20 94 07/18/19 02:46 36.9 C 88 20 109/69 93 Laboratory Results Microbiology 07/17/19 Unknown Lung,Left Gram Stain - Final 07/17/19 Unknown Lung,Left Aerobic and Anaerobic Culture - Preliminary Gram positive cocci 07/17/19 11:55 Lung Gram Stain - Final 07/17/19 11:55 Lung Aerobic and Anaerobic Culture - Preliminary Gram positive cocci 07/17/19 11:38 Pleural Fluid Gram Stain - Final 07/17/19 11:38 Pleural Fluid Aerobic and Anaerobic Culture - Preliminary Gram positive cocci 07/17/19 11:55 Lung Acid Fast Bacilli Smear - Final 07/17/19 11:38 Pleural Fluid Acid Fast Bacilli Smear - Final 07/16/19 19:07 Pleural Fluid Acid Fast Bacilli Smear - Final 07/15/19 18:13 Blood Aerobic Blood Culture - Preliminary No growth in Aerobic bottle after 48 hours. 07/15/19 18:13 Blood Anaerobic Blood Culture - Preliminary No growth in Anaerobic bottle after 48 hours. 07/15/19 18:00 Blood Aerobic Blood Culture - Preliminary No growth in Aerobic bottle after 48 hours. 07/15/19 18:00 Blood Anaerobic Blood Culture - Final 07/17/19 11:55 Lung,Left Fungal Smear - Final 07/16/19 19:07 Pleural Fluid Gram Stain - Final 07/16/19 19:07 Pleural Fluid Aerobic and Anaerobic Culture - Preliminary No growth to date. 07/15/19 21:35 Urine,Clean Catch Urine Culture - Final More than three types of organisms present, all low counts mixed probable skin boo. No further identifications or sensitivities to follow. PG Care Time/CCT Total # of Minutes Spent Total Time Spent with Patient: Total time spent is greater than 50% in coordination of care (as documented) at patient's floor/unit and/or counseling patient: Coding Level of Care Code 85323 Inpt Consult Level 4 Diagnoses Loculated pleural effusion J90
[2019-07-18] MEDS: CEFTAROLINE FOSAMIL ACETATE 600 MG in SODIUM CHLORIDE 0.9% 250 ML IV SCH (14:14)
--- NOTE | 2019-07-18 15:17 | Hospitalist Progress Note ---
Date of Service July 18, 2019 Assessment & Plan (1) Loculated pleural effusion: s/p thorascopy on 07/17. CXR reveals subQ emphysema which is expected to resolve. Chest tube remains in place. Patient is doing a good job with ambulation. (2) Pneumonia: Per ID consult, started cetaroline. (3) Temporal arteritis: Cont chronic prednisone 6mg PO daily. (4) CVA (cerebral vascular accident): Cont medical management of CVD, on ASA, Lipitor. Plavix was stopped pre- procedure. Cont to hold now. (5) Seizure: Stable since recent admission with seizure activity. Cont Keppra (6) COPD (chronic obstructive pulmonary disease): Chronic, stable. No wheezing on exam. Cont home inhalers. (7) DVT prophylaxis: SCDs Full Code Dispo-plan for home when medically stable. Lisbet Booth DO [facility] Hospitalist Subjective Continues to improve. Physically the patient was up and walking the halls despite the chest tube in place. Tolerating PO. Afebrile. Review of Systems Review of Systems: All systems reviewed & are unremarkable except as noted in Subjective Physical Exam Physical Exam: CONSTITUTIONAL: WNWD, vitals as above, generally well- appearing EYES: normal conjunctivae, no scleral icterus ENT: MMM, oropharynx clear RESPIRATORY: clear to auscultation bilaterally, no crackles, rales or wheezes, normal respiratory effort CARDIOVASCULAR: regular rate and rhythm, S1 and 2 heard without murmurs, gallops or rubs, no JVD, no peripheral edema CHEST WALL: chest tube in place to suction, wound covered with gauze that is c/d/i GASTROINTESTINAL: soft, nontender, nondistended : Ledesma in place MUSCULOSKELETAL: strength 5/5 throughout, head is normocephalic and atraumatic SKIN: warm and dry NEUROLOGIC: CN 2-12 grossly intact, no sensory deficit, normal cognition PSYCHIATRIC: alert cooperative and oriented to person, place and time. Results & Data ([facility]) Vital Signs (Past 12 Hours) Vital Signs Temp Pulse Resp BP Pulse Ox 07/18/19 14:25 92 07/18/19 12:04 36.4 C L 86 16 136/81 97 07/18/19 08:15 95 07/18/19 07:12 36.7 C 97 H 15 146/79 H 96 07/18/19 05:35 96 H 20 94 Laboratory Results [facility] 07/18/19 09:23 Creatinine 0.71 Medications Administered Current Inpatient Medications [facility]ir[facility]) [facility] [place]: 08/15/19 08:59 Last Admin: 07/18/19 08:30 Dose: 81 mg Documented by: Atorvastatin Calcium (Lipitor) 40 mg PO HS [facility] Stop: 08/14/19 21:15 Last Admin: 07/17/19 20:48 Dose: 40 mg Documented by: Cyanocobalamin (Vitamin B-12) 500 mcg PO QAM [facility] Stop: 08/15/19 08:59 Last Admin: 07/18/19 08:30 Dose: 500 mcg Documented by: Docusate Sodium (Colace) 100 mg PO BID [facility] Stop: 08/16/19 20:59 Last Admin: 07/18/19 08:30 Dose: 100 mg Documented by: Dextrose/Sodium Chloride (D5w And 1/2nss) 1,000 mls @ 80 mls/hr IV .[id number] [facility] Stop: 08/16/19 00:00 Last Admin: 07/18/19 14:14 Dose: 80 mls/hr Documented by: Acetaminophen (Ofirmev) 1,000 mg in 100 mls @ 400 mls/hr IV Q8H [facility] Stop: 07/20/19 14:59 Last Infusion: 07/18/19 06:23 Dose: Infused Documented by: Ceftaroline Fosamil 600 mg/ (Sodium Chloride) 270 mls @ 250 mls/hr IV Q12H [facility]; Protocol Stop: 07/25/19 13:59 Last Admin: 07/18/19 14:14 Dose: 250 mls/hr Documented by: Ipratropium Sherwood (Atrovent 0.02% 0.5mg/2.5ml) 0.5 mg INH Q4H PRN PRN Reason: Shortness Of Breath Or Wheezing Stop: 08/14/19 21:15 Levalbuterol HCl (Xopenex 0.63 Mg/3 Ml Neb) 0.63 mg NEB Q4H PRN PRN Reason: Shortness Of Breath Or Wheezing Stop: 08/14/19 21:15 Levetiracetam (Keppra) 500 mg PO BID [facility] Stop: 08/14/19 21:15 Last Admin: 07/18/19 09:58 Dose: 500 mg Documented by: Metoprolol Tartrate (Lopressor) 12.5 mg PO BID [facility] Stop: 08/14/19 21:15 Last Admin: 07/18/19 08:29 Dose: 12.5 mg Documented by: Morphine Sulfate (Morphine Sulfate) 1 - 2 mg IV Q1H PRN PRN Reason: Pain Stop: 07/31/19 14:23 Last Admin: 07/18/19 10:25 Dose: 2 mg Documented by: Nitroglycerin (Nitrostat) 0.4 mg SL UD PRN PRN Reason: Chest Pain Stop: 08/14/19 21:15 Loteprednol Etabonate 0.5%: Non- Formulary Patient's Own Med 1 ea OP BID [facility] Stop: 08/15/19 20:59 Last Admin: 07/18/19 08:31 Dose: 1 drops Documented by: Ondansetron HCl (Zofran) 4 mg IV Q6H PRN PRN Reason: Nausea Stop: 08/14/19 21:15 Pantoprazole Sodium (Protonix) 40 mg PO [facility] Stop: 08/15/19 08:59 Last Admin: 07/18/19 08:30 Dose: 40 mg Documented by: Prednisone (Prednisone) 5 mg PO [facility] Stop: 08/15/19 08:59 Last Admin: 07/18/19 08:31 Dose: 5 mg Documented by: Prednisone (Prednisone) 1 mg PO [facility] Stop: 08/15/19 08:59 Last Admin: 07/18/19 08:30 Dose: 1 mg Documented by: Umeclidinium Sherwood (Incruse Ellipta) 1 puffs INH [facility]; Protocol Stop: 08/15/19 08:59 Last Admin: 07/18/19 08:30 Dose: 1 puffs Documented by: (1) Pneumonia Laterality: unspecified laterality Lung location: unspecified part of lung Pneumonia type: due to unspecified organism Qualified Code(s): J18.9 - Pneumonia, unspecified organism (2) CVA (cerebral vascular accident) CVA mechanism: unspecified Qualified Code(s): I63.9 - Cerebral infarction, unspecified
--- NOTE | 2019-07-18 16:09 | Progress Note ---
DATE: 07/18/2019 Mr. Fraga was seen today. He looks great. He is up in the chair. He does not have an air leak and really has not drained very much. I am pleased with his x-ray. The patient does have gram positive cocci growing out as well as some gram negatives on his Gram stain. At any rate, we will continue to follow along. His chest tube needs to stay in for the time being. On room air is 94% saturation.
--- NOTE | 2019-07-18 17:41 | Pulmonology Progress Note ---
Date of Service July 18, 2019 Assessment & Plan (1) Loculated pleural effusion: --Loculated left-sided pleural effusion Empyema With multiple loculation appreciated bedside Status post thoracentesis done 07/16/2019 Exudative as per lights criteria. LDH 400, total protein 3.5, WBC 5381, pH of 7.37. This likely represents parapneumonic effusion Given that the patient has multiple loculations especially on the posterior side which was still persistent after thoracentesis Pleural fluid culture as well as lung culture growing gram-positive cocci along with gram-negative bacilli Status post VATS on 07/17/2019. Chest tube in place management as per CT surgery. Monitor daily x-rays. -- Left lower lobe pneumonia Continue with antibiotics Pleural fluid culture growing gram-positive cocci along with gram-negative bacilli On ceftaroline, ID on board -- COPD Not in exacerbation On Lama inhaler at home -- Pipe smoker Has cut down but still smokes. Needs pulmonary function test done as an outpatient -- History of temporal arteritis Takes chronic prednisone for it. -- Drop in hemoglobin Drainage from the chest tube is sero-sanguinous Plan: Drop in hemoglobin no clear source of bleed. Chest tube drainage is still serosanguineous. Slight worsening in the chest x-ray today compared to yesterday. If the worsening on the left side is still persistent we will get a CT chest without contrast to make sure there is no loculated hematologic collection which is not draining from the chest tube. (2) SOB (shortness of breath): (3) Pneumonia: Laterality: unspecified laterality Lung location: unspecified part of lung Pneumonia type: due to unspecified organism Qualified Code(s): J18.9 - Pneumonia, unspecified organism Subjective Patient seen and examined at bedside. No acute distress, no adverse events ove rnight. Patient states that he is feeling better. No shortness of breath. Does complain of left-sided chest where he has a chest tube and is worse when he coughs. Not bringing up any phlegm. No headache, no nausea, no vomiting, no blurry vision. Good appetite. No diarrhea. Chest tube drainage 160 mL no air leak appreciated. Review of Systems Review of Systems: All systems reviewed & are unremarkable except as noted in HPI & below Physical Exam Physical Exam: Constitutional: No acute distress HEENT: EOMI, PERRLA Respiratory system: Decreased air entry on the left side, mild left lower lobe crackles, no wheeze, no rhonchi CVS: S1-S2 positive, no murmurs or gallops Abdomen: Soft, nontender, nondistended, positive bowel sounds x4 Extremities: +2 pulses bilaterally radialis/ dorsalis pedis, no cyanosis, no edema Neuro: Awake alert oriented x3 Psych: Normal mood and affect Left-sided chest tube in place. No air leak Skin: no rashes, warm and dry Lymphatic: no cervical or axillary lymphadenopathy Results & Data ([facility]) Vital Signs (Past 12 Hours) Vital Signs Temp Pulse Resp BP Pulse Ox 07/18/19 15:21 36.6 C 102 H 18 147/76 H 94 07/18/19 14:25 92 07/18/19 12:04 36.4 C L 86 16 136/81 97 07/18/19 08:15 95 07/18/19 07:12 36.7 C 97 H 15 146/79 H 96 07/18/19 05:35 96 H 20 94 07/16/19 05:19 07/18/19 09:23 PG Care Time/CCT Total # of Minutes Spent Total Time Spent with Patient: Total time spent is greater than 50% in coordination of care (as documented) at patient's floor/unit and/or counseling patient: Coding Level of Care Code 59287 Subseq Hosp Care Lvl 3 Diagnoses Loculated pleural effusion J90 SOB (shortness of breath) R06.02 Pneumonia J18.9 Laterality: unspecified laterality Lung location: unspecified part of lung Pneumonia type: due to unspecified organism
[2019-07-18] MEDS: OXYCODONE HCL IR 5 MG TAB (IMMEDIATE RELEASE) PO PRN (18:26)
[2019-07-18] MEDS: ATORVASTATIN 40 MG TAB PO SCH (20:56)
[2019-07-18] MEDS: ACETAMINOPHEN 500 MG TAB PO SCH (23:18)
[2019-07-19] MEDS ORDERED: XOPENEX/ATROVENT 1.25mg/0.5MG NEB COMBO NEB STA (01:52)
[2019-07-19] MEDS ORDERED: LEVALBUTEROL 1.25MG/0.5ML NEB INH STA (02:03)
[2019-07-19] MEDS ORDERED: IPRATROPIUM BROMIDE NEB SOLN 0.02% 2.5 ML VIAL INH STA (02:03)
[2019-07-19] MEDS: CEFTAROLINE FOSAMIL ACETATE 600 MG in SODIUM CHLORIDE 0.9% 250 ML IV SCH ×2 (02:17→13:38)
[2019-07-19 06:18] LABS: Creatinine Clr Calc Pharmacy 76.9 ml/min; Est GFR (African American) 107.1; Est GFR (Non-African American) 92.4
[2019-07-19] MEDS: ACETAMINOPHEN 500 MG TAB PO SCH ×3 (07:06→23:12)
--- NOTE | 2019-07-19 08:15 | XRay Report ---
XR chest 1V portable HISTORY: Postop. crackles COMPARISON: Chest 07/18/2019. FINDINGS: Left-sided chest tube terminates in the left lung apex. No definite pneumothorax. Small lef t pleural effusion and left basilar densities persist. Interstitial thickening within the left lung h as improved. The heart remains mildly enlarged. The right lung is essentially clear. IMPRESSION: 1. Left chest tube in place. No pneumothorax. 2. Improvement in the left lung interstitial thickening. 3. Small left pleural effusion and left basilar densities persist. ACT 112: Negative or not required by law. Electronically signed by: Hugh Saenz M.D. 07/19/2019 8:13 AM
[2019-07-19] MEDS: DOCUSATE SODIUM 100 MG CAP PO SCH ×2 (09:28→21:43)
[2019-07-19] MEDS: METOPROLOL TARTRATE 25 MG TAB PO SCH ×2 (09:29→21:42)
[2019-07-19] MEDS: predniSONE 1 MG TAB PO SCH (09:30)
[2019-07-19] MEDS: ASPIRIN 81 MG ECTAB PO SCH (09:30)
[2019-07-19] MEDS: levETIRAcetam 500 MG TAB PO SCH ×2 (09:31→21:42)
[2019-07-19] MEDS: PANTOprazole 40 MG TAB PO SCH (09:31)
[2019-07-19] MEDS: CYANOCOBALAMIN 500 MCG TABLET (VITAMIN B-12) PO SCH (09:31)
[2019-07-19] MEDS: predniSONE 5 MG TAB PO SCH (09:31)
[2019-07-19] MEDS: LOTEPREDNOL ETABONATE 0.5% OP SCH ×2 (09:32→21:43)
[2019-07-19] MEDS: UMECLIDINIUM BROMIDE 62.5MCG/BLISTER 7 PUFFS/INHALER INH SCH (09:32)
[2019-07-19 10:50] LABS: Hematocrit (blood only) 27.8 % (42-52); Hemoglobin 9.2 g/dL (14.0-18.0); Mean Corpuscular Hemoglobin 35.9 pg (25-34); Mean Corpuscular Volume 108.6 fL (80-100); Mean Platelet Volume 9.4 fL (7.4-10.4); Platelet Count 356 K/uL (130-400); RDW Coefficient of Variation 13.9 % (11.5-14.5); RDW Standard Deviation 55.2 fL (36.4-46.3); Red Blood Count 2.56 M/uL (4.7-6.1); White Blood Count 13.43 K/uL (4.8-10.8)
--- NOTE | 2019-07-19 10:50 | Pulmonology Progress Note ---
Date of Service July 19, 2019 Assessment & Plan (1) Loculated pleural effusion: --Loculated left-sided pleural effusion Empyema With multiple loculation appreciated bedside Status post thoracentesis done 07/16/2019 Pleural fluid culture as well as lung culture growing gram-positive cocci along with gram-negative bacilli. Follow-up sensitivity Status post VATS on 07/17/2019. Which showed lung abscess. Patient will need to be on prolonged antibiotics for at least 4-6 weeks Chest tube in place management as per CT surgery. Monitor daily x-rays. -- Left lower lobe pneumonia Continue with antibiotics Pleural fluid culture growing gram-positive cocci along with gram-negative bacilli On ceftaroline, ID on board -- COPD Not in exacerbation On Lama inhaler at home -- Pipe smoker Has cut down but still smokes. Needs pulmonary function test done as an outpatient -- History of temporal arteritis Takes chronic prednisone for it. Plan: No significant drainage from the chest tube. Chest x-ray still shows some left lower lobe haziness with mild pleural effusion. Follow-up H&H today. If there is still worsening on the left side we will order CT chest without contrast. (2) SOB (shortness of breath): (3) Pneumonia: Laterality: unspecified laterality Lung location: unspecified part of lung Pneumonia type: due to unspecified organism Qualified Code(s): J18.9 - Pneumonia, unspecified organism Subjective Patient seen and examined at bedside. No acute distress, no adverse events overnight. Complains of mild discomfort at the site of the chest tube. No shortness of breath, occasional cough with no phlegm. Denies any headache, no dizziness, no nausea or vomiting. Good appetite. Review of Systems Review of Systems: All systems reviewed & are unremarkable except as noted in HPI & below Physical Exam Physical Exam: Constitutional: No acute distress HEENT: EOMI, PERRLA Respiratory system: Decreased air entry on the left side, mild left lower lobe crackles, no wheeze, no rhonchi CVS: S1-S2 positive, no murmurs or gallops Abdomen: Soft, nontender, nondistended, positive bowel sounds x4 Extremities: +2 pulses bilaterally radialis/ dorsalis pedis, no cyanosis, no edema Neuro: Awake alert oriented x3 Psych: Normal mood and affect Left-sided chest tube in place. No air leak Skin: no rashes, warm and dry Lymphatic: no cervical or axillary lymphadenopathy Results & Data ([facility]) Vital Signs (Past 12 Hours) Vital Signs Temp Pulse Pulse Resp BP Pulse Ox Pulse Ox 07/19/19 07:47 36.4 C L 98 H 18 153/80 H 93 07/19/19 03:15 94 07/19/19 02:09 100 H 16 93 07/18/19 23:40 37 C 95 H 18 158/82 H 95 No CBC since last 2 days. Stat CBC ordered PG Care Time/CCT Total # of Minutes Spent Total Time Spent with Patient: Total time spent is greater than 50% in coordination of care (as documented) at patient's floor/unit and/or counseling patient: Coding Level of Care Code 22151 Subseq Hosp Care Lvl 3 Diagnoses Loculated pleural effusion J90 SOB (shortness of breath) R06.02 Pneumonia J18.9 Laterality: unspecified laterality Lung location: unspecified part of lung Pneumonia type: due to unspecified organism
[2019-07-19 10:55] LABS: Mean Corpuscular Hgb Conc 33.1 g/dL (32-36)
[2019-07-19 11:04] LABS: BUN Creatinine Ratio 20.3 (10-20); Calcium 7.9 mg/dl (8.5-10.1); Creatinine Clr Calc Pharmacy 74.5 ml/min; Est GFR (African American) 105.7; Est GFR (Non-African American) 91.2; Potassium 3.4 mmol/L (3.5-5.1)
[2019-07-19 11:08] LABS: ALC (manual) 1.41 K/uL (1.2-3.4); ANC (manual) 11.42 K/uL (1.4-6.5); Eosinophils # (manual) 0.12 K/uL (0-0.5); Eosinophils % (manual) 0.9 %; Lymphocytes # (manual) 1.41 K/uL (1.2-3.4); Lymphocytes % (manual) 10.5 %; Monocytes # (manual) 0.24 K/uL (0.11-0.59); Monocytes % (manual) 1.8 %; Myelocytes # (manual) 0.24 K/uL (0-0); Myelocytes % (manual) 1.8 %; Neutrophils # (manual) 11.42 K/uL (1.4-6.5)
[2019-07-19] MEDS ORDERED: POTASSIUM CHLORIDE 20 MEQ TABCR PO STA (11:15)
--- NOTE | 2019-07-19 11:54 | CT Scan Report ---
CT chest wo con CT DOSE: 471.35 mGy.cm HISTORY: Postop. Pleural effusion. Follow-up. TECHNIQUE: Multiaxial CT images of the chest were performed without contrast. A dose lowering techni que was utilized adhering to the principles of ALARA. COMPARISON: Chest CT 07/17/2019. FINDINGS: The visualized liver, spleen, and adrenal glands are unremarkable. Trace right pleural effu ilia, unchanged. Decrease in size in the partially loculated small left pleural effusion. The left-si ded chest tube terminates within the apex of the left pleural space. Small amount of scattered gas po ckets within the pleural effusion likely due to the chest tube placement. The heart remains mildly en larged. Stable prominent mediastinal lymph nodes measuring up to 9 mm in short axis diameter. Trace l eft chest wall subcutaneous edema. No suspicious lytic or blastic osseous lesions. Emphysema. Right b asilar linear densities favor subsegmental atelectasis. Focal moderate narrowing within the left lowe r lobe bronchus. This has improved. Mild interlobular thickening within the left lung which could rep resent a small amount of reexpansion pulmonary edema. There appears to 5.6 cm thick-walled cavitary m ass within the superior segment of the left lower lobe. This is best seen on image 109. A 2.8 cm nodu le within the thyroid isthmus. IMPRESSION: 1. Decrease in size in the partially loculated small left pleural effusion status post left chest tub e placement. 2. There is a 5.6 cm thick-walled cavitary lesion within the superior segment of left lower lobe. Thi s is concerning for a neoplasm. A cavitary infection could also a similar appearance in the appropria te clinical setting. 3. Trace right pleural effusion, unchanged. 4. Emphysema. 5. Additional findings as described above. ACT 112: Negative or not required by law. Electronically signed by: Hugh Saenz M.D. 07/19/2019 11:52 AM
--- NOTE | 2019-07-19 13:01 | Progress Note ---
DATE: 07/19/2019 Mr. Fraga was seen today. He is on room air. He is sitting up in bed. He has no complaints. I am pleased with his x-ray. I think he has been walking and coughing. I see no air leak. He has drained very little fluid from his chest tube. We are growing out a strep species, which is not surprising as I am sure this is a community-acquired pneumonia leading to his abscess and empyema. He is tolerating this well and is eager to go home. He is going to have his chest tube in for the next few days.
--- NOTE | 2019-07-19 14:52 | Hospitalist Progress Note ---
Date of Service July 19, 2019 Assessment & Plan (1) Loculated pleural effusion: s/p thorascopy on 07/17. Chest tube in place. Doing well overall. Thoracics following. (2) Pneumonia: Clinically improved, preliminary cultures are growing streptococcus intermedius. Cont ceftaroline. Repeat CT today reveals a 5.6 cm thick-walled cavitary lesion within the superior segment of left lower lobe which is concerning for neoplasm. Defer to thoracics. (3) Temporal arteritis: Cont chronic prednisone 6mg PO daily. (4) CVA (cerebral vascular accident): Cont medical management of CVD, on ASA, Lipitor. Plavix was stopped pre- procedure. Cont to hold until chest tube out and ok with surgery. (5) Seizure: Stable since recent admission with seizure activity. Cont Keppra (6) COPD (chronic obstructive pulmonary disease): Chronic, stable. No wheezing on exam. Cont home inhalers. (7) DVT prophylaxis: SCDs Full Code Dispo-plan for home when medically stable. Lisbet Booth DO [facility] Hospitalist Subjective Feeling OK today. No fevers. Chest tube still in place and pain is controlled. He has been up and out of bed with nursing today twice. He is tolerating PO and otherwise doing well. No BM yet this admission. Review of Systems Review of Systems: All systems reviewed & are unremarkable except as noted in Subjective Physical Exam Physical Exam: CONSTITUTIONAL: WNWD, vitals as above, generally well- appearing EYES: normal conjunctivae, no scleral icterus ENT: MMM, oropharynx clear RESPIRATORY: clear to auscultation bilaterally, no crackles, rales or wheezes, normal respiratory effort CARDIOVASCULAR: regular rate and rhythm, S1 and 2 heard without murmurs, gallops or rubs, no JVD, no peripheral edema CHEST WALL: chest tube in place, wound covered with gauze that is c/d/i GASTROINTESTINAL: soft, nontender, nondistended MUSCULOSKELETAL: strength 5/5 throughout, head is normocephalic and atraumatic SKIN: warm and dry NEUROLOGIC: CN 2-12 grossly intact, no sensory deficit, normal cognition PSYCHIATRIC: alert cooperative and oriented to person, place and time. Results & Data ([facility]) Vital Signs (Past 12 Hours) Vital Signs Temp Pulse Resp BP Pulse Ox Pulse Ox 07/19/19 07:47 36.4 C L 98 H 18 153/80 H 93 07/19/19 03:15 94 Laboratory Results Short CBC 07/19/19 Range/Units 05:30 WBC 13.43 H (4.8-10.8) K/uL Hgb 9.2 L (14.0-18.0) g/dL Hct 27.8 L (42-52) % Plt Count 356 (130-400) K/uL BMP 07/19/19 07/19/19 05:26 05:30 Sodium 139 Potassium 3.4 L Chloride 110 H Carbon Dioxide 24 BUN 13 Creatinine 0.63 0.65 Glucose 106 H Calcium 7.[address] chest wo con FINDINGS: The visualized liver, spleen, and adrenal glands are unremarkable. Trace right pleural effusion, unchanged. Decrease in size in the partially loculated small left pleural effusion. The left-sided chest tube terminates within the apex of the left pleural space. Small amount of scattered gas pockets within the pleural effusion likely due to the chest tube placement. The heart remains mildly enlarged. Stable prominent mediastinal lymph nodes measuring up to 9 mm in short axis diameter. Trace left chest wall subcutaneous edema. No suspicious lytic or blastic osseous lesions. Emphysema. Right basilar linear densities favor subsegmental atelectasis. Focal moderate narrowing within the left lower lobe bronchus. This has improved. Mild interlobular thickening within the left lung which could represent a small amount of reexpansion pulmonary edema. There appears to 5.6 cm thick-walled cavitary mass within the superior segment of the left lower lobe. This is best seen on image 109. A 2.8 cm nodule within the thyroid isthmus. IMPRESSION: 1. Decrease in size in the partially loculated small left pleural effusion status post left chest tube placement. 2. There is a 5.6 cm thick-walled cavitary lesion within the superior segment of left lower lobe. This is concerning for a neoplasm. A cavitary infection could also a similar appearance in the appropriate clinical setting. 3. Trace right pleural effusion, unchanged. 4. Emphysema. 5. Additional findings as described above. Medications Administered Current Inpatient Medications Acetaminophen (Tylenol) 1,000 mg PO Q8H [facility] Stop: 08/17/19 22:59 Last Admin: 07/19/19 07:06 Dose: 1,000 mg Documented by: Aspirin (Ecotrin Ectab) 81 mg PO QAM [facility] Stop: 08/15/19 08:59 Last Admin: 07/19/19 09:30 Dose: 81 mg Documented by: Atorvastatin Calcium (Lipitor) 40 mg PO HS [facility] Stop: 08/14/19 21:15 Last Admin: 07/18/19 20:56 Dose: 40 mg Documented by: Cyanocobalamin (Vitamin B-12) [facility] [facility] [place]: 08/15/19 08:59 Last Admin: 07/19/19 09:31 Dose: 500 mcg Documented by: Docusate Sodium (Colace) 100 mg PO BID [facility] Stop: 08/16/19 20:59 Last Admin: 07/19/19 09:28 Dose: 100 mg Documented by: Ceftaroline Fosamil 600 mg/ (Sodium Chloride) 270 mls @ 250 mls/hr IV Q12H [facility]; Protocol Stop: 07/25/19 13:59 Last Admin: 07/19/19 13:38 Dose: 250 mls/hr Documented by: Ipratropium [place] (Atrovent 0.02% 0.5mg/2.5ml) 0.5 mg INH Q4H PRN PRN Reason: Shortness Of Breath Or Wheezing Stop: 08/14/19 21:15 Levalbuterol HCl (Xopenex 0.63 Mg/3 Ml Neb) 0.63 mg NEB Q4H PRN PRN Reason: Shortness Of Breath Or Wheezing Stop: 08/14/19 21:15 Levetiracetam (Keppra) 500 mg PO BID [facility] Stop: 08/14/19 21:15 Last Admin: 07/19/19 09:31 Dose: 500 mg Documented by: Metoprolol Tartrate (Lopressor) 12.5 mg PO BID [facility] Stop: 08/14/19 21:15 Last Admin: 07/19/19 09:29 Dose: 12.5 mg Documented by: Morphine Sulfate (Morphine Sulfate) 1 - 2 mg IV Q1H PRN PRN Reason: Pain Stop: 07/31/19 14:23 Last Admin: 07/18/19 10:25 Dose: 2 mg Documented by: Nitroglycerin (Nitrostat) 0.4 mg SL UD PRN PRN Reason: Chest Pain Stop: 08/14/19 21:15 Loteprednol Etabonate 0.5%: Non- Formulary Patient's Own Med 1 ea OP BID [facility] Stop: 08/15/19 20:59 Last Admin: 07/19/19 09:32 Dose: 1 drops Documented by: Ondansetron HCl (Zofran) 4 mg IV Q6H PRN PRN Reason: Nausea Stop: 08/14/19 21:15 Oxycodone HCl (Roxicodone Immediate Rel) 5 mg PO Q6H PRN PRN Reason: Severe Pain Stop: 08/01/19 16:42 Last Admin: 07/18/19 18:26 Dose: 5 mg Documented by: Pantoprazole Sodium (Protonix) [address] [facility] Stop: 08/15/19 08:59 Last Admin: 07/19/19 09:31 Dose: 40 mg Documented by: Prednisone (Prednisone) [address] [facility] Stop: 08/15/19 08:59 Last Admin: 07/19/19 09:31 Dose: 5 mg Documented by: Prednisone (Prednisone) [address] [facility] Stop: 08/15/19 08:59 Last Admin: 07/19/19 09:30 Dose: 1 mg Documented by: Umeclidinium [place] (Incruse Ellipta) [address] [facility]; Protocol Stop: 08/15/19 08:59 Last Admin: 07/19/19 09:32 Dose: 1 puffs Documented by: (1) Pneumonia Laterality: unspecified laterality Lung location: unspecified part of lung Pneumonia type: due to unspecified organism Qualified Code(s): J18.9 - Pneumonia, unspecified organism (2) CVA (cerebral vascular accident) CVA mechanism: unspecified Qualified Code(s): I63.9 - Cerebral infarction, unspecified
[2019-07-19] MEDS: ATORVASTATIN 40 MG TAB PO SCH (21:43)
[2019-07-20] MEDS: CEFTAROLINE FOSAMIL ACETATE 600 MG in SODIUM CHLORIDE 0.9% 250 ML IV SCH ×2 (02:46→14:22)
[2019-07-20] MEDS: ACETAMINOPHEN 500 MG TAB PO SCH ×3 (06:56→22:35)
[2019-07-20] MEDS: UMECLIDINIUM BROMIDE 62.5MCG/BLISTER 7 PUFFS/INHALER INH SCH (09:11)
[2019-07-20] MEDS: CYANOCOBALAMIN 500 MCG TABLET (VITAMIN B-12) PO SCH (09:12)
[2019-07-20] MEDS: METOPROLOL TARTRATE 25 MG TAB PO SCH ×2 (09:12→20:07)
[2019-07-20] MEDS: ASPIRIN 81 MG ECTAB PO SCH (09:12)
[2019-07-20] MEDS: predniSONE 1 MG TAB PO SCH (09:12)
[2019-07-20] MEDS: DOCUSATE SODIUM 100 MG CAP PO SCH ×2 (09:12→20:09)
[2019-07-20] MEDS: predniSONE 5 MG TAB PO SCH (09:12)
[2019-07-20] MEDS: levETIRAcetam 500 MG TAB PO SCH ×2 (09:13→20:09)
[2019-07-20] MEDS: LOTEPREDNOL ETABONATE 0.5% OP SCH ×2 (09:13→20:09)
[2019-07-20] MEDS: PANTOprazole 40 MG TAB PO SCH (09:13)
--- NOTE | 2019-07-20 11:36 | Pulmonology Progress Note ---
Date of Service July 20, 2019 Assessment & Plan (1) Loculated pleural effusion: --Loculated left-sided pleural effusion Empyema With multiple loculation appreciated bedside Status post thoracentesis done 07/16/2019 Pleural fluid culture as well as lung culture growing Streptococcus intermedius. Patient will need antibiotics for at least 4 weeks from the time of discharge. Status post VATS on 07/17/2019. Which showed lung abscess. Patient will need to be on prolonged antibiotics for at least 4-6 weeks Chest tube in place management as per CT surgery. Monitor daily x-rays. -- Left lower lobe pneumonia Continue with antibiotics Pleural fluid culture growing gram-positive cocci along with gram-negative bacilli On ceftaroline, ID on board -- COPD Not in exacerbation On Lama inhaler at home -- Pipe smoker Has cut down but still smokes. Needs pulmonary function test done as an outpatient -- History of temporal arteritis Takes chronic prednisone for it. Plan: H&H has been stable. CT chest from 07/19/2019 personally reviewed. He still has loculated effusion on the left posterior aspect. Thick-walled cavity commented on the CAT scan is lung abscess on the left lower lobe which was noted during the VATS procedure. I doubt that this is a malignancy. Patient will need a repeat CAT scan in 4 to 6 weeks to make sure there is resolving of this cavity/consolidation. Dr. Quiñones was made aware about the finding of loculated pleural effusion. He states he is planning to do thoracentesis today. (2) SOB (shortness of breath): (3) Pneumonia: Laterality: unspecified laterality Lung location: unspecified part of lung Pneumonia type: due to unspecified organism Qualified Code(s): J18.9 - Pneumonia, unspecified organism Subjective Patient seen and examined at bedside. No acute distress, no adverse events overnight. Patient was not able to sleep overnight. He is blaming this on the bed. Patient does have some left-sided pain where the chest tube is. Denies any shortness of breath. No headache, no nausea, no vomiting. Good appetite. Review of Systems Review of Systems: All systems reviewed & are unremarkable except as noted in HPI & below Physical Exam Physical Exam: Constitutional: No acute distress HEENT: EOMI, PERRLA Respiratory system: Decreased air entry on the left side, mild left lower lobe crackles, no wheeze, no rhonchi CVS: S1-S2 positive, no murmurs or gallops Abdomen: Soft, nontender, nondistended, positive bowel sounds x4 Extremities: +2 pulses bilaterally radialis/ dorsalis pedis, no cyanosis, no edema Neuro: Awake alert oriented x3 Psych: Normal mood and affect Left-sided chest tube in place. No air leak. Minimal output Skin: no rashes, warm and dry Lymphatic: no cervical or axillary lymphadenopathy Results & Data ([facility]) Vital Signs (Past 12 Hours) Vital Signs Temp Pulse Resp BP Pulse Ox 07/20/19 07:25 36.4 C L 103 H 16 152/81 H 93 07/19/19 05:30 07/19/19 05:30 PG Care Time/CCT Total # of Minutes Spent Total Time Spent with Patient: Total time spent is greater than 50% in coordination of care (as documented) at patient's floor/unit and/or counseling patient: Coding Level of Care Code 10341 Subseq Hosp Care Lvl 3 Diagnoses Loculated pleural effusion J90 SOB (shortness of breath) R06.02 Pneumonia J18.9 Laterality: unspecified laterality Lung location: unspecified part of lung Pneumonia type: due to unspecified organism
--- NOTE | 2019-07-20 12:32 | Operative Report ---
DATE OF OPERATION: 07/20/2019 Mr. Fraga was seen today and I reviewed the CT scan performed yesterday which showed his abscess as expected in the superior segment of his left lower lobe. He also has a pleural effusion which appeared to be fairly homogenous. I performed an ultrasound, I could see that he had some irregularities that it was fibrin strands most likely. I discussed options with the patient and his . I also discussed his case with Dr. Esparza. We could put another chest tube which would be painful. We could also put a PleurX catheter in. However, I felt that we would start by doing a thoracentesis. On the morning of 07/20/2019, I performed an ultrasound-guided thoracentesis after a long discussion with the family. With the patient seated at the edge of the bed, an ultrasound was used to find a window into the pleural cavity. We then anesthetized this with 25 gauge needle and 1% Xylocaine after appropriate timeout have been called and the patient had been draped and prepped in the usual fashion. A large bore needle was then used to anesthetize the deeper tissues and we got some reddish serous fluid. I placed a guidewire through the needle and the needle removed. Triple lumen catheter was slid in 17 cm and the guidewire removed. Approximately, 250 mL of serous benign appearing fluid which was blood tinged that I would expect was drained. This was nonclotting. I sent this to the lab for evaluation. I then removed the catheter and there was no bleeding. Antimicrobial dressing was placed. Chest x-ray showed improvement in the patient's film. We will send this off to the lab, although I doubt we are going to see or get any more information. We are growing Strep intermedius. I had a long talk to the patient's . He tolerated this very well. He has no fevers. He is on room air. He is ambulating and tolerating a house diet. His white count yesterday was 13,430. He certainly does not appear to be toxic. I attest to the content of the Intraoperative Record and any orders documented therein. Any exceptions are noted below. ANDREAD
--- NOTE | 2019-07-20 12:43 | XRay Report ---
SINGLE VIEW CHEST CLINICAL HISTORY: Status post left-sided thoracentesis. FINDINGS: An AP, portable, upright chest radiograph is compared to chest x-ray and chest CT dated 07/19. The examination is degraded by portable technique and patient rotation. A chest tube at the le ft apex is unchanged in position. The heart is enlarged noting atherosclerotic calcification of the t horacic aorta. The pulmonary vasculature is noncongested. Emphysema and chronic interstitial thickeni ng is similar to previous. There is a small left pleural effusion with left basilar consolidation. Th e right lung appears clear. No pneumothorax is seen. The skeletal structures are osteopenic. The bony thorax is grossly intact. IMPRESSION: 1. A left chest tube is unchanged in position. No pneumothorax is clearly identified. 2. Left pleural effusion with left basilar consolidation. This is unchanged to decreased in size from yesterday. 3. Cardiomegaly and emphysema. ACT 112: Negative or not required by law. Electronically signed by: Drew Rees M.D. 07/20/2019 12:41 PM
[2019-07-20 13:27] LABS: Glucose Pleural Fluid 2 mg/dl
[2019-07-20 13:42] LABS: Appearance Pleural Fluid CLOUDY; Color Pleural Fluid AMBER; Eosinophils, Fluid 0 %; Lymphocytes, Fluid 0 %; Mono,Macrophage,Mesothelial 2 %; Neutrophils, Fluid 98 %; RBC Pleural Fluid (A) 26000 /uL; Source Pleural Fluid LEFT LUNG; WBC Pleural Fluid (A) 8602 /uL
--- NOTE | 2019-07-20 15:04 | Hospitalist Progress Note ---
Date of Service July 20, 2019 Assessment & Plan (1) Loculated pleural effusion: s/p thorascopy on 07/17. CXR reveals subQ emphysema which is expected to resolve. Chest tube remains in place. Bedside thoracentesis performed today. Patient is doing a good job with ambulation. (2) Pneumonia: Clinically improved, cultures are growing streptococcus intermedius consistent with a community-acquired pneumonia. Cont ceftaroline. Continue management per thoracic surgery and infectious disease. (3) Temporal arteritis: Cont chronic prednisone 6mg PO daily. (4) CVA (cerebral vascular accident): Cont medical management of CVD, on ASA, Lipitor. Plavix was stopped pre- procedure. Cont to hold now. (5) Seizure: Stable since recent admission with seizure activity. Cont Keppra (6) COPD (chronic obstructive pulmonary disease): Chronic, stable. No wheezing on exam. Cont home inhalers. (7) DVT prophylaxis: SCDs Full Code Dispo-plan for home when medically stable. Lisbet Booth DO [facility] Hospitalist Subjective Feeling well today. Bedside thoracentesis performed by thoracic surgery today. Slightly exhausted after ambulating in the hallways. Chest tube still in place and pain is well controlled. He is tolerating p.o. and otherwise doing well. He remains afebrile. Cultures are growing streptococcus. Review of Systems Review of Systems: All systems reviewed & are unremarkable except as noted in Subjective Physical Exam Physical Exam: CONSTITUTIONAL: WNWD, vitals as above, generally well- appearing EYES: normal conjunctivae, no scleral icterus ENT: MMM, oropharynx clear RESPIRATORY: clear to auscultation bilaterally, no crackles, rales or wheezes, normal respiratory effort CARDIOVASCULAR: regular rate and rhythm, S1 and 2 heard without murmurs, gallops or rubs, no JVD, no peripheral edema CHEST WALL: chest tube in place, wound covered with gauze that is c/d/i GASTROINTESTINAL: soft, nontender, nondistended MUSCULOSKELETAL: strength 5/5 throughout, head is normocephalic and atraumatic SKIN: warm and dry NEUROLOGIC: CN 2-12 grossly intact, no sensory deficit, normal cognition PSYCHIATRIC: alert cooperative and oriented to person, place and time. Results & Data ([facility]) Vital Signs (Past 12 Hours) Vital Signs Temp Pulse Resp BP Pulse Ox 07/20/19 07:25 36.4 C L 103 H 16 152/81 H 93 Medications Administered Current Inpatient Medications Acetaminophen (Tylenol) 1,000 mg PO Q8H [facility] Stop: 08/17/19 22:59 Last Admin: 07/20/19 14:23 Dose: 1,000 mg Documented by: Aspirin (Ecotrin Ectab) [facility] [place] Stop: 08/15/19 08:59 Last Admin: 07/20/19 09:12 Dose: 81 mg Documented by: Atorvastatin Calcium (Lipitor) 40 mg PO [facility] Stop: 08/14/19 21:15 Last Admin: 07/19/19 21:43 Dose: 40 mg Documented by: Cyanocobalamin (Vitamin B-12) 500 [facility]cg [facility] [place] [facility] Stop: 08/15/19 08:59 Last Admin: 07/20/19 09:12 Dose: 500 mcg Documented by: Docusate Sodium (Colace) 100 mg PO BID [facility] Stop: 08/16/19 20:59 Last Admin: 07/20/19 09:12 Dose: 100 mg Documented by: Ceftaroline Fosamil 600 mg/ (Sodium Chloride) 270 mls @ 250 mls/hr IV Q12H [facility]; Protocol Stop: 07/25/19 13:59 Last Admin: 07/20/19 14:22 Dose: 250 mls/hr Documented by: Ipratropium [place] (Atrovent 0.02% 0.5mg/2.5ml) 0.5 mg INH Q4H PRN PRN Reason: Shortness Of Breath Or Wheezing Stop: 08/14/19 21:15 Levalbuterol HCl (Xopenex 0.63 Mg/3 Ml Neb) 0.63 mg NEB Q4H PRN PRN Reason: Shortness Of Breath Or Wheezing Stop: 08/14/19 21:15 Levetiracetam (Keppra) 500 mg PO BID [facility] Stop: 08/14/19 21:15 Last Admin: 07/20/19 09:13 Dose: 500 mg Documented by: Metoprolol Tartrate (Lopressor) 12.5 mg PO BID [facility] Stop: 08/14/19 21:15 Last Admin: 07/20/19 09:12 Dose: 12.5 mg Documented by: Morphine Sulfate (Morphine Sulfate) 1 - 2 mg IV Q1H PRN PRN Reason: Pain Stop: 07/31/19 14:23 Last Admin: 07/18/19 10:25 Dose: 2 mg Documented by: Nitroglycerin (Nitrostat) 0.4 mg SL UD PRN PRN Reason: Chest Pain Stop: 08/14/19 21:15 Loteprednol Etabonate 0.5%: Non- Formulary Patient's Own Med 1 ea OP BID [facility] Stop: 08/15/19 20:59 Last Admin: 07/20/19 09:13 Dose: 1 drops Documented by: Ondansetron HCl (Zofran) 4 mg IV Q6H PRN PRN Reason: Nausea Stop: 08/14/19 21:15 Oxycodone HCl (Roxicodone Immediate Rel) 5 mg PO Q6H PRN PRN Reason: Severe Pain Stop: 08/01/19 16:42 Last Admin: 07/18/19 18:26 Dose: 5 mg Documented by: Pantoprazole Sodium (Protonix) 40 mg PO [facility] Stop: 08/15/19 08:59 Last Admin: 07/20/19 09:13 Dose: 40 mg Documented by: Prednisone (Prednisone) 5 mg PO [facility] Stop: 08/15/19 08:59 Last Admin: 07/20/19 09:12 Dose: 5 mg Documented by: Prednisone (Prednisone) 1 mg PO [facility] Stop: 08/15/19 08:59 Last Admin: 07/20/19 09:12 Dose: 1 mg Documented by: Umeclidinium [place] (Incruse Ellipta) 1 puffs INH [facility]; Protocol Stop: 08/15/19 08:59 Last Admin: 07/20/19 09:11 Dose: 1 puffs Documented by: (1) Pneumonia Laterality: unspecified laterality Lung location: unspecified part of lung Pneumonia type: due to unspecified organism Qualified Code(s): J18.9 - Pneumonia, unspecified organism (2) CVA (cerebral vascular accident) CVA mechanism: unspecified Qualified Code(s): I63.9 - Cerebral infarction, unspecified
[2019-07-20] MEDS: ATORVASTATIN 40 MG TAB PO SCH (20:10)
[2019-07-20] MEDS: ENOXAPARIN INJ 40 MG/0.4 ML SYR SQ SCH (22:35)
[2019-07-21] MEDS: CEFTAROLINE FOSAMIL ACETATE 600 MG in SODIUM CHLORIDE 0.9% 250 ML IV SCH ×2 (02:11→14:13)
[2019-07-21 06:06] LABS: Creatinine Clr Calc Pharmacy 86.5 ml/min; Est GFR (African American) 112.4
[2019-07-21] MEDS: ACETAMINOPHEN 500 MG TAB PO SCH ×3 (06:24→23:28)
[2019-07-21] MEDS: PANTOprazole 40 MG TAB PO SCH (09:22)
[2019-07-21] MEDS: CYANOCOBALAMIN 500 MCG TABLET (VITAMIN B-12) PO SCH (09:23)
[2019-07-21] MEDS: METOPROLOL TARTRATE 25 MG TAB PO SCH ×2 (09:23→20:12)
[2019-07-21] MEDS: ASPIRIN 81 MG ECTAB PO SCH (09:23)
[2019-07-21] MEDS: DOCUSATE SODIUM 100 MG CAP PO SCH ×2 (09:23→20:12)
[2019-07-21] MEDS: predniSONE 5 MG TAB PO SCH (09:24)
[2019-07-21] MEDS: levETIRAcetam 500 MG TAB PO SCH ×2 (09:24→20:12)
[2019-07-21] MEDS: predniSONE 1 MG TAB PO SCH (09:24)
[2019-07-21] MEDS: UMECLIDINIUM BROMIDE 62.5MCG/BLISTER 7 PUFFS/INHALER INH SCH (09:25)
[2019-07-21] MEDS: LOTEPREDNOL ETABONATE 0.5% OP SCH ×2 (09:31→20:14)
--- NOTE | 2019-07-21 11:12 | Infectious Disease Progress Nt ---
Date of Service July 21, 2019 Assessment & Plan (1) Loculated pleural effusion: will change to rocephin based on culture results and also this is once daily, will need 3 weeks from time of chest tube removal. blood cultures negative, will need weeklycbc, cmp, esr. Subjective pleural fluid cultures all growing S. intermedius, no sensitivities done. afebrile. blood cultures negative. on ceftaroline and tolerating well. creat 0.5. Results & Data Vital Signs (Past 12 Hours) Vital Signs Temp Pulse Resp BP Pulse Ox 07/21/19 09:18 87 154/79 H 07/21/19 07:03 36.4 C L 86 16 158/78 H 96 07/20/19 23:28 36.5 C 81 18 149/64 H 96 Laboratory Results Microbiology 07/15/19 18:13 Blood Aerobic Blood Culture - Final No growth in Aerobic bottle after 5 days. 07/15/19 18:13 Blood Anaerobic Blood Culture - Final No growth in Anaerobic bottle after 5 days. 07/15/19 18:00 Blood Aerobic Blood Culture - Final No growth in Aerobic bottle after 5 days. 07/15/19 18:00 Blood Anaerobic Blood Culture - Final 07/20/19 12:15 Pleural Fluid Gram Stain - Final 07/17/19 11:55 Lung Acid Fast Bacilli Smear - Final 07/17/19 11:55 Lung Acid Fast Bacilli Culture - Preliminary No Acid-Fast Bacilli Isolated - Report 1, Additional Report to Follow. 07/17/19 11:38 Pleural Fluid Acid Fast Bacilli Smear - Final 07/17/19 11:38 Pleural Fluid Acid Fast Bacilli Culture - Preliminary No Acid-Fast Bacilli Isolated - Report 1, Additional Report to Follow. 07/16/19 19:07 Pleural Fluid Acid Fast Bacilli Smear - Final 07/16/19 19:07 Pleural Fluid Acid Fast Bacilli Culture - Preliminary No Acid-Fast Bacilli Isolated - Report 1, Additional Report to Follow. 07/17/19 11:55 Lung,Left Fungal Smear - Final 07/17/19 11:55 Lung,Left Fungal Culture - Preliminary No yeast or fungus isolated - Report 1, Additional Report to Follow. 07/17/19 Unknown Lung,Left Acid Fast Bacilli Smear - Final 07/17/19 Unknown Lung,Left Gram Stain - Final 07/17/19 Unknown Lung,Left Aerobic and Anaerobic Culture - Preliminary Streptococcus intermedius 07/17/19 11:55 Lung Gram Stain - Final 07/17/19 11:55 Lung Aerobic and Anaerobic Culture - Preliminary Streptococcus intermedius 07/17/19 11:38 Pleural Fluid Gram Stain - Final 07/17/19 11:38 Pleural Fluid Aerobic and Anaerobic Culture - Preliminary Streptococcus intermedius 07/16/19 19:07 Pleural Fluid Gram Stain - Final 07/16/19 19:07 Pleural Fluid Aerobic and Anaerobic Culture - Preliminary No growth to date. 07/15/19 21:35 Urine,Clean Catch Urine Culture - Final More than three types of organisms present, all low counts mixed probable skin boo. No further identifications or sensitivities to follow. PG Care Time/CCT Total # of Minutes Spent Total Time Spent with Patient: Total time spent is greater than 50% in coordination of care (as documented) at patient's floor/unit and/or counseling patient: Coding Level of Care Code 97900 Subseq Hosp Care Lvl 1 Diagnoses Loculated pleural effusion J90
--- NOTE | 2019-07-21 11:56 | Progress Note ---
DATE: 07/21/2019 Mr. Fraga was seen today. He is still complaining of some problems with his urination with urgency. Otherwise, from a pulmonary standpoint, he has done well. I thought his x-ray looked a bit better after we drained the fluid off yesterday. I reviewed the laboratory data and the pleural glucose of 2 is concerning; however, I am not sure what to make of that in view of the fact that this was infected before. In addition, we are not growing anything out of the fluid drawn off yesterday. We saw no organisms on the Gram stain. We will have him push on with antibiotics. I am going to repeat a CT scan without contrast in the morning. His chest tube really is not draining anything and if we do not see much in the way of fluid collected in the base and we do not grow anything from the fluid that we drained yesterday, I am going to go ahead and pull this tube out. SIRISHA
--- NOTE | 2019-07-21 14:58 | Pulmonology Progress Note ---
Date of Service July 21, 2019 Assessment & Plan (1) Loculated pleural effusion: --Loculated left-sided pleural effusion Empyema Status post VATS and 2 thoracentesis. I did have a discussion with Dr. Maravilla over the phone. Gram stain is negative on the thoracentesis yesterday. I suspect that this is negative possibly related to the fact that he has been on IV antibiotics. He did have a glucose of 2 on the most recent thoracentesis which is actually much worse than his initial thoracentesis. Perhaps some degree of inflammation from the recent surgery is also playing a role here. I am concerned that this may still reflect an underlying infection. He does seem to be responding well clinically. Defer to thoracic surgery regarding any further pleural procedures at this time. He did have a chest x-ray yesterday post thoracentesis which demonstrated minimal improvement. Recommend repeat CT in 4 to [address] seems like Dr. Andrea Ogden is going to order for CT of his chest tomorrow. Pulmonary will sign off and we are available should the need arise. Please do not hesitate to give us a call. Pleural fluid culture as well as lung culture growing Streptococcus intermedius. Patient will need antibiotics for at least 4 weeks from the time of discharge. Status post VATS on 07/17/2019. Which showed lung abscess. Patient will need to be on prolonged antibiotics for at least 4-6 weeks Chest tube in place management as per CT surgery. Monitor daily x-rays. -- Left lower lobe pneumonia Continue antibiotics per ID recommendations. Will need prolonged IV antibiotics given the pulmonary abscess and empyema. -- COPD Not in exacerbation On Lama inhaler at home -- Pipe smoker Has cut down but still smokes. Needs pulmonary function test done as an outpatient -- History of temporal arteritis He is on chronic prednisone which does predispose him for infections. The dose is relatively low thankfully. (2) SOB (shortness of breath): (3) Pneumonia: Laterality: unspecified laterality Lung location: unspecified part of lung Pneumonia type: due to unspecified organism Qualified Code(s): J18.9 - Pneumonia, unspecified organism Subjective Patient seen and examined today. He is doing quite well. He denies any pain in his chest. No nausea or vomiting. He is eager to go home. No fevers or chills. Physical Exam Physical Exam: Constitutional: No acute distress HEENT: EOMI, PERRLA Respiratory system: Decreased air entry on the left side, mild left lower lobe crackles, no wheeze, no rhonchi CVS: S1-S2 positive, no murmurs or gallops Abdomen: Soft, nontender, nondistended, positive bowel sounds x4 Extremities: +2 pulses bilaterally radialis/ dorsalis pedis, no cyanosis, no edema Neuro: Awake alert oriented x3 Psych: Normal mood and affect Skin: no rashes, warm and dry Lymphatic: no cervical or axillary lymphadenopathy Results & Data ([facility]) Vital Signs (Past 12 Hours) Vital Signs Temp Pulse Resp BP Pulse Ox 07/21/19 09:18 87 154/79 H 07/21/19 07:03 97.5 F L 86 16 158/78 H 96 PG Care Time/CCT Total # of Minutes Spent Total Time Spent with Patient: Total time spent is greater than 50% in coordination of care (as documented) at patient's floor/unit and/or counseling patient: Coding [place] [address] Subseq Hosp Care Lvl 2 Patient Type Established Medical Decision Making Moderate Complexity Diagnoses Loculated pleural effusion J90 SOB (shortness of breath) R06.02 Pneumonia J18.9 Laterality: unspecified laterality Lung location: unspecified part of lung Pneumonia type: due to unspecified organism
--- NOTE | 2019-07-21 17:18 | Hospitalist Progress Note ---
Date of Service July 21, 2019 Assessment & Plan (1) Loculated pleural effusion: s/p thorascopy on 07/17. Chest tube remains in place. Bedside thoracentesis suggests persistent infection with low glucose. Repeat CT per thoracic surgery. Patient is doing a good job with ambulation. (2) Pneumonia: Clinically improved, cultures are growing streptococcus intermedius consistent with a community-acquired pneumonia. Rocephin recommended for 3 we eks. PICC placed this evening. Continue management per thoracic surgery and infectious disease. (3) Temporal arteritis: Cont chronic prednisone 6mg PO daily. (4) CVA (cerebral vascular accident): Cont medical management of CVD, on ASA, Lipitor. Plavix was stopped pre- procedure. Cont to hold until okay to restart per Thoracics (5) Seizure: Stable since recent admission with seizure activity. Cont Keppra (6) COPD (chronic obstructive pulmonary disease): Chronic, stable. No wheezing on exam. Cont home inhalers. (7) DVT prophylaxis: Lovenox Full Code Dispo-plan for home when medically stable. Lisbet Booth DO [facility] Hospitalist Subjective Pt. notes he is feeling well. He denies SOB, cough, fevers, chills. He is tolerating p.o. Review of Systems Review of Systems: All systems reviewed & are unremarkable except as noted in Subjective Physical Exam Physical Exam: CONSTITUTIONAL: WNWD, vitals as above, generally well- appearing EYES: normal conjunctivae, no scleral icterus ENT: MMM, oropharynx clear RESPIRATORY: clear to auscultation bilaterally with decreased breath sounds on the left, no crackles, rales or wheezes, normal respiratory effort. Chest tube in place on the left CARDIOVASCULAR: regular rate and rhythm, S1 and 2 heard without murmurs, gallops or rubs, no JVD, no peripheral edema CHEST WALL: chest tube in place, wound covered with gauze that is c/d/i GASTROINTESTINAL: soft, nontender, nondistended MUSCULOSKELETAL: strength 5/5 throughout, head is normocephalic and atraumatic SKIN: warm and dry NEUROLOGIC: CN 2-12 grossly intact, no sensory deficit, normal cognition PSYCHIATRIC: alert cooperative and oriented to person, place and time. Results & Data ([facility]) Vital Signs (Past 12 Hours) Vital Signs Temp Pulse Resp BP Pulse Ox 07/21/19 15:28 36.3 C L 94 H 18 144/80 H 94 07/21/19 09:18 87 154/79 H 07/21/19 07:03 36.4 C L 86 16 158/78 H 96 Laboratory Results BMP 07/21/19 05:19 Creatinine 0.56 L Medications Administered Current Inpatient Medications Acetaminophen (Tylenol) 1,000 mg PO Q8H [facility] Stop: 08/17/19 22:59 Last Admin: 07/21/19 15:07 Dose: 1,000 mg Documented by: Aspirin (Ecotrin Ectab) 81 mg PO QAM [facility] Stop: 08/15/19 08:59 Last Admin: 07/21/19 09:23 Dose: 81 mg Documented by: Atorvastatin Calcium (Lipitor) 40 mg PO [facility] Stop: 08/14/19 21:15 Last Admin: 07/20/19 20:10 Dose: 40 mg Documented by: Cyanocobalamin (Vitamin B-12) 500 mcg PO QAM [facility] Stop: 08/15/19 08:59 Last Admin: 07/21/19 09:23 Dose: 500 mcg Documented by: Docusate Sodium (Colace) 100 mg PO BID [facility] Stop: 08/16/19 20:59 Last Admin: 07/21/19 09:23 Dose: 100 mg Documented by: Enoxaparin Sodium (Lovenox) 40 mg SQ Q24H [facility] Stop: 08/19/19 21:59 Last Admin: 07/20/19 22:35 Dose: 40 mg Documented by: Ceftaroline Fosamil 600 mg/ (Sodium Chloride) 270 mls @ 250 mls/hr IV Q12H [facility]; Protocol Stop: 07/25/19 13:59 Last Infusion: 07/21/19 15:30 Dose: Infused Documented by: Ipratropium [place] (Atrovent 0.02% 0.5mg/2.5ml) 0.5 mg INH Q4H PRN PRN Reason: Shortness Of Breath Or Wheezing Stop: 08/14/19 21:15 Levalbuterol HCl (Xopenex 0.63 Mg/3 Ml Neb) 0.63 mg NEB Q4H PRN PRN Reason: Shortness Of Breath Or Wheezing Stop: 08/14/19 21:15 Levetiracetam (Keppra) 500 mg PO BID [facility] Stop: 08/14/19 21:15 Last Admin: 07/21/19 09:24 Dose: 500 mg Documented by: Metoprolol Tartrate (Lopressor) 12.5 mg PO BID [facility] Stop: 08/14/19 21:15 Last Admin: 07/21/19 09:23 Dose: 12.5 mg Documented by: Morphine Sulfate (Morphine Sulfate) 1 - 2 mg IV Q1H PRN PRN Reason: Pain Stop: 07/31/19 14:23 Last Admin: 07/18/19 10:25 Dose: 2 mg Documented by: Nitroglycerin (Nitrostat) 0.4 mg SL UD PRN PRN Reason: Chest Pain Stop: 08/14/19 21:15 Loteprednol Etabonate 0.5%: Non- Formulary Patient's Own Med 1 ea OP BID [facility] Stop: 08/15/19 20:59 Last Admin: 07/21/19 09:31 Dose: Not Given Documented by: Ondansetron HCl (Zofran) 4 mg IV Q6H PRN PRN Reason: Nausea Stop: 08/14/19 21:15 Oxycodone HCl (Roxicodone Immediate Rel) 5 mg PO Q6H PRN PRN Reason: Severe Pain Stop: 08/01/19 16:42 Last Admin: 07/18/19 18:26 Dose: 5 mg Documented by: Pantoprazole Sodium (Protonix) 40 mg PO [facility] Stop: 08/15/19 08:59 Last Admin: 07/21/19 09:22 Dose: 40 mg Documented by: Prednisone (Prednisone) 5 mg PO [facility] Stop: 08/15/19 08:59 Last Admin: 07/21/19 09:24 Dose: 5 mg Documented by: Prednisone (Prednisone) 1 mg PO [facility] Stop: 08/15/19 08:59 Last Admin: 07/21/19 09:24 Dose: 1 mg Documented by: Umeclidinium [place] (Incruse Ellipta) 1 puffs INH [facility]; Protocol Stop: 08/15/19 08:59 Last Admin: 07/21/19 09:25 Dose: 1 puffs Documented by: (1) Pneumonia Laterality: unspecified laterality Lung location: unspecified part of lung Pneumonia type: due to unspecified organism Qualified Code(s): J18.9 - Pneumonia, unspecified organism (2) CVA (cerebral vascular accident) CVA mechanism: unspecified Qualified Code(s): I63.9 - Cerebral infarction, unspecified
[2019-07-21] MEDS: ATORVASTATIN 40 MG TAB PO SCH (20:12)
[2019-07-21] MEDS: ENOXAPARIN INJ 40 MG/0.4 ML SYR SQ SCH (21:52)
[2019-07-22] MEDS: CEFTAROLINE FOSAMIL ACETATE 600 MG in SODIUM CHLORIDE 0.9% 250 ML IV SCH (01:20)
[2019-07-22 05:59] LABS: Hemoglobin 9.1 g/dL (14.0-18.0); Mean Corpuscular Hemoglobin 36.4 pg (25-34); Mean Corpuscular Hgb Conc 33.7 g/dL (32-36); Platelet Count 335 K/uL (130-400); RDW Standard Deviation 54.7 fL (36.4-46.3); White Blood Count 7.09 K/uL (4.8-10.8)
[2019-07-22 06:28] LABS: BUN Creatinine Ratio 18.4 (10-20); Calcium 7.7 mg/dl (8.5-10.1); Est GFR (African American) 116.8; Est GFR (Non-African American) 100.8; Magnesium 1.8 mg/dl (1.8-2.4); Potassium 3.3 mmol/L (3.5-5.1)
[2019-07-22] MEDS: ACETAMINOPHEN 500 MG TAB PO SCH ×3 (06:34→22:10)
--- NOTE | 2019-07-22 08:25 | Surgery Progress Note ---
Date of Service July 22, 2019 Assessment & Plan (1) Loculated pleural effusion: -s/p LVATS with evacuation of empyema -operative cytology (-) for malignancy -operative culture have grown Strep intermedius -chest tube has no air leak and minimal drainage -will continue antibiotics as ordered -pt. scheduled for CT scan of chest today: if there is not a significant amount of fluid will consider removing chest tube later today Subjective Pt. notes he is feeling well. He denies SOB, cough, fevers, shakes, chills. Physical Exam Constitutional: well developed and well nourished; no acute distress Respiratory: BS are decreased at bases Cardiovascular: Rate/Rhythm: regular rate and regular rhythm Neurologic: moves all extremities Psychiatric: A+Ox3, euthymic affect Results & Data Vital Signs (Past 12 Hours) Vital Signs Temp Pulse Resp BP Pulse Ox 07/22/19 07:18 36.6 C 89 16 146/76 H 96 07/21/19 23:15 36.5 C 78 18 139/68 95 PG Care Time/CCT Total # of Minutes Spent Total Time Spent with Patient: Total time spent is greater than 50% in coordination of care (as documented) at patient's floor/unit and/or counseling patient: Coding Level of Care Code None Diagnoses Loculated pleural effusion J90
--- NOTE | 2019-07-22 09:21 | CT Scan Report ---
CT OF THE CHEST WITHOUT IV CONTRAST CLINICAL HISTORY: empyema COMPARISON STUDY: Chest CT July 19, 2019. Chest radiograph July 20, 2019. CT DOSE: 309.57 mGy.cm TECHNIQUE: Axial images of the chest were obtained without IV contrast. Images were reviewed in the axial, sagittal, and coronal planes. IV contrast was not administered for this examination. Automat ed exposure control was utilized for the study. A dose lowering technique was utilized adhering to [facility] [facility] principles of ALARA. FINDINGS: A left chest tube is in place. A small amount of left pleural gas is noted. A loculated le ft pleural effusion is noted. The lateral component has decreased in size since exam of July 19 020. There is a persistent moderate sized posterior component which contains gas. This is either unch anged or slightly decreased in size since prior CT. Cavitary opacity within the superior segment of t he left lower lobe persists. Small right pleural effusion is unchanged. There is moderate emphysema. The heart is mildly enlarged. A right-sided PICC is in place. There is no pericardial effusion. A T6 compression fracture is noted. Upper abdomen is unremarkable on this unenhanced exam. IMPRESSION: 1. Left chest tube in place. Loculated left pleural effusion. Lateral component moderately decreased since CT of July 19, 2019. Moderate posterior component is either unchanged or slightly decreased since prior exam. The chest tube does not extend through the posterior component. 2. Persistent cavitary opacity within the superior segment of the left lower lobe which favors cavita ry pneumonia. Follow-up chest CT in one month to ensure resolution is recommended. 3. Small right pleural effusion. 4. Moderate emphysema. ACT 112: Negative or not required by law. Electronically signed by: Terry Keita M.D. 07/22/2019 9:20 AM
[2019-07-22] MEDS: DOCUSATE SODIUM 100 MG CAP PO SCH ×2 (09:29→21:33)
[2019-07-22] MEDS: CYANOCOBALAMIN 500 MCG TABLET (VITAMIN B-12) PO SCH (09:30)
[2019-07-22] MEDS: levETIRAcetam 500 MG TAB PO SCH ×2 (09:30→21:35)
[2019-07-22] MEDS: predniSONE 5 MG TAB PO SCH (09:30)
[2019-07-22] MEDS: ASPIRIN 81 MG ECTAB PO SCH (09:30)
[2019-07-22] MEDS: predniSONE 1 MG TAB PO SCH (09:30)
[2019-07-22] MEDS: METOPROLOL TARTRATE 25 MG TAB PO SCH ×2 (09:34→21:34)
[2019-07-22] MEDS: PANTOprazole 40 MG TAB PO SCH (09:36)
[2019-07-22] MEDS: LOTEPREDNOL ETABONATE 0.5% OP SCH ×2 (09:36→22:09)
[2019-07-22] MEDS: UMECLIDINIUM BROMIDE 62.5MCG/BLISTER 7 PUFFS/INHALER INH SCH (09:36)
[2019-07-22] MEDS: cefTRIAXone SODIUM 1,000 MG in DEXTROSE 5% 50 ML IV SCH (12:00)
[2019-07-22] MEDS ORDERED: LIDOCAINE HCL 1% 20 ML VIAL INJ ONE (13:19)
--- NOTE | 2019-07-22 14:24 | XRay Report ---
XR chest 1V portable CLINICAL HISTORY: 79 years-old Male presenting with S/P Thoracentesis. TECHNIQUE: Portable upright AP view of the chest was obtained. COMPARISON: 07/20/2019. FINDINGS: Right upper extremity PICC terminates in the right atrium. Large bore left pleural drains terminate a t the periphery of the left apex and periphery of the left mid to lower lung. This second lower pleur al drain is new from prior. Cardiac silhouette moderately enlarged as on prior. Extensive left mid to lower lung opacity with loculated left pleural effusion stable to decreased from prior. No pneumotho rax. Right lung and pleural space grossly clear. Degenerative changes of the thoracic spine. Upper ab domen normal. IMPRESSION: 1. Interval placement of a second left pleural drain with stable to slight decrease in the left pleu ral effusion, which appears loculated. No pneumothorax. 2. Underlying left mid to lower lung consolidation. 3. Cardiomegaly. ACT 112: Negative or not required by law. Electronically signed by: Paolo Pedroza M.D. 07/22/2019 2:23 PM
--- NOTE | 2019-07-22 14:25 | Operative Report ---
DATE OF OPERATION: 07/22/2019 PREOPERATIVE DIAGNOSIS: Postoperative complex collection left pleural cavity. POSTOPERATIVE DIAGNOSIS: Postoperative complex collection left pleural cavity. PROCEDURE: Insertion of PleurX catheter under ultrasound guidance. SURGEON: Estevan Quiñones MD SQL PROGRAMMER: Medical student, David Mario. INDICATION FOR PROCEDURE AND FINDINGS: This is an 79-year-old male who underwent decortication and drainage of a lung abscess. He really had very little in the way of bleeding or fluid in the chest and so I left a single 24-Setswana straight chest tube; however, we noted a collection of fluid posteriorly. I performed a thoracentesis for about 250 mL two days ago. I repeated a CT scan today and it could be seen that this collection has improved a bit; however, it is complex and I do not think is going to drain with a simple tube. For this reason, I elected to place a PleurX catheter and we will institute the MIST-2 protocol. He tolerated it well. DESCRIPTION OF PROCEDURE: With the patient in the right lateral decubitus position, his left chest was assessed with a bedside ultrasound. A good window into the pleural cavity was noted. This was marked and another area was marked anterior to this about 10 cm away. He was prepped and draped in usual sterile fashion. After appropriate timeout had been called, a skin wheal was raised in both these areas with 25-gauge needle, 1% Xylocaine. Large bore needle was used to enter the pleural cavity and we got some serous fluid back posteriorly. A guidewire was inserted through the needle and the needle removed. This incision was opened 1 cm. The weal was opened 1 cm with a #11 blade also. A long needle was used to anesthetize subcutaneous tissues between the two. A tunneler was attached to PleurX catheter and dragged from the anterior to posterior incision. Introducer sheath with an inner cannula was placed over the guidewire into the pleural cavity and retaining guidewire removed. The PleurX catheter was inserted through this without difficulty. [place] catheter was removed. Two 2-0 silk sutures were used to close the skin posteriorly and to anchor the catheter to the patient's skin anteriorly. Approximately 200 mL of serous fluid was drained. This was then capped with a sterile cap and antimicrobial dressings were placed and a chest x-ray was ordered. He tolerated it quite well. I attest to the content of the Intraoperative Record and any orders documented therein. Any exceptions are noted below. MTDD
[2019-07-22 14:53] LABS: Appearance Pleural Fluid BLOODY; Basophils, Fluid 0 %; Color Pleural Fluid RED; Eosinophils, Fluid 0 %; Lymphocytes, Fluid 3 %; Mono,Macrophage,Mesothelial 3 %; Neutrophils, Fluid 94 %; RBC Pleural Fluid (A) 28000 /uL; Source Pleural Fluid LEFT LUNG; WBC Pleural Fluid (A) 1178 /uL
[2019-07-22 15:02] LABS: Glucose Pleural Fluid 26 mg/dl
[2019-07-22 15:12] LABS: LDH Pleural Fluid 1485 U/L
[2019-07-22 15:13] LABS: Total Protein Pleural Fluid 2.9 g/dl
[2019-07-22] MEDS: DORNASE ALFA 5 ML in SYRINGE 25 ML IPL SCH (16:51)
--- NOTE | 2019-07-22 18:04 | XRay Report ---
XR chest 1V portable HISTORY: Postop. COMPARISON: Chest 07/22/2019. FINDINGS: There are again noted 2 left-sided chest tubes which remain unchanged in position. Small le ft pleural effusion has decreased in size. Left perihilar/basilar airspace opacity persists. No defin ite pneumothorax. A right PICC terminates at the superior cavoatrial junction. The heart remains enla rged. There is mild central pulmonary vascular congestion without overt edema. IMPRESSION: 1. No change in position of the left-sided chest tubes. No definite pneumothorax. 2. Small left pleural effusion has slightly decreased in size. 3. Left perihilar/basilar airspace opacities persist. ACT 112: Negative or not required by law. Electronically signed by: Hugh Saenz M.D. 07/22/2019 6:03 PM
--- NOTE | 2019-07-22 18:53 | Hospitalist Progress Note ---
Date of Service July 22, 2019 Assessment & Plan (1) Loculated pleural effusion: s/p thorascopy on 07/17. Bedside thoracentesis performed revealing persistent infection. CT scan confirms this and subsequent pigtail catheter was placed in addition to chest tube which is still in place. Continue management per thoracic surgery. (2) Pneumonia: Clinically improved, cultures are growing streptococcus intermedius consistent with a community-acquired pneumonia. Rocephin x3 weeks per continue management per thoracic surgery and infectious disease. A repeat CAT scan will need to be performed in 4 to 6 weeks to ensure complete resolution of pneumonia. This will likely be orchestrated with Thoracics at time of discharge but needs to be clarified. (3) Temporal arteritis: Cont chronic prednisone 6mg PO daily. (4) CVA (cerebral vascular accident): Cont medical management of CVD, on ASA, Lipitor. Plavix was stopped pre- procedure. Cont to hold now. (5) Seizure: Stable since recent admission with seizure activity. Cont Keppra (6) COPD (chronic obstructive pulmonary disease): Chronic, stable. No wheezing on exam. Cont home inhalers. (7) DVT prophylaxis: Lovenox Full Code Dispo-plan for home when medically stable. Lisbet Booth DO [facility] Hospitalist Subjective Patient feeling well. Based on CT findings Thoracics performed pigtail catheter and left chest tube in place. Some pain postprocedure but this is well managed with medications. He is otherwise doing well tolerating p.o., remains afebrile. Family was in the room and we discussed and went through the CT images as well as the before and after chest x-rays. They understand there is still some loculated effusion present all questions were answered to their satisfaction. Review of Systems Review of Systems: All systems reviewed & are unremarkable except as noted in Subjective Physical Exam Physical Exam: CONSTITUTIONAL: WNWD, vitals as above, generally well- appearing EYES: normal conjunctivae, no scleral icterus ENT: MMM, oropharynx clear RESPIRATORY: clear to auscultation bilaterally with decreased breath sounds on the left, no crackles, rales or wheezes, normal respiratory effort. CARDIOVASCULAR: regular rate and rhythm, S1 and 2 heard without murmurs, gallops or rubs, no JVD, no peripheral edema CHEST WALL: chest tube in place, wound covered with gauze that is c/d/i. New left pigtail catheter in place GASTROINTESTINAL: soft, nontender, nondistended MUSCULOSKELETAL: strength 5/5 throughout, head is normocephalic and atraumatic SKIN: warm and dry, PICC line in place NEUROLOGIC: CN 2-12 grossly intact, no sensory deficit, normal cognition PSYCHIATRIC: alert cooperative and oriented to person, place and time. Results & Data ([facility]) Vital Signs (Past 12 Hours) Vital Signs Temp Pulse Pulse Resp BP BP Pulse Ox 07/22/19 15:26 36.6 C 80 16 145/80 H 94 07/22/19 13:04 36.3 C L 94 H 18 128/67 93 07/22/19 09:32 91 H 154/81 H 07/22/19 07:18 36.6 C 89 16 146/76 H 96 Laboratory Results Short CBC 07/22/19 Range/Units 05:20 WBC 7.09 (4.8-10.8) K/uL Hgb 9.1 L (14.0-18.0) g/dL Hct 27.0 L (42-52) % Plt Count 335 (130-400) K/uL BMP 07/22/19 05:20 Sodium 140 Potassium 3.3 L Chloride 108 H Carbon Dioxide 29 BUN 9 Creatinine 0.51 L Glucose 79 Calcium 7.7 L Medications Administered Current Inpatient Medications Acetaminophen (Tylenol) 1,000 mg PO Q8H [facility] Stop: 08/17/19 22:59 Last Admin: 07/22/19 14:34 Dose: 1,000 mg Documented by: Aspirin (Ecotrin Ectab) 81 mg PO QA [facility] Stop: 08/15/19 08:59 Last Admin: 07/22/19 09:30 Dose: 81 mg Documented by: Atorvastatin Calcium (Lipitor) 40 mg PO HS [facility] Stop: 08/14/19 21:15 Last Admin: 07/21/19 20:12 Dose: 40 mg Documented by: Cyanocobalamin (Vitamin B-12) 500 mcg PO QAM [facility] Stop: 08/15/19 08:59 Last Admin: 07/22/19 09:30 Dose: 500 mcg Documented by: Docusate Sodium (Colace) 100 mg PO BID [facility] Stop: 08/16/19 20:59 Last Admin: 07/22/19 09:29 Dose: 100 mg Documented by: Enoxaparin Sodium (Lovenox) 40 mg SQ Q24H [facility] Stop: 08/19/19 21:59 Last Admin: 07/21/19 21:52 Dose: 40 mg Documented by: Heparin Sodium (Beef Lung) (Heparin Sod 10 Unit/Ml Flush) 5 ml FLUSH PRN PRN PRN Reason: Flush Stop: 08/21/19 00:22 Last Admin: 07/22/19 12:43 Dose: 5 ml Documented by: Ceftriaxone Sodium 1,000 mg/ (Dextrose) 50 mls @ 100 mls/hr IV Q24H [facility]; Protocol Stop: 07/29/19 10:59 Last Infusion: 07/22/19 12:46 Dose: Infused Documented by: Dornase [place] 5 ml/ Syringe 30 mls @ 0 mls/min IPL Q12H [facility]; Protocol Stop: 07/25/19 04:31 Last Admin: 07/22/19 16:51 Dose: 3 mls/min Documented by: Ipratropium [place] (Atrovent 0.02% 0.5mg/2.5ml) 0.5 mg INH Q4H PRN PRN Reason: Shortness Of Breath Or Wheezing Stop: 08/14/19 21:15 Levalbuterol HCl (Xopenex 0.63 Mg/3 Ml Neb) 0.63 mg NEB Q4H PRN PRN Reason: Shortness Of Breath Or Wheezing Stop: 08/14/19 21:15 Levetiracetam (Keppra) 500 mg PO BID [facility] Stop: 08/14/19 21:15 Last Admin: 07/22/19 09:30 Dose: 500 mg Documented by: Metoprolol Tartrate (Lopressor) 12.5 mg PO BID [facility] Stop: 08/14/19 21:15 Last Admin: 07/22/19 09:34 Dose: 12.5 mg Documented by: Morphine Sulfate (Morphine Sulfate) 1 - 2 mg IV Q1H PRN PRN Reason: Pain Stop: 07/31/19 14:23 Last Admin: 07/18/19 10:25 Dose: 2 mg Documented by: Nitroglycerin (Nitrostat) 0.4 mg SL UD PRN PRN Reason: Chest Pain Stop: 08/14/19 21:15 Loteprednol Etabonate 0.5%: Non- Formulary Patient's Own Med 1 ea OP BID [facility] Stop: 08/15/19 20:59 Last Admin: 07/22/19 09:36 Dose: Not Given Documented by: Ondansetron HCl (Zofran) 4 mg IV Q6H PRN PRN Reason: Nausea Stop: 08/14/19 21:15 Oxycodone HCl (Roxicodone Immediate Rel) 5 mg PO Q6H PRN PRN Reason: Severe Pain Stop: 08/01/19 16:42 Last Admin: 07/18/19 18:26 Dose: 5 mg Documented by: Pantoprazole Sodium (Protonix) 40 mg PO [facility] Stop: 08/15/19 08:59 Last Admin: 07/22/19 09:36 Dose: 40 mg Documented by: Prednisone (Prednisone) 5 mg PO [facility] Stop: 08/15/19 08:59 Last Admin: 07/22/19 09:30 Dose: 5 mg Documented by: Prednisone (Prednisone) 1 mg PO [facility] Stop: 08/15/19 08:59 Last Admin: 07/22/19 09:30 Dose: 1 mg Documented by: Umeclidinium [place] (Incruse Ellipta) 1 puffs INH [facility]; Protocol Stop: 08/15/19 08:59 Last Admin: 07/22/19 09:36 Dose: 1 puffs Documented by: (1) Pneumonia Laterality: unspecified laterality Lung location: unspecified part of lung Pneumonia type: due to unspecified organism Qualified Code(s): J18.9 - Pneumonia, unspecified organism (2) CVA (cerebral vascular accident) CVA mechanism: unspecified Qualified Code(s): I63.9 - Cerebral infarction, unspecified
[2019-07-22] MEDS: ENOXAPARIN INJ 40 MG/0.4 ML SYR SQ SCH (21:28)
[2019-07-22] MEDS: ATORVASTATIN 40 MG TAB PO SCH (21:34)
[2019-07-23] MEDS: DORNASE ALFA 5 ML in SYRINGE 25 ML IPL SCH ×3 (04:57→19:56)
[2019-07-23] MEDS: ACETAMINOPHEN 500 MG TAB PO SCH ×3 (06:05→21:44)
[2019-07-23 06:23] LABS: Hematocrit (blood only) 26.9 % (42-52); Hemoglobin 8.9 g/dL (14.0-18.0); Mean Corpuscular Hemoglobin 35.9 pg (25-34); Mean Corpuscular Hgb Conc 33.1 g/dL (32-36); Mean Corpuscular Volume 108.5 fL (80-100); Platelet Count 318 K/uL (130-400); RDW Coefficient of Variation 14.1 % (11.5-14.5); RDW Standard Deviation 55.3 fL (36.4-46.3); Red Blood Count 2.48 M/uL (4.7-6.1); White Blood Count 6.86 K/uL (4.8-10.8)
[2019-07-23 07:02] LABS: BUN Creatinine Ratio 19.9 (10-20); Calcium 7.7 mg/dl (8.5-10.1); Creatinine Clr Calc Pharmacy 107.6 ml/min; Est GFR (Non-African American) 106.1; Magnesium 1.9 mg/dl (1.8-2.4); Potassium 3.4 mmol/L (3.5-5.1)
--- NOTE | 2019-07-23 07:40 | XRay Report ---
XR chest 1V portable CLINICAL HISTORY: 79 years-old Male presenting with MIST-2. TECHNIQUE: Portable upright AP view of the chest was obtained. COMPARISON: 07/22/2019. FINDINGS: Right upper extremity PICC terminates in the superior cavoatrial junction. 2 large bore left pleural drains remain in position, one at the left apex and one in the left midlung periphery. Cardiac silhou ette mildly enlarged as on prior. Interval decrease in size of the left pleural effusion. Decreased l eft mid to basilar predominant opacities. Unchanged limited aeration of the left lung base. A trace r ight pleural effusion may be present. The right lung is otherwise grossly clear. Osteopenia may be pr esent. Degenerative changes and scoliosis of the spine. Upper abdomen normal. IMPRESSION: 1. Interval decrease in size of the left pleural effusion as well as slight decrease in left mid to basilar consolidation. 2. Left pleural drains remain in place. No pneumothorax. 3. Cardiomegaly. ACT 112: Negative or not required by law. Electronically signed by: Paolo Pedroza M.D. 07/23/2019 7:39 AM
[2019-07-23] MEDS ORDERED: ALTEPLASE, RECOMBINANT 10 MG in SYRINGE 50 ML IPL SCH (08:00)
[2019-07-23] MEDS: UMECLIDINIUM BROMIDE 62.5MCG/BLISTER 7 PUFFS/INHALER INH SCH (10:22)
[2019-07-23] MEDS: CYANOCOBALAMIN 500 MCG TABLET (VITAMIN B-12) PO SCH (10:23)
[2019-07-23] MEDS: levETIRAcetam 500 MG TAB PO SCH ×2 (10:23→20:23)
[2019-07-23] MEDS: ASPIRIN 81 MG ECTAB PO SCH (10:23)
[2019-07-23] MEDS: LOTEPREDNOL ETABONATE 0.5% OP SCH ×2 (10:24→20:23)
[2019-07-23] MEDS: PANTOprazole 40 MG TAB PO SCH (10:24)
[2019-07-23] MEDS: DOCUSATE SODIUM 100 MG CAP PO SCH ×2 (10:25→20:22)
[2019-07-23] MEDS: predniSONE 1 MG TAB PO SCH (10:25)
[2019-07-23] MEDS: predniSONE 5 MG TAB PO SCH (10:26)
[2019-07-23] MEDS: METOPROLOL TARTRATE 25 MG TAB PO SCH ×2 (10:27→20:22)
[2019-07-23] MEDS: cefTRIAXone SODIUM 1,000 MG in DEXTROSE 5% 50 ML IV SCH (10:56)
[2019-07-23] MEDS: OXYCODONE HCL IR 5 MG TAB (IMMEDIATE RELEASE) PO PRN ×2 (12:23→19:10)
--- NOTE | 2019-07-23 15:44 | Progress Note ---
DATE: 07/23/2019 Bishop Fraga was seen this morning. I saw him a couple times over the course of the day. Even though he has no elevation of his white count, his fluid that we drained a few days ago is still growing a Strep, probably the original intermedius. This was from 3 days ago. I remain concerned about that; however, his PleurX catheter has drained him very well. We put some dornase last night into his tube and really did not get much fluid out, so we put TPA in this morning. We got 300 mL of fluid with some reexpansion pain. He had another 200 after we put the dornase in. We are going to hold the TPA tonight, continue the dornase and then tomorrow morning we will resume this. His x-ray looked very good. He has less fluid on the left side. He does have a lung abscess. His chest tube does not have an air leak and if things look good tomorrow we will remove it. SIRISHA
--- NOTE | 2019-07-23 17:44 | Hospitalist Progress Note ---
Date of Service July 23, 2019 Assessment & Plan (1) Loculated pleural effusion: Left-sided pleural abscess: Culture positive for Streptococcus intermedius s/p thorascopy on 07/17. Post chest tube on left side, Appreciate input from CT surgery Pigtail catheter placed (2) Pneumonia: Clinically improved, cultures are growing streptococcus intermedius consistent with a community-acquired pneumonia. Appreciate input from ID Per ID recommendation: Rocephin x3 weeks /after removal from CT chest tube Prescription will be given for 3 weeks of IV Rocephin Will need IV access A repeat CAT scan will need to be performed in 4 to 6 weeks to ensure complete resolution of pneumonia. (3) Temporal arteritis: Cont chronic prednisone 6mg PO daily. (4) CVA (cerebral vascular accident): Cont medical management of CVD, on ASA, Lipitor. Plavix was stopped pre- procedure. Cont to hold until okay to restart per Thoracics (5) Seizure: Stable since recent admission with seizure activity. Cont Keppra (6) COPD (chronic obstructive pulmonary disease): Chronic, stable. No wheezing on exam. Cont home inhalers. (7) DVT prophylaxis: Lovenox Full Code Dispo-he is very eager to be discharged home Still very deconditioned order for PT OT evaluation Has a chest tube, Pleurx catheter drainage, Will need long-term home antibiotics Social service consulted for discharge planning Subjective Sitting up in chair, denies of any discomfort, does not have any cough Has minimum pain and discomfort of chest tube area, no fever chills Frustrated for being in the hospital for so long, to be discharged home tomorrow Multiple family members present at bedside Counseling provided, as patient still have a chest tube, pigtail catheter for continued with drainage of left lung pleural effusion/will need another 1 or 2 days before all the tubes could be removed, prior to plan for discharge Patient is willing to stay 1 more night, Appreciate input from Dr. Bustos , plan to DC chest tube tomorrow a.m. Review of Systems Review of Systems: All systems reviewed & are unremarkable except as noted in HPI & below Respiratory: + pain on inspiration; no cough, no dyspnea on exertion, no pain with cough and no wheezing Physical Exam Constitutional: WD/WN, vitals as above + ill appearing; no acute distress Eyes: PERRL, conjunctivae normal, anicteric sclerae ENMT: external ear and nose normal, oropharynx normal Neck: trachea midline, no thyromegaly Respiratory: normal respiratory effort and + cough Auscultation: + rales (On base,) Left-sided chest tube present, left sided pigtail present Cardiovascular: RRR, no murmur, no edema Musculoskeletal: no cyanosis or clubbing, extremities motor strength 5/5 Skin: no rashes, warm and dry Neurologic: PERRL, EOMI, accommodation nl, no face palsy, no dysarthria Results & Data ([facility]) Vital Signs (Past 12 Hours) Vital Signs Temp Pulse Pulse Resp BP BP Pulse Ox 07/23/19 15:11 36.9 C 89 16 148/79 H 91 07/23/19 10:27 99 H 120/74 07/23/19 06:56 36.5 C 97 H 20 150/72 H 93 (1) Pneumonia Laterality: unspecified laterality Lung location: unspecified part of lung Pneumonia type: due to unspecified organism Qualified Code(s): J18.9 - Pneumonia, unspecified organism (2) CVA (cerebral vascular accident) CVA mechanism: unspecified Qualified Code(s): I63.9 - Cerebral infarction, unspecified
[2019-07-23] MEDS: ATORVASTATIN 40 MG TAB PO SCH (20:22)
[2019-07-23] MEDS: ENOXAPARIN INJ 40 MG/0.4 ML SYR SQ SCH (21:43)
[2019-07-24] MEDS: ACETAMINOPHEN 500 MG TAB PO SCH ×3 (06:05→22:39)
--- NOTE | 2019-07-24 07:48 | XRay Report ---
XR chest 1V portable CLINICAL HISTORY: empyema COMPARISON STUDY: Chest CT July 22, 2019. Chest radiograph July 23, 2019. FINDINGS: Right PICC remains in place. There is mild right lower lung opacity. Interval repositioning of the left-sided chest tube is now noted. Left pleural effusion has mildly decreased in size. Left lower lobe airspace opacity persists but aeration is slightly improved. There is no pneumothorax. The re is no evidence for pulmonary edema. Cardiomediastinal silhouette is stable. IMPRESSION: Two left chest tubes in place with interval repositioning of the medial chest tube. Pers istent but improved left pleural effusion and left lower lobe airspace opacity. ACT 112: Negative or not required by law. Electronically signed by: Terry Keita M.D. 07/24/2019 7:47 AM
[2019-07-24] MEDS: DORNASE ALFA 5 ML in SYRINGE 25 ML IPL SCH ×2 (08:10→20:10)
[2019-07-24] MEDS: ASPIRIN 81 MG ECTAB PO SCH (09:05)
[2019-07-24] MEDS: DOCUSATE SODIUM 100 MG CAP PO SCH ×2 (09:05→20:18)
[2019-07-24] MEDS: UMECLIDINIUM BROMIDE 62.5MCG/BLISTER 7 PUFFS/INHALER INH SCH (09:05)
[2019-07-24] MEDS: CYANOCOBALAMIN 500 MCG TABLET (VITAMIN B-12) PO SCH (09:06)
[2019-07-24] MEDS: predniSONE 5 MG TAB PO SCH (09:06)
[2019-07-24] MEDS: METOPROLOL TARTRATE 25 MG TAB PO SCH ×2 (09:06→20:28)
[2019-07-24] MEDS: levETIRAcetam 500 MG TAB PO SCH ×2 (09:06→20:18)
[2019-07-24] MEDS: PANTOprazole 40 MG TAB PO SCH (09:06)
[2019-07-24] MEDS: LOTEPREDNOL ETABONATE 0.5% OP SCH ×2 (09:07→20:19)
[2019-07-24] MEDS: predniSONE 1 MG TAB PO SCH (09:07)
--- NOTE | 2019-07-24 09:15 | Progress Note ---
DATE: 07/24/2019 Mr. Fraga was seen today. His daughter was present. There are great concerns about his family about him coming home. We will have discharge planners and case management evaluate him for possible rehabilitation stay. I thought his x-ray looked good today. He is still draining some bloody fluid from his chest tube and put out more than a liter yesterday; however, I am quite pleased with it. We are going to continue the dornase for another 24 hours or so and then just start draining the catheter, and when it stops, we will remove it. I am going to remove his chest tube today.
[2019-07-24] MEDS: cefTRIAXone SODIUM 1,000 MG in DEXTROSE 5% 50 ML IV SCH (10:24)
[2019-07-24] MEDS ORDERED: TAMSULOSIN HCL 0.4 MG CAP PO ONE (16:30)
--- NOTE | 2019-07-24 18:27 | Hospitalist Progress Note ---
Date of Service July 24, 2019 Assessment & Plan (1) Loculated pleural effusion: Due to pneumococcal pneumonia, presented with fever shortness of breath cough CT chest shows 07/17: Pleural effusion associated with left lower lobe atelectasis/consolidation with associated narrowing of the left lower lobe bronchus Patient input from pulmonology and thoracic surgery Status post left thoracotomy drainage of abscess and decortication on 07/[address] Quiñones/Post chest tube on left side, Left-sided pleural effusion : Culture positive for Streptococcus intermedius ID consulted, appreciate input Patient started on IV Rocephin will need long-term IV antibiotic: 3 weeks treatment Appreciate input from CT surgery Pigtail catheter placed Chest tube removed today, continue drainage from pigtail catheter (2) Pneumonia: Pneumococcal pneumonia with complication leading to left-sided lung abscess consolidation-requiring I&D/thoracotomy, chest tube drainage Patient continues to improve clinically cultures are growing streptococcus intermedius consistent with a community- acquired pneumonia. Appreciate input from ID Per ID recommendation: Rocephin x3 weeks /after removal from CT chest tube to 12/06/2019 Prescription will be given for 3 weeks of IV Rocephin Has PICC line already Patient's deconditioning, and need for long-term antibiotic a skilled rehab will be appropriate Initially patient was reluctant insisting on going home Today agreeable to send referral to [facility] (3) Temporal arteritis: Cont chronic prednisone 6mg PO daily-continued (4) CVA (cerebral vascular accident): Cont medical management of CVD, on ASA, Lipitor. Plavix and resumed (5) Seizure: Stable Continue Keppra (6) COPD (chronic obstructive pulmonary disease): Chronic, stable. No wheezing on exam. Cont home inhalers. (7) DVT prophylaxis: Lovenox Full Code Dispo-patient is agreeable for referral to skilled rehab at [facility] Appreciate input from social service Subjective Chest tube is removed, No cough, no shortness of breath no fever or chills Review of Systems Respiratory: no cough, no dyspnea on exertion, no pain on inspiration, no pain with cough and no wheezing Physical Exam Constitutional: WD/WN, vitals as above + ill appearing; no acute distress Eyes: PERRL, conjunctivae normal, anicteric sclerae ENMT: external ear and nose normal, oropharynx normal Neck: trachea midline, no thyromegaly Respiratory: normal respiratory effort and + cough Auscultation: + rales (On [place],) Cardiovascular: RRR, no murmur, no edema Musculoskeletal: no cyanosis or clubbing, extremities motor strength 5/5 Skin: no rashes, warm and dry Neurologic: PERRL, EOMI, accommodation nl, no face palsy, no dysarthria Results & Data ([facility]) Vital Signs (Past 12 Hours) Vital Signs Temp Pulse Resp BP BP Pulse Ox 07/24/19 16:05 36.8 C 100 H 18 137/82 93 07/24/19 10:56 37.0 C 89 20 114/73 93 07/24/19 07:26 36.9 C 98 H 20 126/78 92 (1) Pneumonia Laterality: unspecified laterality Lung location: unspecified part of lung Pneumonia type: due to unspecified organism Qualified Code(s): J18.9 - Pneumonia, unspecified organism (2) CVA (cerebral vascular accident) CVA mechanism: unspecified Qualified Code(s): I63.9 - Cerebral infarction, unspecified
[2019-07-24] MEDS: ATORVASTATIN 40 MG TAB PO SCH (20:18)
[2019-07-24] MEDS: ENOXAPARIN INJ 40 MG/0.4 ML SYR SQ SCH (21:34)
[2019-07-24] MEDS: OXYCODONE HCL IR 5 MG TAB (IMMEDIATE RELEASE) PO PRN (22:39)
[2019-07-25] MEDS: ACETAMINOPHEN 500 MG TAB PO SCH ×3 (05:48→22:08)
--- NOTE | 2019-07-25 07:46 | XRay Report ---
XR chest 1V portable HISTORY: 79 years-old Male empyema follow-up study in a patient with left-sided empyema COMPARISON: Chest radiograph 07/24/2019, chest CT 07/22/2019 TECHNIQUE: AP view of the chest FINDINGS: Right-sided PICC distal tip terminates in the expected location of the right atrium. Unchanged mild r ight costophrenic angle blunting. Unchanged left pleural effusion with left perihilar and left lung b ase opacities. Interval removal of the previously noted chest tube which projects over the left upper lung. Left-sided chest tube with distal tip projected over the left hilum is unchanged in positionin g. Mild subcutaneous emphysema of the left lateral chest wall. No definite pneumothorax. IMPRESSION: 1. Interval removal of the left apical chest tube. 2. Unchanged positioning of the chest tube with distal tip projected over the left hilum. 3. Unchanged left pleural effusion with left lung base consolidation. ACT 112: Negative or not required by law. The above report was generated using voice recognition software. It may contain grammatical, syntax o r spelling errors. Electronically signed by: Dave Kemp M.D. 07/25/2019 7:44 AM
[2019-07-25] MEDS: DORNASE ALFA 5 ML in SYRINGE 25 ML IPL SCH ×2 (09:49→20:49)
--- NOTE | 2019-07-25 09:49 | Surgery Progress Note ---
Date of Service July 25, 2019 Assessment & Plan (1) Loculated pleural effusion: -s/p LVATS with evacuation of empyema on 07/17/19 -operative cytology (-) for malignancy -operative culture have grown Strep intermedius -pt. required thoracentesis (Left) on 07/20/19 -pleural fluid grew Strep Intermedius -pt. required placement of pleurex on 07/22/19 secondary to pleural effusion: -pleural fluid cultured at this time and gram stain showed no organisms; culture si (-) to date -modified MIST-2 protocol implemented -little drainage noted last 24-48 hours -pleural fluid re-cultured today (07/25/19) -will continue MIST-@ with Dornase only for the present time -discussed with family and hospitalist service Subjective Pt. doing well. He is not SOB. No fevers, shakes, chills. No N/V. He is ambulating with assistance. Physical Exam Constitutional: well developed and well nourished; no acute distress Neck: trachea midline Respiratory: normal respiratory effort, lungs clear to auscultation normal respiratory effort; no respiratory distress and no labored breathing Results & Data Vital Signs (Past 12 Hours) Vital Signs Temp Pulse Pulse Resp BP Pulse Ox 07/25/19 07:57 36.8 C 93 H 18 153/54 H 92 07/25/19 00:25 37.2 C 90 16 142/68 H 91 PG Care Time/CCT Total # of Minutes Spent Total Time Spent with Patient: Total time spent is greater than 50% in coordination of care (as documented) at patient's floor/unit and/or counseling patient: Coding Level of Care Code 82522 Subseq Hosp Care Lvl 1 Diagnoses Loculated pleural effusion J90
[2019-07-25] MEDS: METOPROLOL TARTRATE 25 MG TAB PO SCH ×2 (09:50→21:02)
[2019-07-25] MEDS: CYANOCOBALAMIN 500 MCG TABLET (VITAMIN B-12) PO SCH (09:51)
[2019-07-25] MEDS: UMECLIDINIUM BROMIDE 62.5MCG/BLISTER 7 PUFFS/INHALER INH SCH (09:51)
[2019-07-25] MEDS: LOTEPREDNOL ETABONATE 0.5% OP SCH ×2 (09:52→21:05)
[2019-07-25] MEDS: predniSONE 1 MG TAB PO SCH (09:52)
[2019-07-25] MEDS: DOCUSATE SODIUM 100 MG CAP PO SCH ×2 (09:52→21:02)
[2019-07-25] MEDS: predniSONE 5 MG TAB PO SCH (09:52)
[2019-07-25] MEDS: levETIRAcetam 500 MG TAB PO SCH ×2 (09:53→21:04)
[2019-07-25] MEDS: CLOPIDOGREL BISULFATE 75 MG TAB PO SCH (09:53)
[2019-07-25] MEDS: ASPIRIN 81 MG ECTAB PO SCH (09:53)
[2019-07-25] MEDS: PANTOprazole 40 MG TAB PO SCH (09:53)
[2019-07-25] MEDS: cefTRIAXone SODIUM 1,000 MG in DEXTROSE 5% 50 ML IV SCH (10:11)
--- NOTE | 2019-07-25 11:28 | Hospitalist Progress Note ---
Date of Service July 25, 2019 Assessment & Plan (1) Loculated pleural effusion: Due to pneumococcal pneumonia, presented with fever shortness of breath cough CT chest shows 07/17: Pleural effusion associated with left lower lobe atelectasis/consolidation with associated narrowing of the left lower lobe bronchus Patient input from pulmonology and thoracic surgery Status post left thoracotomy drainage of abscess and decortication on 07/[address] Quiñones/Post chest tube on left side, -operative cytology (-) for malignancy -operative culture have grown Strep intermedius 06/30/2019 -pt. required thoracentesis (Left) on 07/20/19 -pleural fluid grew Strep Intermedius ID consulted, appreciate input Patient started on IV Rocephin will need long-term IV antibiotic: 3 weeks treatment Appreciate input from CT surgery placement of pleurex on 07/22/19 secondary to pleural effusion: Chest tube removed 07/24/2019 Repeat pleural effusion culture sent from the Pleurx catheter 07/25/2019 Need continued hospital stay for next 24-48 hours for Pleurx catheter drainage, also for culture report of pleural effusion (2) Pneumonia: Pneumococcal pneumonia with complication leading to left-sided lung abscess consolidation-requiring I&D/thoracotomy, chest tube drainage Patient continues to improve clinically cultures are growing streptococcus intermedius consistent with a community- acquired pneumonia. Appreciate input from ID Per ID recommendation: Rocephin x3 weeks /after removal from CT chest tube to 12/06/2019 Prescription will be given for 3 weeks of IV Rocephin Has PICC line already Patient's deconditioning, and need for long-term antibiotic a skilled rehab will be appropriate Initially patient was reluctant insisting on going home agreeable to send referral to [facility] (3) Temporal arteritis: Cont chronic prednisone 6mg PO daily-continued (4) CVA (cerebral vascular accident): Cont medical management of CVD, on ASA, Lipitor. Plavix and resumed (5) Seizure: Stable Continue Keppra (6) COPD (chronic obstructive pulmonary disease): Chronic, stable. No wheezing on exam. Cont home inhalers. (7) DVT prophylaxis: Lovenox Full Code Disposition: Referral made for skilled rehab at [facility] Will need continued hospital stay for Pleurx catheter drainage for next 24-48-hour Patient will be transferred to skilled rehab once Pleurx catheter is removed by CT surgery Subjective Sitting up on chair, states he feels much better after chest tube was removed Denies of any discomfort no cough, no fever or chills Able to walk on the hallway with walker, feels weak and tired but no shortness of breath or dyspnea on exertion Willing to go to skilled rehab, family members, present at bedside Review of Systems Review of Systems: All systems reviewed & are unremarkable except as noted in HPI & below Respiratory: no cough, no dyspnea, no pain on inspiration, no pain with cough and no wheezing Physical Exam Constitutional: WD/WN, vitals as above no acute distress Eyes: PERRL, conjunctivae normal, anicteric sclerae ENMT: external ear and nose normal, oropharynx normal Neck: trachea midline, no thyromegaly Respiratory: normal respiratory effort Auscultation: + rales (On base,) Cardiovascular: RRR, no murmur, no edema Gastrointestinal (Abdomen): normal bowel sounds, soft, nontender, no hepatosplenomegaly Musculoskeletal: no cyanosis or clubbing, extremities motor strength 5/5 Skin: no rashes, warm and dry Neurologic: PERRL, EOMI, accommodation nl, no face palsy, no dysarthria Results & Data ([facility]) Vital Signs (Past 12 Hours) Vital Signs Temp Pulse Pulse Resp BP Pulse Ox 07/25/19 07:57 36.8 C 93 H 18 153/54 H 92 07/25/19 00:25 37.2 C 90 16 142/68 H 91 (1) Pneumonia Laterality: unspecified laterality Lung location: unspecified part of lung Pneumonia type: due to unspecified organism Qualified Code(s): J18.9 - Pneumonia, unspecified organism (2) CVA (cerebral vascular accident) CVA mechanism: unspecified Qualified Code(s): I63.9 - Cerebral infarction, unspecified
[2019-07-25 14:23] LABS: Appearance Urine Clear (Clear); Bilirubin Urine Negative (Negative); Blood Urine Negative (Negative); Color Urine Yellow; Glucose Urine UA Negative (Negative); Ketones Urine Negative (Negative); Leukocyte Esterase Urine Negative (Negative); Nitrite Urine Negative (Negative); Protein Urine Negative (Negative); Specific Gravity Urine 1.011 (1.000-1.030); Urobilinogen Urine Negative (Negative); pH Urine 6.5 (4.5-7.5)
[2019-07-25] MEDS: TAMSULOSIN HCL 0.4 MG CAP PO SCH (21:01)
[2019-07-25] MEDS: ATORVASTATIN 40 MG TAB PO SCH (21:03)
[2019-07-25] MEDS: ENOXAPARIN INJ 40 MG/0.4 ML SYR SQ SCH (21:04)
[2019-07-26] MEDS: ACETAMINOPHEN 500 MG TAB PO SCH ×3 (06:19→22:17)
--- NOTE | 2019-07-26 08:07 | XRay Report ---
XR chest 2V PA/lateral CLINICAL HISTORY: 79 years-old Male presenting with empyema. TECHNIQUE: PA and lateral views of the chest were obtained. COMPARISON: 08/04/2019. FINDINGS: Right upper extremity PICC terminates in the lower SVC. Left pleural drain terminates in the paramedi astinal left perihilar region. Atherosclerosis of the aortic arch. Cardiac silhouette normal in size. Persistent small left pleural effusion and left basilar opacities. There is greater interstitial pro minence in the left lung in comparison to the right as on prior exam, which is overall slightly decre ased from prior. There may be slightly improved aeration of the left lung in comparison to prior. No pneumothorax. Osteopenia may be present. Upper abdomen normal. IMPRESSION: 1. Slightly improved aeration and slightly decreased congestive change in the left lung. 2. Persistent left pleural drain with left basilar infiltrate and small left pleural effusion. 3. No pneumothorax. ACT 112: Negative or not required by law. Electronically signed by: Paolo Pedroza M.D. 07/26/2019 8:06 AM
[2019-07-26] MEDS: predniSONE 5 MG TAB PO SCH (09:20)
[2019-07-26] MEDS: predniSONE 1 MG TAB PO SCH (09:20)
[2019-07-26] MEDS: ASPIRIN 81 MG ECTAB PO SCH (09:20)
[2019-07-26] MEDS: levETIRAcetam 500 MG TAB PO SCH ×2 (09:20→20:42)
[2019-07-26] MEDS: PANTOprazole 40 MG TAB PO SCH (09:20)
[2019-07-26] MEDS: UMECLIDINIUM BROMIDE 62.5MCG/BLISTER 7 PUFFS/INHALER INH SCH (09:20)
[2019-07-26] MEDS: CYANOCOBALAMIN 500 MCG TABLET (VITAMIN B-12) PO SCH (09:20)
[2019-07-26] MEDS: METOPROLOL TARTRATE 25 MG TAB PO SCH ×2 (09:20→20:40)
[2019-07-26] MEDS: DOCUSATE SODIUM 100 MG CAP PO SCH ×2 (09:20→20:40)
[2019-07-26] MEDS: CLOPIDOGREL BISULFATE 75 MG TAB PO SCH (09:20)
[2019-07-26] MEDS: LOTEPREDNOL ETABONATE 0.5% OP SCH ×2 (09:25→20:41)
--- NOTE | 2019-07-26 10:24 | Progress Note ---
DATE: 07/26/2019 Bishop Fraga looks very good today. He has been ambulating in the hallway. He feels very little in the way of pain. He is on room air. He is eating well. He is moving his bowels. His PleurX drained just a couple of mL. An x-ray showed still some consolidation in the left base, but that is not surprising given the fact that he has an abscess. The culture results from 07/22/2019 showed no growth at 4 days. The Gram stain from fluids sent yesterday, has no organisms. I may go ahead and pull his PleurX tomorrow and discharge him from the hospital to [facility]. We will follow him up in the office after that. He is going to be on antibiotics for an extended period of time.
--- NOTE | 2019-07-26 10:31 | Hospitalist Progress Note ---
Date of Service July 26, 2019 Assessment & Plan (1) Loculated pleural effusion: Due to pneumococcal pneumonia, presented with fever shortness of breath cough CT chest shows 07/17: Pleural effusion associated with left lower lobe atelectasis/consolidation with associated narrowing of the left lower lobe bronchus Patient input from pulmonology and thoracic surgery Status post left thoracotomy drainage of abscess and decortication on 07/[address] Quiñones/Post chest tube on left side, -operative cytology (-) for malignancy -operative culture have grown Strep intermedius 06/30/2019 -pt. required thoracentesis (Left) on 07/20/19 -pleural fluid grew Strep Intermedius ID consulted, appreciate input Patient started on IV Rocephin will need long-term IV antibiotic: 3 weeks treatment Appreciate input from CT surgery placement of pleurex on 07/22/19 secondary to pleural effusion: Chest tube removed 07/24/2019 Repeat pleural effusion culture sent from the Pleurx catheter 07/25/2019 Next catheter will be discontinued tomorrow by CT surgery Patient will need skilled rehab for continued IV antibiotic further physical therapy (2) Pneumonia: Pneumococcal pneumonia with complication leading to left-sided lung abscess consolidation-requiring I&D/thoracotomy, chest tube drainage Patient continues to improve clinically cultures are growing streptococcus intermedius consistent with a community- acquired pneumonia. Appreciate input from ID Per ID recommendation: Rocephin x3 weeks /after removal from CT chest tube to 12/06/2019 Prescription will be given for 3 weeks of IV Rocephin Has PICC line already Patient's deconditioning, and need for long-term antibiotic a skilled rehab will be appropriate Initially patient was reluctant insisting on going home agreeable to send referral to [facility] (3) Temporal arteritis: Cont chronic prednisone 6mg PO daily-continued (4) CVA (cerebral vascular accident): Cont medical management of CVD, on ASA, Lipitor. Plavix and resumed (5) Seizure: Stable Continue Keppra (6) COPD (chronic obstructive pulmonary disease): Chronic, stable. No wheezing on exam. Cont home inhalers. (7) DVT prophylaxis: Lovenox Full Code Disposition: Patient will benefit with skilled rehab after discharge from hospital Subjective Continues to do well, no cough no chest pain no fever chills Patient input from CT surgery, plan to discontinue Pleurx catheter tomorrow Review of Systems Review of Systems: All systems reviewed & are unremarkable except as noted in HPI & below Physical Exam Constitutional: WD/WN, vitals as above no acute distress Eyes: PERRL, conjunctivae normal, anicteric sclerae ENMT: external ear and nose normal, oropharynx normal Neck: trachea midline, no thyromegaly Respiratory: normal respiratory effort Auscultation: + rales (On base,) Cardiovascular: RRR, no murmur, no edema Gastrointestinal (Abdomen): normal bowel sounds, soft, nontender, no hepatosplenomegaly Musculoskeletal: no cyanosis or clubbing, extremities motor strength 5/5 Skin: no rashes, warm and dry Neurologic: PERRL, EOMI, accommodation nl, no face palsy, no dysarthria Results & Data ([facility]) Vital Signs (Past 12 Hours) Vital Signs Temp Pulse Pulse Resp BP Pulse Ox 07/26/19 08:06 36.6 C 99 H 20 160/74 H 91 07/25/19 23:40 36.4 C L 83 16 146/76 H 96 (1) Pneumonia Laterality: unspecified laterality Lung location: unspecified part of lung Pneumonia type: due to unspecified organism Qualified Code(s): J18.9 - Pneumonia, unspecified organism (2) CVA (cerebral vascular accident) CVA mechanism: unspecified Qualified Code(s): I63.9 - Cerebral infarction, unspecified
[2019-07-26] MEDS: cefTRIAXone SODIUM 1,000 MG in DEXTROSE 5% 50 ML IV SCH (10:52)
[2019-07-26] MEDS: ATORVASTATIN 40 MG TAB PO SCH (20:40)
[2019-07-26] MEDS: TAMSULOSIN HCL 0.4 MG CAP PO SCH (20:42)
[2019-07-26] MEDS: ENOXAPARIN INJ 40 MG/0.4 ML SYR SQ SCH (20:53)
[2019-07-27] MEDS: ACETAMINOPHEN 500 MG TAB PO SCH ×3 (06:01→21:14)
[2019-07-27] MEDS: CYANOCOBALAMIN 500 MCG TABLET (VITAMIN B-12) PO SCH (08:54)
[2019-07-27] MEDS: ASPIRIN 81 MG ECTAB PO SCH (08:54)
[2019-07-27] MEDS: DOCUSATE SODIUM 100 MG CAP PO SCH ×2 (08:54→20:52)
[2019-07-27] MEDS: predniSONE 5 MG TAB PO SCH (08:54)
[2019-07-27] MEDS: PANTOprazole 40 MG TAB PO SCH (08:54)
[2019-07-27] MEDS: CLOPIDOGREL BISULFATE 75 MG TAB PO SCH (08:54)
[2019-07-27] MEDS: levETIRAcetam 500 MG TAB PO SCH ×2 (08:54→20:52)
[2019-07-27] MEDS: predniSONE 1 MG TAB PO SCH (08:54)
[2019-07-27] MEDS: UMECLIDINIUM BROMIDE 62.5MCG/BLISTER 7 PUFFS/INHALER INH SCH (08:55)
[2019-07-27] MEDS: METOPROLOL TARTRATE 25 MG TAB PO SCH ×2 (08:55→20:52)
[2019-07-27] MEDS: LOTEPREDNOL ETABONATE 0.5% OP SCH ×2 (08:56→20:52)
--- NOTE | 2019-07-27 09:25 | XRay Report ---
XR chest 1V portable CLINICAL HISTORY: chest tube removal COMPARISON STUDY: Chest radiograph July 26, 2019. FINDINGS: Right PICC is in place. Left chest tube has been removed. No pneumothorax is identified. Le ft lower lung opacity has improved. There is a small left pleural effusion. Cardiomediastinal silhoue tte is stable. IMPRESSION: 1. No pneumothorax following chest tube removal. 2. Mild improvement in left lower lobe consolidation. Small left pleural effusion. ACT 112: Negative or not required by law. Electronically signed by: Terry Keita M.D. 07/27/2019 9:24 AM
--- NOTE | 2019-07-27 10:57 | Progress Note ---
DATE: 07/27/2019 Mr. Fraga was seen today. He looks great. Bishop Fraga has been ambulating independently down the hallway. His saturations are 91% on room air. He has very little in the way of pain. His x-ray looked quite good. We have drained very little in the way of fluid. I have been quite pleased with him. We did do an x-ray after I removed his PleurX catheter this morning and he has really no fluid on the left base. He still has some consolidation as would be expected. ASSESSMENT AND PLAN: Postoperative day #10 status post left thoracoscopy with decortication and lung biopsy for a Streptococcal infection with abscess of the left lower lobe. The patient did remarkably well. He is very eager to go home. He is going to be transferred to [facility] today. I have been quite pleased with him. I am a bit concerned about this infectious process; however. The Strep intermedius is usually sensitive. Our growth on the pleural fluid is negative at 5 days and I have removed his PleurX catheter. I will see him back in the office this coming week with an x-ray. SIRISHA
--- NOTE | 2019-07-27 10:59 | Operative Report ---
DATE OF OPERATION: 07/27/2019 PREOPERATIVE DIAGNOSIS: Indwelling left PleurX catheter. POSTOPERATIVE DIAGNOSIS: Indwelling left PleurX catheter. PROCEDURE: Removal of PleurX catheter. SURGEON: Estevan Quiñones MD. ANESTHESIA: Local. DESCRIPTION OF PROCEDURE: The patient in a right lateral decubitus position, the left PleurX catheter site was inspected. It was clean. I cut the suture and also removed the sutures from the posterior pleural insertion site. We then removed the catheter after dissecting out the fibrous cuff. An antimicrobial dressing was placed. The patient tolerated it quite well. X-ray looked quite good afterwards. I attest to the content of the Intraoperative Record and any orders documented therein. Any exceptions are noted below. SIRISHA
[2019-07-27] MEDS: cefTRIAXone SODIUM 1,000 MG in DEXTROSE 5% 50 ML IV SCH (11:42)
--- NOTE | 2019-07-27 12:40 | Hospitalist Progress Note ---
Date of Service July 27, 2019 Assessment & Plan (1) Loculated pleural effusion: Due to pneumococcal pneumonia, presented with fever shortness of breath cough CT chest shows 07/17: Pleural effusion associated with left lower lobe atelectasis/consolidation with associated narrowing of the left lower lobe bronchus Patient input from pulmonology and thoracic surgery Status post left thoracotomy drainage of abscess and decortication on 07/[address] Quiñones/Post chest tube on left side, -operative cytology (-) for malignancy -operative culture have grown Strep intermedius 06/30/2019 -pt. required thoracentesis (Left) on 07/20/19 -pleural fluid grew Strep Intermedius ID consulted, appreciate input Patient started on IV Rocephin will need long-term IV antibiotic: 3 weeks treatment Followed by 3 weeks of oral antibiotic, Keflex will be appropriate given patient's allergy reaction to penicillin Appreciate input from CT surgery placement of Pleurx on 07/22/19 secondary to pleural effusion: Chest tube removed 07/24/2019 Repeat pleural effusion culture sent from the Pleurx catheter 07/25/2019-negative growth Pleurx catheter removed today 07/27/2019 Stable to be transition to skilled rehab per CT surgery, outpatient follow-up in the clinic 1 week for repeat chest x-ray Patient will need skilled rehab for continued IV antibiotic further physical therapy (2) Pneumonia: Pneumococcal pneumonia with complication leading to left-sided lung abscess consolidation-requiring I&D/thoracotomy, chest tube drainage Patient continues to improve clinically cultures are growing streptococcus intermedius consistent with a community- acquired pneumonia. Appreciate input from ID Per ID recommendation: Rocephin x3 weeks /after removal from CT chest tube to 12/06/2019 Prescription given for 3 weeks of IV Rocephin Has PICC line already Patient's deconditioning, and need for long-term antibiotic a skilled rehab will be appropriate Patient is willing for skilled rehab, referral made for [facility], authorization for us skilled rehab still pending (3) Temporal arteritis: Cont chronic prednisone 6mg PO daily-continued (4) CVA (cerebral vascular accident): Cont medical management of CVD, on ASA, Lipitor. Plavix and resumed (5) Seizure: Stable Continue Keppra (6) COPD (chronic obstructive pulmonary disease): Chronic, stable. No wheezing on exam. Cont home inhalers. (7) DVT prophylaxis: Lovenox Full Code Disposition: Patient will benefit with skilled rehab after discharge from hospital Transfer to [facility] tomorrow Sunday to 04/06/2020 once insurance authorization obtained Subjective Pleurx catheter taken out by Dr. Maravilla this morning Patient reports of feeling well, no cough no shortness of breath Very eager to be discharged from hospital Dialysis not have any insurance Auth finalized yet for skilled rehab/[facility] Message left to patient's insurance to [facility] multiple times, for [id number] review, as patient was denied skilled rehab on Sunday Given patient's age, multiple comorbidities, requirement for long-term IV antibiotics, skilled rehab will be appropriate, Review of Systems Review of Systems: All systems reviewed & are unremarkable except as noted in HPI & below Physical Exam Constitutional: WD/WN, vitals as above no acute distress Eyes: PERRL, conjunctivae normal, anicteric sclerae ENMT: external ear and nose normal, oropharynx normal Neck: trachea midline, no thyromegaly Respiratory: normal respiratory effort Cardiovascular: RRR, no murmur, no edema Gastrointestinal (Abdomen): normal bowel sounds, soft, nontender, no hepatosplenomegaly Musculoskeletal: no cyanosis or clubbing, extremities motor strength 5/5 Skin: no rashes, warm and dry Neurologic: PERRL, EOMI, accommodation nl, no face palsy, no dysarthria Results & Data ([facility]) Vital Signs (Past 12 Hours) Vital Signs Temp Pulse Resp BP Pulse Ox 07/27/19 07:14 36.5 C 101 H 18 149/71 H 91 (1) Pneumonia Laterality: unspecified laterality Lung location: unspecified part of lung Pneumonia type: due to unspecified organism Qualified Code(s): J18.9 - Pneumonia, unspecified organism (2) CVA (cerebral vascular accident) CVA mechanism: unspecified Qualified Code(s): I63.9 - Cerebral infarction, unspecified
[2019-07-27] MEDS: ATORVASTATIN 40 MG TAB PO SCH (20:52)
[2019-07-27] MEDS: TAMSULOSIN HCL 0.4 MG CAP PO SCH (20:52)
[2019-07-27] MEDS: ENOXAPARIN INJ 40 MG/0.4 ML SYR SQ SCH (21:14)
[2019-07-28] MEDS: ACETAMINOPHEN 500 MG TAB PO SCH (06:32)
[2019-07-28] MEDS: predniSONE 1 MG TAB PO SCH (09:13)
[2019-07-28] MEDS: METOPROLOL TARTRATE 25 MG TAB PO SCH (09:14)
[2019-07-28] MEDS: CLOPIDOGREL BISULFATE 75 MG TAB PO SCH (09:14)
[2019-07-28] MEDS: levETIRAcetam 500 MG TAB PO SCH (09:14)
[2019-07-28] MEDS: PANTOprazole 40 MG TAB PO SCH (09:14)
[2019-07-28] MEDS: ASPIRIN 81 MG ECTAB PO SCH (09:14)
[2019-07-28] MEDS: DOCUSATE SODIUM 100 MG CAP PO SCH (09:14)
[2019-07-28] MEDS: CYANOCOBALAMIN 500 MCG TABLET (VITAMIN B-12) PO SCH (09:14)
[2019-07-28] MEDS: predniSONE 5 MG TAB PO SCH (09:14)
[2019-07-28] MEDS: LOTEPREDNOL ETABONATE 0.5% OP SCH (09:15)
[2019-07-28] MEDS: UMECLIDINIUM BROMIDE 62.5MCG/BLISTER 7 PUFFS/INHALER INH SCH (09:15)
--- NOTE | 2019-07-28 09:34 | Progress Note ---
DATE: 07/28/2019 Mr. Fraga looks quite good. He has no complaints. He has no pain. He is ambulating independently. He is eating well. His only issue is waiting for his bed. I will see the patient back in next week with a chest x-ray. We will check an AP and lateral film on him before he is discharged today.
[2019-07-28] MEDS: cefTRIAXone SODIUM 1,000 MG in DEXTROSE 5% 50 ML IV SCH (10:35)
--- NOTE | 2019-07-28 10:37 | XRay Report ---
XR chest 2V PA/lateral CLINICAL HISTORY: effusion COMPARISON STUDY: July 27, 2019 FINDINGS: The cardiac and mediastinal contours remain stable. There is a right-sided PICC catheter. T here is a persistent small left pleural effusion with associated left basilar airspace opacities. The re is underlying emphysema.[ IMPRESSION: Persistent small left pleural effusion. Persistent left basilar airspace opacities. ACT 112: Negative or not required by law. Electronically signed by: Kashif Sequeira M.D. 07/28/2019 10:35 AM
--- NOTE | 2019-07-28 11:04 | Hospitalist Progress Note ---
Date of Service July 28, 2019 Assessment & Plan (1) Loculated pleural effusion: Due to pneumococcal pneumonia, presented with fever shortness of breath cough CT chest shows 07/17: Pleural effusion associated with left lower lobe atelectasis/consolidation with associated narrowing of the left lower lobe bronchus Patient input from pulmonology and thoracic surgery Status post left thoracotomy drainage of abscess and decortication on 07/[address] Quiñones/chest tube was placed on left side: -operative cytology (-) for malignancy -operative culture have grown Strep intermedius 06/30/2019 -pt. required thoracentesis (Left) on 07/20/19 -pleural fluid grew Strep Intermedius ID consulted, appreciate input Patient started on IV Rocephin will need long-term IV antibiotic: 3 weeks treatment Followed by 3 weeks of oral antibiotic, Keflex will be appropriate given patient's allergy reaction to penicillin Appreciate input from CT surgery placement of Pleurx on 07/22/19 secondary to pleural effusion: Chest tube removed 07/24/2019 Repeat pleural effusion culture sent from the Pleurx catheter 07/25/2019-negative growth Pleurx catheter removed 07/27/2019 Stable to be transition to skilled rehab per CT surgery, outpatient follow-up in the clinic 1 week for repeat chest x-ray Patient will need skilled rehab for continued IV antibiotic further physical therapy Patient got insurance approval for skilled rehab at [facility] Will be transferred to SNF today (2) Pneumonia: Pneumococcal pneumonia with complication leading to left-sided lung abscess co nsolidation-requiring I&D/thoracotomy, chest tube drainage Patient continues to improve clinically cultures are growing streptococcus intermedius consistent with a community- acquired pneumonia. Appreciate input from ID Per ID recommendation: Rocephin x3 weeks /after removal from CT chest tube to 12/06/2019 Prescription given for 3 weeks of IV Rocephin Has PICC line already Patient's present status of deconditioning for acute illness, prolonged hospital stay , and need for long-term antibiotic a skilled rehab will be appropriate Patient is willing for skilled rehab, referral made for [facility] stable to be transferred to [facility] today (3) Temporal arteritis: On chronic prednisone 6mg PO daily-continued Complaint of headache, no visual change (4) CVA (cerebral vascular accident): Cont medical management of CVD, on ASA, Lipitor. /Plavix (5) Seizure: Stable Continue Keppra (6) COPD (chronic obstructive pulmonary disease): Chronic, stable. No wheezing on exam. Cont home inhalers. (7) DVT prophylaxis: Lovenox Full Code Disposition: Patient will benefit with skilled rehab after discharge from hospital Transfer to [facility] for continued skilled rehab today Admission and Anticipated Discharge Date Admission Date: July 15, 2019 Subjective Had an uneventful night, patient reports of sleeping well No chest pain, no shortness of breath or cough no fever or chills Accepted for skilled rehab at [facility] Medically i stable to be transferred to rehab today Patient's daughter and present at bedside, updated Review of Systems Review of Systems: All systems reviewed & are unremarkable except as noted in HPI & below Respiratory: as per Subjective / HPI; no cough, no dyspnea, no dyspnea on exertion, no pain with cough and no wheezing Physical Exam Constitutional: WD/WN, vitals as above no acute distress Eyes: PERRL, conjunctivae normal, anicteric sclerae ENMT: external ear and nose normal, oropharynx normal Neck: trachea midline, no thyromegaly Respiratory: normal respiratory effort, lungs clear to auscultation Cardiovascular: RRR, no murmur, no edema Gastrointestinal (Abdomen): normal bowel sounds, soft, nontender, no hepatosplenomegaly Musculoskeletal: no cyanosis or clubbing, extremities motor strength 5/5 Skin: no rashes, warm and dry Neurologic: PERRL, EOMI, accommodation nl, no face palsy, no dysarthria Results & Data ([facility]) Vital Signs (Past 12 Hours) Vital Signs Temp Pulse Pulse Pulse Resp BP Pulse Ox 07/28/19 09:29 36.6 C 90 86 96 H 14 140/82 94 07/28/19 08:05 07/28/19 07:44 36.6 C 90 14 140/82 94 07/27/19 23:10 37.1 C 86 16 134/75 96 Pulse Ox 07/28/19 09:29 07/28/19 08:05 94 07/28/19 07:44 07/27/19 23:10 (1) Pneumonia Laterality: unspecified laterality Lung location: unspecified part of lung Pneumonia type: due to unspecified organism Qualified Code(s): J18.9 - Pneumonia, unspecified organism (2) CVA (cerebral vascular accident) CVA mechanism: unspecified Qualified Code(s): I63.9 - Cerebral infarction, unspecified
--- NOTE | 2019-07-28 11:07 | Discharge Summary ---
Date of Service July 28, 2019 Principal Diagnosis Streptococcus pneumonia, with abscess, status post VATS procedure, decortication, status post chest tube drainage, Pleurx catheter placement Requirement for long-term IV antibiotic Discharge Exam Constitutional WD/WN, vitals as above no acute distress Eyes PERRL, conjunctivae normal, anicteric sclerae ENMT external ear and nose normal, oropharynx normal Neck trachea midline, no thyromegaly Respiratory normal respiratory effort, lungs clear to auscultation normal respiratory effort Auscultation: + rales (On base,) Cardiovascular RRR, no murmur, no edema Gastrointestinal (Abdomen) normal bowel sounds, soft, nontender, no hepatosplenomegaly Musculoskeletal no cyanosis or clubbing, extremities motor strength 5/5 Skin no rashes, warm and dry Neurologic PERRL, EOMI, accommodation nl, no face palsy, no dysarthria Discharge Data Allergies Allergy/AdvReac Type Severity Reaction Status Date / Time Penicillins Allergy Mild Rash Verified 07/15/19 19:12 Consultations 07/15/19 19:20 ED Decision to Admit Stat 07/15/19 21:16 Consult Case Management - Discharge Planning Routine 07/16/19 15:25 Consult Pulmonology Routine 07/16/19 19:41 Consult Thoracic Surgery Routine 07/18/19 10:48 Consult Infectious Diseases Routine 07/24/19 08:34 Consult Case Management - Discharge Planning Routine Procedures Performed Operation Date: 07/17/19 07:00 Actual Procedures p Left Thoracoscopy with biopsy and Decortication(Left) - Estevan Quiñones MD, FACS Ordered Studies 07/15/19 21:16 US effusion-chest/mediastinum Routine 07/16/19 18:33 US point of care ultrasound Urgent 07/17/19 06:58 CT chest wo con Urgent 07/19/19 10:51 CT chest wo con Routine 07/22/19 08:00 CT chest wo con Routine Hospital Course (1) Loculated pleural effusion: Due to pneumococcal pneumonia, presented with fever shortness of breath cough CT chest shows 07/17: Pleural effusion associated with left lower lobe atelectasis/consolidation with associated narrowing of the left lower lobe bronchus Patient input from pulmonology and thoracic surgery Status post left thoracotomy drainage of abscess and decortication on 07/[address] Quiñones/chest tube was placed on left side: -operative cytology (-) for malignancy -operative culture have grown Strep intermedius 06/30/2019 -pt. required thoracentesis (Left) on 07/20/19 -pleural fluid grew Strep Intermedius ID consulted, appreciate input Patient started on IV Rocephin will need long-term IV antibiotic: 3 weeks treatment Followed by 3 weeks of oral antibiotic, Keflex will be appropriate given patient's allergy reaction to penicillin Appreciate input from CT surgery placement of Pleurx on 07/22/19 secondary to pleural effusion: Chest tube removed 07/24/2019 Repeat pleural effusion culture sent from the Pleurx catheter 07/25/2019-negative growth Pleurx catheter removed 07/27/2019 Stable to be transition to skilled rehab per CT surgery, outpatient follow-up in the clinic 1 week for repeat chest x-ray Patient will need skilled rehab for continued IV antibiotic further physical therapy Patient got insurance approval for skilled rehab at [facility] Will be transferred to [facility] today (2) Pneumonia: Pneumococcal pneumonia with complication leading to left-sided lung abscess consolidation-requiring I&D/thoracotomy, chest tube drainage Patient continues to improve clinically cultures are growing streptococcus intermedius consistent with a community- acquired pneumonia. Appreciate input from ID Per ID recommendation: Rocephin x3 weeks /after removal from CT chest tube to 12/06/2019 Prescription given for 3 weeks of IV Rocephin Has PICC line already Patient's present status of deconditioning for acute illness, prolonged hospital stay , and need for long-term antibiotic a skilled rehab will be appropriate Patient is willing for skilled re[facility] (3) Temporal arteritis: On chronic prednisone 6mg PO daily-continued Complaint of headache, no visual change (4) CVA (cerebral vascular accident): Cont medical management of CVD, on ASA, Lipitor. /Plavix (5) Seizure: Stable Continue Keppra (6) COPD (chronic obstructive pulmonary disease): Chronic, stable. No wheezing on exam. Cont home inhalers. (7) DVT prophylaxis: Lovenox Full Code Disposition: Patient will benefit with skilled rehab after discharge from hospital Transfer to [facility] for continued skilled rehab today Total Time Total Time Spent Total Time Spent (In Minutes): Approximately 45 minutesDICTATED BY: Tera Call MD DATE OF ADMISSION: 07/15/2019 CHIEF COMPLAINT: Cough and not feeling well. HISTORY OF PRESENT ILLNESS: This is an 79-year-old male with past medical history significant for hyperlipidemia, COPD, temporal arteritis, B12 deficiency, GERD, history of recent right frontal infarct in the last week of May and at that time, he presented with seizures. No residual weakness. No dysarthria or dysphagia. He was put on seizure medications and aspirin, Plavix, Lipitor, was discharged home. He lives in second floor. He has planned to come to the ground floor. Apparently the patient is having cough for some time, but last 2 days, the cough got worse. He has some phlegm, but this he swallows phlegm and don't know the color.Today he had some temperature, also tachycardic and was brought to the hospital. The patient is alert and oriented is able to give most of the history. His blood pressure is okay. He says he is feeling generalized weakness, not able to ambulate much. Walks with the walker. Appetite is poor and also when he coughs, he is having chest pain most on the left side and when he takes some deep breaths, the chest pain improves. Chest pain comes on and off. He is swallowing ok.. No dysphagia, no odynophagia. No nausea, no vomiting, no abdominal pain. No diarrhea or constipation. No blood in the stools or black stools. No burning micturition, no hematuria. No swelling in the legs, no rash. Denies any headache. No blurred vision, no earache, no sore throat, no runny nose. He is having fluids and antibiotics in the ER and says now he is feeling better. Total Time Includes: Examination of the Patient, Discharge Planning, Medication Reconciliation and Communication With Other Providers Discharge Plan Discharge Items Patient Disposition: Transfer Residential Fac Reason For Visit: ILLNESS Discharge Diagnosis: Streptococcus pneumonia, with abscess, status post VATS procedure, decortication, status post chest tube drainage, Pleurx catheter placement Requirement for long-term IV antibiotics Activity: As commented below Activity Comment: Continue physical therapy occupational therapy at rehab Bathing: May shower/bathe in 3 days Bathing Comment: Can shower after left chest wall dressing removed in 2 days Non-emergency contact: Primary Care Provider Call non-emergency contact if: you have any medication questions Follow-up/Referrals: Estevan Quiñones MD, FACS [Surgeon] - (Follow-up with Dr. Bustos n 1 week, repeat chest x-ray will be done at Dr. Peters office) Hernando Martel, [Primary Care Provider] - Diet: Heart Healthy Add Attending Provider Instructions: need weekly cbc, cmp, esr. Addtl Spray Machine Operator Provider Instructions: Dr Quiñones's office will call you about a follow up appointment in 1 week/will need a repeat chest x-ray at the clinic Complete IV Rocephin 1 g daily for 3 weeks Followed by Keflex 500 mg p.o. 4 times daily for 3 more weeks continue Probiotic daily while on skilled nursing antibiotic Left chest wall dressing: Keep dressing for 2 more days, then can be removed, Patient may shower in 2 days after chest wall dressing is removed Pending Studies at Discharge: Yes Studies:: Labs: Weekly: CBC/CMP/ESR for next 3 weeks Stand-Alone Forms: My [facility] Skilled Items Patient informed of condition?: Yes DNR: No Discharge Level of Care: Skilled Communicable Disease: No Discharge Prognosis: Stable Lines: None Urinary Catheter: No Medications and DC Order Prescriptions: New ceftriaxone 1 gram recon soln 1 gm IV DAILY Qty: 21 RF: 0 Probiotic (S.boulardii) 250 mg capsule 250 mg PO DAILY Qty: 60 RF: 0 Continued prednisone 5 mg tablet 5 mg PO QAM RF: 0 cyanocobalamin (vitamin B-12) [Vitamin B-12] 500 mcg tablet 500 mcg PO QAM RF: 0 prednisone 1 mg Tablet 1 mg PO QAM RF: 0 loteprednol etabonate [Lotemax] 0.5 % drops,suspension 1 drp OPB BID RF: 0 Spiriva with HandiHaler 18 mcg capsule, w/inhalation device 1 cap INHALATION QAM RF: 0 levetiracetam [Keppra] 500 mg tablet 500 mg PO BID Qty: 60 RF: 1 clopidogrel 75 mg Tablet 75 mg PO QAM Qty: 30 RF: 0 atorvastatin 40 mg Tablet 40 mg PO HS Qty: 30 RF: 1 metoprolol tartrate 25 mg Tablet 12.5 mg PO BID Qty: 60 RF: 1 aspirin [Ecotrin Low Strength] 81 mg tablet,delayed release (DR/EC) 81 mg PO QAM RF: 0 pantoprazole [Protonix] 40 mg tablet,delayed release (DR/EC) 40 mg PO QAM RF: 0 Discharge Orders: Discharge Order (Routine); Ordered 07/28/19 Ordered By: Daina Vizcarra/Other Patient Handouts: PICC Admission Data Admit Date/Time: 07/15/19 20:17 Attending Provider: Daina Arevalo Admit Provider: Tera Call Primary Care Provider: Hernando Martel Other Providers: [facility],Home Healthcare ; Tera Call ; Brittanie Esparza ; Estevan Quiñones ; Noy Young ; Jayne Tillman [facility] Other Interventions: Discharge Summary Assessment (RN) Last Done: 07/28/19 09:29
== END 2019-07-28 13:28 | DRG 166 ==
LOC: ED 17:28 → SUATTDRO 20:17 → 2S 20:17 → 3N 07-17 14:18

== ENCOUNTER 2020-03-19 10:19 | Observation (INO) ==
[2020-03-19] MEDS ORDERED: SODIUM CHLORIDE 0.9% 500 ML IV ONE (10:29)
--- NOTE | 2020-03-19 10:49 | XRay Report ---
XR chest 1V portable HISTORY: Atypical Chest Pain COMPARISON: Chest CT 11/24/2019. FINDINGS: Mild diffuse interstitial thickening and bibasilar linear densities persist. Slight improve d aeration within the left lung base. Small focal irregular density within the right lung apex is als o unchanged. No new focal lung consolidations. No evidence for pulmonary edema. The heart is normal i n size. No pneumothorax. No pleural effusions. IMPRESSION: Chronic interstitial change and bibasilar linear densities persist. There is also a stable small foca l irregular density within the right lung apex. These are better appreciated on the recent chest CT. No new focal lung consolidations to suggest pneumonia. ACT 112: Negative or not required by law. Electronically signed by: Hugh Saenz M.D. 03/19/2020 10:48 AM
[2020-03-19 11:38] LABS: Basophils # (auto) 0.05 K/uL (0-0.2); Basophils % (auto) 0.7 %; Eosinophils # (auto) 0.01 K/uL (0-0.5); Eosinophils % (auto) 0.1 %; Hematocrit (blood only) 30.1 % (42-52); Hemoglobin 9.8 g/dL (14.0-18.0); Immature Granulocytes # (auto) 0.13 K/uL (0.00-0.02); Immature Granulocytes % (auto) 1.8 %; Lymphocytes # (auto) 1.39 K/uL (1.2-3.4); Lymphocytes % (auto) 19.5 %; Mean Corpuscular Hgb Conc 32.6 g/dL (32-36); Mean Corpuscular Volume 116.7 fL (80-100); Mean Platelet Volume 10.2 fL (7.4-10.4); Neutrophils # (auto) 5.06 K/uL (1.4-6.5); Neutrophils % (auto) 70.9 %; Nucleated RBC # (auto) 0.02 K/uL (0-0); Nucleated RBC % (auto) 0.2 %; Platelet Count 244 K/uL (130-400); RDW Coefficient of Variation 16.4 % (11.5-14.5); RDW Standard Deviation 69.2 fL (36.4-46.3); Red Blood Count 2.58 M/uL (4.7-6.1); White Blood Count 7.14 K/uL (4.8-10.8)
[2020-03-19 11:53] LABS: INR 1.1 (0.9-1.1); Partial Thromboplastin Time 27.2 Seconds (21.0-31.0); Prothrombin Time 11.4 Seconds (9.0-12.0)
[2020-03-19 11:57] LABS: Alanine Aminotransferase 32 U/L (12-78); Albumin Level 1.7 gm/dl (3.4-5.0); Aspartate Aminotransferase 35 U/L (15-37); BUN Creatinine Ratio 33.6 (10-20); Bilirubin Direct 0.2 mg/dl (0-0.2); Blood Urea Nitrogen 39 mg/dl (7-18); Calcium 7.8 mg/dl (8.5-10.1); Carbon Dioxide 25 mmol/L (21-32); Chloride 104 mmol/L (98-107); Creatinine Clr Calc Pharmacy 40.6 ml/min; Est GFR (African American) 68.1; Est GFR (Non-African American) 58.7; Glucose 106 mg/dl (70-99); Lipase 193 U/L (73-393); Potassium 5.4 mmol/L (3.5-5.1); Sodium 137 mmol/L (136-145)
[2020-03-19 12:06] LABS: Albumin Globulin Ratio 0.4 (0.9-2); Alkaline Phosphatase 75 U/L (45-117); Bilirubin,Total 0.5 mg/dl (0.2-1); Globulin 4.2 gm/dl (2.5-4.0); Phosphorus 4.2 mg/dl (2.5-4.9); Total Protein 5.9 gm/dl (6.4-8.2); Troponin I < 0.015 ng/ml (0-0.045)
[2020-03-19] MEDS ORDERED: cefTRIAXone SODIUM 1,000 MG/50 ML BAG IV STA (12:09)
[2020-03-19] MEDS ORDERED: VANCOMYCIN HCL 1,250 MG in SODIUM CHLORIDE 0.9% 500 ML IV ONE (12:09)
[2020-03-19] MEDS ORDERED: VANCOMYCIN CONSULT ACTIVE PRN (12:09)
--- NOTE | 2020-03-19 12:18 | Emergency Department Note ---
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 He denies any nausea, vomiting, diarrhea, urinary symptoms, chest pain, new shortness of breath. On arrival the patient is acute on chronically ill-appearing, tachycardic to 130s with temperature of 37.8. WBC within normal limits. H/H 9.8/30.1, similar to prior values. Platelets within normal limits. ESR is 40, improved from prior and CRP is 12, increased from prior. Initial lactate 4.0 however, chemistry without acidosis. Creatinine within normal limits. However BUN is elevated at 39 consistent with the patient's clinically dry appearance despite some bilateral lower extremity edema. Albumin is low at 1.7 which may explain the patient's lower extremity edema. Troponin negative/undetectable. Potassium 5.4 likely related to dehydration. Electrolytes and LFTs otherwise, unremarkable. EKG without overt acute ischemia. Chest x-ray with chronic interstitial change and bibasilar densities and otherwise no acute cardiopulmonary process noted. Given the patient's failed outpatient treatment of presumed cellulitis now with fevers and tachycardia reasonable to admit the patient for further management with IV antibiotics. Patient was ordered for empiric CTX and Vancomycin. Upon re-evaluation patient did feel somewhat improved with HR down to 110s after IVF and apap. Patient and his are agreeable admission. Case was discussed with Sherman Jacobo PAC, with Dr. Huang, [facility] hospitalist who will evaluate the patient for admission. Triage Nursing notes reviewed and agree them. Prior medical records reviewed Vital Signs: reviewed and remarkable for tachycardia and fever. Differential diagnosis: Infection, dehydration, metabolic abnormality, hypo/hyperglycemia, electrolyte disturbance, anemia, hypoxia, cardiac sources, intracerebral event, toxicologic, neurologic, as well as other pathologies. ER treatment provided: See below. Diagnostics interpreted by me: ECG: Sinus tachycardia, 128 bpm, no ectopy, nonspecific T wave abnormality, no overt ST elevation or depression, QTC 417, QRS 104. Similar to August 18, 2019. Cardiac Monitoring: An order for continuous cardiac monitoring was placed and demonstrated sinus tachycardia, 128 bpm, no ectopy, Laboratory studies: See below Imaging studies: XR chest 1V portable HISTORY: Atypical Chest Pain COMPARISON: Chest CT 11/24/2019. FINDINGS: Mild diffuse interstitial thickening and bibasilar linear densities persist. Slight improved aeration within the left lung base. Small focal irregular density within the right lung apex is also unchanged. No new focal lung consolidations. No evidence for pulmonary edema. The heart is normal in size. No pneumothorax. No pleural effusions. IMPRESSION: Chronic interstitial change and bibasilar linear densities persist. There is also a stable small focal irregular density within the right lung apex. These are better appreciated on the recent chest CT. No new focal lung consolidations to suggest pneumonia. Consultation(s): Case was discussed with Teri Mast, [facility] PAC, with Dr. Huang, [facility] hospitalist who will evaluate the patient for admission. 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 He denies any nausea, vomiting, diarrhea, urinary symptoms, chest pain, new shortness of breath. ROS: See above HPI for pertinent positives & negatives. A total of 10 systems reviewed and were otherwise negative. PAST MEDICAL HISTORY:See Below PAST SURGICAL HISTORY:See Below FAMILY HISTORY:See Below SOCIAL HISTORY:See Below HOME MEDICATIONS:See Below ALLERGIES:See Below VITALS:See Below PHYSICAL EXAMINATION: GENERAL: Awake, alert, fatigued, acute on chronically ill-appearing, in no distress HENT: Normocephalic, atraumatic. Oropharynx with dry mucous membranes and otherwise unremarkable. EYES: Normal conjunctiva. Sclera non-icteric. NECK: Supple. No nuchal rigidity. FROM. No JVD. RESPIRATORY: Clear to auscultation. CARDIAC: Tachycardic rate, normal rhythm. Extremities warm and well perfused. Pulses equal. ABDOMEN: Soft, non-distended. No tenderness to palpation. No rebound or guarding. No masses. RECTAL: Deferred. MUSCULOSKELETAL: Chest examination reveals no tenderness. The back is symmetrical on inspection without obvious abnormality. There is no CVA tenderness to palpation. No joint edema. LOWER EXTREMITIES: Calves are equal size bilaterally and non-tender. 1+ bila teral lower extremity edema with erythema, warmth throughout the lower legs with scattered petechiae which could be related to the patient's history of vasculitis. NEURO: Normal sensorium. No sensory or motor deficits noted. SKIN: No rash or jaundice noted. ED COURSE: Critical Care: I have personally spent greater than 55 minutes of critical care time in the direct management of this patient. This includes bedside care, interpretation of diagnostic studies, and testing, discussion with consultants, patient, and family members, and other required patient management activities. This 55 minutes is in excess of all separately billable procedures. Arsenio Obrien MD Past Med/Surg History Medical History Anemia HX GERD (gastroesophageal reflux disease) Hearing deficit Hyperlipidemia Temporal arteritis REASON FOR PREDNISONE Surgical History History of colonoscopy History of esophagogastroduodenoscopy (EGD) History of lung biopsy (07/17/19) Left Thoracoscopy with lung biopsy and Decortication Dr. Quiñones 07/17/19 History of tonsillectomy History of tooth extraction Family History Brother Cancer Social History Smoking Status: Former smoker Tobacco Type: Cigarettes Years Smoked: 60; Second Hand Exposure: Yes; Hx Alcohol Use: Yes Alcohol type: wine Alcohol Intake Frequency Comment: Currently denies alcohol use Hx Substance Use: No Preferred Language: Hungarian Communication Ability: Effective [employer]ougar [employer] Required: No Beliefs That Will Affect Care: None Current Living Situation: Spouse Other Information That Helps Us Care for You: No Feels Safe at Home: Yes Safety Concerns: Feels Safe At This Time Assistive Devices: Glasses and Walker Allergies Allergies Allergy/AdvReac Type Severity Reaction Status Date / Time Penicillins Allergy Mild Rash Verified 03/19/20 12:39 doxycycline Allergy rash Verified 03/19/20 13:51 Home Meds Home Medications Medication Instructions Recorded Confirmed Spiriva with HandiHaler 1 cap INHALATION QAM 06/12/19 03/19/20 cyanocobalamin (vitamin B-12) 500 mcg PO QAM 06/12/19 03/19/20 [Vitamin B-12] loteprednol etabonate [Lotemax] 1 drp OPB BID 06/12/19 03/19/20 aspirin [Ecotrin Low Strength] 81 mg PO QAM 07/15/19 03/19/20 pantoprazole [Protonix] 40 mg PO QAM 07/15/19 03/19/20 Previous Rx's Medication Instructions Recorded atorvastatin 40 mg PO HS #30 tab 06/16/19 clopidogrel 75 mg PO QAM #30 tab 06/16/19 levetiracetam [Keppra] 500 mg PO BID #60 tab 06/16/19 metoprolol tartrate 12.5 mg PO BID #60 tab 06/16/19 Results & Data (ED) Vital Signs Vital Signs - 24 hr 03/19/20 10:23 03/19/20 10:30 03/19/20 11:04 Temperature 37.8 C H Temperature Source Oral Pulse Rate 131 H 131 H 130 H Pulse Rate from SpO2 Sensor 129 H 131 H Pulse Rhythm Regular Pulse Strength Normal Respiratory Rate 26 H 31 H 20 Respiratory Effort / Characteristics Non-Labored Spontaneous Respiratory Depth Normal Blood Pressure 125/60 118/61 125/60 Blood Pressure Mean 76 80 81 Blood Pressure Position Sitting Pulse Oximetry 99 98 97 Oxygen Delivery Method Room Air Sepsis Recent Fever Within 48 Hours No Sepsis New/Unexplained Change in Mental Status N/A Sepsis Action Taken by Nursing No Action Required 03/19/20 11:22 03/19/20 11:30 03/19/20 12:18 Temperature Temperature Source Pulse Rate 122 H 121 H 115 H Pulse Rate from SpO2 Sensor 122 H 122 H 115 H Pulse Rhythm Pulse Strength Respiratory Rate 32 H 29 H 27 H Respiratory Effort / Characteristics Respiratory Depth Blood Pressure 125/60 126/55 L 131/51 L Blood Pressure Mean 66 74 76 Blood Pressure Position Pulse Oximetry 98 98 96 Oxygen Delivery Method Sepsis Recent Fever Within 48 Hours Sepsis New/Unexplained Change in Mental Status Sepsis Action Taken by Nursing 03/19/20 12:30 03/19/20 13:00 Temperature Temperature Source Pulse Rate 115 H Pulse Rate from SpO2 Sensor 115 H 112 H Pulse Rhythm Pulse Strength Respiratory Rate 32 H Respiratory Effort / Characteristics Respiratory Depth Blood Pressure 130/41 L 110/56 L Blood Pressure Mean 55 80 Blood Pressure Position Pulse Oximetry 97 97 Oxygen Delivery Method Sepsis Recent Fever Within 48 Hours Sepsis New/Unexplained Change in Mental Status Sepsis Action Taken by Nursing Laboratory Data Result diagrams: 03/19/20 11:10 03/19/20 18:13 Lab Results 03/19/20 03/19/20 03/19/20 Range/Units 11:10 11:10 11:10 WBC 7.14 (4.8-10.8) K/uL RBC 2.58 L (4.7-6.1) M/uL Hgb 9.8 L (14.0-18.0) g/dL Hct 30.1 L (42-52) % MCV 116.7 H (80-100) fL MCH 38.0 H (25-34) pg MCHC 32.6 (32-36) g/dL RDW Std Deviation 69.2 H (36.4-46.3) fL RDW Coeff of Gene 16.4 H (11.5-14.5) % Plt Count 244 (130-400) K/uL MPV 10.2 (7.4-10.4) fL Immature Gran % (Auto) 1.8 % Neut % (Auto) 70.9 % Lymph % (Auto) 19.5 % Saline % (Auto) 7.0 % Eos % (Auto) 0.1 % Baso % (Auto) 0.7 % Neut # (Auto) 5.06 (1.4-6.5) K/uL Lymph # (Auto) 1.39 (1.2-3.4) K/uL Saline # (Auto) 0.50 (0.11-0.59) K/uL Eos # (Auto) 0.01 (0-0.5) K/uL Baso # (Auto) 0.05 (0-0.2) K/uL Immature Gran # (Auto) 0.13 H (0.00-0.02) K/uL Absolute Nucleated RBC 0.02 H (0-0) K/uL Nucleated RBC % (auto) 0.2 % Smudge Cells Present Polychromasia 1+ Anisocytosis Present Tear Drop Cells 1+ ESR (0-14) mm/hr PT 11.4 (9.0-12.0) Seconds INR 1.1 (0.9-1.1) APTT 27.2 (21.0-31.0) Seconds PTT Ratio 1.0 Sodium 137 (136-145) mmol/L Potassium 5.4 H (3.5-5.1) mmol/L Chloride 104 (98-107) mmol/L Carbon Dioxide 25 (21-32) mmol/L Anion Gap 8.0 (3-11) BUN 39 H (7-18) mg/dl Creatinine 1.16 (0.6-1.4) mg/dl Est Cr Clr Drug Dosing 40.6 ml/min Est GFR ( Amer) 68.1 Est GFR (Non-Af Amer) 58.7 BUN/Creatinine Ratio 33.6 H (10-20) Glucose 106 H (70-99) mg/dl Lactate (0.4-2.0) mmol/L Calcium 7.8 L (8.5-10.1) mg/dl Phosphorus 4.2 (2.5-4.9) mg/dl Magnesium 2.0 (1.8-2.4) mg/dl Total Bilirubin 0.5 (0.2-1) mg/dl Direct Bilirubin 0.2 (0-0.2) mg/dl AST 35 (15-37) U/L ALT 32 (12-78) U/L Alkaline Phosphatase 75 (45-117) U/L Troponin I < 0.015 (0-0.045) ng/ml C-Reactive Protein 12.30 H (0-0.29) mg/dl NT-Pro-B Natriuret Pep (0-1800) pg/ml Total Protein 5.9 L (6.4-8.2) gm/dl Albumin 1.7 L (3.4-5.0) gm/dl Globulin 4.2 H (2.5-4.0) gm/dl Albumin/Globulin Ratio 0.4 L (0.9-2) Lipase 193 (73-393) U/L Procalcitonin (0-0.5) ng/ml TSH 3.240 (0.300-4.500) uIu/ml 03/19/20 03/19/20 03/19/20 Range/Units 11:10 11:10 11:10 WBC (4.8-10.8) K/uL RBC (4.7-6.1) M/uL Hgb (14.0-18.0) g/dL Hct (42-52) % MCV (80-100) fL MCH (25-34) pg MCHC (32-36) g/dL RDW Std Deviation (36.4-46.3) fL RDW Coeff of Gene (11.5-14.5) % Plt Count (130-400) K/uL MPV (7.4-10.4) fL Immature Gran % (Auto) % Neut % (Auto) % Lymph % (Auto) % Saline % (Auto) % Eos % (Auto) % Baso % (Auto) % Neut # (Auto) (1.4-6.5) K/uL Lymph # (Auto) (1.2-3.4) K/uL Saline # (Auto) (0.11-0.59) K/uL Eos # (Auto) (0-0.5) K/uL Baso # (Auto) (0-0.2) K/uL Immature Gran # (Auto) (0.00-0.02) K/uL Absolute Nucleated RBC (0-0) K/uL Nucleated RBC % (auto) % Smudge Cells Polychromasia Anisocytosis Tear Drop Cells ESR 40 H (0-14) mm/hr PT (9.0-12.0) Seconds INR (0.9-1.1) APTT (21.0-31.0) Seconds PTT Ratio Sodium (136-145) mmol/L Potassium (3.5-5.1) mmol/L Chloride (98-107) mmol/L Carbon Dioxide (21-32) mmol/L Anion Gap (3-11) BUN (7-18) mg/dl Creatinine (0.6-1.4) mg/dl Est Cr Clr Drug Dosing ml/min Est GFR ( Amer) Est GFR (Non-Af Amer) BUN/Creatinine Ratio (10-20) Glucose (70-99) mg/dl Lactate (0.4-2.0) mmol/L Calcium (8.5-10.1) mg/dl Phosphorus (2.5-4.9) mg/dl Magnesium (1.8-2.4) mg/dl Total Bilirubin (0.2-1) mg/dl Direct Bilirubin (0-0.2) mg/dl AST (15-37) U/L ALT (12-78) U/L Alkaline Phosphatase (45-117) U/L Troponin I (0-0.045) ng/ml C-Reactive Protein (0-0.29) mg/dl NT-Pro-B Natriuret Pep 1700 (0-1800) pg/ml Total Protein (6.4-8.2) gm/dl Albumin (3.4-5.0) gm/dl Globulin (2.5-4.0) gm/dl Albumin/Globulin Ratio (0.9-2) Lipase (73-393) U/L Procalcitonin 0.45 (0-0.5) ng/ml TSH (0.300-4.500) uIu/ml 03/19/20 Range/Units 12:03 WBC (4.8-10.8) K/uL RBC (4.7-6.1) M/uL Hgb (14.0-18.0) g/dL Hct (42-52) % MCV (80-100) fL MCH (25-34) pg MCHC (32-36) g/dL RDW Std Deviation (36.4-46.3) fL RDW Coeff of Gene (11.5-14.5) % Plt Count (130-400) K/uL MPV (7.4-10.4) fL Immature Gran % (Auto) % Neut % (Auto) % Lymph % (Auto) % Saline % (Auto) % Eos % (Auto) % Baso % (Auto) % Neut # (Auto) (1.4-6.5) K/uL Lymph # (Auto) (1.2-3.4) K/uL Saline # (Auto) (0.11-0.59) K/uL Eos # (Auto) (0-0.5) K/uL Baso # (Auto) (0-0.2) K/uL Immature Gran # (Auto) (0.00-0.02) K/uL Absolute Nucleated RBC (0-0) K/uL Nucleated RBC % (auto) % Smudge Cells Polychromasia Anisocytosis Tear Drop Cells ESR (0-14) mm/hr PT (9.0-12.0) Seconds INR (0.9-1.1) APTT (21.0-31.0) Seconds PTT Ratio Sodium (136-145) mmol/L Potassium (3.5-5.1) mmol/L Chloride (98-107) mmol/L Carbon Dioxide (21-32) mmol/L Anion Gap (3-11) BUN (7-18) mg/dl Creatinine (0.6-1.4) mg/dl Est Cr Clr Drug Dosing ml/min Est GFR ( Amer) Est GFR (Non-Af Amer) BUN/Creatinine Ratio (10-20) Glucose (70-99) mg/dl Lactate 4.0 H* (0.4-2.0) mmol/L Calcium (8.5-10.1) mg/dl Phosphorus (2.5-4.9) mg/dl Magnesium (1.8-2.4) mg/dl Total Bilirubin (0.2-1) mg/dl Direct Bilirubin (0-0.2) mg/dl AST (15-37) U/L ALT (12-78) U/L Alkaline Phosphatase (45-117) U/L Troponin I (0-0.045) ng/ml C-Reactive Protein (0-0.29) mg/dl NT-Pro-B Natriuret Pep (0-1800) pg/ml Total Protein (6.4-8.2) gm/dl Albumin (3.4-5.0) gm/dl Globulin (2.5-4.0) gm/dl Albumin/Globulin Ratio (0.9-2) Lipase (73-393) U/L Procalcitonin (0-0.5) ng/ml TSH (0.300-4.500) uIu/ml Administered Medications Diphenhydramine HCl (Diphenhydramine Hcl 25 Mg Cap) 25 mg PO Q12 EMERY Stop: 04/18/20 14:29 Last Admin: 03/19/20 20:14 Dose: 25 mg Documented by: [id number] Admin: 03/19/20 15:19 Dose: 25 mg Documented by: [id number] Enoxaparin Sodium (Enoxaparin Inj 40 Mg/0.4 Ml Syr) 40 mg SQ Q24H EMERY Stop: 04/18/20 20:59 Last Admin: 03/19/20 20:14 Dose: 40 mg Documented by: [id number] Methylprednisolone 40 mg/ (Syringe) 0.64 mls @ 1.5 mls/min IV Q24H [facility] Stop: 04/18/20 14:59 Last Admin: 03/19/20 15:19 Dose: 1.5 mls/min Documented by: [id number] Daptomycin 225 mg/ Syringe 4.5 mls @ 2.25 mls/min IV Q24H EMERY; Protocol Stop: 03/26/20 21:59 Last Admin: 03/19/20 21:53 Dose: 2.25 mls/min Documented by: [id number] Sodium Chloride (Nss 1000ml) 1,000 mls @ 100 mls/hr IV .Q10H [facility] Stop: 04/18/20 18:59 Last Infusion: 03/19/20 23:25 Dose: 100 mls/hr Documented by: [id number] Infusion: 03/19/20 22:23 Dose: 0 mls/hr Documented by: [id number] Admin: 03/19/20 19:14 Dose: 100 mls/hr Documented by: [id number] Levetiracetam (Levetiracetam 500 Mg Tab) 500 mg PO BID EMERY Stop: 04/18/20 20:59 Last Admin: 03/19/20 20:14 Dose: 500 mg Documented by: [id number] Metoprolol Tartrate (Metoprolol Tartrate 25 Mg Tab) 12.5 mg PO BID EMERY Stop: 04/18/20 20:59 Last Admin: 03/19/20 20:14 Dose: 12.5 mg Documented by: [id number] Miscellaneous (*Loteprednol Etabonate [Lotemax]*Order Awaiting Action) 1 ea N/A QS [facility] Stop: 04/18/20 15:59 Last Admin: 03/19/20 21:59 Dose: Not Given Documented by: [id number] Admin: 03/19/20 15:20 Dose: Not Given Documented by: [id number] Discontinued Medications Sodium Chloride (Nss) 500 mls @ 999 mls/hr IV .Q31M ONE Stop: 03/19/20 10:59 Last Infusion: 03/19/20 12:12 Dose: 0 mls/hr Documented by: [id number] Admin: 03/19/20 11:26 Dose: 999 mls/hr Documented by: [id number] Ceftriaxone Sodium (Rocephin) 1,000 mg in 50 mls @ 100 mls/hr IV NOW STA Stop: 03/19/20 12:38 Last Infusion: 03/19/20 12:52 Dose: 0 mls/hr Documented by: [id number] Admin: 03/19/20 12:16 Dose: 100 mls/hr Documented by: [id number] Vancomycin HCl 1,250 mg/ (Sodium Chloride) 525 mls @ 200 mls/hr IV NOW ONE Stop: 03/19/20 14:46 Last Infusion: 03/19/20 15:31 Dose: 0 mls/hr Documented by: [id number] Admin: 03/19/20 12:51 Dose: 200 mls/hr Documented by: [id number] Acetaminophen (Ofirmev) 1,000 mg in 100 mls @ 400 mls/hr IV NOW STA Stop: 03/19/20 12:36 Last Infusion: 03/19/20 12:47 Dose: 0 mls/hr Documented by: [id number] Infusion: 03/19/20 12:47 Dose: 0 mls/hr Documented by: [id number] Admin: 03/19/20 12:35 Dose: 400 mls/hr Documented by: [id number] Sodium Chloride (Nss 1000ml) 1,000 mls @ 999 mls/hr IV .Q1H1M ONE Stop: 03/19/20 14:04 Last Admin: 03/19/20 14:42 Dose: Not Given Documented by: [id number] Sodium Chloride (Nss 1000ml) 1,000 mls @ 100 mls/hr IV .Q10H EMERY Stop: 03/20/20 00:29 Last Infusion: 03/19/20 19:13 Dose: 0 mls/hr Documented by: [id number] Admin: 03/19/20 15:19 Dose: 75 mls/hr Documented by: [id number] Sodium Chloride (Nss) 500 mls @ 500 mls/hr IV .Q1H EMERY Stop: 03/19/20 23:14 Last Infusion: 03/19/20 23:25 Dose: 0 mls/hr Documented by: [id number] Admin: 03/19/20 22:22 Dose: 500 mls/hr Documented by: [id number] Discharge Plan Visit Data Chief Complaint: Lethargic ED Provider: Arsenio Obrien Discharge Problem: Rash and nonspecific skin eruption, SIRS (systemic inflammatory response syndrome), Elevated lactic acid level, Hyperkalemia, Dehydration Patient Disposition: Admitted As Inpatient Discharge Instructions Interventions: ED Discharge Assessment Last Done: 03/19/20 13:21
[2020-03-19] MEDS ORDERED: ACETAMINOPHEN 1,000 MG/100 ML VIAL IV STA (12:22)
[2020-03-19 12:37] LABS: Anisocytosis Present; Polychromasia 1+; Smudge Cells Present; Tear Drop Cells 1+
[2020-03-19] MEDS ORDERED: SODIUM CHLORIDE 0.9% 1000ML 1,000 ML IV ONE (13:04)
--- NOTE | 2020-03-19 13:34 | History & Physical Report ---
Date of Service March 19, 2020 Assessment & Plan (1) SIRS (systemic inflammatory response syndrome): (2) Rash and nonspecific skin eruption: possible drug associated rash of bilateral lower extremities vs bilateral lower extremity cellulitis -see below (3) Lactic acidosis: This is an 79-year-old male has significant past medical history of COPD, HLD, temporal arteritis, history of CVA with resultant seizure sequelae, history of tobacco abuse, protein calorie malnutrition, GERD who presents to ED secondary to rash x2 weeks. Patient with diffuse erythematous, scaly rash with petechial component to lower extremities. Possible superimposed lower extremity cellulitis given tachycardia, lactic acidosis and elevated temp. Was treated empirically in ED. Other concerns are drug related rash, hypersensitivity reaction, exfoliative dermatitis, vasculitis among other etiologies. Pt does meet SIRS criteria with elevated lactic acidosis, Tachycardia per CMS guidelines. Source: possible cellulitis Admit to telemetry Give 1 L IVF bolus and will repeat lactic acid in 90 minutes Continue empiric IV antibiotics but switch to Rocephin and daptomycin Once lactic acid improves start maintenance fluid Start Solu-Medrol 40 mg IV daily for possible drug reaction Schedule Benadryl 25 mg twice daily, hold for sedation if no improvement pt may benefit from biopsy and derm eval (4) YARED (acute kidney injury): baseline cr 0.6-0.8 bun/cr 39 and 1.16, likely pre renal in setting of poor po intake vs increased skin perfusion IVF NSS x 1 L bolus, re evaluate lactic acid once normalized, start maintenance fluid (5) Hyperkalemia: K 5.4 continue IV hydration repeat bmp @ 6pm (6) Temporal arteritis: Follows [facility] rheumatology Has been off prednisone since December (7) COPD (chronic obstructive pulmonary disease): No acute exacerbation Treated in outpatient setting 03/04 for pneumonia initially with doxycycline but discontinued secondary to rash and completed a full course of azithromycin Chest x-ray is clear today with no superimposed infiltrate (8) CVA (cerebral vascular accident): On ASA, Plavix and statin as outpatient Hold statin in setting of daptomycin use (9) Seizure: Secondary to history of right MCA CVA No seizure activity Continue Nydia (10) Anemia: H&H stable at 9.8 and 30.1 Macrocytic hyperchromic Folic acid and B12 obtained 08/19/2019 and was 6.7 and 842 respectively Likely chronic in setting of chronic disease, monitor closely (11) Protein calorie malnutrition: Is currently being worked up in outpatient setting secondary to hypoalbuminemia Bilateral lower extremity edema is not has fairly new and per outpatient providers felt to be secondary to no albumin Consult dietitian Add boost supplements Will check BMP to rule out CHF component of edema (12) Hyperlipidemia: Hold atorvastatin in setting of daptomycin use Monitor CK (13) DVT prophylaxis: Lovenox Disposition: admit to PCU Follow up: PCP Dr. Martel upon discharge Pt was seen and examined in collaboration with Dr. Huang, please see addendum History of Present Illness Chief Complaint: Rash x2 weeks. Primary Care Provider: Hernando Martel, DO This is an 79-year-old male has significant past medical history of COPD, HLD, temporal arteritis, history of CVA with resultant seizure sequelae, history of tobacco abuse, protein calorie malnutrition, GERD who presents to ED secondary to rash x2 weeks. is at bedside. On 03/05 patient was seen by PCP and had chest x-ray performed. Chest x-ray concerning for groundglass opacities and pneumonia. He was started on doxycycline and a few days after initiating developed a red rash. called PCP and doxycycline was discontinued and he was prescribed azithromycin. He did finish Z-Nadir in his entirety. He is unsure how many days after starting antibiotic and is unsure exactly where the rash st arted, but since has spread all over his body. His skin is red, very dry and complains of increased swelling to lower extremities. Initially rash was itchy, but provided him with Benadryl which did help. He denies any pain or rash. Patient and are somewhat poor historian as exact development events are unclear. He denies any documented fever, chills, sweats, lightheadedness, dizziness, chest pain, shortness of breath, WEAVER, nausea, vomiting, abdominal pain. He recently had been constipated but otherwise is now moving his bowels regularly. He denies any melena or hematochezia. He denies any difficulty with urination including dysuria, increased urgency or frequency or hematuria. He does have a chronic wet cough, but is unable to produce. He does not feel cough is worse than usual. He does have a prior history of smoking for approximately 60 years, but quit 2 years ago. In regards to his history of temporal arteritis he follows with [facility] rheumatology. He has been off prednisone for approximately 2 months. He overall has a poor appetite. In ED patient was tachycardic and had elevated temp to 37.8. He did not meet criteria for SIRS or sepsis. Lab abnormalities notable for H&H 9.8 and 30.0, WBC 7.14, platelet 224, ESR 40, CRP 12.3, K5.4, BUN 39, creatinine 1.16, glucose 106, lactic acid 4.0, albumin 1.7, procalcitonin 0.45. Chest x-ray negative for acute cardiopulmonary abnormality. There was possible concern for bilateral cellulitis and therefore he was given IV vancomycin and ceftriaxone. He also received 500 mL IVF. Allergies Allergy/AdvReac Type Severity Reaction Status Date / Time Penicillins Allergy Mild Rash Verified 03/19/20 12:39 doxycycline Allergy rash Verified 03/19/20 13:51 Home Medications Home Medications Medication Instructions Recorded Confirmed Type Spiriva with HandiHaler 1 cap INHALATION QAM 06/12/19 03/19/20 History cyanocobalamin (vitamin B-12) 500 mcg PO QAM 06/12/19 03/19/20 History [Vitamin B-12] loteprednol etabonate [Lotemax] 1 drp OPB BID 06/12/19 03/19/20 History atorvastatin 40 mg PO HS #30 tab 06/16/19 03/19/20 Rx clopidogrel 75 mg PO QAM #30 tab 06/16/19 03/19/20 Rx levetiracetam [Keppra] 500 mg PO BID #60 tab 06/16/19 03/19/20 Rx metoprolol tartrate 12.5 mg PO BID #60 tab 06/16/19 03/19/20 Rx aspirin [Ecotrin Low Strength] 81 mg PO QAM 07/15/19 03/19/20 History pantoprazole [Protonix] 40 mg PO QAM 07/15/19 03/19/20 History Past Med/Surg History Medical History (Updated 03/19/20 @ 13:35 by Teri Mast PA-C) Anemia HX GERD (gastroesophageal reflux disease) Hearing deficit Hyperlipidemia Temporal arteritis REASON FOR PREDNISONE Surgical History History of colonoscopy History of esophagogastroduodenoscopy (EGD) History of lung biopsy (07/17/19) Left Thoracoscopy with lung biopsy and Decortication Dr. Quiñones 07/17/19 History of tonsillectomy History of tooth extraction Family History Brother Cancer Social History (Updated 03/19/20 @ 13:19 by Teri Mast PA-C) Smoking Status: Former smoker Tobacco Type: Cigarettes Years Smoked: 60; Second Hand Exposure: Yes; Hx Alcohol Use: Yes Alcohol type: wine Alcohol Intake Frequency Comment: Currently denies alcohol use Hx Substance Use: No Preferred Language: Djiboutian Communication Ability: Effective Steward/Stewardess Wine Required: No Beliefs That Will Affect Care: None Current Living Situation: Spouse Feels Safe at Home: Yes Assistive Devices: Glasses, Hearing Aid - Bilateral and Walker Review of Systems Review of Systems: All systems reviewed & are unremarkable except as noted in HPI & below Physical Exam Physical Exam: Constitutional: Tall, thin, elderly male, hard of hearing, vi tals as above, NAD, sitting up in bed, pleasant, conversing easily Head: Normocephalic, Atraumatic Eyes: PERRL, conjunctivae normal, anicteric sclerae ENMT: Hard of hearing, external ear and nose normal, oropharynx normal Neck: trachea midline, no thyromegaly normal visual inspection Respiratory: normal respiratory effort, lungs clear to auscultation, no wheeze, rales, rhonchi. Normal insp/exp effort, no accessory muscle use Cardiovascular: Tachycardic rate, regular rhythm, no murmur, bilateral +3 pitting edema, pedal pulses +2 and equal Vessels: no JVD or carotid bruit Chest: normal inspection of chest Abdomen: normal bowel sounds, soft, nontender, no hepatosplenomegaly Musculoskeletal: no cyanosis or clubbing, extremities motor strength 5/5 Skin: Diffuse erythematous rash greater than 90% surface area, red, warm, scaly, bilateral lower extremities with a petechial, nonblanching rash that extends to proximal thighs, not painful to palpation, warm and moderate turgor Neurologic: PERRL, EOMI, accommodation nl, no face palsy, no dysarthria CN's II-XI intact bilaterally and moves all extremities Psychiatric: A+Ox3, euthymic affect Lymphatic: no cervical or axillary lymphadenopathy : deferred Results & Data Results & Data ([facility]) Vital Signs (Past 12 Hours) Vital Signs Temp Pulse Resp BP Pulse Ox 03/19/20 11:30 121 H 29 H 126/55 L 98 03/19/20 11:22 122 H 32 H 125/60 98 03/19/20 11:04 37.8 C H 130 H 20 125/60 97 03/19/20 10:30 131 H 31 H 118/61 98 03/19/20 10:23 131 H 26 H 125/60 99 Laboratory Results Short CBC 03/19/20 03/19/20 03/19/20 Range/Units 11:10 11:10 12:03 WBC 7.14 (4.8-10.8) K/uL Hgb 9.8 L (14.0-18.0) g/dL Hct 30.1 L (42-52) % Plt Count 244 (130-400) K/uL Lactate 4.0 H* (0.4-2.0) mmol/L C-Reactive Protein 12.30 H (0-0.29) mg/dl BMP 03/19/20 11:10 Sodium 137 Potassium 5.4 H Chloride 104 Carbon Dioxide 25 BUN 39 H Creatinine 1.16 Glucose 106 H Calcium 7.8 L Cardiac Enzymes 03/19/20 Range/Units 11:10 Troponin I < 0.015 (0-0.045) ng/ml Liver Function 03/19/20 Range/Units 11:10 Total Bilirubin 0.5 (0.2-1) mg/dl Direct Bilirubin 0.2 (0-0.2) mg/dl AST 35 (15-37) U/L ALT 32 (12-78) U/L Alkaline Phosphatase 75 (45-117) U/L Albumin 1.7 L (3.4-5.0) gm/dl Diagnostic Findings CXR: IMPRESSION: Chronic interstitial change and bibasilar linear densities persist. There is also a stable small focal irregular density within the right lung apex. These are better appreciated on the recent chest CT. No new focal lung consolidations to suggest pneumonia. Medications Administered Vancomycin HCl 1,250 mg/ (Sodium Chloride) 525 mls @ 200 mls/hr IV NOW ONE Stop: 03/19/20 14:46 Last Admin: 03/19/20 12:51 Dose: 200 mls/hr Documented by: [id number] Discontinued Medications Sodium Chloride (Nss) 500 mls @ 999 mls/hr IV .Q31M ONE Stop: 03/19/20 10:59 Last Infusion: 03/19/20 12:12 Dose: 0 mls/hr Documented by: [id number] Admin: 03/19/20 11:26 Dose: 999 mls/hr Documented by: [id number] Ceftriaxone Sodium (Rocephin) 1,000 mg in 50 mls @ 100 mls/hr IV NOW STA Stop: 03/19/20 12:38 Last Infusion: 03/19/20 12:52 Dose: 0 mls/hr Documented by: [id number] Admin: 03/19/20 12:16 Dose: 100 mls/hr Documented by: [id number] Acetaminophen (Ofirmev) 1,000 mg in 100 mls @ 400 mls/hr IV NOW STA Stop: 03/19/20 12:36 Last Infusion: 03/19/20 12:47 Dose: 0 mls/hr Documented by: [id number] Infusion: 03/19/20 12:47 Dose: 0 mls/hr Documented by: [id number] Admin: 03/19/20 12:35 Dose: 400 mls/hr Documented by: [id number] ECG Rate (beats per minute): 128 Rhythm: sinus tachycardia Additional Comments: QTC 417ms Code Status & VTE Plan Code Status Full Code VTE Prophylaxis Plan VTE Prophylaxis will be ordered: Yes Supervising Physician Co-Signing Physician Notes I, Dr. Dipak Huang, have seen and examined the patient with physician assistant customer service manager and agree with the assessment and plan as above and would like to comment that on exam General: no acute distress Heart: tachycardia Lungs: no wheezing, on room air Abdomen: soft, nontender, positive bowel sounds Extremities: upper extremity with some dry skin bilaterally but no tenderness or erythema. Bilaterally lower extremities with petechiae and redness, some lower extremity edema Assessment and Plan -main issue with patient is that he has had recent course of doxycycline for pneumonia as outpatient and then the doxycycline was stopped because of rashes and subsequently completed the rest of the pulmonary course of antibiotics with azithromycin. however, patient continues to have the rash. on my exam patient's bilateral leg exam suggestive of drug-associated rash rather than a bilateral lower extremity cellulitis but since patient has a elevated lactic acid of 4, patient will get IV antibiotics coverage as well besides solumedrol 40 mg IV daily and scheduled Benadryl. -give IV fluids and trend the lactic acid. patient was given ceftriaxone and Vancomycin in the ED. Will continue the IV ceftriaxone but will not give further Vancomycin to remove any possible risk of red man syndrome associated with some cases of Vancomycin use. Patient will have daptomycin instead for any possible MRSA coverage. trend the creatinine kinase and avoid home dose statin while on Daptomycin. Follow the admission blood cultures -platelet counts are normal, monitor the serum electrolytes, va underwriter consult and BOOST supplements for low serum albumin levels -continue other home medications for other chronic health conditions as documented by physician assistant customer service manager My colleague Dr. Lancaster will be following the patient starting on 03/20/2020 Full Code status as per patient and patient's family daughter [phone] (1) CVA (cerebral vascular accident) CVA mechanism: unspecified Qualified Code(s): I63.9 - Cerebral infarction, unspecified
[2020-03-19] MEDS ORDERED: POLYETHYLENE (MIRALAX) 17 GM PACK PO PRN (14:05)
[2020-03-19] MEDS ORDERED: ACETAMINOPHEN 325 MG TAB PO PRN (14:05)
[2020-03-19] MEDS ORDERED: MAGNESIUM HYDROXIDE SUSP 30 ML UDC PO PRN (14:05)
[2020-03-19] MEDS ORDERED: ALUMINUM/MAGNESIUM SUSP 30 ML UDC PO PRN (14:05)
[2020-03-19] MEDS ORDERED: ONDANSETRON INJ 2 MG/ML 2 ML VIAL IV PRN (14:05)
[2020-03-19] MEDS ORDERED: SODIUM CHLORIDE 0.9% 1000ML 1,000 ML IV SCH (14:30)
[2020-03-19] MEDS: methylPREDNISolone 40 MG in SYRINGE 0 ML IV SCH (15:19)
[2020-03-19] MEDS: diphenhydrAMINE Capsule 25 MG CAP PO SCH ×2 (15:19→20:14)
[2020-03-19 18:35] LABS: BUN Creatinine Ratio 38.1 (10-20); Creatinine Clr Calc Pharmacy 43.2 ml/min; Est GFR (African American) 80.5; Est GFR (Non-African American) 69.4; Potassium 4.9 mmol/L (3.5-5.1)
[2020-03-19] MEDS: SODIUM CHLORIDE 0.9% 1000ML 1,000 ML IV SCH (19:14)
[2020-03-19] MEDS: levETIRAcetam 500 MG TAB PO SCH (20:14)
[2020-03-19] MEDS: ENOXAPARIN INJ 40 MG/0.4 ML SYR SQ SCH (20:14)
[2020-03-19] MEDS: METOPROLOL TARTRATE 25 MG TAB PO SCH (20:14)
[2020-03-19] MEDS ORDERED: DAPTOmycin 225 MG in SYRINGE 0 ML IV SCH (22:00)
[2020-03-19] MEDS ORDERED: SODIUM CHLORIDE 0.9% 500 ML IV SCH (22:15)
--- NOTE | 2020-03-19 22:56 | Electrocardiogram Report ---
Test Reason : Blood Pressure : / mmHG Vent. Rate : 128 BPM Atrial Rate : 128 BPM P-R Int : 154 ms QRS Dur : 104 ms QT Int : 286 ms P-R-T Axes : 065 -24 102 degrees QTc Int : 417 ms Sinus tachycardia Low voltage QRS Nonspecific T wave abnormality Abnormal ECG When compared with ECG of 18-AUG-2019 08:55, Vent. rate has increased BY 43 BPM Confirmed by Bossman Coppola ([id number]) on 03/19/2020 10:56:19 PM Referred By: REFERRED SELF Confirmed By:Bossman Coppola
[2020-03-20] MEDS: SODIUM CHLORIDE 0.9% 1000ML 1,000 ML IV SCH ×2 (02:48→12:26)
[2020-03-20 04:21] LABS: Basophils # (auto) 0.04 K/uL (0-0.2); Basophils % (auto) 0.9 %; Hematocrit (blood only) 23.3 % (42-52); Hemoglobin 7.7 g/dL (14.0-18.0); Immature Granulocytes # (auto) 0.06 K/uL (0.00-0.02); Immature Granulocytes % (auto) 1.4 %; Lymphocytes # (auto) 1.69 K/uL (1.2-3.4); Mean Corpuscular Hemoglobin 38.7 pg (25-34); Mean Corpuscular Volume 117.1 fL (80-100); Mean Platelet Volume 9.6 fL (7.4-10.4); Monocytes # (auto) 0.42 K/uL (0.11-0.59); Monocytes % (auto) 9.9 %; Neutrophils # (auto) 2.02 K/uL (1.4-6.5); Neutrophils % (auto) 47.8 %; Platelet Count 178 K/uL (130-400); RDW Coefficient of Variation 16.1 % (11.5-14.5); RDW Standard Deviation 67.6 fL (36.4-46.3); Red Blood Count 1.99 M/uL (4.7-6.1); White Blood Count 4.23 K/uL (4.8-10.8)
[2020-03-20 04:57] LABS: Albumin Globulin Ratio 0.4 (0.9-2); Albumin Level 1.4 gm/dl (3.4-5.0); BUN Creatinine Ratio 48.5 (10-20); Bilirubin,Total 0.3 mg/dl (0.2-1); Calcium 6.8 mg/dl (8.5-10.1); Creatinine Clr Calc Pharmacy 62.4 ml/min; Est GFR (African American) 102.6; Est GFR (Non-African American) 88.5; Globulin 3.7 gm/dl (2.5-4.0); Potassium 4.4 mmol/L (3.5-5.1); Total Protein 5.1 gm/dl (6.4-8.2)
[2020-03-20 05:17] LABS: Macrocytosis Present
[2020-03-20] MEDS: levETIRAcetam 500 MG TAB PO SCH ×2 (08:13→20:30)
[2020-03-20] MEDS: UMECLIDINIUM BROMIDE 62.5MCG/BLISTER 7 PUFFS/INHALER INH SCH (08:13)
[2020-03-20] MEDS: METOPROLOL TARTRATE 25 MG TAB PO SCH ×2 (08:13→20:30)
[2020-03-20] MEDS: diphenhydrAMINE Capsule 25 MG CAP PO SCH ×2 (08:14→20:31)
[2020-03-20] MEDS: PANTOprazole 40 MG TAB PO SCH (08:14)
[2020-03-20] MEDS: CYANOCOBALAMIN 500 MCG TABLET (VITAMIN B-12) PO SCH (08:14)
[2020-03-20] MEDS: CLOPIDOGREL BISULFATE 75 MG TAB PO SCH (08:14)
[2020-03-20] MEDS: ASPIRIN 81 MG ECTAB PO SCH (08:14)
[2020-03-20] MEDS ORDERED: cefTRIAXone SODIUM 2,000 MG in DEXTROSE 5% 50 ML IV SCH (12:00)
[2020-03-20] MEDS: methylPREDNISolone 40 MG in SYRINGE 0 ML IV SCH (15:37)
--- NOTE | 2020-03-20 15:37 | Hospitalist Progress Note ---
Date of Service March 20, 2020 Assessment & Plan (1) SIRS (systemic inflammatory response syndrome): Did not have any temperature more than or equal to 38.3 degrees Had transient tachycardia and tachypnea Lactic acid was minimally elevated but no evidence of other infection Sirs but no sepsis Was started with intravenous Dapto and ceftriaxone Blood cultures have been negative and antibiotics have been discontinued (2) Rash and nonspecific skin eruption: Generalized erythematous scaly rash likely secondary to doxycycline No skin break and no cellulitis Has been on IV Solu-Medrol and will continue that for now (3) Lactic acidosis: This is an 79-year-old male has significant past medical history of COPD, HLD, temporal arteritis, history of CVA with resultant seizure sequelae, history of tobacco abuse, protein calorie malnutrition, GERD who presents to ED secondary to rash x2 weeks. Initial elevation of lactic acid is not due to infection Could be due to inflammatory response Lactic acid has been improving with cautious amount of intravenous fluid Advised to drink more fluid (4) YARED (acute kidney injury): baseline cr 0.6-0.8 bun/cr 39 and 1.16, likely pre renal in setting of poor po intake vs increased skin perfusion IVF NSS x 1 L bolus, re evaluate lactic acid Creatinine has improved to his baseline-we will stop any intravenous fluid (5) Hyperkalemia: K 5.4 continue IV hydration repeat bmp @ 6pm Malaised (6) Temporal arteritis: Follows [facility] rheumatology Has been off prednisone since December (7) COPD (chronic obstructive pulmonary disease): No acute exacerbation Treated in outpatient setting 03/04 for pneumonia initially with doxycycline but discontinued secondary to rash and completed a full course of azithromycin Chest x-ray is clear today with no superimposed infiltrate Incentive spirometry (8) CVA (cerebral vascular accident): On ASA, Plavix and statin as outpatient Hold statin in setting of daptomycin use (9) Seizure: Secondary to history of right MCA CVA No seizure activity Continue Nydia (10) Anemia: H&H stable at 9.8 and 30.1 Macrocytic hyperchromic Folic acid and B12 obtained 08/19/2019 and was 6.7 and 842 respectively Likely chronic in setting of chronic disease, monitor closely (11) Protein calorie malnutrition: Is currently being worked up in outpatient setting secondary to hypoalbuminemia Bilateral lower extremity edema is not has fairly new and per outpatient providers felt to be secondary to no albumin Consult dietitian Add boost supplements (12) Hyperlipidemia: Hold atorvastatin in setting of daptomycin use Monitor CK (13) DVT prophylaxis: Lovenox Disposition: admit to PCU Follow up: PCP Dr. Martel upon discharge Discussed with the Admission and Anticipated Discharge Date Admission Date: March 19, 2020 Subjective 03/20/2020 The patient was seen and examined in telemetry unit in presence of the He has been feeling a lot better and except weakness denies any other symptoms No fever and/or chills, no chest pain and/or shortness of breath, no abdominal pain nausea and/or vomiting Complains to have swelling of the legs Review of Systems Review of Systems: All systems reviewed and are unremarkable except as noted below Constitutional: + fatigue and + weakness Cardiovascular: + edema (Bilateral leg edema) Physical Exam Physical Exam: Lying in bed comfortably Constitutional: + thin; no acute distress and not ill appearing Eyes: PERRL, conjunctivae normal, anicteric sclerae ENMT: external ear and nose normal, oropharynx normal Neck: trachea midline, no thyromegaly Respiratory: normal respiratory effort; no respiratory distress Auscultation: + crackles (Minimal bibasilar crackles) and + rhonchi (Transmitted sound from trachea) Cardiovascular: Rate/Rhythm: regular rate and regular rhythm Heart Sounds: no murmur Gastrointestinal (Abdomen): Inspection/Auscultation: abdomen normal to inspection; abdomen not distended Percussion/Palpation: abdomen soft Musculoskeletal: No acute arthritis involving any joint Skin: Has a scaly rash all over the body. Neurologic: moves all extremities; no focal motor deficits Generally weak. Lymphatic: no cervical or axillary lymphadenopathy Results & Data Results & Data ([facility]) Vital Signs (Past 12 Hours) Vital Signs Temp Pulse Pulse Resp BP Pulse Ox 03/20/20 12:06 36.7 C 81 18 102/55 L 96 03/20/20 08:21 36.4 C L 18 109/63 98 03/20/20 08:00 80 Laboratory Results Short CBC 03/20/20 Range/Units 04:13 WBC 4.23 L (4.8-10.8) K/uL Hgb 7.7 L (14.0-18.0) g/dL Hct 23.3 L (42-52) % Plt Count 178 (130-400) K/uL BMP 03/19/20 03/20/20 18:13 04:13 Sodium 138 140 Potassium 4.9 4.4 Chloride 107 110 H Carbon Dioxide 24 24 BUN 39 H 34 H Creatinine 1.01 0.70 D Glucose 126 H 132 H Calcium 7.0 L 6.8 L Cardiac Enzymes 03/19/20 Range/Units 21:18 Total Creatine Kinase 111 (39-308) U/L Liver Function 03/20/20 Range/Units 04:13 Total Bilirubin 0.3 (0.2-1) mg/dl AST 29 (15-37) U/L ALT 28 (12-78) U/L Alkaline Phosphatase 60 (45-117) U/L Albumin 1.4 L (3.4-5.0) gm/dl Medications Administered Current Inpatient Medications Acetaminophen (Acetaminophen 325 Mg Tab) 650 mg PO Q4H PRN PRN Reason: Pain or Fever Stop: 04/18/20 14:04 Al Hydrox/Mg Hydrox/Simethicone (Aluminum/Magnesium Susp 30 Ml Udc) 15 ml PO Q4H PRN PRN Reason: Dyspepsia Stop: 04/18/20 14:04 Aspirin (Aspirin 81 Mg Ectab) 81 mg PO [facility] Stop: 04/19/20 08:59 Last Admin: 03/20/20 08:14 Dose: 81 mg Documented by: Clopidogrel Bisulfate (Clopidogrel Bisulfate 75 Mg Tab) 75 mg PO [facility] Stop: 04/19/20 08:59 Last Admin: 03/20/20 08:14 Dose: 75 mg Documented by: Cyanocobalamin (Cyanocobalamin 500 Mcg Tablet (Vitamin B-12)) 500 mcg PO [facility] Stop: 04/19/20 08:59 Last Admin: 03/20/20 08:14 Dose: 500 mcg Documented by: Diphenhydramine HCl (Diphenhydramine Hcl 25 Mg Cap) 25 mg PO Q12 [facility] Stop: 04/18/20 14:29 Last Admin: 03/20/20 08:14 Dose: 25 mg Documented by: Enoxaparin Sodium (Enoxaparin Inj 40 Mg/0.4 Ml Syr) 40 mg SQ Q24H [facility] Stop: 04/18/20 20:59 Last Admin: 03/19/20 20:14 Dose: 40 mg Documented by: Methylprednisolone 40 mg/ (Syringe) 0.64 mls @ 1.5 mls/min IV Q24H [facility] Stop: 04/18/20 14:59 Last Admin: 03/19/20 15:19 Dose: 1.5 mls/min Documented by: Sodium Chloride (Nss 1000ml) 1,000 mls @ 100 mls/hr IV .Q10H [facility] Stop: 04/18/20 18:59 Last Admin: 03/20/20 12:26 Dose: 100 mls/hr Documented by: Levetiracetam (Levetiracetam 500 Mg Tab) 500 mg PO BID [facility] Stop: 04/18/20 20:59 Last Admin: 03/20/20 08:13 Dose: 500 mg Documented by: Magnesium Hydroxide (Magnesium Hydroxide Susp 30 Ml Udc) 30 ml PO Q12H PRN PRN Reason: Constipation Stop: 04/18/20 14:04 Metoprolol Tartrate (Metoprolol Tartrate 25 Mg Tab) 12.5 mg PO BID [facility] Stop: 04/18/20 20:59 Last Admin: 03/20/20 08:13 Dose: 12.5 mg Documented by: Miscellaneous (*Loteprednol Etabonate [Lotemax]*Order Awaiting Action) 1 ea N/A QS [facility] Stop: 04/18/20 15:59 Last Admin: 03/20/20 07:34 Dose: Not Given Documented by: Ondansetron HCl (Ondansetron Inj 2 Mg/Ml 2 Ml Vial) 4 mg IV Q6H PRN PRN Reason: Nausea Stop: 04/18/20 14:04 Pantoprazole Sodium (Pantoprazole 40 Mg Tab) 40 mg PO QAM [facility] Stop: 04/19/20 08:59 Last Admin: 03/20/20 08:14 Dose: 40 mg Documented by: Polyethylene Glycol (Polyethylene (Miralax) 17 Gm Pack) 17 gm PO DAILY PRN PRN Reason: Constipation Stop: 04/18/20 14:04 Umeclidinium [place] (Umeclidinium [place] 62.5mcg/Blister 7 Puffs/Inhaler) 1 puffs [facility]; Protocol Stop: 04/19/20 08:59 Last Admin: 03/20/20 08:13 Dose: 1 puffs Documented by: Zinc Acetate/Diphenhydramine (Diphenhydramine 2%/Zinc 0.1% Cream 28gm Tube) 1 appln EXT BID PRN PRN Reason: Itching Stop: 04/18/20 22:00 Last Admin: 03/20/20 00:12 Dose: 1 appln Documented by: (1) CVA (cerebral vascular accident) CVA mechanism: unspecified Qualified Code(s): I63.9 - Cerebral infarction, unspecified
[2020-03-20] MEDS: ENOXAPARIN INJ 40 MG/0.4 ML SYR SQ SCH (20:32)
[2020-03-21 06:58] LABS: Basophils # (auto) 0.05 K/uL (0-0.2); Basophils % (auto) 0.6 %; Hematocrit (blood only) 27.3 % (42-52); Hemoglobin 8.8 g/dL (14.0-18.0); Immature Granulocytes # (auto) 0.31 K/uL (0.00-0.02); Immature Granulocytes % (auto) 3.6 %; Lymphocytes # (auto) 2.87 K/uL (1.2-3.4); Lymphocytes % (auto) 33.6 %; Mean Corpuscular Hemoglobin 38.6 pg (25-34); Mean Corpuscular Hgb Conc 32.2 g/dL (32-36); Mean Corpuscular Volume 119.7 fL (80-100); Mean Platelet Volume 9.9 fL (7.4-10.4); Monocytes # (auto) 0.66 K/uL (0.11-0.59); Monocytes % (auto) 7.7 %; Neutrophils # (auto) 4.65 K/uL (1.4-6.5); Neutrophils % (auto) 54.5 %; Platelet Count 211 K/uL (130-400); RDW Coefficient of Variation 16.4 % (11.5-14.5); RDW Standard Deviation 71.1 fL (36.4-46.3); Red Blood Count 2.28 M/uL (4.7-6.1); White Blood Count 8.54 K/uL (4.8-10.8)
[2020-03-21 07:25] LABS: Macrocytosis Present
[2020-03-21 07:39] LABS: BUN Creatinine Ratio 44.6 (10-20); Calcium 7.3 mg/dl (8.5-10.1); Creatinine Clr Calc Pharmacy 63.7 ml/min; Est GFR (African American) 103.2; Magnesium 2.1 mg/dl (1.8-2.4); Phosphorus 2.9 mg/dl (2.5-4.9); Potassium 4.4 mmol/L (3.5-5.1)
[2020-03-21] MEDS: UMECLIDINIUM BROMIDE 62.5MCG/BLISTER 7 PUFFS/INHALER INH SCH (08:00)
[2020-03-21] MEDS: CYANOCOBALAMIN 500 MCG TABLET (VITAMIN B-12) PO SCH (08:00)
[2020-03-21] MEDS: ASPIRIN 81 MG ECTAB PO SCH (08:01)
[2020-03-21] MEDS: CLOPIDOGREL BISULFATE 75 MG TAB PO SCH (08:01)
[2020-03-21] MEDS: METOPROLOL TARTRATE 25 MG TAB PO SCH ×2 (08:01→20:54)
[2020-03-21] MEDS: levETIRAcetam 500 MG TAB PO SCH ×2 (08:01→20:54)
[2020-03-21] MEDS: PANTOprazole 40 MG TAB PO SCH (08:01)
[2020-03-21] MEDS: diphenhydrAMINE Capsule 25 MG CAP PO SCH ×2 (08:04→20:54)
[2020-03-21] MEDS ORDERED: AMMONIUM LACTATE 12% LOTION 225 GM BTL EXT PRN (12:57)
[2020-03-21 13:41] LABS: Folate (Folic Acid) 5.03 ng/ml (>5.38)
--- NOTE | 2020-03-21 13:44 | Hospitalist Progress Note ---
Date of Service March 21, 2020 Assessment & Plan (1) SIRS (systemic inflammatory response syndrome): Did not have any temperature more than or equal to 38.3 degrees Had transient tachycardia and tachypnea Lactic acid was minimally elevated but no evidence of other infection Sirs but no sepsis Was started with intravenous Dapto and ceftriaxone Blood cultures have been negative and antibiotics have been discontinued Edema of the legs Secondary to hypoalbuminemia Will try very small dose of Lasix but no recommendation for continuation of Lasix Advised to continue with nutritious diet as recommended by dietitian (2) Rash and nonspecific skin eruption: Generalized erythematous scaly rash likely secondary to doxycycline No skin break and no cellulitis Has been on IV Solu-Medrol and will continue that for now Rash has improved a lot and is almost gone (3) Lactic acidosis: This is an 79-year-old male has significant past medical history of COPD, HLD, temporal arteritis, history of CVA with resultant seizure sequelae, history of tobacco abuse, protein calorie malnutrition, GERD who presents to ED secondary to rash x2 weeks. Initial elevation of lactic acid is not due to infection Could be due to inflammatory response Lactic acid has been improving with cautious amount of intravenous fluid Advised to drink more fluid (4) YARED (acute kidney injury): baseline cr 0.6-0.8 bun/cr 39 and 1.16, likely pre renal in setting of poor po intake vs increased skin perfusion IVF NSS x 1 L bolus, re evaluate lactic acid Creatinine has improved to his baseline-we will stop any intravenous fluid Will give very small dose of Lasix to see if that improves edema Check PRP (5) Hyperkalemia: K 5.4 continue IV hydration repeat bmp @ 6pm Malaised (6) Temporal arteritis: Follows [facility] rheumatology Has been off prednisone since December (7) COPD (chronic obstructive pulmonary disease): No acute exacerbation Treated in outpatient setting 03/04 for pneumonia initially with doxycycline but discontinued secondary to rash and completed a full course of azithromycin Chest x-ray is clear today with no superimposed infiltrate Incentive spirometry (8) CVA (cerebral vascular accident): On ASA, Plavix and statin as outpatient Hold statin in setting of daptomycin use (9) Seizure: Secondary to history of right MCA CVA No seizure activity Continue Nydia (10) Anemia: H&H stable at 9.8 and 30.1 Macrocytic hyperchromic Folic acid and B12 obtained 08/19/2019 and was 6.7 and 842 respectively Likely chronic in setting of chronic disease, monitor closely Hemoglobin came out to be 8.81 03/21/2020 and the patient does not require any blood transfusion (11) Protein calorie malnutrition: Is currently being worked up in outpatient setting secondary to hypoalbuminemia Bilateral lower extremity edema is not has fairly new and per outpatient provide rs felt to be secondary to no albumin Consult dietitian-appreciate input and recommendation Add boost supplements (12) Hyperlipidemia: Hold atorvastatin in setting of daptomycin use Monitor CK (13) DVT prophylaxis: Lovenox Disposition: admit to PCU Follow up: PCP Dr. Martel upon discharge Discussed with the and the daughter Admission and Anticipated Discharge Date Admission Date: March 19, 2020 Subjective 03/20/2020 The patient was seen and examined in telemetry unit in presence of the He has been feeling a lot better and except weakness denies any other symptoms No fever and/or chills, no chest pain and/or shortness of breath, no abdominal pain nausea and/or vomiting Complains to have swelling of the legs 03/21/2020 The patient was seen and examined in telemetry unit in presence of the daughter He has been pleasantly confused but denies any significant symptoms Still complains to have bilateral leg edema but does not have any shortness of breath Review of Systems Review of Systems: All systems reviewed and are unremarkable except as noted below Constitutional: + fatigue and + weakness Cardiovascular: + edema (Bilateral leg edema) Physical Exam Physical Exam: Lying in bed comfortably Constitutional: + thin; no acute distress and not ill appearing Eyes: PERRL, conjunctivae normal, anicteric sclerae ENMT: external ear and nose normal, oropharynx normal Neck: trachea midline, no thyromegaly Respiratory: normal respiratory effort; no respiratory distress Auscultation: + crackles (Minimal bibasilar crackles) and + rhonchi (Transmitted sound from trachea) Cardiovascular: Rate/Rhythm: regular rate and regular rhythm Heart Sounds: no murmur Extremities: + edema (1+ bilateral leg edema) Gastrointestinal (Abdomen): Inspection/Auscultation: abdomen normal to inspection; abdomen not distended Percussion/Palpation: abdomen soft Musculoskeletal: No acute arthritis involving any joints Neurologic: moves all extremities; no focal motor deficits Lymphatic: no cervical or axillary lymphadenopathy Results & Data Results & Data ([facility]) Vital Signs (Past 12 Hours) Vital Signs Temp Pulse Pulse Resp BP Pulse Ox 03/21/20 11:58 36.5 C 80 18 115/52 L 95 03/21/20 07:56 36.4 C L 93 H 18 116/69 98 03/21/20 07:15 81 03/21/20 04:43 36.5 C 78 18 117/57 L 95 Laboratory Results Short CBC 03/21/20 Range/Units 06:38 WBC 8.54 (4.8-10.8) K/uL Hgb 8.8 L (14.0-18.0) g/dL Hct 27.3 L (42-52) % Plt Count 211 (130-400) K/uL BMP 03/21/20 06:38 Sodium 144 Potassium 4.4 Chloride 114 H Carbon Dioxide 23 BUN 31 H Creatinine 0.69 Glucose 109 H Calcium 7.3 L Medications Administered Current Inpatient Medications Acetaminophen (Acetaminophen 325 Mg Tab) 650 mg PO Q4H PRN PRN Reason: Pain or Fever Stop: 04/18/20 14:04 Al Hydrox/Mg Hydrox/Simethicone (Aluminum/Magnesium Susp 30 Ml Udc) 15 ml PO Q4H PRN PRN Reason: Dyspepsia Stop: 04/18/20 14:04 Aspirin (Aspirin 81 Mg Ectab) 81 mg PO [facility] Stop: 04/19/20 08:59 Last Admin: 03/21/20 08:01 Dose: 81 mg Documented by: Clopidogrel Bisulfate (Clopidogrel Bisulfate 75 Mg Tab) 75 mg PO [facility] Stop: 04/19/20 08:59 Last Admin: 03/21/20 08:01 Dose: 75 mg Documented by: Cyanocobalamin (Cyanocobalamin 500 Mcg Tablet (Vitamin B-12)) 500 mcg PO [facility] Stop: 04/19/20 08:59 Last Admin: 03/21/20 08:00 Dose: 500 mcg Documented by: Diphenhydramine HCl (Diphenhydramine Hcl 25 Mg Cap) 25 mg PO Q12 [facility] Stop: 04/18/20 14:29 Last Admin: 03/21/20 08:04 Dose: 25 mg Documented by: Enoxaparin Sodium (Enoxaparin Inj 40 Mg/0.4 Ml Syr) 40 mg SQ Q24H [facility] Stop: 04/18/20 20:59 Last Admin: 03/20/20 20:32 Dose: 40 mg Documented by: Methylprednisolone 40 mg/ (Syringe) 0.64 mls @ 1.5 mls/min IV Q24H [facility] Stop: 04/18/20 14:59 Last Admin: 03/20/20 15:37 Dose: 1.5 mls/min Documented by: Furosemide 20 mg/ Syringe 2 mls @ 4 mls/min IV ONE ONE Stop: 03/21/20 14:01 Lactic Acid (Ammonium Lactate 12% Lotion 225 Gm Btl) 1 gm EXT PRN PRN PRN Reason: Dryness Stop: 04/20/20 12:56 Levetiracetam (Levetiracetam 500 Mg Tab) 500 mg PO BID [facility] Stop: 04/18/20 20:59 Last Admin: 03/21/20 08:01 Dose: 500 mg Documented by: Magnesium Hydroxide (Magnesium Hydroxide Susp 30 Ml Udc) 30 ml PO Q12H PRN PRN Reason: Constipation Stop: 04/18/20 14:04 Metoprolol Tartrate (Metoprolol Tartrate 25 Mg Tab) 12.5 mg PO BID [facility] Stop: 04/18/20 20:59 Last Admin: 03/21/20 08:01 Dose: 12.5 mg Documented by: Miscellaneous (*Loteprednol Etabonate [Lotemax]*Order Awaiting Action) 1 ea N/A QS [facility] Stop: 04/18/20 15:59 Last Admin: 03/21/20 07:28 Dose: Not Given Documented by: Ondansetron HCl (Ondansetron Inj 2 Mg/Ml 2 Ml Vial) 4 mg IV Q6H PRN PRN Reason: Nausea Stop: 04/18/20 14:04 Pantoprazole Sodium (Pantoprazole 40 Mg Tab) 40 mg PO QAM [facility] Stop: 04/19/20 08:59 Last Admin: 03/21/20 08:01 Dose: 40 mg Documented by: Polyethylene Glycol (Polyethylene (Miralax) 17 Gm Pack) 17 gm PO DAILY PRN PRN Reason: Constipation Stop: 04/18/20 14:04 Umeclidinium [place] (Umeclidinium [place] 62.5mcg/Blister 7 Puffs/Inhaler) 1 puffs INH [facility]; Protocol Stop: 04/19/20 08:59 Last Admin: 03/21/20 08:00 Dose: 1 puffs Documented by: Zinc Acetate/Diphenhydramine (Diphenhydramine 2%/Zinc 0.1% Cream 28gm Tube) 1 appln EXT BID PRN PRN Reason: Itching Stop: 04/18/20 22:00 Last Admin: 03/20/20 00:12 Dose: 1 appln Documented by: (1) CVA (cerebral vascular accident) CVA mechanism: unspecified Qualified Code(s): I63.9 - Cerebral infarction, un specified
[2020-03-21] MEDS ORDERED: FUROSEMIDE 20 MG in SYRINGE 0 ML IV ONE (14:00)
[2020-03-21] MEDS: FOLIC ACID 400 MCG TAB PO SCH (14:39)
[2020-03-21] MEDS: methylPREDNISolone 40 MG in SYRINGE 0 ML IV SCH (14:39)
[2020-03-21] MEDS: ENOXAPARIN INJ 40 MG/0.4 ML SYR SQ SCH (20:54)
[2020-03-22 07:10] LABS: Basophils # (auto) 0.03 K/uL (0-0.2); Basophils % (auto) 0.7 %; Hemoglobin 7.7 g/dL (14.0-18.0); Immature Granulocytes # (auto) 0.16 K/uL (0.00-0.02); Immature Granulocytes % (auto) 3.6 %; Lymphocytes # (auto) 1.67 K/uL (1.2-3.4); Lymphocytes % (auto) 37.4 %; Mean Corpuscular Hemoglobin 37.2 pg (25-34); Mean Corpuscular Hgb Conc 30.8 g/dL (32-36); Mean Corpuscular Volume 120.8 fL (80-100); Mean Platelet Volume 9.4 fL (7.4-10.4); Monocytes # (auto) 0.52 K/uL (0.11-0.59); Monocytes % (auto) 11.7 %; Neutrophils # (auto) 2.08 K/uL (1.4-6.5); Neutrophils % (auto) 46.6 %; Platelet Count 165 K/uL (130-400); RDW Coefficient of Variation 16.8 % (11.5-14.5); RDW Standard Deviation 73.8 fL (36.4-46.3); Red Blood Count 2.07 M/uL (4.7-6.1); White Blood Count 4.46 K/uL (4.8-10.8)
[2020-03-22 07:35] LABS: Macrocytosis Present; Ovalocytes 1+
[2020-03-22 07:49] LABS: Calcium 7.2 mg/dl (8.5-10.1); Creatinine Clr Calc Pharmacy 73.4 ml/min; Est GFR (African American) 107.8; Magnesium 2.1 mg/dl (1.8-2.4); Phosphorus 2.8 mg/dl (2.5-4.9); Potassium 4.3 mmol/L (3.5-5.1)
[2020-03-22] MEDS: FOLIC ACID 400 MCG TAB PO SCH (09:20)
[2020-03-22] MEDS: METOPROLOL TARTRATE 25 MG TAB PO SCH (09:20)
[2020-03-22] MEDS: levETIRAcetam 500 MG TAB PO SCH (09:21)
[2020-03-22] MEDS: ASPIRIN 81 MG ECTAB PO SCH (09:21)
[2020-03-22] MEDS: CYANOCOBALAMIN 500 MCG TABLET (VITAMIN B-12) PO SCH (09:21)
[2020-03-22] MEDS: PANTOprazole 40 MG TAB PO SCH (09:21)
[2020-03-22] MEDS: CLOPIDOGREL BISULFATE 75 MG TAB PO SCH (09:21)
[2020-03-22] MEDS: diphenhydrAMINE Capsule 25 MG CAP PO SCH (09:33)
[2020-03-22] MEDS: UMECLIDINIUM BROMIDE 62.5MCG/BLISTER 7 PUFFS/INHALER INH SCH (10:56)
--- NOTE | 2020-03-22 14:16 | Hospitalist Progress Note ---
Date of Service March 22, 2020 Assessment & Plan (1) SIRS (systemic inflammatory response syndrome): Did not have any temperature more than or equal to 38.3 degrees Had transient tachycardia and tachypnea Lactic acid was minimally elevated but no evidence of other infection Sirs but no sepsis Was started with intravenous Dapto and ceftriaxone Blood cultures have been negative and antibiotics have been discontinued No fever, no white count no other symptoms or sign of infection Edema of the legs Secondary to hypoalbuminemia Will try very small dose of Lasix but no recommendation for continuation of Lasix Advised to continue with nutritious diet as recommended by dietitian Received 1 dose of Lasix yesterday and there is not much difference in edema of the leg (2) Rash and nonspecific skin eruption: Generalized erythematous scaly rash likely secondary to doxycycline No skin break and no cellulitis Has been on IV Solu-Medrol and will continue that for now Rash has improved a lot and is almost gone Continue any more steroids (3) Lactic acidosis: This is an 79-year-old male has significant past medical history of COPD, HLD, temporal arteritis, history of CVA with resultant seizure sequelae, history of tobacco abuse, protein calorie malnutrition, GERD who presents to ED secondary to rash x2 weeks. Initial elevation of lactic acid is not due to infection Could be due to inflammatory response Lactic acid has been improving with cautious amount of intravenous fluid Advised to drink more fluid (4) YARED (acute kidney injury): baseline cr 0.6-0.8 bun/cr 39 and 1.16, likely pre renal in setting of poor po intake vs increased skin perfusion IVF NSS x 1 L bolus, re evaluate lactic acid Creatinine has improved to his baseline-we will stop any intravenous fluid Will give very small dose of Lasix to see if that improves edema Check PRP-creatinine has been normal (5) Hyperkalemia: K 5.4 continue IV hydration repeat bmp @ 6pm Malaised (6) Temporal arteritis: Follows [facility] rheumatology Has been off prednisone since December (7) COPD (chronic obstructive pulmonary disease): No acute exacerbation Treated in outpatient setting 03/04 for pneumonia initially with doxycycline but discontinued secondary to rash and completed a full course of azithromycin Chest x-ray is clear today with no superimposed infiltrate Incentive spirometry (8) CVA (cerebral vascular accident): On ASA, Plavix and statin as outpatient Hold statin in setting of daptomycin use (9) Seizure: Secondary to history of right MCA CVA No seizure activity Continue Nydia (10) Anemia: H&H stable at 9.8 and 30.1 Macrocytic hyperchromic Folic acid and B12 obtained 08/19/2019 and was 6.7 and 842 respectively Likely chronic in setting of chronic disease, monitor closely Hemoglobin came out to be 8.81 03/21/2020 and the patient does not require any blood transfusion Remains stable at 7.7 as of 03/22/2020 (11) Protein calorie malnutrition: Is currently being worked up in outpatient setting secondary to hypoalbuminemia Bilateral lower extremity edema is not has fairly new and per outpatient providers felt to be secondary to no albumin Consult dietitian-appreciate input and recommendation Add boost supplements Strongly advised to have more nutritious diet and that are discussed with the and the daughter (12) Hyperlipidemia: Hold atorvastatin in setting of daptomycin use Monitor CK (13) DVT prophylaxis: Lovenox Disposition: admit to PCU Follow up: PCP Dr. Martel upon discharge Discussed with the and the daughter GERD PT and OT evaluation and recommended home with home PT Admission and Anticipated Discharge Date Admission Date: March 19, 2020 Subjective 03/20/2020 The patient was seen and examined in telemetry unit in presence of the He has been feeling a lot better and except weakness denies any other symptoms No fever and/or chills, no chest pain and/or shortness of breath, no abdominal pain nausea and/or vomiting Complains to have swelling of the legs 03/21/2020 The patient was seen and examined in telemetry unit in presence of the daughter He has been pleasantly confused but denies any significant symptoms Still complains to have bilateral leg edema but does not have any shortness of breath 03/22/2020 The patient was seen and examined in telemetry unit in presence of the He has been feeling a lot better and denies any symptoms He wants to go home Review of Systems Review of Systems: All systems reviewed and are unremarkable except as noted below Constitutional: + fatigue and + weakness Cardiovascular: + edema (Bilateral leg edema) Physical Exam Physical Exam: Lying in bed comfortably Constitutional: + thin; no acute distress and not ill appearing Eyes: PERRL, conjunctivae normal, anicteric sclerae ENMT: external ear and nose normal, oropharynx normal Neck: trachea midline, no thyromegaly Respiratory: normal respiratory effort; no respiratory distress Auscultat ion: + crackles (Minimal bibasilar crackles) and + rhonchi (Transmitted sound from trachea) Cardiovascular: Rate/Rhythm: regular rate and regular rhythm Heart Sounds: no murmur Extremities: + edema (1+ bilateral leg edema) Gastrointestinal (Abdomen): Inspection/Auscultation: abdomen normal to inspection; abdomen not distended Percussion/Palpation: abdomen soft Musculoskeletal: No acute arthritis involving any joint Neurologic: moves all extremities; no focal motor deficits Lymphatic: no cervical or axillary lymphadenopathy Results & Data Results & Data ([facility]) Vital Signs (Past 12 Hours) Vital Signs Temp Pulse Pulse Pulse Resp BP Pulse Ox 03/22/20 13:49 03/22/20 11:49 36.6 C 81 19 118/67 98 03/22/20 08:07 36.5 C 87 18 131/69 94 03/22/20 08:00 81 03/22/20 04:17 36.4 C L 95 H 20 143/67 H 95 Pulse Ox 03/22/20 13:49 97 03/22/20 11:49 03/22/20 08:07 03/22/20 08:00 03/22/20 04:17 Laboratory Results Short CBC 03/22/20 Range/Units 06:57 WBC 4.46 L (4.8-10.8) K/uL Hgb 7.7 L (14.0-18.0) g/dL Hct 25.0 L (42-52) % Plt Count 165 (130-400) K/uL BMP 03/22/20 06:57 Sodium 144 Potassium 4.3 Chloride 114 H Carbon Dioxide 27 BUN 28 H Creatinine 0.62 Glucose 95 Calcium 7.2 L Medications Administered Current Inpatient Medications Acetaminophen (Acetaminophen 325 Mg Tab) 650 mg PO Q4H PRN PRN Reason: Pain or Fever Stop: 04/18/20 14:04 Al Hydrox/Mg Hydrox/Simethicone (Aluminum/Magnesium Susp 30 Ml Udc) 15 ml PO Q4H PRN PRN Reason: Dyspepsia Stop: 04/18/20 14:04 Aspirin ([facility]spirin 81 Mg [facility]) [facility] [place]: 04/19/20 08:59 Last Admin: 03/22/20 09:21 Dose: 81 mg Documented by: Clopidogrel Bisulfate (Clopidogrel Bisulfate 75 Mg Tab) 75 mg PO QAM [facility] Stop: 04/19/20 08:59 Last Admin: 03/22/20 09:21 Dose: 75 mg Documented by: Cyanocobalamin (Cyanocobalamin 500 Mcg Tablet (Vitamin B-12)) 500 mcg PO QAM [facility] Stop: 04/19/20 08:59 Last Admin: 03/22/20 09:21 Dose: 500 mcg Documented by: Diphenhydramine HCl (Diphenhydramine Hcl 25 Mg Cap) 25 mg PO Q12 [facility] Stop: 04/18/20 14:29 Last Admin: 03/22/20 09:33 Dose: 25 mg Documented by: Enoxaparin Sodium (Enoxaparin Inj 40 Mg/0.4 Ml Syr) 40 mg SQ Q24H [facility] Stop: 04/18/20 20:59 Last Admin: 03/21/20 20:54 Dose: 40 mg Documented by: Folic Acid (Folic Acid 400 Mcg Tab) [facility] [place] Stop: 04/20/20 13:59 Last Admin: 03/22/20 09:20 Dose: 400 mcg Documented by: Methylprednisolone 40 mg/ (Syringe) 0.64 mls @ 1.5 mls/min IV Q24H [facility] Stop: 04/18/20 14:59 Last Admin: 03/21/20 14:39 Dose: 1.5 mls/min Documented by: Lactic Acid (Ammonium Lactate 12% Lotion 225 Gm Btl) 1 gm EXT PRN PRN PRN Reason: Dryness Stop: 04/20/20 12:56 Levetiracetam (Levetiracetam 500 Mg Tab) 500 mg PO BID [facility] Stop: 04/18/20 20:59 Last Admin: 03/22/20 09:21 Dose: 500 mg Documented by: Magnesium Hydroxide (Magnesium Hydroxide Susp 30 Ml Udc) 30 ml PO Q12H PRN PRN Reason: Constipation Stop: 04/18/20 14:04 Metoprolol Tartrate (Metoprolol Tartrate 25 Mg Tab) 12.5 mg PO BID [facility] Stop: 04/18/20 20:59 Last Admin: 03/22/20 09:20 Dose: 12.5 mg Documented by: Miscellaneous (*Loteprednol Etabonate [Lotemax]*Order Awaiting Action) 1 ea N/A QS [facility] Stop: 04/18/20 15:59 Last Admin: 03/22/20 09:33 Dose: Not Given Documented by: Ondansetron HCl (Ondansetron Inj 2 Mg/Ml 2 Ml Vial) 4 mg IV Q6H PRN PRN Reason: Nausea Stop: 04/18/20 14:04 Pantoprazole Sodium (Pantoprazole 40 Mg Tab) 40 mg PO [facility] Stop: 04/19/20 08:59 Last Admin: 03/22/20 09:21 Dose: 40 mg Documented by: Polyethylene Glycol (Polyethylene (Miralax) 17 Gm Pack) 17 gm PO DAILY PRN PRN Reason: Constipation Stop: 04/18/20 14:04 Umeclidinium [place] (Umeclidinium [place] 62.5mcg/Blister 7 Puffs/Inhaler) 1 puffs INH [facility]; Protocol Stop: 04/19/20 08:59 Last Admin: 03/22/20 10:56 Dose: 1 puffs Documented by: Zinc Acetate/Diphenhydramine (Diphenhydramine 2%/Zinc 0.1% Cream 28gm Tube) 1 appln EXT BID PRN PRN Reason: Itching Stop: 04/18/20 22:00 Last Admin: 03/20/20 00:12 Dose: 1 appln Documented by: (1) CVA (cerebral vascular accident) CVA mechanism: unspecified Qualified Code(s): I63.9 - Cerebral infarction, unspecified
--- NOTE | 2020-03-23 08:17 | Discharge Summary ---
Date of Service March 23, 2020 Admission HPI Per Admitting Provider This is an 79-year-old male has significant past medical history of COPD, HLD, temporal arteritis, history of CVA with resultant seizure sequelae, history of tobacco abuse, protein calorie malnutrition, GERD who presents to ED secondary to rash x2 weeks. is at bedside. On 03/05 patient was seen by PCP and had chest x-ray performed. Chest x-ray concerning for groundglass opacities and pneumonia. He was started on doxycycline and a few days after initiating developed a red rash. called PCP and doxycycline was discontinued and he was prescribed azithromycin. He did finish Z-Nadir in his entirety. He is unsure how many days after starting antibiotic and is unsure exactly where the rash started, but since has spread all over his body. His skin is red, very dry and complains of increased swelling to lower extremities. Initially rash was itchy, but provided him with Benadryl which did help. He denies any pain or rash. Patient and are somewhat poor historian as exact development events are unclear. He denies any documented fever, chills, sweats, lightheadedness, dizziness, chest pain, shortness of breath, WEAVER, nausea, vomiting, abdominal pain. He recently had been constipated but otherwise is now moving his bowels regularly. He denies any melena or hematochezia. He denies any difficulty with urination including dysuria, increased urgency or frequency or hematuria. He does have a chronic wet cough, but is unable to produce. He does not feel cough is worse than usual. He does have a prior history of smoking for approximately 60 years, but quit 2 years ago. In regards to his history of temporal arteritis he follows with [facility] rheumatology. He has been off prednisone for approximately 2 months. He overall has a poor appetite. In ED patient was tachycardic and had elevated temp to 37.8. He did not meet criteria for SIRS or sepsis. Lab abnormalities notable for H&H 9.8 and 30.0, WBC 7.14, platelet 224, ESR 40, CRP 12.3, K5.4, BUN 39, creatinine 1.16, glucose 106, lactic acid 4.0, albumin 1.7, procalcitonin 0.45. Chest x-ray negative for acute cardiopulmonary abnormality. There was possible concern for bilateral cellulitis and therefore he was given I V vancomycin and ceftriaxone. He also received 500 mL IVF. Admission Exam Per Admitting Provider Physical Exam: Constitutional: Tall, thin, elderly male, hard of hearing, vitals as above, NAD, sitting up in bed, pleasant, conversing easily Head: Normocephalic, Atraumatic Eyes: PERRL, conjunctivae normal, anicteric sclerae ENMT: Hard of hearing, external ear and nose normal, oropharynx normal Neck: trachea midline, no thyromegaly normal visual inspection Respiratory: normal respiratory effort, lungs clear to auscultation, no wheeze, rales, rhonchi. Normal insp/exp effort, no accessory muscle use Cardiovascular: Tachycardic rate, regular rhythm, no murmur, bilateral +3 pitting edema, pedal pulses +2 and equal Vessels: no JVD or carotid bruit Chest: normal inspection of chest Abdomen: normal bowel sounds, soft, nontender, no hepatosplenomegaly Musculoskeletal: no cyanosis or clubbing, extremities motor strength 5/5 Skin: Diffuse erythematous rash greater than 90% surface area, red, warm, scaly, bilateral lower extremities with a petechial, nonblanching rash that extends to proximal thighs, not painful to palpation, warm and moderate turgor Neurologic: PERRL, EOMI, accommodation nl, no face palsy, no dysarthria CN's II-XI intact bilaterally and moves all extremities Psychiatric: A+Ox3, euthymic affect Lymphatic: no cervical or axillary lymphadenopathy : deferred Principal Diagnosis Generalized weakness, bilateral leg edema secondary to malnutrition, stable COPD, chronic anemia Discharge Exam Constitutional + thin; no acute distress and not ill appearing Eyes PERRL, conjunctivae normal, anicteric sclerae ENMT external ear and nose normal, oropharynx normal Neck trachea midline, no thyromegaly Respiratory normal respiratory effort; no respiratory distress Auscultation: + crackles (Minimal bibasilar crackles) and + rhonchi (Transmitted sound from trachea) Cardiovascular Rate/Rhythm: regular rate and regular rhythm Heart Sounds: no murmur Extremities: + edema (1+ bilateral leg edema) Gastrointestinal (Abdomen) Inspection/Auscultation: abdomen normal to inspection; abdomen not distended Percussion/Palpation: abdomen soft Neurologic moves all extremities; no focal motor deficits Lymphatic no cervical or axillary lymphadenopathy Discharge Data Allergies Allergy/AdvReac Type Severity Reaction Status Date / Time Penicillins Allergy Mild Rash Verified 03/19/20 12:39 doxycycline Allergy rash Verified 03/19/20 13:51 Consultations 03/19/20 12:22 ED Decision to Admit Stat 03/19/20 14:05 Consult Case Management - Discharge Planning Routine Hospital Course (1) SIRS (systemic inflammatory response syndrome): Did not have any temperature more than or equal to 38.3 degrees Had transient tachycardia and tachypnea Lactic acid was minimally elevated but no evidence of other infection Sirs but no sepsis Was started with intravenous Dapto and ceftriaxone Blood cultures have been negative and antibiotics have been discontinued No fever, no white count no other symptoms or sign of infection Edema of the legs Secondary to hypoalbuminemia Will try very small dose of Lasix but no recommendation for continuation of Lasix Advised to continue with nutritious diet as recommended by dietitian Received 1 dose of Lasix yesterday and there is not much difference in edema of the leg (2) Rash and nonspecific skin eruption: Generalized erythematous scaly rash likely secondary to doxycycline No skin break and no cellulitis Has been on IV Solu-Medrol and will continue that for now Rash has improved a lot and is almost gone Continue any more steroids (3) Lactic acidosis: This is an 79-year-old male has significant past medical history of COPD, HLD, temporal arteritis, history of CVA with resultant seizure sequelae, history of tobacco abuse, protein calorie malnutrition, GERD who presents to ED secondary to rash x2 weeks. Initial elevation of lactic acid is not due to infection Could be due to inflammatory response Lactic acid has been improving with cautious amount of intravenous fluid Advised to drink more fluid (4) YARED (acute kidney injury): baseline cr 0.6-0.8 bun/cr 39 and 1.16, likely pre renal in setting of poor po intake vs increased skin perfusion IVF NSS x 1 L bolus, re evaluate lactic acid Creatinine has improved to his baseline-we will stop any intravenous fluid Will give very small dose of Lasix to see if that improves edema Check PRP-creatinine has been normal (5) Hyperkalemia: K 5.4 continue IV hydration repeat bmp @ 6pm Malaised (6) Temporal arteritis: Follows [facility] rheumatology Has been off prednisone since December (7) COPD (chronic obstructive pulmonary disease): No acute exacerbation Treated in outpatient setting 03/04 for pneumonia initially with doxycycline but discontinued secondary to rash and completed a full course of azithromycin Chest x-ray is clear today with no superimposed infiltrate Incentive spirometry (8) CVA (cerebral vascular accident): On ASA, Plavix and statin as outpatient Hold statin in setting of daptomycin use (9) Seizure: Secondary to history of right MCA CVA No seizure activity Continue [place]li[place] (10) Anemia: H&H stable at 9.8 and 30.1 Macrocytic hyperchromic Folic acid and B12 obtained 08/19/2019 and was 6.7 and 842 respectively Likely chronic in setting of chronic disease, monitor closely Hemoglobin came out to be 8.81 03/21/2020 and the patient does not require any blood transfusion Remains stable at 7.7 as of 03/22/2020 (11) Protein calorie malnutrition: Is currently being worked up in outpatient setting secondary to hypoalbuminemia Bilateral lower extremity edema is not has fairly new and per outpatient providers felt to be secondary to no albumin Consult dietitian-appreciate input and recommendation Add boost supplements Strongly advised to have more nutritious diet and that are discussed with the and the daughter (12) Hyperlipidemia: Hold atorvastatin in setting of daptomycin use Monitor CK (13) DVT prophylaxis: Lovenox Disposition: admit to PCU Follow up: PCP Dr. Martel upon discharge Discussed with the and the daughter GERD PT and OT evaluation and recommended home with home PT Total Time Total Time Spent Total Time Spent (In Minutes): 35 minutes Total Time Includes: Examination of the Patient, Discharge Planning, Medication Reconciliation and Communication With Other Providers Discharge Plan Discharge Items Patient Disposition: Home - Home Health Services Reason For Visit: LETHARGIC Discharge Diagnosis: Generalized weakness, bilateral leg edema secondary to malnutrition, stable COPD, chronic anemia Condition on Discharge: Good Activity: As commented below Activity Comment: Will get home PT and OT Non-emergency contact: Primary Care Provider Call non-emergency contact if: you have any medication questions and your symptoms worsen Follow-up/Referrals: Hernando Martel DO [Primary Care Provider] - (Date & Time 03/24/2020 12:00 PM Provider Hernando Martel DO Department General Internal Medicine [facility] ) Diet: Regular Diet Comment: Advised to have boost GC twice daily gelatin daily Addtl Attending Provider Instructions: Please take precaution to avoid fall Type to take more protein in your diet Pending Studies at Discharge: No Stand-Alone Forms: My [facility], Smoking Cessation Medications and DC Order Prescriptions: New folic acid 400 mcg Tablet 400 mcg PO QAM 30 Days Qty: 30 RF: 0 Continued cyanocobalamin (vitamin B-12) [Vitamin B-12] 500 mcg tablet 500 mcg PO QAM RF: 0 loteprednol etabonate [Lotemax] 0.5 % drops,suspension 1 drp OPB BID RF: 0 Spiriva with HandiHaler 18 mcg capsule, w/inhalation device 1 cap INHALATION QAM RF: 0 levetiracetam [Keppra] 500 mg tablet 500 mg PO BID Qty: 60 RF: 1 clopidogrel 75 mg Tablet 75 mg PO QAM Qty: 30 RF: 0 atorvastatin 40 mg Tablet 40 mg PO HS Qty: 30 RF: 1 metoprolol tartrate 25 mg Tablet 12.5 mg PO BID Qty: 60 RF: 1 aspirin [Ecotrin Low Strength] 81 mg tablet,delayed release (DR/EC) 81 mg PO QAM RF: 0 pantoprazole [Protonix] 40 mg tablet,delayed release (DR/EC) 40 mg PO QAM RF: 0 Discharge Orders: Discharge Order (Routine); Ordered 03/22/20 Ordered By: Junior Lancaster Admission Data Admit Date/Time: 03/19/20 14:08 Attending Provider: Junior Lancaster Admit Provider: Dipak Huang Primary Care Provider: Hernando Martel Other Providers: Dipak Huang ; On License Of [facility]Home [facility] Other Interventions: Discharge Summary Assessment (RN) Last Done: 03/22/20 15:00
== END 2020-03-22 16:15 | disposition home health service (06) ==
LOC: 2S 10:19 → ED 10:19 → 2S 13:21 → SUATTDRO 14:08 → 2S 19:33
DX: Z79.899 Other long term (current) drug therapy; J44.9 Chronic obstructive pulmonary disease, unspecified; Z79.02 Long term (current) use of antithrombotics/antiplatelets; Z87.891 Personal history of nicotine dependence; D64.9 Anemia, unspecified; K21.9 Gastro-esophageal reflux disease without esophagitis; Z88.1 Allergy status to other antibiotic agents; R56.9 Unspecified convulsions; E87.2 Acidosis; R21 Rash and other nonspecific skin eruption; E78.5 Hyperlipidemia, unspecified; N17.9 Acute kidney failure, unspecified; E46 Unspecified protein-calorie malnutrition; Z79.52 Long term (current) use of systemic steroids; Z88.0 Allergy status to penicillin; E53.8 Deficiency of other specified B group vitamins; Z86.73 Personal history of transient ischemic attack (TIA), and cerebral infarction without residual deficits; E87.5 Hyperkalemia; Z79.82 Long term (current) use of aspirin; E86.0 Dehydration; R60.0 Localized edema; R00.0 Tachycardia, unspecified; M31.6 Other giant cell arteritis; R65.10 Systemic inflammatory response syndrome (SIRS) of non-infectious origin without acute organ dysfunction